=== PATIENT | female | born 1940 | race American Indian/Alaskan Native ===

== ENCOUNTER 2017-05-24 15:10 | Inpatient (IN) | payer MEDICARE, BC ==
[2017-05-24 15:10] VITALS: BMI 31.1
[2017-05-24] MEDS ORDERED: Albuterol-Ipratrop 3 mg / 0.5 (3 ml) UD INH STA (15:39)
[2017-05-24 16:04] LABS: BASO % 0.3 % (0.0-2.0); EOS % 0.2 % (0.0-4.0); HEMATOCRIT 40.4 % (34.0-47.0); LYMPH # 0.5 K/uL (1.0-4.3); LYMPH % 10.7 % (20.0-40.0); MEAN CORPUSCULAR HEMOGLOBIN 33.8 pg (27.0-31.0); MEAN CORPUSCULAR HGB CONC 32.1 g/dL (33.0-37.0); MEAN PLATELET VOLUME 9.9 fL (7.2-11.7); MONO # 0.1 K/uL (0.0-0.8); MONO % 2.8 % (0.0-10.0); WHITE BLOOD COUNT 4.7 K/uL (4.8-10.8)
[2017-05-24 16:10] LABS: MEAN CELL VOLUME 105.2 fL (81.0-99.0)
[2017-05-24] MEDS ORDERED: Albuterol-Ipratrop 3 mg / 0.5 (3 ml) UD ONE (16:23)
--- NOTE | 2017-05-24 16:32 | RAD ---
HISTORY: SOB COMPARISON: CT chest without contrast performed 01/27/15 TECHNIQUE: Chest, one view. FINDINGS: Examination limited by habitus and positioning. The patient's chin obscures evaluation of the lung apices. LUNGS: Moderate right and small left lower lobe opacities may represent pleural effusions and/or consolidations. Prominent interstitial markings. Biapical pleural thickening. No definite pneumothorax. CARDIOVASCULAR: Cardiomegaly. Dense atherosclerotic calcifications. OSSEOUS STRUCTURES: Severe kyphosis. VISUALIZED UPPER ABDOMEN: Unremarkable. OTHER FINDINGS: None. IMPRESSION: Moderate right and small left lower lobe opacities may represent pleural effusions and/or consolidations. Cardiomegaly. Dense atherosclerotic calcifications. Severe kyphosis. Prominent interstitial markings. Biapical pleural thickening.
[2017-05-24 16:45] LABS: TROPONIN I 0.035 ng/mL (0.00-0.120)
[2017-05-24 16:46] LABS: ALB/GLOB RATIO 1.6 (1.0-2.1); BILIRUBIN,TOTAL 0.8 mg/dL (0.2-1.3); CALCIUM 9.4 mg/dl (8.6-10.4); POTASSIUM 4.6 mmol/L (3.6-5.2)
[2017-05-24] MEDS ORDERED: cefTRIAXone IV 1 gm in Dextros 50 ML IV ONE (17:04)
[2017-05-24] MEDS ORDERED: Azithromycin 500 MG in Sodium Chloride 0.9% 250 ML IV STA (17:04)
--- NOTE | 2017-05-24 17:05 | C.PDOC ---
History Of Present Illness 76 year old female, whose PMHx includes COPD, presents to the ED for evaluation of shortness of breath which began yesterday. Patient denies fever, chills, cough and chest pain at this time. Time Seen by Provider: 05/24/17 15:33 Chief Complaint (Nursing): Shortness Of Breath History Per: Patient History/Exam Limitations: no limitations Onset/Duration Of Symptoms: Hrs Current Symptoms Are (Timing): Still Present Quality: denies: "Pain" Current Respiratory Medications: See Home Med List Associated Symptoms: denies: Fever, Chills, Chest Pain, Bloody Cough, Productive Cough Additional History Per: Patient Past Medical History Reviewed: Historical Data, Nursing Documentation, Vital Signs Vital Signs: Last Vital Signs Temp 98 F 05/24/17 20:54 Pulse 74 05/24/17 20:54 Resp 20 05/24/17 20:54 BP 150/77 05/24/17 20:54 Pulse Ox 99 05/24/17 22:49 - Medical History PMH: COPD Surgical History: No Surg Hx Family History: States: Unknown Family Hx - Social History Hx Tobacco Use: No Hx Alcohol Use: No Hx Substance Use: No - Immunization History Hx Tetanus Toxoid Vaccination: Yes Hx Influenza Vaccination: Yes Hx Pneumococcal Vaccination: No Review Of Systems Constitutional: Negative for: Fever, Chills Cardiovascular: Negative for: Chest Pain Respiratory: Positive for: Shortness of Breath. Negative for: Cough Physical Exam - Physical Exam Appears: Non-toxic, No Acute Distress, Other (kyphotic, scoliotic) Skin: Normal Color, Warm, Dry Head: Atraumatic, Normacephalic Eye(s): bilateral: Normal Inspection Oral Mucosa: Moist Neck: Supple Chest: Symmetrical, No Deformity, No Tenderness Cardiovascular: Rhythm Regular, No Murmur Respiratory: Normal Breath Sounds, No Rales, No Rhonchi, No Wheezing, Other ( poor inspiratory effort ) Extremity: Normal ROM, Capillary Refill (less than 2 seconds ) Neurological/Psych: Oriented x3, Normal Speech, Normal Cognition Gait: Steady ED Course And Treatment - Laboratory Results Result Diagrams: 05/24/17 16:00 05/24/17 16:00 Lab Interpretation: Abnormal (CRI, creat @ baseline) ECG: Interpreted By Wa ECG Rhythm: Sinus Rhythm ECG Interpretation: Normal Rate From EC O2 Sat by Pulse Oximetry: 99 (on RA) Pulse Ox Interpretation: Normal - Radiology CXR: Interpreted by Me, Read By Radiologist CXR Interpretation: Yes: Infiltrates (+RLL) Progress Note: Bloodwork, UA, CXR and EKG ordered and reviewed. Albuterol INH, Solu-Medrol IVP, Zithromax PO and Rocephin IVP administered. - Physician Consult Information Outcome Of Conversation: [address] Motley- PMD- ok to Obs. Recommends Rocephin/Azithro Medical Decision Making Medical Decision Making: RLL PNA and copd exacerbation significant kyphoscoliosis contributing factor. CAP Disposition Doctor Will See Patient In The: Hospital Counseled Patient/Family Regarding: Studies Performed, Diagnosis - Disposition Disposition: HOME/ ROUTINE Disposition Time: 17:07 Condition: GOOD - Clinical Impression Clinical Impression: Chr obstructive pulmonary disease w/ acute lower respiratory infxn - Scribe Statement The provider has reviewed the documentation as recorded by the Scribe (Milly Jimenez) Provider Attestation: All medical record entries made by the Scribe were at my direction and personally dictated by me. I have reviewed the chart and agree that the record accurately reflects my personal performance of the history, physical exam, medical decision making, and the department course for this patient. I have also personally directed, reviewed, and agree with the discharge instructions and disposition.
[2017-05-24] MEDS ORDERED: cefTRIAXone IV 1 gm in Dextros 50 ML IVPB ONE (17:16)
[2017-05-24] MEDS ORDERED: Albuterol-Ipratrop 3 mg / 0.5 (3 ml) UD INH SCH (21:45)
[2017-05-24] MEDS: MethylPREDNISolone 40 mg Vial IV SCH (23:02)
[2017-05-24] MEDS: Albuterol-Ipratrop 3 mg / 0.5 (3 ml) UD INH SCH (23:50)
[2017-05-25] MEDS: Albuterol-Ipratrop 3 mg / 0.5 (3 ml) UD INH SCH ×5 (03:10→19:22)
[2017-05-25 06:58] LABS: RBC URINE 1 /hpf (0-3); URINE BACTERIA RARE (<OCC); URINE BILIRUBIN NEGATIVE (NEGATIVE); URINE BLOOD NEGATIVE (NEGATIVE); URINE COLOR Yellow (YELLOW); URINE GLUCOSE (UA) 3+ mg/dL (Normal); URINE KETONE NEGATIVE (NEGATIVE); URINE LEUKOCYTE ESTERASE 1+ Leu/uL (Negative); URINE PROTEIN 2+ mg/dL (NEGATIVE); URINE UROBILINOGEN NORMAL mg/dL (0.2-1.0); WBC URINE 8 /hpf (0-5)
[2017-05-25] MEDS ORDERED: guaiFENesin 100 mg/5 ml Syrup UD PO PRN (07:09)
[2017-05-25] MEDS: Tmp-Smz 800 mg-160 mg DS Tab PO SCH (09:58)
[2017-05-25] MEDS: Vitamin B Complex/Vitamin C Tab PO SCH (09:58)
[2017-05-25] MEDS: MethylPREDNISolone 40 mg Vial IV SCH ×2 (09:59→22:11)
[2017-05-25] MEDS: cefTRIAXone IV 1 gm in Dextros 50 ML IVPB SCH (10:07)
--- NOTE | 2017-05-25 10:16 | CARD ---
APPROVED REPORT EKG Measurement Heart [id number] <Conclusion> Sinus rhythm with premature atrial complexes Minimal voltage criteria for LVH, may be normal variant Borderline ECG
--- NOTE | 2017-05-25 10:17 | CP.PCM.PN ---
Subjective - Date & Time of Evaluation Date of Evaluation: 05/25/17 Time of Evaluation: 10:15 - Subjective Subjective: Medicine Progress Note- Dr Calvo's service Patient seen and examined. Patient came to the ED yesterday after she was feeling very short of breath. Patient states that she was unable to cross the street without stopping to catch her breath. The patient states that she feels better today but is still experiencing shortness of breath. The patient denies fever, chills, sick contacts, chest pain, palpitations, and cough. Objective - Vital Signs/Intake and Output Vital Signs (last 24 hours): Temp Pulse Resp BP Pulse Ox 97.8 F 80 21 157/83 H 98 05/25/17 08:36 05/25/17 08:36 05/25/17 08:36 05/25/17 08:36 05/25/17 08:36 Intake and Output: 05/25/17 05/25/17 06:59 18:59 Intake Total 240 Balance 240 - Medications Medications: Current Medications Albuterol/Ipratropium (Duoneb 3 Mg/0.5 Mg (3 Ml) Ud) 3 ml INH RQ4 [facility] Last Admin: 05/25/17 07:38 Dose: 3 ml Amlodipine Besylate (Norvasc) 10 mg PO DAILY [facility] Last Admin: 05/25/17 10:05 Dose: 10 mg Carvedilol (Coreg) 3.125 mg PO BID [facility] Last Admin: 05/25/17 09:58 Dose: 3.125 mg Cinacalcet (Sensipar) 90 mg PO DAILY [facility] Last Admin: 05/25/17 10:05 Dose: 90 mg Docusate Sodium (Colace) 100 mg PO TID [facility] Last Admin: 05/25/17 09:59 Dose: 100 mg Famotidine (Pepcid) 20 mg PO DAILY [facility] Last Admin: 05/25/17 09:58 Dose: 20 mg Guaifenesin (Robitussin) 100 mg PO Q4H PRN PRN Reason: Cough Heparin Sodium (Porcine) (Heparin) 5,000 units SC Q8 [facility] Last Admin: 05/25/17 05:13 Dose: 5,000 units Ceftriaxone Sodium (Rocephin Iv 1 Gm Duplex) 50 mls @ 100 mls/hr IVPB DAILY [facility] Last Admin: 05/25/17 10:07 Dose: 100 mls/hr Azithromycin 500 mg/ Sodium (Chloride) 250 mls @ 250 mls/hr IVPB Q24H [facility] Lactulose (Enulose) 20 gm PO DAILY [facility] Last Admin: 05/25/17 09:59 Dose: 20 gm Methylprednisolone (Solu-Medrol) 40 mg IV Q12 [facility] Last Admin: 05/25/17 09:59 Dose: 40 mg Rosuvastatin Calcium (Crestor) 5 mg PO HS [facility] Last Admin: 05/24/17 23:02 Dose: 5 mg Tacrolimus (Prograf) 5 mg PO BID [facility] Last Admin: 05/25/17 10:04 Dose: 5 mg Tacrolimus (Prograf Cap) 2 mg PO Q12 [facility] Last Admin: 05/25/17 09:59 Dose: 2 mg Trimethoprim/Sulfamethoxazole (Bactrim Ds Tab) 1 tab PO DAILY [facility] Last Admin: 05/25/17 09:58 Dose: 1 tab Vitamin B Complex/Vitamin C (Berocca) 1 tab PO DAILY [facility] Last Admin: 05/25/17 09:58 Dose: 1 tab - Labs Labs: 05/24/17 16:00 05/24/17 16:00 - Constitutional Appears: Non-toxic - Head Exam Head Exam: ATRAUMATIC, NORMOCEPHALIC - Eye Exam Eye Exam: EOMI - ENT Exam ENT Exam: Mucous Membranes Moist - Neck Exam Neck Exam: Normal Inspection - Respiratory Exam Respiratory Exam: Decreased Breath Sounds, Rhonchi, Wheezes (mild, right lower lobe ). absent: Clear to Ausculation Bilateral, Respiratory Distress - Cardiovascular Exam Cardiovascular Exam: REGULAR RHYTHM, +S1, +S2. absent: Irregular Rhythm - GI/Abdominal Exam GI & Abdominal Exam: Soft, Normal Bowel Sounds. absent: Firm, Guarding, Rigid, Tenderness - Extremities Exam Extremities Exam: Full ROM, Normal Inspection. absent: Pedal Edema, Tenderness - Neurological Exam Neurological Exam: Alert, Awake, CN II-XII Intact, Oriented x3 - Psychiatric Exam Psychiatric exam: Normal Affect, Normal Mood - Skin Skin Exam: Dry, Intact, Normal Color, Warm Assessment and Plan - Assessment and Plan (Free Text) Assessment: COPD exacerbation Duonebs 3ml INH q6h [facility] CT Chest: No infiltrate. Multi chamber cardiac enlargement. Dilated main pulmonary artery. This may relate to pulmonary arterial hypertension. Extensive renal osteodystrophy with multiple thoracic vertebral compression fractures unchanged from 01/27/2015. Solumedrol 40mg IV q12h Pneumonia Chest X-ray: Moderate right and small left lower lobe opacities may represent pleural effusions and/or consolidations. Prominent interstitial markings. Biapical pleural thickening. Cardiomegaly. Azithromycin 500mg IV q24h Rocephin 1gm IV daily f/u CT chest without contrast f/u procalcitonin, legionella, and mycoplasma CHF exacerbation f/u ECHO BNP elevated Cardiomegaly seen on CXR and CT scan Crestor 5mg PO HS HTN Cont home meds: Norvasc 10mg PO daily Coreg 3.125mg PO BID CKD s/p kidney transplant BUN/Cr at baseline Continue home med: Tacrolimus UTI f/u urine culture & sensitivities Bactrim DS PO BID Hyperparathyroidism Cont home med: Sensipar 90mg PO daily Constipation Last bm yesterday Colace 100mg PO TID Prophylactic measures Pepcid 20mg PO daily Heparin 5000u SC q8h [facility]CD[facility] Management per Dr Calvo
[2017-05-25 11:34] LABS: BASO % 0.1 % (0.0-2.0); HEMATOCRIT 38.2 % (34.0-47.0); LYMPH # 0.2 K/uL (1.0-4.3); LYMPH % 9.6 % (20.0-40.0); MEAN CELL VOLUME 104.7 fL (81.0-99.0); MEAN CORPUSCULAR HEMOGLOBIN 33.6 pg (27.0-31.0); MEAN CORPUSCULAR HGB CONC 32.1 g/dL (33.0-37.0); MEAN PLATELET VOLUME 10.3 fL (7.2-11.7); MONO # 0.1 K/uL (0.0-0.8); MONO % 3.7 % (0.0-10.0); NRBC % 0.1 % (0.0-2.0); PLATELET COUNT 90 K/uL (130-400); RED CELL DISTRIBUTION WIDTH 16.7 % (11.5-14.5); WHITE BLOOD COUNT 2.5 K/uL (4.8-10.8)
[2017-05-25 12:00] LABS: ALB/GLOB RATIO 1.6 (1.0-2.1); BILIRUBIN,TOTAL 0.7 mg/dL (0.2-1.3); CALCIUM 9.3 mg/dl (8.6-10.4); POTASSIUM 4.7 mmol/L (3.6-5.2); TOTAL PROTEIN 6.7 g/dL (6.3-8.3)
[2017-05-25] MEDS: Azithromycin 500 MG in Sodium Chloride 0.9% 250 ML IVPB SCH (12:01)
[2017-05-25 12:15] LABS: NEUTROPHIL 86 % (50-75); TOTAL CELLS COUNTED 100
[2017-05-25 12:18] LABS: GIANT PLATELETS PRESENT
--- NOTE | 2017-05-25 12:37 | CT ---
PROCEDURE: CT Chest without contrast HISTORY: effusion COMPARISON: None. TECHNIQUE: Contiguous axial images were obtained through the chest without intravenous contrast enhancement. Sagittal and coronal reconstructions were performed. Radiation dose (DLP): 485.47 mGy-cm. This CT exam was performed using one or more of the following dose reduction techniques: Automated exposure control, adjustment of the mA and/or kV according to patient size, and/or use of iterative reconstruction technique. FINDINGS: LUNGS: Minimal dependent atelectasis in both lower lobes. No pulmonary infiltrate. No pulmonary mass identified. MEDIASTINUM: Unremarkable thoracic aorta. No aneurysm. Cardiomegaly. Mitral annular calcification. Coronary arterial calcification. No pericardial effusion. Dilated main pulmonary artery to approximately 3.9 cm diameter. Please correlate with any history of pulmonary arterial hypertension. No mediastinal or hilar lymphadenopathy. There is abnormal soft tissue density in the retrocrural region bilaterally without evidence of discrete nodes. Possible retrocrural lymphadenopathy. This is unchanged from examination of 01/27/2015, however. PLEURA: No pleural fluid. No pneumothorax. BONES: Severe renal osteodystrophy. Multiple thoracic vertebral compression fractures most prominently involving T9 and T11 through L1 vertebrae. Kyphotic deformity of the thoracic spine. These thoracic compression fractures are unchanged from prior CT examination. UPPER ABDOMEN: Small bilateral renal cysts. There is a pedunculated right renal cyst 2.4 cm in diameter, not included in prior examination. The kidneys are mildly atrophic. OTHER FINDINGS: There is a markedly distended right upper extremity venous structure likely related to a dialysis fistula. Please correlate. IMPRESSION: No infiltrate. Multi chamber cardiac enlargement. Dilated main pulmonary artery. This may relate to pulmonary arterial hypertension. Dilated right upper extremity venous structure likely related to a dialysis fistula. Please correlate. Extensive renal osteodystrophy with multiple thoracic vertebral compression fractures unchanged from 01/27/2015.
[2017-05-25 14:37] LABS: PROCALCITONIN SERUM 0.12 NG/ML (0.19-0.49)
[2017-05-25 14:45] LABS: LEGIONELLA AG URINE NEGATIVE (NEGATIVE)
[2017-05-26] MEDS: Albuterol-Ipratrop 3 mg / 0.5 (3 ml) UD INH SCH ×7 (00:38→23:33)
[2017-05-26 08:40] LABS: BASO % 0.1 % (0.0-2.0); HEMATOCRIT 38.5 % (34.0-47.0); LYMPH # 0.6 K/uL (1.0-4.3); LYMPH % 13.9 % (20.0-40.0); MEAN CELL VOLUME 104.9 fL (81.0-99.0); MEAN CORPUSCULAR HEMOGLOBIN 33.8 pg (27.0-31.0); MEAN CORPUSCULAR HGB CONC 32.2 g/dL (33.0-37.0); MEAN PLATELET VOLUME 10.5 fL (7.2-11.7); MONO # 0.1 K/uL (0.0-0.8); MONO % 3.2 % (0.0-10.0); NRBC % 0.1 % (0.0-2.0); RED CELL DISTRIBUTION WIDTH 16.4 % (11.5-14.5)
[2017-05-26 09:08] LABS: ALB/GLOB RATIO 1.1 (1.0-2.1); BILIRUBIN,TOTAL 0.4 mg/dL (0.2-1.3); CALCIUM 8.8 mg/dl (8.6-10.4); POTASSIUM 4.9 mmol/L (3.6-5.2); TOTAL PROTEIN 7.6 g/dL (6.3-8.3)
[2017-05-26] MEDS: Tmp-Smz 800 mg-160 mg DS Tab PO SCH (10:40)
[2017-05-26] MEDS: Vitamin B Complex/Vitamin C Tab PO SCH (10:40)
[2017-05-26] MEDS: MethylPREDNISolone 40 mg Vial IV SCH ×2 (10:41→21:40)
[2017-05-26] MEDS: cefTRIAXone IV 1 gm in Dextros 50 ML IVPB SCH (10:42)
[2017-05-26] MEDS: Azithromycin 500 MG in Sodium Chloride 0.9% 250 ML IVPB SCH (12:06)
--- NOTE | 2017-05-26 14:45 | CARD ---
APPROVED REPORT EXAM: Two-dimensional and M-mode echocardiogram with Doppler and color Doppler. Other Information Quality : GoodRhythm : INDICATION Congestive Heart Failure COPD 2D DIMENSIONS IVSd1.3 (0.7-1.1cm)LVDd5.4 (3.9-5.9cm) PWd1.2 (0.7-1.1cm)LVDs4.1 (2.5-4.0cm) FS (%) 23.3 %LVEF (%)45.0 (>50%) M-Mode DIMENSIONS Left Atrium (MM)5.59 (2.5-4.0cm)Aortic Root3.34 (2.2-3.7cm) Aortic Cusp Exc.2.03 (1.5-2.0cm) Mitral Valve MV E Eftufrdn35.6cm/sMV A Vfbtxprb98.2cm/sE/A ratio1.3 TDI E/Lateral E'0.0E/Medial E'0.0 Tricuspid Valve TR Peak Yfgdjwxk375hs/sTR Peak Gr.[id number] LEFT VENTRICLE The Left Ventricle is borderline dilated. There is normal left ventricular wall thickness. The left ventricular function is normal. The left ventricular ejection fraction is within the normal range. BORDERLINE HYPOKINESIS OF THE APICAL ANTEROSPETAL WALL SEGMENT. THERE IS MILD THINING OF THE APICAL ANTEROSEPTAL WALL (POSSIBLY INDICATING PRIOR SUBENDOCARDIAL INFARCT). Transmitral Doppler flow pattern is Grade I-abnormal relaxation pattern. No left ventricle thrombus noted on this study. There is no ventricular septal defect visualized. RIGHT VENTRICLE The right ventricle is normal size. There is normal right ventricular wall thickness. The right ventricular systolic function is normal. ATRIA The left atrium is severely dilated. The right atrium size is normal. The interatrial septum is intact with no evidence for an atrial septal defect. AORTIC VALVE The aortic valve is mildly thickened but opens well. No aortic regurgitation is present. There is no aortic valvular stenosis. There is no aortic valvular vegetation. MITRAL VALVE Mitral annular calcification is mild. There is no evidence of mitral valve prolapse. There is no mitral valve stenosis. Mitral regurgitation is trace to mild. TRICUSPID VALVE The tricuspid valve is normal in structure. There is mild tricuspid regurgitation. There is mild pulmonary hypertension. There is no tricuspid valve prolapse or vegetation. There is no tricuspid valve stenosis. PULMONIC VALVE The pulmonary valve is normal in structure. There is mild pulmonic valvular regurgitation. There is no pulmonic valvular stenosis. GREAT VESSELS The aortic root is normal in size. The ascending aorta is normal in size. The IVC is normal in size and collapses >50% with inspiration. PERICARDIAL EFFUSION There is no pericardial effusion. There is no pleural effusion. <Conclusion> The Left Ventricle is borderline dilated. The left ventricular ejection fraction is within the normal range. BORDERLINE HYPOKINESIS OF THE APICAL ANTEROSPETAL WALL SEGMENT. THERE IS MILD THINING OF THE APICAL ANTEROSEPTAL WALL (POSSIBLY INDICATING PRIOR SUBENDOCARDIAL INFARCT). Transmitral Doppler flow pattern is Grade I-abnormal relaxation pattern. The left atrium is severely dilated. Mitral annular calcification is mild. Mitral regurgitation is trace to mild. There is mild tricuspid regurgitation. There is mild pulmonary hypertension. There is mild pulmonic valvular regurgitation.
[2017-05-27] MEDS: Albuterol-Ipratrop 3 mg / 0.5 (3 ml) UD INH SCH ×5 (03:10→19:58)
[2017-05-27 08:02] LABS: BASO % 0.1 % (0.0-2.0); HEMATOCRIT 38.2 % (34.0-47.0); LYMPH # 0.8 K/uL (1.0-4.3); LYMPH % 14.1 % (20.0-40.0); MEAN CELL VOLUME 103.4 fL (81.0-99.0); MEAN CORPUSCULAR HEMOGLOBIN 33.5 pg (27.0-31.0); MEAN CORPUSCULAR HGB CONC 32.4 g/dL (33.0-37.0); MEAN PLATELET VOLUME 10.4 fL (7.2-11.7); MONO # 0.1 K/uL (0.0-0.8); MONO % 2.2 % (0.0-10.0); NRBC % 0.1 % (0.0-2.0); RED CELL DISTRIBUTION WIDTH 16.1 % (11.5-14.5); WHITE BLOOD COUNT 5.9 K/uL (4.8-10.8)
[2017-05-27 08:25] LABS: ALB/GLOB RATIO 1.6 (1.0-2.1); BILIRUBIN,TOTAL 0.8 mg/dL (0.2-1.3); CALCIUM 8.7 mg/dl (8.6-10.4); POTASSIUM 4.8 mmol/L (3.6-5.2); TOTAL PROTEIN 6.2 g/dL (6.3-8.3)
[2017-05-27] MEDS: Tmp-Smz 800 mg-160 mg DS Tab PO SCH (09:01)
[2017-05-27] MEDS: Vitamin B Complex/Vitamin C Tab PO SCH (09:03)
[2017-05-27] MEDS: cefTRIAXone IV 1 gm in Dextros 50 ML IVPB SCH (09:05)
[2017-05-27] MEDS: MethylPREDNISolone 40 mg Vial IV SCH ×2 (09:05→21:18)
[2017-05-27] MEDS ORDERED: Influenza Vaccine 60 mcg/0.5 mL SYR (4YR UP) IM ONE (10:00)
[2017-05-27] MEDS: Azithromycin 500 MG in Sodium Chloride 0.9% 250 ML IVPB SCH (11:09)
[2017-05-27 16:27] VITALS: O2SAT 98
[2017-05-28] MEDS: Albuterol-Ipratrop 3 mg / 0.5 (3 ml) UD INH SCH ×4 (01:20→16:32)
[2017-05-28 07:24] LABS: HEMATOCRIT 38.9 % (34.0-47.0); LYMPH # 0.8 K/uL (1.0-4.3); LYMPH % 20.4 % (20.0-40.0); MEAN CELL VOLUME 104.5 fL (81.0-99.0); MEAN CORPUSCULAR HGB CONC 32.5 g/dL (33.0-37.0); MEAN PLATELET VOLUME 10.9 fL (7.2-11.7); MONO # 0.1 K/uL (0.0-0.8); MONO % 3.2 % (0.0-10.0); NRBC % 0.1 % (0.0-2.0); RED CELL DISTRIBUTION WIDTH 15.9 % (11.5-14.5); WHITE BLOOD COUNT 3.9 K/uL (4.8-10.8)
[2017-05-28 07:45] LABS: ALB/GLOB RATIO 1.5 (1.0-2.1); BILIRUBIN,TOTAL 0.7 mg/dL (0.2-1.3); CALCIUM 9.6 mg/dl (8.6-10.4); POTASSIUM 4.9 mmol/L (3.6-5.2); TOTAL PROTEIN 6.1 g/dL (6.3-8.3)
--- NOTE | 2017-05-28 08:28 | CP.PCM.PN ---
Subjective - Date & Time of Evaluation Date of Evaluation: 05/28/17 Time of Evaluation: 10:00 - Subjective Subjective: Dr. Calvo note: Patient seen and examined in room. She says her breathing is better since admission but still feels some chest congestion. She denies any fever, chills, nausea, vomiting. Objective - Vital Signs/Intake and Output Vital Signs (last 24 hours): Temp Pulse Resp BP Pulse Ox 98.4 F 83 18 158/88 H 98 05/27/17 23:59 05/27/17 23:59 05/27/17 23:59 05/27/17 23:59 05/27/17 23:59 Intake and Output: 05/28/17 05/28/17 06:59 18:59 Intake Total 320 Output Total 300 Balance 20 - Medications Medications: Current Medications Albuterol/Ipratropium (Duoneb 3 Mg/0.5 Mg (3 Ml) Ud) 3 ml INH RQ4 [facility] Last Admin: 05/28/17 08:04 Dose: 3 ml Amlodipine Besylate (Norvasc) 10 mg PO DAILY [facility] Last Admin: 05/27/17 09:02 Dose: 10 mg Carvedilol (Coreg) 3.125 mg PO BID [facility] Last Admin: 05/27/17 18:04 Dose: 3.125 mg Cinacalcet (Sensipar) 90 mg PO DAILY [facility] Last Admin: 05/27/17 09:02 Dose: 90 mg Docusate Sodium (Colace) 100 mg PO TID [facility] Last Admin: 05/27/17 18:05 Dose: Not Given Famotidine (Pepcid) 20 mg PO DAILY [facility] Last Admin: 05/27/17 09:03 Dose: 20 mg Guaifenesin (Robitussin) 100 mg PO Q4H PRN PRN Reason: Cough Ceftriaxone Sodium (Rocephin Iv 1 Gm Duplex) 50 mls @ 100 mls/hr IVPB DAILY [facility] Last Admin: 05/27/17 09:05 Dose: 100 mls/hr Azithromycin 500 mg/ Sodium (Chloride) 250 mls @ 250 mls/hr IVPB Q24H [facility] Last Admin: 05/27/17 11:09 Dose: 250 mls/hr Lactulose (Enulose) 20 gm PO DAILY [facility] Last Admin: 05/27/17 09:03 Dose: Not Given Methylprednisolone (Solu-Medrol) 40 mg IV Q12 [facility] Last Admin: 05/27/17 21:18 Dose: 40 mg Rosuvastatin Calcium (Crestor) 5 mg PO HS [facility] Last Admin: 05/27/17 21:18 Dose: 5 mg Tacrolimus (Prograf Cap) 2 mg PO Q12 [facility] Last Admin: 05/27/17 09:01 Dose: 2 mg Tacrolimus (Prograf) 5 mg PO Q12 [facility] Last Admin: 05/27/17 21:26 Dose: 5 mg Trimethoprim/Sulfamethoxazole (Bactrim Ds Tab) 1 tab PO DAILY [facility] Last Admin: 05/27/17 09:01 Dose: 1 tab Vitamin B Complex/Vitamin C (Berocca) 1 tab PO DAILY [facility] Last Admin: 05/27/17 09:03 Dose: 1 tab - Labs Labs: 05/28/17 06:59 05/28/17 06:59 - Constitutional Appears: Non-toxic, No Acute Distress - Eye Exam Eye Exam: Normal appearance - Respiratory Exam Respiratory Exam: Clear to Ausculation Bilateral. absent: Rhonchi, Wheezes - Cardiovascular Exam Cardiovascular Exam: REGULAR RHYTHM, RRR. absent: Gallop, Rubs - GI/Abdominal Exam GI & Abdominal Exam: Soft, Normal Bowel Sounds. absent: Tenderness - Extremities Exam Extremities Exam: Normal Inspection - Back Exam Back Exam: NORMAL INSPECTION - Psychiatric Exam Psychiatric exam: Normal Affect, Normal Mood - Skin Skin Exam: Normal Color Assessment and Plan - Assessment and Plan (Free Text) Assessment: COPD exacerbation 04/27: Patient is discharged home to [facility] per Dr. Calvo. She will continue her Duoneb, also get a medrol dose pack and Z-pack as well. Duonebs 3ml INH q6h [facility] CT Chest: No infiltrate. Multi chamber cardiac enlargement. Dilated main pulmonary artery. This may relate to pulmonary arterial hypertension. Extensive renal osteodystrophy with multiple thoracic vertebral compression fractures unchanged from 01/27/2015. Solumedrol 40mg IV q12h Pneumonia 04/27: Discharged with Z-pack to [facility] Chest X-ray: Moderate right and small left lower lobe opacities may represent pleural effusions and/or consolidations. Prominent interstitial markings. Biapical pleural thickening. Cardiomegaly. Azithromycin 500mg IV q24h Rocephin 1gm IV daily f/u CT chest without contrast f/u procalcitonin, legionella, and mycoplasma CHF exacerbation 04/27: mild systolic dysfunction with a EF of 45%. see EMR for full report. f/u ECHO BNP elevated Cardiomegaly seen on CXR and CT scan Crestor 5mg PO HS HTN 04/27: controlled. Cont home meds: Norvasc 10mg PO daily Coreg 3.125mg PO BID CKD s/p kidney transplant BUN/Cr at baseline Continue home med: Tacrolimus UTI 04/27: no growth f/u urine culture & sensitivities Bactrim DS PO BID Hyperparathyroidism Cont home med: Sensipar 90mg PO daily Constipation Last bm yesterday Colace 100mg PO TID Prophylactic measures Pepcid 20mg PO daily Heparin 5000u SC q8h [facility] Management per Dr Calvo
[2017-05-28 08:29] VITALS: RESP 20
--- NOTE | 2017-05-28 09:09 | HP ---
HISTORY OF PRESENT ILLNESS: The patient is a 76-year-old female with history of lupus, renal insufficiency, status post renal transplant, . The patient is found to have pneumonia and advised admission. PHYSICAL EXAMINATION: GENERAL: The patient is awake, alert, and oriented. VITAL SIGNS: Temperature 98, pulse 90. HEENT: Within normal limits. NECK: Supple. CHEST: Symmetrical. HEART: Regular. ABDOMEN: Soft. EXTREMITIES: No edema. IMPRESSION AND PLAN: The patient suffers from pneumonia. Patient given bed rest, supportive care. Gato Calvo MD
--- NOTE | 2017-05-28 09:11 | PN ---
DATE: 05/26/2017 The patient again showed improvement. done. IV antibiotic to be continued. Gato Calvo MD
[2017-05-28] MEDS: MethylPREDNISolone 40 mg Vial IV SCH (10:51)
[2017-05-28] MEDS: Tmp-Smz 800 mg-160 mg DS Tab PO SCH (10:51)
[2017-05-28] MEDS: Vitamin B Complex/Vitamin C Tab PO SCH (10:51)
[2017-05-28] MEDS: cefTRIAXone IV 1 gm in Dextros 50 ML IVPB SCH (10:54)
[2017-05-28] MEDS: Azithromycin 500 MG in Sodium Chloride 0.9% 250 ML IVPB SCH (11:33)
[2017-05-28 16:59] VITALS: BP 150/79; PULSE 70; TEMP 98.1
== END 2017-05-28 17:45 | DRG 193 ==
LOC: C.ER 15:10 → C.9E 17:07 → C.3T 18:53
PROVIDERS: ADMIT Internal Medicine Pulmonary Disease; ATTEND Internal Medicine Pulmonary Disease
DX: J18.9 Pneumonia, unspecified organism (principal); I50.23 Acute on chronic systolic (congestive) heart failure; J44.0 Chronic obstructive pulmonary disease with (acute) lower respiratory infection; Z94.0 Kidney transplant status; J44.1 Chronic obstructive pulmonary disease with (acute) exacerbation; I13.0 Hypertensive heart and chronic kidney disease with heart failure and stage 1 through stage 4 chronic kidney disease, or unspecified chronic kidney disease; N39.0 Urinary tract infection, site not specified; I27.21 Secondary pulmonary arterial hypertension; E21.3 Hyperparathyroidism, unspecified; K59.00 Constipation, unspecified; M41.9 Scoliosis, unspecified; N18.9 Chronic kidney disease, unspecified; N25.0 Renal osteodystrophy; M48.54XS Collapsed vertebra, not elsewhere classified, thoracic region, sequela of fracture

== ENCOUNTER 2018-06-04 17:15 | Inpatient (IN) | payer MEDICARE, BC ==
[2018-06-04 17:16] VITALS: BMI 31.1
[2018-06-04] MEDS ORDERED: Sodium Chloride 0.9% 1,000 ML IV ONE (19:11)
--- NOTE | 2018-06-04 19:12 | C.PDOC ---
History Of Present Illness 77 year old female presents to the ER with a complaint of feeling SOB. Patient was noted to be SOB while in her PMD's office today. Denies fever, chills, or chest pain. Chief Complaint (Nursing): Shortness Of Breath History Per: Patient History/Exam Limitations: no limitations Onset/Duration Of Symptoms: Days Current Symptoms Are (Timing): Still Present Initiating Event: Other (Not known) Current Respiratory Medications: See Home Med List Associated Symptoms: denies: Fever, Chills, Chest Pain Recent travel outside of the [place]: No Past Medical History Reviewed: Historical Data, Nursing Documentation, Vital Signs Vital Signs: Last Vital Signs Temp 98.7 F 06/04/18 17:37 Pulse 98 H 06/04/18 17:37 Resp 28 H 06/04/18 18:41 BP 162/78 H 06/04/18 17:37 Pulse Ox 97 06/04/18 17:37 - Medical History PMH: Arthritis (BACK, THOR KYPHOSIS), CHF, COPD Family History: States: Unknown Family Hx - Social History Hx Tobacco Use: No Hx Alcohol Use: No Hx Substance Use: No - Immunization History Hx Tetanus Toxoid Vaccination: Yes Hx Influenza Vaccination: Yes Hx Pneumococcal Vaccination: No Review Of Systems Constitutional: Negative for: Fever, Chills Cardiovascular: Negative for: Chest Pain, Palpitations Respiratory: Positive for: Shortness of Breath. Negative for: Cough Gastrointestinal: Negative for: Nausea, Vomiting, Abdominal Pain Genitourinary: Negative for: Dysuria, Hematuria Neurological: Negative for: Weakness, Numbness Physical Exam - Physical Exam Appears: Non-toxic, Other (Tachypneic) Skin: Normal Color, Warm, Dry Head: Atraumatic, Normacephalic Eye(s): bilateral: Normal Inspection Nose: Normal Oral Mucosa: Moist Neck: Normal, Supple Chest: Symmetrical, No Tenderness Cardiovascular: Rhythm Regular Respiratory: Rales (Bilateral basilar), Rhonchi (Bilateral), No Wheezing Gastrointestinal/Abdominal: Soft, No Tenderness Back: No CVA Tenderness Extremity: No Pedal Edema Neurological/Psych: Oriented x3, Normal Speech ED Course And Treatment - Laboratory Results Result Diagrams: 06/04/18 19:22 06/04/18 19:22 Interpretation Of Abnormal: ABG (RA)-low pO2 ECG: Interpreted By Me, Viewed By Me ECG Rhythm: Sinus Rhythm ECG Interpretation: Normal, No Acute Changes Interpretation Of ECG: NSR with VPC's Rate From EC O2 Sat by Pulse Oximetry: 97 (Room air) Pulse Ox Interpretation: Normal Progress Note: Blood work, EKG, CXR, and flu swab ordered. IV fluids administere d. Disposition Discussed With DrHarika: Gato Calvo Doctor Will See Patient In The: Hospital Counseled Patient/Family Regarding: Diagnosis - Disposition Disposition: HOSPITALIZED Disposition Time: 22:53 Condition: STABLE Forms: [employer] (Portuguese) - POA Present On Arrival: None - Clinical Impression Clinical Impression: Pneumonia, Pulmonary mass - Scribe Statement The provider has reviewed the documentation as recorded by the Scribe Shay Willis All medical record entries made by the Scribe were at my direction and personally dictated by me. I have reviewed the chart and agree that the record accurately reflects my personal performance of the history, physical exam, medical decision making, and the department course for this patient. I have also personally directed, reviewed, and agree with the discharge instructions and disposition.
[2018-06-04 19:26] LABS: BASO % 0.1 % (0.0-2.0); LYMPH # 0.3 K/uL (1.0-4.3); LYMPH % 7.4 % (20.0-40.0); MEAN CORPUSCULAR HEMOGLOBIN 32.2 pg (27.0-31.0); MEAN PLATELET VOLUME 10.1 fL (7.2-11.7); MONO # 0.1 K/uL (0.0-0.8); MONO % 2.5 % (0.0-10.0); NEUT # 4.2 K/uL (1.8-7.0); NRBC % 0.1 % (0.0-2.0); PLATELET COUNT 98 K/uL (130-400); RBC 3.11 Mil/uL (3.80-5.20); WHITE BLOOD COUNT 4.7 K/uL (4.8-10.8)
[2018-06-04 19:31] LABS: MEAN CELL VOLUME 97.5 fL (81.0-99.0)
[2018-06-04 19:39] LABS: ABG ALLEN TEST POS; ARTERIAL BLOOD GAS O2 SAT 96.9 % (95-98); ARTERIAL BLOOD GAS PCO2 34 mm/Hg (35-45); ARTERIAL BLOOD GAS PH 7.39 (7.35-7.45); ARTERIAL BLOOD GAS PO2 71 mm/Hg (80-100); ARTERIAL BLOOD GAS TCO2 21.6 mmol/L (22-28)
[2018-06-04 19:42] LABS: ALB/GLOB RATIO 1.6 (1.0-2.1); ALBUMIN 4.4 g/dL (3.5-5.0)
[2018-06-04] MEDS ORDERED: Albuterol-Ipratrop 3 mg / 0.5 (3 ml) UD INH STA (19:45)
[2018-06-04 19:53] LABS: TROPONIN I 0.043 ng/mL (0.00-0.120)
[2018-06-04] MEDS ORDERED: Sodium Chloride 0.9% 1,000 ML ONE (20:00)
[2018-06-04 20:07] LABS: BANDS 1 % (0-2); LYMPHOCYTE 9 % (20-40); MONOCYTE 4 % (0-10); NEUTROPHIL 86 % (50-75); TOTAL CELLS COUNTED 100
[2018-06-04 20:08] LABS: PLATELET ESTIMATE DECREASED (NORMAL)
[2018-06-04 20:10] LABS: ANISOCYTOSIS SLIGHT; HYPOCHROMIC SLIGHT; MICROCYTOSIS SLIGHT; POIKILOCYTOSIS SLIGHT
[2018-06-04 20:11] LABS: OVALOCYTES SLIGHT
[2018-06-04] MEDS ORDERED: cefTRIAXone IV 1 gm in Dextros 50 ML IVPB ONE (20:20)
[2018-06-04] MEDS ORDERED: Azithromycin 500 MG in Sodium Chloride 0.9% 250 ML IVPB STA (20:21)
[2018-06-04] MEDS ORDERED: Albuterol-Ipratrop 3 mg / 0.5 (3 ml) UD ONE (20:26)
[2018-06-04] MEDS ORDERED: cefTRIAXone 1 gm 1 GM/100 ML BAG IVPB ONE (20:35)
[2018-06-04] MEDS ORDERED: Azithromycin 500mg/250ML NS 500 MG/250 ML BAG IVPB ONE (21:37)
[2018-06-05] MEDS: Albuterol-Ipratrop 3 mg / 0.5 (3 ml) UD INH SCH ×4 (01:03→23:44)
[2018-06-05] MEDS ORDERED: Albuterol-Ipratrop 3 mg / 0.5 (3 ml) UD ONE ×2 (01:07→09:07)
[2018-06-05 05:21] LABS: BASO % 0.3 % (0.0-2.0); HEMOGLOBIN 9.1 g/dL (11.0-16.0); LYMPH % 19.2 % (20.0-40.0); MEAN CELL VOLUME 97.3 fL (81.0-99.0); MEAN CORPUSCULAR HEMOGLOBIN 31.7 pg (27.0-31.0); MEAN CORPUSCULAR HGB CONC 32.6 g/dL (33.0-37.0); MEAN PLATELET VOLUME 9.5 fL (7.2-11.7); MONO # 0.4 K/uL (0.0-0.8); MONO % 7.1 % (0.0-10.0); NEUT # 3.9 K/uL (1.8-7.0); NEUT % 73.4 % (50.0-75.0); NRBC % 0.1 % (0.0-2.0); RBC 2.86 Mil/uL (3.80-5.20); WHITE BLOOD COUNT 5.4 K/uL (4.8-10.8)
[2018-06-05 05:41] LABS: ALB/GLOB RATIO 1.5 (1.0-2.1); ALBUMIN 4.1 g/dL (3.5-5.0); CALCIUM 9.6 mg/dl (8.6-10.4)
--- NOTE | 2018-06-05 08:35 | RAD ---
Date of service: 06/04/2018 HISTORY: SOB COMPARISON: Frontal chest radiograph 05/24/[address] without contrast 05/25/2017. TECHNIQUE: Chest PA and lateral FINDINGS: LUNGS: Patient rotated toward the right limiting evaluation of the mediastinum. Borderline patchy density right base versus artifact. Remaining lung guidry are clear. PLEURA: No significant pleural effusion identified. No pneumothorax apparent. CARDIOVASCULAR: Calcific atherosclerotic changes are seen related to the thoracic aorta. Cardiomegaly reiterated ectasis and prominence of the superior vena cava is identified in the right paratracheal space accentuated by rotation to the right on correlating this finding with prior chest CT 05/25/2017. OSSEOUS STRUCTURES: No significant abnormalities. VISUALIZED UPPER ABDOMEN: Normal. OTHER FINDINGS: None. IMPRESSION: Artifact favored over airspace disease right base. No air bronchograms are associated with this area of increased density. Remaining lung guidry are clear. No pleural effusion or pneumothorax bilaterally. Cardiomegaly reiterated. No definite pulmonary vascular congestion prominence of the superior vena cava could reflect at least an element of heart failure or other etiologies.
[2018-06-05] MEDS ORDERED: Home Med 1 UNIT (Atorvastatin [Lipitor] 10 MG) PO SCH (10:00)
[2018-06-05] MEDS ORDERED: RISEDRONATE SODIUM 35 MG PO SCH (10:00)
[2018-06-05] MEDS ORDERED: Tmp-Smz 400 mg-80 mg SS Tab PO SCH (10:00)
[2018-06-05] MEDS ORDERED: Home Med 1 UNIT (Prednisone [Prednisone] 10 MG) PO SCH (10:00)
[2018-06-05] MEDS: Azithromycin 500 MG in Sodium Chloride 0.9% 250 ML IVPB SCH (10:40)
--- NOTE | 2018-06-05 11:14 | CT ---
Date of service: 06/05/2018 PROCEDURE: CT Chest without contrast HISTORY: pneumonia COMPARISON: Noncontrast chest CT 05/25/2017. TECHNIQUE: Contiguous axial images were obtained through the chest without intravenous contrast enhancement. Sagittal and coronal reconstructions were performed. Radiation dose: Total exam DLP = 253.92 mGy-cm. This CT exam was performed using one or more of the following dose reduction techniques: Automated exposure control, adjustment of the mA and/or kV according to patient size, and/or use of iterative reconstruction technique. FINDINGS: LUNGS: Trace residual dependent atelectasis right lower lobe. Diminished left lower lobe dependent atelectasis with very mild residual. No definitive pulmonary mass or central airway lesion appreciable once again. MEDIASTINUM: Calcific atherosclerotic changes are seen related to the thoracic aorta. Cardiomegaly reiterated with extensive coronary artery atherosclerosis. Main right pulmonary artery dilated to 4.4 cm (compared to 3.9 cm previously), increased in size in a mole further suggesting pulmonary artery hypertension. Clinically correlate once again. Normal caliber thoracic aorta evident. No gross lymphadenopathy. Lack of contrast limits evaluation the mediastinum. Thoracic inlet remarkable for small right thyroid lobe goiter. PLEURA: No pleural fluid. No pneumothorax. BONES: Marked renal osteodystrophy reiterated as well as kyphotic thoracic spinal deformity the multiple thoracic compression fractures including at least from T9 through L1, none severe. UPPER ABDOMEN: Pedunculated right upper pole renal cyst reiterated. OTHER FINDINGS: None. IMPRESSION: 1. No definite alveolitis bilaterally. Minimal dependent atelectasis, diminished in the interval bilaterally as compared prior chest CT 05/25/2017. 2. Prominent cardiomegaly reiterated as well as increasing main pulmonary artery caliber (4.4 cm) suspicious for pulmonary artery hypertension though this is a clinical diagnosis and further clinical correlation is recommended. Further, ectatic dilated superior vena cava identified potentially a function of right heart failure possible right or failure. Clinically correlate further. 3. Other lesser findings as discussed above.
--- NOTE | 2018-06-05 16:00 | CP.PCM.PN ---
Subjective - Date & Time of Evaluation Date of Evaluation: 06/05/18 Time of Evaluation: 10:00 - Subjective Subjective: Medicine progress note (Dr. Calvo's service) Patient was seen and examined at bedside in the ED, while eating breakfast. Patient states that she is doing okay with very mild shortness of breath. Upon review of system, patient denies any symptoms of subjective fever, chills, nausea, vomiting, chest pain, palpitations and cough. Patient is a 77 year old AA female with past medical history of lupus, lupus nephritis, CKD (HD for 5 years and kidney transplant at [facility] 10/01/2001), HTN who presents to the ED as per her PMD due to noted shortness of breath at clinic visit. Patient states that she has noted increased shortness of breath for 1-2 days but denies any associated symptoms. PMD: Dr. Calvo PMHx: lupus, lupus nephritis, CKD (HD for 5 years and kidney transplant at [facility] 10/01/2001), HTN PSHx: kidney transplant at [facility] 10/01/2001, Hysterectomy and cataracts removal FHX: Unknown Medications: Refer to EMR Allergies: NKDA Social History: Lives with children. Denies current or former hx of tobacco, illicity drugs and ETOH Objective - Vital Signs/Intake and Output Vital Signs (last 24 hours): Temp Pulse Resp BP Pulse Ox 99.2 F 89 20 163/83 H 98 06/05/18 13:26 06/05/18 13:26 06/05/18 13:26 06/05/18 13:26 06/05/18 13:26 - Medications Medications: Current Medications Albuterol/Ipratropium (Duoneb 3 Mg/0.5 Mg (3 Ml) Ud) 3 ml INH RQ4 [facility] Last Admin: 06/05/18 09:18 Dose: 3 ml Amlodipine Besylate (Norvasc) 10 mg PO DAILY [facility] Last Admin: 06/05/18 11:00 Dose: Not Given Cinacalcet (Sensipar) 90 mg PO DAILY [facility] Heparin Sodium (Porcine) (Heparin) 5,000 units SC Q8 [facility] Last Admin: 06/05/18 14:34 Dose: Not Given Azithromycin 500 mg/ Sodium (Chloride) 250 mls @ 250 mls/hr IVPB DAILY [facility]; Protocol Last Admin: 06/05/18 10:40 Dose: 250 mls/hr Ceftriaxone Sodium 1 gm/ (Sodium Chloride) 100 mls @ 100 mls/hr IVPB DAILY [facility]; Protocol Last Admin: 06/05/18 09:40 Dose: 100 mls/hr Montelukast Sodium (Singulair) 10 mg PO DAILY [facility] Last Admin: 06/05/18 11:00 Dose: Not Given Prednisone (Prednisone Tab) 10 mg PO DAILY [facility] Last Admin: 06/05/18 11:00 Dose: Not Given Rosuvastatin Calcium (Crestor) 5 mg PO HS [facility] Tacrolimus (Prograf) 5 mg PO BID [facility] Last Admin: 06/05/18 11:00 Dose: Not Given Tacrolimus (Prograf Cap) 2 mg PO BID [facility] Last Admin: 06/05/18 11:00 Dose: Not Given Trimethoprim/Sulfamethoxazole (Bactrim Ss Tab) 1 tab PO DAILY [facility]; Protocol - Labs Labs: 06/05/18 05:18 06/05/18 05:18 - Constitutional Appears: Well, No Acute Distress - Head Exam Head Exam: ATRAUMATIC, NORMAL INSPECTION - Eye Exam Eye Exam: EOMI, Normal appearance - ENT Exam ENT Exam: Mucous Membranes Moist - Respiratory Exam Respiratory Exam: NORMAL BREATHING PATTERN. absent: Chest Wall Tenderness, Prolonged Expiratory Phase, Rhonchi, Wheezes, Respiratory Distress Additional comments: Diffuse decreased breath sounds - Cardiovascular Exam Cardiovascular Exam: REGULAR RHYTHM, +S1, +S2 - GI/Abdominal Exam GI & Abdominal Exam: Soft, Normal Bowel Sounds. absent: Firm, Guarding, Rigid, Tenderness - Extremities Exam Extremities Exam: Normal Inspection. absent: Calf Tenderness, Pedal Edema - Neurological Exam Neurological Exam: Alert, Awake, Oriented x3 - Psychiatric Exam Psychiatric exam: Normal Affect - Skin Skin Exam: Normal Color Assessment and Plan (1) Shortness of breath Assessment & Plan: Possiby 2/2 to pneumonia or sever kyphosis Chest X-ray: Artifact favored over airspace disease right base. No air bronchograms are associated with this area of increased density. Remaining lung guidry are clear. No pleural effusion or pneumothorax bilaterally. Cardiomegaly reiterated. No definite pulmonary vascular congestion prominence of the superior vena cava could reflect at least an element of heart failure or other etiologies. Chest CT: No definite alveolitis bilaterally. Minimal dependent atelectasis, diminished in the interval bilaterally as compared prior chest CT 05/25/2017. 2. Prominent cardiomegaly reiterated as well as increasing main pulmonary artery caliber (4.4 cm) suspicious for pulmonary artery hypertension though this is a clinical diagnosis and further clinical correlation is recommended. Further, ectatic dilated superior vena cava identified potentially a function of right heart failure possible right or failure. Clinically correlate further. Management: * Duonebs 3ML INH RQ4H * Azithromycin 500mg IV daily * Rocephin 1gm IV daily * Singulair 10mg PO HS * Prednisone 10mg PO daily Status: Acute (2) UTI (urinary tract infection) Assessment & Plan: UA: LE (+1) and WBC (8) Bactrim 1 tab PO daily Status: Acute (3) Hypertension Assessment & Plan: Norvasc 10mg PO daily Vital signs Q4H Status: Acute (4) History of kidney transplant Assessment & Plan: CKD due to HTN and Lupus Nephritis (HD for 5 years and kidney transplant at [facility] 10/01/2001) * Tacrolimus 5mg PO BID * Tacrolimus 2mg PO BID * Sensipar 90mg PO daily Status: Acute (5) Pulmonary hypertension Assessment & Plan: Chest CT: No definite alveolitis bilaterally. Minimal dependent atelectasis, diminished in the interval bilaterally as compared prior chest CT 05/25/2017. 2. Prominent cardiomegaly reiterated as well as increasing main pulmonary artery caliber (4.4 cm) suspicious for pulmonary artery hypertension though this is a clinical diagnosis and further clinical correlation is recommended. Further, ectatic dilated superior vena cava identified potentially a function of right heart failure possible right or failure. Clinically correlate further. Status: Acute (6) History of lupus Assessment & Plan: Prednisone 10mg PO daily Status: Acute (7) Prophylactic measure Assessment & Plan: DVT: Heparin 5,000 units SC Q8H GI: Protonix 40mg PO daily All plans and management discussed with Dr. Calvo Status: Acute
--- NOTE | 2018-06-05 23:38 | CARD ---
APPROVED REPORT Date of service: 06/04/2018 EKG Measurement Heart [id number] <Conclusion> Sinus rhythm with premature supraventricular complexes voltage criteria for LVH Otherwise normal ECG
[2018-06-06] MEDS: Albuterol-Ipratrop 3 mg / 0.5 (3 ml) UD INH SCH ×6 (03:49→23:43)
--- NOTE | 2018-06-06 06:21 | HP ---
HISTORY OF PRESENT ILLNESS: A 77-year-old female with history of renal failure, lupus nephritis, status post transplant, COPD, shortness of breath, weakness, fatigue, came to the ER, found to have possible infiltrate and possible mass in the right lung. Advised admission. PHYSICAL EXAMINATION: GENERAL: The patient is an elderly frail black female short of breath . VITAL SIGNS: Temperature 99, pulse is 90. HEENT: Within normal limits. NECK: Supple. CHEST: Symmetrical. . HEART: Tachycardic. ABDOMEN: Soft. EXTREMITIES: No edema. IMPRESSION: The patient found to have pneumonia with lung mass. PLAN: The patient is on bedrest, supportive care, antibiotics. Gato Calvo MD
--- NOTE | 2018-06-06 09:09 | CP.PCM.PN ---
Subjective - Date & Time of Evaluation Date of Evaluation: 06/06/18 Time of Evaluation: 09:09 - Subjective Subjective: PGY3 note for Dr. Calvo Patient seen and examined at bedside this AM; denies any overnight events or acute complaints; states that breathing is better and that she is much less short of breath now; denies fevers/chills, [place], CP, SOB, abdominal pain, n/v/d,dysuria/freq/urg or lower extremity pain/swelling. Objective - Vital Signs/Intake and Output Vital Signs (last 24 hours): Temp Pulse Resp BP Pulse Ox 98.9 F 85 20 166/89 H 98 06/06/18 08:33 06/06/18 08:33 06/06/18 08:33 06/06/18 08:33 06/06/18 08:33 Intake and Output: 06/06/18 06/06/18 06:59 18:59 Intake Total 120 Balance 120 - Medications Medications: Current Medications Albuterol/Ipratropium (Duoneb 3 Mg/0.5 Mg (3 Ml) Ud) [address] [facility] Last Admin: 06/06/18 08:12 Dose: 3 ml Amlodipine Besylate (Norvasc) 10 mg PO DAILY [facility] Last Admin: 06/05/18 11:00 Dose: Not Given Cinacalcet (Sensipar) [address] [facility] Last Admin: 06/05/18 16:46 Dose: 90 mg Heparin Sodium (Porcine) (Heparin) 5,000 units SC Q8 [facility] Last Admin: 06/06/18 06:15 Dose: Not Given Azithromycin 500 mg/ Sodium (Chloride) 250 mls @ 250 mls/hr IVPB DAILY [facility]; Protocol Last Admin: 06/05/18 10:40 Dose: 250 mls/hr Ceftriaxone Sodium 1 gm/ (Sodium Chloride) 100 mls @ 100 mls/hr IVPB DAILY [facility]; Protocol Last Admin: 06/05/18 09:40 Dose: 100 mls/hr Montelukast Sodium (Singulair) [address] [facility] Last Admin: 06/05/18 11:00 Dose: Not Given Pantoprazole Sodium (Protonix Ec Tab) [address] [facility] Prednisone (Prednisone Tab) [address] [facility] Last Admin: 06/05/18 11:00 Dose: Not Given Rosuvastatin Calcium (Crestor) [address] [facility] Last Admin: 06/05/18 21:57 Dose: 5 mg Tacrolimus (Prograf) [address] [facility] Last Admin: 06/05/18 21:57 Dose: 5 mg Tacrolimus (Prograf Cap) [address] [facility] Last Admin: 06/05/18 21:58 Dose: 2 mg Trimethoprim/Sulfamethoxazole (Bactrim Ss Tab) [address] [facility]; Protocol - Labs Labs: 06/05/18 05:18 06/05/18 05:18 - Constitutional Appears: Well, Non-toxic, Chronically Ill - Head Exam Head Exam: ATRAUMATIC - Eye Exam Eye Exam: EOMI. absent: Normal appearance, Scleral icterus - ENT Exam ENT Exam: Mucous Membranes Moist - Neck Exam Neck Exam: Full ROM. absent: Lymphadenopathy - Respiratory Exam Respiratory Exam: Clear to Ausculation Bilateral, NORMAL BREATHING PATTERN. absent: Rales, Rhonchi, Wheezes - Cardiovascular Exam Cardiovascular Exam: REGULAR RHYTHM, +S1, +S2 - GI/Abdominal Exam GI & Abdominal Exam: Soft, Normal Bowel Sounds. absent: Tenderness - Extremities Exam Extremities Exam: Full ROM. absent: Calf Tenderness - Back Exam Back Exam: absent: CVA tenderness (L), CVA tenderness (R) - Neurological Exam Neurological Exam: Alert, Awake, Oriented x3 - Psychiatric Exam Psychiatric exam: Normal Affect - Skin Skin Exam: Warm Assessment and Plan - Assessment and Plan (Free Text) Assessment: 77yo F admitted for shortness of breath Shortness of breath;improving Possiby 2/2 to pneumonia or severe kyphosis Chest X-ray: Artifact favored over airspace disease right base. No air bronchograms are associated with this area of increased density. Remaining lung guidry are clear. No pleural effusion or pneumothorax bilaterally. Cardiomegaly reiterated. No definite pulmonary vascular congestion prominence of the superior vena cava could reflect at least an element of heart failure or other etiologies. Chest CT: No definite alveolitis bilaterally. Minimal dependent atelectasis, diminished in the interval bilaterally as compared prior chest CT 05/25/2017. 2. Prominent cardiomegaly reiterated as well as increasing main pulmonary artery caliber (4.4 cm) suspicious for pulmonary artery hypertension though this is a clinical diagnosis and further clinical correlation is recommended. Further, ectatic dilated superior vena cava identified potentially a function of right heart failure possible right or failure. Clinically correlate further. Management: * Duonebs 3ML INH RQ4H * Azithromycin 500mg IV daily * Rocephin 1gm IV daily * Singulair 10mg PO HS * Prednisone 10mg PO daily UTI (urinary tract infection) UA: LE (+1) and WBC (8) Bactrim 1 tab PO daily; to end 12 Hypertension;chronic stable Norvasc 10mg PO daily Vital signs Q4H History of kidney transplant CKD due to HTN and Lupus Nephritis (HD for 5 years and kidney transplant at [facility] 10/01/2001) * Tacrolimus 5mg PO BID * Tacrolimus 2mg PO BID * Sensipar 90mg PO daily Patient also has functioning fistula on the upper right extremity in case needs dialysis Pulmonary hypertension;chronic Chest CT: No definite alveolitis bilaterally. Minimal dependent atelectasis, diminished in the interval bilaterally as compared prior chest CT 05/25/2017. 2. Prominent cardiomegaly reiterated as well as increasing main pulmonary artery caliber (4.4 cm) suspicious for pulmonary artery hypertension though this is a clinical diagnosis and further clinical correlation is recommended. Further, ectatic dilated superior vena cava identified potentially a function of right heart failure possible right or failure. Clinically correlate further. History of lupus;chronic Prednisone 10mg PO daily Prophylactic measure DVT: Heparin 5,000 units SC Q8H GI: Protonix 40mg PO daily 2/2 to chronic steroid use All plans and management discussed with Dr. Calvo
[2018-06-06] MEDS: Pantoprazole 40 mg EC Tab PO SCH (09:19)
[2018-06-06] MEDS: Tmp-Smz 400 mg-80 mg SS Tab PO SCH (09:20)
[2018-06-06] MEDS: Azithromycin 500 MG in Sodium Chloride 0.9% 250 ML IVPB SCH (11:23)
[2018-06-06 11:40] LABS: BASO % 0.5 % (0.0-2.0); EOS # 0.1 K/uL (0.0-0.7); EOS % 1.5 % (0.0-4.0); HEMOGLOBIN 9.8 g/dL (11.0-16.0); LYMPH # 2.1 K/uL (1.0-4.3); MEAN CELL VOLUME 98.6 fL (81.0-99.0); MEAN CORPUSCULAR HEMOGLOBIN 31.9 pg (27.0-31.0); MEAN CORPUSCULAR HGB CONC 32.4 g/dL (33.0-37.0); MEAN PLATELET VOLUME 10.3 fL (7.2-11.7); MONO # 0.4 K/uL (0.0-0.8); MONO % 6.3 % (0.0-10.0); NEUT % 59.7 % (50.0-75.0); RBC 3.06 Mil/uL (3.80-5.20); RED CELL DISTRIBUTION WIDTH 15.5 % (11.5-14.5); WHITE BLOOD COUNT 6.7 K/uL (4.8-10.8)
[2018-06-06 12:07] LABS: ALB/GLOB RATIO 1.4 (1.0-2.1); CALCIUM 9.9 mg/dl (8.6-10.4)
[2018-06-07] MEDS: Albuterol-Ipratrop 3 mg / 0.5 (3 ml) UD INH SCH ×3 (03:56→13:27)
[2018-06-07 07:26] VITALS: RESP 20; O2SAT 97
--- NOTE | 2018-06-07 10:08 | CP.PCM.PN ---
Subjective - Date & Time of Evaluation Date of Evaluation: 06/07/18 Time of Evaluation: 08:20 - Subjective Subjective: Medicine progress note (Dr. Calov's service) Patient was seen and examined at bedside, while resting comfortably in bed. As per nursing staff and patient, patient had no acute issues overnight. Patient denies any discomfort and states that she is feeling better. Patient denies any symptoms of chest pain, palpitations, shortness of breath or cough. Objective - Vital Signs/Intake and Output Vital Signs (last 24 hours): Temp Pulse Resp BP Pulse Ox 98.9 F 86 20 169/70 H 97 06/07/18 07:24 06/07/18 07:24 06/07/18 07:24 06/07/18 07:24 06/07/18 07:24 Intake and Output: 06/07/18 06/07/18 06:59 18:59 Intake Total 200 Balance 200 - Medications Medications: Current Medications Albuterol/Ipratropium (Duoneb 3 Mg/0.5 Mg (3 Ml) Ud) 3 ml INH RQ4 PING Last Admin: 06/07/18 09:21 Dose: 3 ml Amlodipine Besylate (Norvasc) 10 mg PO DAILY PING Last Admin: 06/06/18 09:20 Dose: 10 mg Cinacalcet (Sensipar) 90 mg PO DAILY [facility] Last Admin: 06/06/18 09:56 Dose: 90 mg Heparin Sodium (Porcine) (Heparin) 5,000 units SC Q8 PING Last Admin: 06/07/18 06:00 Dose: Not Given Azithromycin 500 mg/ Sodium (Chloride) 250 mls @ 250 mls/hr IVPB DAILY [facility]; Protocol Last Admin: 06/06/18 11:23 Dose: 250 mls/hr Ceftriaxone Sodium 1 gm/ (Sodium Chloride) 100 mls @ 100 mls/hr IVPB DAILY [facility]; Protocol Last Admin: 06/07/18 09:54 Dose: 100 mls/hr Montelukast Sodium (Singulair) 10 mg PO DAILY [facility] Last Admin: 06/06/18 09:19 Dose: 10 mg Pantoprazole Sodium (Protonix Ec Tab) 40 mg PO DAILY PING Last Admin: 06/06/18 09:19 Dose: 40 mg Prednisone (Prednisone Tab) 10 mg PO DAILY PING Last Admin: 06/06/18 09:19 Dose: 10 mg Rosuvastatin Calcium (Crestor) 5 mg PO HS [facility] Last Admin: 06/06/18 21:54 Dose: 5 mg Tacrolimus (Prograf) 5 mg PO BID [facility] Last Admin: 06/06/18 17:13 Dose: 5 mg Tacrolimus (Prograf Cap) 2 mg PO BID [facility] Last Admin: 06/06/18 17:13 Dose: 2 mg - Labs Labs: 06/06/18 11:30 06/06/18 11:30 - Constitutional Appears: Well, No Acute Distress - Head Exam Head Exam: ATRAUMATIC, NORMAL INSPECTION - Eye Exam Eye Exam: EOMI, Normal appearance - ENT Exam ENT Exam: Mucous Membranes Moist - Respiratory Exam Respiratory Exam: NORMAL BREATHING PATTERN. absent: Rhonchi, Wheezes, Respiratory Distress - Cardiovascular Exam Cardiovascular Exam: Irregular Rhythm, +S1, +S2 - GI/Abdominal Exam GI & Abdominal Exam: Soft, Normal Bowel Sounds. absent: Firm, Guarding, Rigid, Tenderness - Extremities Exam Extremities Exam: Normal Inspection. absent: Calf Tenderness, Pedal Edema - Neurological Exam Neurological Exam: Alert, Awake, Oriented x3 - Psychiatric Exam Psychiatric exam: Normal Affect - Skin Skin Exam: Normal Color Assessment and Plan (1) Shortness of breath Assessment & Plan: Possibly 2/2 to pneumonia or sever kyphosis Chest X-ray: Artifact favored over airspace disease right base. No air bronchograms are associated with this area of increased density. Remaining lung guidry are clear. No pleural effusion or pneumothorax bilaterally. Cardiomegaly reiterated. No definite pulmonary vascular congestion prominence of the superior vena cava could reflect at least an element of heart failure or other etiologies. Chest CT: No definite alveolitis bilaterally. Minimal dependent atelectasis, diminished in the interval bilaterally as compared prior chest CT 05/25/2017. 2. Prominent cardiomegaly reiterated as well as increasing main pulmonary artery caliber (4.4 cm) suspicious for pulmonary artery hypertension though this is a clinical diagnosis and further clinical correlation is recommended. Further, ectatic dilated superior vena cava identified potentially a function of right heart failure possible right or failure. Clinically correlate further. Management: * Duonebs 3ML INH RQ4H * Azithromycin 500mg IV daily * Rocephin 1gm IV daily * Singulair 10mg PO HS * Prednisone 10mg PO daily Status: Acute (2) UTI (urinary tract infection) Assessment & Plan: UA: LE (+1) and WBC (8)- UA from 2017 admission Bactrim 1 tab PO daily; discontinued as patient does not currently have a UTI. Status: Acute (3) Hypertension Assessment & Plan: Norvasc 10mg PO daily Vital signs Q4H Status: Acute (4) History of kidney transplant Assessment & Plan: CKD due to HTN and Lupus Nephritis (HD for 5 years and kidney transplant at [facility] 10/01/2001) * Tacrolimus 5mg PO BID * Tacrolimus 2mg PO BID * Sensipar 90mg PO daily Status: Acute (5) Pulmonary hypertension Assessment & Plan: Chest CT: No definite alveolitis bilaterally. Minimal dependent atelectasis, diminished in the interval bilaterally as compared prior chest CT 05/25/2017. 2. Prominent cardiomegaly reiterated as well as increasing main pulmonary artery caliber (4.4 cm) suspicious for pulmonary artery hypertension though this is a clinical diagnosis and further clinical correlation is recommended. Further, ectatic dilated superior vena cava identified potentially a function of right heart failure possible right or failure. Clinically correlate further. Status: Acute (6) History of lupus Assessment & Plan: Prednisone 10mg PO daily Status: Acute (7) Prophylactic measure Assessment & Plan: DVT: Heparin 5,000 units SC Q8H GI: Protonix 40mg PO daily Disposition: Please discharge patient home as per Dr. Calvo Please resume all your home medications Please complete the following medications: - Levofloxacin 750mg PO daily, please take 1 tablet daily for 5 days. Please take with yogurt or probiotics Please follow up with Dr. Calvo in 3-5 days Please continue with hydrate Please take care All plans and management discussed with Dr. Calvo Status: Acute
[2018-06-07] MEDS: Tmp-Smz 400 mg-80 mg SS Tab PO SCH (10:24)
[2018-06-07] MEDS: Pantoprazole 40 mg EC Tab PO SCH (10:25)
[2018-06-07] MEDS: Azithromycin 500 MG in Sodium Chloride 0.9% 250 ML IVPB SCH (11:16)
[2018-06-07 11:30] LABS: BASO # 0.1 K/uL (0.0-0.2); BASO % 0.7 % (0.0-2.0); EOS # 0.1 K/uL (0.0-0.7); EOS % 0.8 % (0.0-4.0); HEMOGLOBIN 10.3 g/dL (11.0-16.0); LYMPH % 38.5 % (20.0-40.0); MEAN CORPUSCULAR HEMOGLOBIN 32.5 pg (27.0-31.0); MEAN CORPUSCULAR HGB CONC 32.8 g/dL (33.0-37.0); MONO # 0.6 K/uL (0.0-0.8); MONO % 7.2 % (0.0-10.0); NEUT % 52.8 % (50.0-75.0); RBC 3.16 Mil/uL (3.80-5.20); RED CELL DISTRIBUTION WIDTH 15.1 % (11.5-14.5); WHITE BLOOD COUNT 7.7 K/uL (4.8-10.8)
[2018-06-07 11:45] LABS: ALB/GLOB RATIO 1.3 (1.0-2.1); ALBUMIN 4.1 g/dL (3.5-5.0); CALCIUM 10.1 mg/dl (8.6-10.4)
[2018-06-07 15:48] VITALS: BP 143/77; PULSE 91; TEMP 98.6
--- NOTE | 2018-06-10 11:46 | CARD ---
APPROVED REPORT Date of service: 06/05/2018 EXAM: Two-dimensional and M-mode echocardiogram with Doppler and color Doppler. Other Information Quality : GoodRhythm : INDICATION Dyspnea Congestive Heart Failure COPD pneumonia, pulmonary mass 2D DIMENSIONS IVSd1.4 (0.7-1.1cm)LVDd5.2 (3.9-5.9cm) PWd1.1 (0.7-1.1cm)LA Wjtalx89 (18-58mL) LVDs4.3 (2.5-4.0cm)FS (%) 17.9 % LVEF (%)50.0 (>50%)LVEF (Sibley's)50.23 % M-Mode DIMENSIONS Left Atrium (MM)2.89 (2.5-4.0cm)IVSd1.16 (0.7-1.1cm) Aortic Root3.63 (2.2-3.7cm)LVDd6.17 (4.0-5.6cm) Aortic Cusp Exc.1.78 (1.5-2.0cm)PWd1.02 (0.7-1.1cm) FS (%) 33 %LVDs4.13 (2.0-3.8cm) LVEF (%)61 (>50%) Mitral Valve MV E Tjhcyyoe93.6cm/sMV A Oehatfzk81.7cm/sE/A ratio0.9 TDI Lateral E' Peak V8.61cm/sMedial E' Peak V5.25cm/sE/Lateral E'8.8 E/Medial E'14.4 Tricuspid Valve TR Peak Wxxmjzvs045xn/sTR Peak Gr.[id number] <Conclusion> Suboptimal amd off axis views Left ventricle: thickness: normal; size: normal; overall ejection fraction: 50%: diastolic filling pressures: normal Mitral valve: annulus: MAC: leaflets: normal: excursion: normal; no significant trans-mitral gradient: No significant incompetence: left atrium: normal Aortic valve: leaflets: calcificc thickening: excursion: normal; no significant trans-aortic gradient:mild incompetence: aortic root: normal Right sided Structures: Pulmonary valve: normal; no significant incompetence; Tricuspid valve: normal; no significant incompetence: Intra-cardiac hemodynamics: pulmonary systolic pressures:38mmHg; central venous pressures: normal No pericardial effusion
[2018-06-11] MEDS ORDERED: RISEDRONATE SODIUM 35 MG PO SCH (10:00)
--- NOTE | 2018-06-13 10:08 | DS ---
HISTORY OF PRESENT ILLNESS: The patient was admitted to the hospital with chief complaint of weakness, fatigue, tiredness, shortness of breath. She came to the ER, was found to have pneumonia, advised admission. History of lupus, status post transplant, renal failure. PHYSICAL EXAMINATION: GENERAL: The patient is awake, alert, oriented. VITAL SIGNS: Temperature 98, pulse 90. HEENT: Within normal limits. NECK: Supple. CHEST: Symmetrical. HEART: Regular. ABDOMEN: Soft. EXTREMITIES: No edema. The patient suffers from pneumonia, systemic lupus, renal insufficiency, status post transplant. Patient bed rest, IV antibiotics. The patient showed gradual improvement, discharged, to be followed up as outpatient. Gato Calvo MD
== END 2018-06-07 16:25 | disposition home or self-care (01) | DRG 190 ==
LOC: C.ER 17:15 → C.9E 22:57 → C.3T 06-05 14:14
PROVIDERS: ADMIT Internal Medicine Pulmonary Disease; ATTEND Internal Medicine Pulmonary Disease
DX: J44.0 Chronic obstructive pulmonary disease with (acute) lower respiratory infection (principal); J18.9 Pneumonia, unspecified organism; I13.0 Hypertensive heart and chronic kidney disease with heart failure and stage 1 through stage 4 chronic kidney disease, or unspecified chronic kidney disease; N39.0 Urinary tract infection, site not specified; Z94.0 Kidney transplant status; M32.14 Glomerular disease in systemic lupus erythematosus; I27.29 Other secondary pulmonary hypertension; R91.8 Other nonspecific abnormal finding of lung field; I50.810 Right heart failure, unspecified; M40.209 Unspecified kyphosis, site unspecified; N18.9 Chronic kidney disease, unspecified; Z79.52 Long term (current) use of systemic steroids; Z90.710 Acquired absence of both cervix and uterus

== ENCOUNTER 2018-06-30 11:43 | Inpatient (IN) | payer MEDICARE, BC ==
[2018-06-30 11:43] VITALS: BMI 31.1
[2018-06-30] MEDS ORDERED: Albuterol-Ipratrop 3 mg / 0.5 (3 ml) UD ONE ×2 (11:57→13:43)
[2018-06-30] MEDS ORDERED: Albuterol-Ipratrop 3 mg / 0.5 (3 ml) UD INH STA ×2 (12:07→12:20)
[2018-06-30] MEDS ORDERED: MethylPREDNISolone 40 mg Vial IM STA (12:19)
[2018-06-30 12:35] LABS: ALB/GLOB RATIO 1.4 (1.0-2.1); ALBUMIN 4.5 g/dL (3.5-5.0); CALCIUM 10.3 mg/dl (8.6-10.4)
[2018-06-30 12:52] LABS: TROPONIN I 0.065 ng/mL (0.00-0.120)
[2018-06-30 13:20] LABS: ABG ALLEN TEST POS; ARTERIAL BLOOD GAS HCO3 20.1 mmol/L (21-28); ARTERIAL BLOOD GAS O2 SAT 48.9 % (95-98); ARTERIAL BLOOD GAS PCO2 54 mm/Hg (35-45); ARTERIAL BLOOD GAS PH 7.25 (7.35-7.45); ARTERIAL BLOOD GAS PO2 27 mm/Hg (80-100); ARTERIAL BLOOD GAS TCO2 25.4 mmol/L (22-28)
[2018-06-30 13:29] LABS: BASO % 0.2 % (0.0-2.0); EOS % 0.1 % (0.0-4.0); LYMPH # 1.3 K/uL (1.0-4.3); LYMPH % 18.4 % (20.0-40.0); MEAN CELL VOLUME 100.1 fL (81.0-99.0); MEAN CORPUSCULAR HEMOGLOBIN 33.2 pg (27.0-31.0); MEAN CORPUSCULAR HGB CONC 33.2 g/dL (33.0-37.0); MEAN PLATELET VOLUME 10.2 fL (7.2-11.7); MONO # 0.3 K/uL (0.0-0.8); MONO % 4.3 % (0.0-10.0); NEUT # 5.2 K/uL (1.8-7.0); NRBC % 0.1 % (0.0-2.0); RBC 2.72 Mil/uL (3.80-5.20); RED CELL DISTRIBUTION WIDTH 15.7 % (11.5-14.5); WHITE BLOOD COUNT 6.8 K/uL (4.8-10.8)
--- NOTE | 2018-06-30 13:36 | RAD ---
Date of service: 06/30/2018 PROCEDURE: CHEST RADIOGRAPH, 1 VIEW HISTORY: SOB COMPARISON: 06/04/2018 FINDINGS: LUNGS: Technically limited examination. No definite infiltrate. PLEURA: No pneumothorax or pleural fluid seen. CARDIOVASCULAR: No aortic atherosclerotic calcification present. Heart size grossly normal though suboptimally evaluated. OSSEOUS STRUCTURES: No significant abnormalities. VISUALIZED UPPER ABDOMEN: Normal. OTHER FINDINGS: None. IMPRESSION: Normal limited examination.
[2018-06-30 13:46] LABS: INR 1.1; PROTHROMBIN TIME 12.3 SECONDS (9.7-12.2)
[2018-06-30 13:54] LABS: ALB/GLOB RATIO 1.4 (1.0-2.1); ALBUMIN 4.3 g/dL (3.5-5.0); CALCIUM 10.1 mg/dl (8.6-10.4)
--- NOTE | 2018-06-30 14:30 | C.PDOC ---
History Of Present Illness 77 y/o female, with history of COPD and renal transplant, presents to ED complaining of SOB for the past 4 days that is progressively getting worse. Patient denies chest pain, fever, or cough. Time Seen by Provider: 06/30/18 11:57 Chief Complaint (Nursing): Respiratory Distress History Per: Patient History/Exam Limitations: no limitations Onset/Duration Of Symptoms: Days Current Symptoms Are (Timing): Still Present Past Medical History Reviewed: Historical Data, Nursing Documentation, Vital Signs Vital Signs: Last Vital Signs Temp 98.5 F 06/30/18 11:56 Pulse 101 H 06/30/18 11:56 Resp 28 H 06/30/18 12:00 BP 191/156 H 06/30/18 11:56 Pulse Ox 100 06/30/18 12:00 - Medical History PMH: Arthritis (BACK, THOR KYPHOSIS), CHF, COPD, Chronic Kidney Disease Other Surgeries: Renal transplant Family History: States: No Known Family Hx - Social History Hx Tobacco Use: No Hx Alcohol Use: No Hx Substance Use: No - Immunization History Hx Tetanus Toxoid Vaccination: No Hx Influenza Vaccination: Yes Hx Pneumococcal Vaccination: Yes Review Of Systems Except As Marked, All Systems Reviewed And Found Negative. Constitutional: Negative for: Fever Cardiovascular: Negative for: Chest Pain Respiratory: Positive for: Shortness of Breath. Negative for: Cough Physical Exam - Physical Exam Appears: Non-toxic, In Acute Distress (moderate respiratory distress) Skin: Warm, Dry Head: Atraumatic, Normacephalic Eye(s): bilateral: Normal Inspection Oral Mucosa: Moist Neck: Normal ROM Chest: Symmetrical Cardiovascular: Rhythm Regular, No Murmur Respiratory: No Rales, No Rhonchi, Wheezing (bilaterally), Other (Tachypnea) Gastrointestinal/Abdominal: Soft, No Tenderness Extremity: Bilateral: Atraumatic, Normal Color And Temperature, Normal ROM Neurological/Psych: Oriented x3, Normal Speech ED Course And Treatment - Laboratory Results Result Diagrams: 06/30/18 13:24 06/30/18 13:24 ECG: Interpreted By Me, Viewed By Me ECG Rhythm: Sinus Rhythm Interpretation Of ECG: LVH. Nonspecific T wave abnormalities. Rate From EC O2 Sat by Pulse Oximetry: 100 - Other Rad Chest x-ray X-Ray: Read By Radiologist Interpretation: FINDINGS: LUNGS: Technically limited examination. No definite infiltrate. PLEURA: No pneumothorax or pleural fluid seen. CARDIOVASCULAR: No aortic atherosclerotic calcification present. Heart size grossly normal though suboptimally evaluated. OSSEOUS STRUCTURES: No significant abnormalities. VISUALIZED UPPER ABDOMEN: Normal. OTHER FINDINGS: None. IMPRESSION: Normal limited examination. Medical Decision Making Medical Decision Making: Plan: --ABG --EKG --Bloodwork --Chest x-ray --Nebulizer treatment --Urinalysis --Duoneb 3 ml INH --Solumedrol 125 mg IM 14:40 - Spoke with hospitalist who accepted patient for telemetry admission. Disposition Discussed With DrHarika: Cyril Olguin Doctor Will See Patient In The: Hospital Counseled Patient/Family Regarding: Studies Performed, Diagnosis - Disposition Disposition: HOSPITALIZED Disposition Time: 14:46 Condition: GUARDED - Clinical Impression Clinical Impression: Respiratory failure, Congestive heart failure, Chronic obstructive lung disease - Scribe Statement The provider has reviewed the documentation as recorded by the Nolberto Martínez Provider Attestation: All medical record entries made by the Evaibdavid were at my direction and personally dictated by me. I have reviewed the chart and agree that the record accurately reflects my personal performance of the history, physical exam, medical decision making, and the department course for this patient. I have also personally directed, reviewed, and agree with the discharge instructions and disposition.
--- NOTE | 2018-06-30 15:17 | CP.PCM.HP ---
History of Present Illness - History of Present Illness History of Present Illness: PGY3 Note for Dr. Harrison Medicine; Dr. Haskins patient but covering DNI/DNR; spoke with patient; does not have formal polst signed but son at bedside and is in agreement As per son and patient, patient has been having increasing shortness of breath over the course of the week; states she does not have cough or productive sputum; ran out of her 1mg of tacrolimus and has not been taking her BID 5mg tacrolimus for the past week. She states the shortness of breath has been increasing over the course of 5 days, denies fevers/chills, recent travel, or sick contacts. Patient is adamant about DNR/DNI, son at bedside who is also in agreement. PMD: Dr. Calvo PMHx: lupus, lupus nephritis, CKD (HD for 5 years and kidney transplant at [facility] 10/01/2001), HTN, severe kyphoscoliosis PSHx: kidney transplant at [facility] 10/01/2001, Hysterectomy and cataracts removal FHX: Unknown Medications: Tacrolimus 5mg HS, 2mg Tacrolimus 2mg AM, Sensipar 90mg, Prednisone 10mg, Bactrim DS daily for prophylaxis, atorvastatin 10mg HS, Risendronate 35mg weekly, Amlodipine 10mg daily, Allergies: NKDA Social History: Lives with children. Denies current or former hx of tobacco, illicity drugs and ETOH, mostly bed bound Present on Admission - Present on Admission Any Indicators Present on Admission: Yes History of DVT/PE: No History of Uncontrolled Diabetes: No Urinary Catheter: No Decubitus Ulcer Present: No Past Patient History - Infectious Disease Hx of Infectious Diseases: None - Past Medical History & Family History Past Medical History?: Yes - Past Social History Smoking Status: Never Smoked - CARDIAC Hx Congestive Heart Failure: Yes - PULMONARY Hx Chronic Obstructive Pulmonary Disease (COPD): Yes - RENAL Hx Chronic Kidney Disease: Yes - MUSCULOSKELETAL/RHEUMATOLOGICAL Hx Arthritis: Yes (BACK, THOR KYPHOSIS) - PSYCHIATRIC Hx Substance Use: No - SURGICAL HISTORY Hx Surgeries: Yes Hx Kidney Transplant: Yes (RIGHT) Other/Comment: RIGHT UPPER ARM AV FISTULA - ANESTHESIA Hx Anesthesia: Yes Hx Anesthesia Reactions: No Hx Malignant Hyperthermia: No Meds Allergies/Adverse Reactions: Allergies Allergy/AdvReac Type Severity Reaction Status Date / Time No Known Allergies Allergy Verified 06/30/18 12:03 Physical Exam - Constitutional Appears: Non-toxic, Cachectic, Chronically Ill - Head Exam Head Exam: ATRAUMATIC - Eye Exam Eye Exam: EOMI (patient has pterygium b/l worse on the left than right ). abse nt: Scleral icterus - ENT Exam ENT Exam: Mucous Membranes Dry - Neck Exam Neck exam: Positive for: Full Rom. Negative for: Lymphadenopathy - Respiratory Exam Respiratory Exam: Rales. absent: Clear to Auscultation Bilateral, Rhonchi, Wheezes, NORMAL BREATHING PATTERN (patient has severe kyphoscoliosis ) - Cardiovascular Exam Cardiovascular Exam: REGULAR RHYTHM, +S1, +S2, Systolic Murmur - GI/Abdominal Exam GI & Abdominal Exam: Normal Bowel Sounds, Soft. absent: Tenderness (feels like stool/slightly distended because of such) - Extremities Exam Extremities exam: Positive for: full ROM. Negative for: calf tenderness - Back Exam Back exam: NORMAL INSPECTION. absent: CVA tenderness (L), CVA tenderness (R) - Neurological Exam Neurological exam: Alert, Oriented x3 - Psychiatric Exam Psychiatric exam: Normal Affect - Skin Skin Exam: Warm Results - Vital Signs Recent Vital Signs: Last Vital Signs Temp 98.5 F 06/30/18 11:56 Pulse 101 H 06/30/18 11:56 Resp 28 H 06/30/18 12:00 BP 191/156 H 06/30/18 11:56 Pulse Ox 100 06/30/18 14:46 - Labs Result Diagrams: 06/30/18 13:24 06/30/18 13:24 Labs: Laboratory Results - last 24 hr 06/30/18 06/30/18 06/30/18 12:13 13:10 13:24 WBC 6.8 RBC 2.72 L Hgb 9.0 L Hct 27.2 L MCV 100.1 H MCH 33.2 H MCHC 33.2 RDW 15.7 H Plt Count 89 L MPV 10.2 Neut % (Auto) 77.0 H Lymph % (Auto) 18.4 L [place] % (Auto) 4.3 Eos % (Auto) 0.1 Baso % (Auto) 0.2 Neut # (Auto) 5.2 Lymph # (Auto) 1.3 [place] # (Auto) 0.3 Eos # (Auto) 0.0 Baso # (Auto) 0.0 Differential Comment PT INR APTT Puncture Site Rb pCO2 54 H pO2 27 L* HCO3 20.1 L ABG pH 7.25 L ABG Total CO2 25.4 ABG O2 Saturation 48.9 L ABG Base Excess -4.2 L Jax Test Pos ABG Potassium 4.1 A-a O2 Difference 262.0 Respiratory Index 9.7 Glucose 99 Lactate 2.0 Vent Mode Bipap FiO2 50.0 Inspiratory BiPAP 16 Expiratory BiPAP 6 Crit Value Called To Eli humphrey Crit Value Called By Eneida lucas Crit Value Read Back Y Blood Gas Notified Time 1320 Sodium 138 143.0 Potassium 4.4 Chloride 111 H 113.0 H Carbon Dioxide 18 L Anion Gap 14 BUN 42 H Creatinine 2.5 H Est GFR ( Amer) 23 Est GFR (Non-Af Amer) 19 Random Glucose 97 Calcium 10.3 Total Bilirubin 1.0 AST 64 H D ALT 38 Alkaline Phosphatase 76 Troponin I 0.0650 NT-Pro-B Natriuret Pep 3460 H Total Protein 7.7 Albumin 4.5 Globulin 3.2 Albumin/Globulin Ratio 1.4 Arterial Blood Potassium 4.1 06/30/18 06/30/18 13:24 13:31 WBC RBC Hgb Hct MCV MCH MCHC RDW Plt Count MPV Neut % (Auto) Lymph % (Auto) [place] % (Auto) Eos % (Auto) Baso % (Auto) Neut # (Auto) Lymph # (Auto) [place] # (Auto) Eos # (Auto) Baso # (Auto) Differential Comment PT 12.3 H INR 1.1 APTT 30 Puncture Site pCO2 pO2 HCO3 ABG pH ABG Total CO2 ABG O2 Saturation ABG Base Excess Jax Test ABG Potassium A-a O2 Difference Respiratory Index Glucose Lactate Vent Mode FiO2 Inspiratory BiPAP Expiratory BiPAP Crit Value Called To Crit Value Called By Crit Value Read Back Blood Gas Notified Time Sodium 139 Potassium 3.7 Chloride 109 H Carbon Dioxide 21 L Anion Gap 14 BUN 40 H Creatinine 2.7 H Est GFR ( Amer) 21 Est GFR (Non-Af Amer) 17 Random Glucose 100 Calcium 10.1 Total Bilirubin 0.6 AST 47 H D ALT 42 Alkaline Phosphatase 84 Troponin I NT-Pro-B Natriuret Pep Total Protein 7.3 Albumin 4.3 Globulin 3.0 Albumin/Globulin Ratio 1.4 Arterial Blood Potassium Assessment & Plan - Assessment and Plan (Free Text) Assessment: 77yo F admitted for acute on chronic respiratory failure 2/2 to severe kyphoscol iosis, lupus, and superimposed pneumonia Shortness of breath -chest X-ray shows fluid overload vs PNA vs severe kyphoscoliosis -F/u chest CT -Pulmonology; Dr. Acosta; thank you for your help Management: * Duonebs 3ML INH RQ4H * Zosyn 3.375 Q8H * Prednisone 10mg PO daily and Solumedrol 40mg IV Q6H * BiPap as needed * patient is DNR/DNI; no POLST; f/u palliative care Pulmonary hypertension Previous Chest CT on admission from 06/04/18: No definite alveolitis bilaterally. Minimal dependent atelectasis, diminished in the interval bilaterally as compared prior chest CT 05/25/2017. 2. Prominent cardiomegaly reiterated as well as increasing main pulmonary artery caliber (4.4 cm) suspicious for pulmonary artery hypertension though this is a clinical diagnosis and further clinical correlation is recommended. Further, ectatic dilated superior vena cava identified potentially a function of right heart failure possible right or failure. Clinically correlate further. -f/u repeat chest CT -f/u Pulm Recs Hx of Hypertension Norvasc 10mg PO daily Vital signs Q4H History of kidney transplant CKD due to HTN and Lupus Nephritis (HD for 5 years and kidney transplant at [facility] 10/01/2001) * Tacrolimus 5mg PO HS * Tacrolimus 2mg PO AM * patient has been missing this medication for the past week * Sensipar 90mg PO daily History of lupus Prednisone 10mg PO daily Prophylactic measure DVT: contraindicated 2/2 to thrombocytopenia GI: Protonix 40mg PO daily 2/2 to high dose chronic steroids -prune juice for constipation -patient is requesting sweet tea from [employer] if she is still here on X- Mas Case discussed and seen with Dr. Hunter Humphreys PGY3 Decision To Admit - Pt Status Changed To: Hospital Disposition Of: Inpatient - Admit Certification Admit to Inpatient:: After my assessment, the patient will require hospitalization for at least two midnights. This is because of the severity of symptoms shown, intensity of services needed, and/or the medical risk in this patient being treated as an outpatient. - InPatient: Physician Admission Certification:: patient will need 2 midnights - . Bed Request Type: Telemetry Admitting Physician: Libby Harrison
[2018-06-30] MEDS ORDERED: Albuterol-Ipratrop 3 mg / 0.5 (3 ml) UD INH SCH (16:00)
--- NOTE | 2018-06-30 16:46 | CT ---
Date of service: 06/30/2018 PROCEDURE: CT Chest without contrast HISTORY: shortness of breath, PNA COMPARISON: 06/05/2018 TECHNIQUE: Contiguous axial images were obtained through the chest without intravenous contrast enhancement. Sagittal and coronal reconstructions were performed. Radiation dose (DLP): 367.86 mGy-cm. This CT exam was performed using one or more of the following dose reduction techniques: Automated exposure control, adjustment of the mA and/or kV according to patient size, and/or use of iterative reconstruction technique. FINDINGS: LUNGS: No pulmonary infiltrate. Minimal dependent pleural thickening versus subsegmental atelectasis in both posterior lower lobes. MEDIASTINUM: No evidence of thoracic aortic aneurysm. There is atherosclerotic calcification of the thoracic aorta. Cardiomegaly. Coronary arterial calcification. Mitral annular calcification. Dilated main pulmonary artery up to approximately 3.9 cm diameter. This may correlate with pulmonary arterial hypertension. No lymphadenopathy. Small hiatal hernia. PLEURA: No pleural effusion or pneumothorax. BONES: Mild compression deformity of multiple consecutive thoracic vertebrae extending from approximately T8 through L1. Unchanged from 06/05/2018. No new fracture. UPPER ABDOMEN: Several bilateral rounded low-attenuation renal masses, most likely cysts. The largest is a pedunculated right lower pole mass, approximately 2.4 cm in greatest dimension. These are unchanged compared to the prior CT examination. Nonobstructing 3 mm calculus upper pole right kidney. OTHER FINDINGS: None. IMPRESSION: No acute infiltrate. Cardiomegaly and dilated main pulmonary artery. No pleural effusion. Multiple stable mild thoracic and upper lumbar vertebral compression deformities. Additional minor findings as above.
[2018-06-30] MEDS: Piperacill/Tazo 3.375gm in Dex 3.375 GM/50 ML BAG IVPB SCH (17:12)
[2018-06-30] MEDS: Albuterol-Ipratrop 3 mg / 0.5 (3 ml) UD INH SCH (19:25)
[2018-06-30] MEDS: Saccharomyces Boulardi 250 mg Cap PO SCH (22:23)
[2018-06-30] MEDS: MethylPREDNISolone 40 mg Vial IVP SCH (22:23)
[2018-07-01 00:06] LABS: ARTERIAL BLOOD GAS O2 SAT 99.9 % (95-98); ARTERIAL BLOOD GAS PCO2 31 mm/Hg (35-45); ARTERIAL BLOOD GAS PH 7.39 (7.35-7.45); ARTERIAL BLOOD GAS PO2 100 mm/Hg (80-100); ARTERIAL BLOOD GAS TCO2 19.8 mmol/L (22-28)
[2018-07-01] MEDS: Piperacill/Tazo 3.375gm in Dex 3.375 GM/50 ML BAG IVPB SCH ×2 (00:12→08:58)
[2018-07-01] MEDS: Albuterol-Ipratrop 3 mg / 0.5 (3 ml) UD INH SCH ×4 (00:30→12:00)
[2018-07-01] MEDS: MethylPREDNISolone 40 mg Vial IVP SCH ×4 (03:13→22:11)
[2018-07-01 06:28] LABS: BASO % 0.1 % (0.0-2.0); HEMOGLOBIN 8.1 g/dL (11.0-16.0); LYMPH # 0.3 K/uL (1.0-4.3); LYMPH % 7.4 % (20.0-40.0); MEAN CORPUSCULAR HEMOGLOBIN 32.6 pg (27.0-31.0); MEAN CORPUSCULAR HGB CONC 32.6 g/dL (33.0-37.0); MEAN PLATELET VOLUME 10.4 fL (7.2-11.7); MONO # 0.1 K/uL (0.0-0.8); MONO % 1.6 % (0.0-10.0); NEUT # 3.5 K/uL (1.8-7.0); NEUT % 90.9 % (50.0-75.0); NRBC % 0.1 % (0.0-2.0); PLATELET COUNT 80 K/uL (130-400); RBC 2.48 Mil/uL (3.80-5.20); RED CELL DISTRIBUTION WIDTH 14.8 % (11.5-14.5); WHITE BLOOD COUNT 3.8 K/uL (4.8-10.8)
[2018-07-01 06:53] LABS: ALB/GLOB RATIO 1.4 (1.0-2.1); CALCIUM 9.2 mg/dl (8.6-10.4)
--- NOTE | 2018-07-01 09:04 | CP.PCM.PN ---
Subjective - Date & Time of Evaluation Date of Evaluation: 07/01/18 Time of Evaluation: 09:04 - Subjective Subjective: Medicine Progress Note - Dr Harrison's service covering for Dr Calvo Patient seen and examined at bedside. Per nursing no acute events overnight. Patient short of breath this morning on bipap currently. Admits to shortness of breath when bipap is removed. Denies fevers, chills, cough, headaches, dizziness, cp, palpitations, abdominal pain, urinary symptoms. Objective - Vital Signs/Intake and Output Vital Signs (last 24 hours): Temp Pulse Resp BP Pulse Ox 97.9 F 81 18 139/76 98 07/01/18 07:10 07/01/18 07:10 07/01/18 07:10 07/01/18 07:10 07/01/18 07:10 - Medications Medications: Current Medications Albuterol/Ipratropium (Duoneb 3 Mg/0.5 Mg (3 Ml) Ud) 3 ml INH Q4H PING Last Admin: 07/01/18 05:00 Dose: 3 ml Amlodipine Besylate (Norvasc) 10 mg PO DAILY PING Cinacalcet (Sensipar) 90 mg PO DAILY PING Piperacillin Sod/Tazobactam Sod (Zosyn 3.375 Gm Iv Premix) 3.375 gm in 50 mls @ 100 mls/hr IVPB Q8H [facility]; Protocol Last Admin: 07/01/18 08:58 Dose: 100 mls/hr Methylprednisolone (Solu-Medrol) 40 mg IVP Q6H PING Last Admin: 07/01/18 08:28 Dose: 40 mg Rosuvastatin Calcium (Crestor) 5 mg PO HS PING Saccharomyces Boulardii (Florastor) 250 mg PO BID [facility] Last Admin: 06/30/18 22:23 Dose: 250 mg Tacrolimus (Prograf) 5 mg PO HS PING Last Admin: 06/30/18 22:30 Dose: 5 mg Tacrolimus (Prograf Cap) 2 mg PO DAILY [facility] Trimethoprim/Sulfamethoxazole (Bactrim Ds Tab) 1 tab PO DAILY [facility]; Protocol - Labs Labs: 07/01/18 06:23 07/01/18 06:23 PT 12.3 SECONDS (9.7-12.2) H 06/30/18 13:31 INR 1.1 06/30/18 13:31 APTT 30 SECONDS (21-34) 06/30/18 13:31 - Constitutional Appears: Non-toxic - Head Exam Head Exam: NORMAL INSPECTION, NORMOCEPHALIC - Eye Exam Eye Exam: Normal appearance - ENT Exam ENT Exam: Mucous Membranes Dry - Respiratory Exam Respiratory Exam: Decreased Breath Sounds. absent: Rales, Wheezes - Cardiovascular Exam Cardiovascular Exam: REGULAR RHYTHM, +S1, +S2 - GI/Abdominal Exam GI & Abdominal Exam: Soft, Normal Bowel Sounds. absent: Tenderness - Extremities Exam Extremities Exam: absent: Calf Tenderness Additional comments: +compression stockings bilaterally - Neurological Exam Neurological Exam: Alert, Awake, Oriented x3 - Psychiatric Exam Psychiatric exam: Anxious - Skin Skin Exam: Dry, Normal Color, Warm Assessment and Plan - Assessment and Plan (Free Text) Assessment: A/P: Patient is a 77 year old F admitted for acute on chronic respiratory failure 08/10 to severe kyphoscoliosis, lupus. Shortness of breath -Afebrile -Continue Bipap prn, continuous pulse ox -Chest X-ray shows Normal limited examination. -Chest CT shows No acute infiltrate. Cardiomegaly and dilated main pulmonary artery. No pleural effusion. Multiple stable mild thoracic and upper lumbar vertebral compression deformities. Additional minor findings as above. (see full report) -Continue Solumedrol 40mg Q6H IVP -Duonebs 3mL INH RQ4H -Zosyn 3.375 Q8H (discontinued on 07/01/18) -Influenza negative -Pulmonology; Dr. Acosta; thank you for your help -Patient is DNR/DNI, palliative care on consult, help appreciated Pulmonary hypertension Previous Chest CT on admission from 06/04/18: No definite alveolitis bilaterally. Minimal dependent atelectasis, diminished in the interval bilaterally as compared prior chest CT 05/25/2017. 2. Prominent cardiomegaly reiterated as well as increasing main pulmonary artery caliber (4.4 cm) suspicious for pulmonary artery hypertension though this is a clinical diagnosis and further clinical correlation is recommended. Further, ectatic dilated superior vena cava identified potentially a function of right heart failure possible right or failure. Clinically correlate further. -Repeat chest CT shows No acute infiltrate. Cardiomegaly and dilated main pulmonary artery. No pleural effusion. Multiple stable mild thoracic and upper lumbar vertebral compression deformities. Additional minor findings as above. (see full report) -F/U Pulmonary recommendations Hx of Hypertension -Norvasc 10mg PO daily -Vital signs Q4H Acute on Chronic Kidney Disease -Baseline Cr 2.5 -Cr today 3.8 -Patient started on NS @ 100cc/hr -Monitor serial BMPs -Crestor on hold at this time -Avoid nephrotoxic agents 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 (HD for 5 years and kidney transplant at [facility] 10/01/2001) -Continue Tacrolimus 5mg PO HS, Tacrolimus 2mg PO AM (patient has been missing this medication for the past week) -F/U Tacrolimus level -Continue Sensipar 90mg PO daily, Bactrim 1 tab PO daily -Nephrology on consult, Dr Sykes, help appreciated History of lupus Prednisone 10mg PO daily Prophylactic measure DVT: contraindicated 2/2 to thrombocytopenia GI: Protonix 40mg IVP daily -prune juice for constipation -patient is requesting sweet tea from [employer] if she is still here on X- Mas Case discussed and seen with Dr. Hunter Odell DO PGY-2
[2018-07-01 09:24] LABS: BANDS 2 % (0-2); LYMPHOCYTE 7 % (20-40); MONOCYTE 1 % (0-10); NEUTROPHIL 90 % (50-75); PLATELET ESTIMATE DECREASED (NORMAL); TOTAL CELLS COUNTED 100
[2018-07-01 09:25] LABS: ANISOCYTOSIS SLIGHT; HYPOCHROMIC SLIGHT; OVALOCYTES SLIGHT; POIKILOCYTOSIS SLIGHT; TARGET CELLS SLIGHT; TEARDROP CELLS SLIGHT
[2018-07-01] MEDS ORDERED: Home Med 1 UNIT (Prednisone [Prednisone] 10 MG) PO SCH (10:00)
[2018-07-01] MEDS ORDERED: MethylPREDNISolone 40 mg Vial IVP SCH (10:30)
[2018-07-01] MEDS: Tmp-Smz 800 mg-160 mg DS Tab PO SCH ×2 (11:21→11:47)
[2018-07-01] MEDS: Saccharomyces Boulardi 250 mg Cap PO SCH ×3 (11:21→17:30)
--- NOTE | 2018-07-01 12:28 | CP.PCM.CON ---
History of Present Illness - History of Present Illness History of Present Illness: 77 y/o patient has been having increasing shortness of breath over the course of the week; states she does not have cough or productive sputum; ran out of of tacrolimus and has not been taking for the past week. She states the shortness of breath has been increasing over the course of 5 days, denies fevers/chills, recent travel, or sick contacts. Patient is adamant about DNR/DNI, son at bedside who is also in agreement. Has h/o severe restrictive lung disease. Has dementia, daughter helps with meds, not taking tacro recently. Baseline creat 2.5 PMD: Dr. Calvo PMHx: lupus, lupus nephritis, CKD (HD for 5 years and kidney transplant at [facility] 10/01/2001), HTN, severe kyphoscoliosis PSHx: kidney transplant at [facility] 10/01/2001, Hysterectomy and cataracts removal ; AV fistula FHX: Unknown Medications: Tacrolimus 5mg HS, 2mg Tacrolimus 2mg AM, Sensipar 90mg, Prednisone 10mg, Bactrim DS daily for prophylaxis, atorvastatin 10mg HS, Risendronate 35mg weekly, Amlodipine 10mg daily, Allergies: NKDA Social History: Lives with children. Denies current or former hx of tobacco, illicity drugs and ETOH, mostly bed bound Review of Systems - Review of Systems Systems not reviewed;Unavailable: Respiratory Distress Past Patient History - Infectious Disease Hx of Infectious Diseases: None - Past Medical History & Family History Past Medical History?: Yes Past Family History: Reviewed and not pertinent - Past Social History Smoking Status: Never Smoked Chewing Tobacco Use: No Cigar Use: No Alcohol: None Drugs: Denies Home Situation {Lives}: With Family - CARDIAC Hx Congestive Heart Failure: Yes - PULMONARY Hx Chronic Obstructive Pulmonary Disease (COPD): Yes - RENAL Hx Chronic Kidney Disease: Yes - MUSCULOSKELETAL/RHEUMATOLOGICAL Hx Arthritis: Yes (BACK, THOR KYPHOSIS) - PSYCHIATRIC Hx Substance Use: No - SURGICAL HISTORY Hx Surgeries: Yes Hx Kidney Transplant: Yes (RIGHT) Other/Comment: RIGHT UPPER ARM AV FISTULA - ANESTHESIA Hx Anesthesia: Yes Hx Anesthesia Reactions: No Hx Malignant Hyperthermia: No Meds Allergies/Adverse Reactions: Allergies Allergy/AdvReac Type Severity Reaction Status Date / Time No Known Allergies Allergy Verified 06/30/18 12:03 - Medications Medications: Current Medications Albuterol/Ipratropium (Duoneb 3 Mg/0.5 Mg (3 Ml) Ud) 3 ml INH Q4H [facility] Last Admin: 07/01/18 07:55 Dose: 3 ml Amlodipine Besylate (Norvasc) 10 mg PO DAILY [facility] Last Admin: 07/01/18 11:47 Dose: 10 mg Cinacalcet (Sensipar) 90 mg PO DAILY [facility] Last Admin: 07/01/18 11:47 Dose: 90 mg Methylprednisolone (Solu-Medrol) 40 mg IVP Q6H [facility] Pantoprazole Sodium (Protonix Inj) 40 mg IVP DAILY [facility] Last Admin: 07/01/18 11:27 Dose: 40 mg Rosuvastatin Calcium (Crestor) 5 mg PO HS [facility] Saccharomyces Boulardii (Florastor) 250 mg PO BID [facility] Last Admin: 07/01/18 11:47 Dose: 250 mg Tacrolimus (Prograf) 5 mg PO HS [facility] Last Admin: 06/30/18 22:30 Dose: 5 mg Tacrolimus (Prograf Cap) 2 mg PO DAILY [facility] Trimethoprim/Sulfamethoxazole (Bactrim Ds Tab) 1 tab PO DAILY [facility]; Protocol Last Admin: 07/01/18 11:47 Dose: 1 tab Physical Exam - Constitutional Appears: In Acute Distress, Confused, Chronically Ill - Head Exam Head Exam: ATRAUMATIC, NORMAL INSPECTION - Eye Exam Eye Exam: EOMI, Normal appearance - Neck Exam Neck exam: Positive for: Normal Inspection. Negative for: Tenderness - Respiratory Exam Respiratory Exam: Rhonchi, Respiratory Distress - Cardiovascular Exam Cardiovascular Exam: Irregular Rhythm, +S1 - GI/Abdominal Exam GI & Abdominal Exam: Soft. absent: Tenderness - Extremities Exam Extremities exam: Positive for: normal inspection. Negative for: tenderness - Neurological Exam Neurological exam: Altered, CN II-XII Intact - Skin Skin Exam: Dry, Warm Results - Vital Signs Recent Vital Signs: Last Vital Signs Temp 97.9 F 07/01/18 07:10 Pulse 81 07/01/18 09:50 Resp 18 07/01/18 07:10 BP 139/76 07/01/18 07:10 Pulse Ox 98 07/01/18 07:10 - Labs Result Diagrams: 07/01/18 06:23 07/01/18 06:23 Labs: Laboratory Results - last 24 hr 12/06/30/18 06/30/18 12:13 13:10 13:24 WBC 6.8 RBC 2.72 L Hgb 9.0 L Hct 27.2 L MCV 100.1 H MCH 33.2 H MCHC 33.2 RDW 15.7 H Plt Count 89 L MPV 10.2 Neut % (Auto) 77.0 H Lymph % (Auto) 18.4 L Larue % (Auto) 4.3 Eos % (Auto) 0.1 Baso % (Auto) 0.2 Neut # (Auto) 5.2 Lymph # (Auto) 1.3 Larue # (Auto) 0.3 Eos # (Auto) 0.0 Baso # (Auto) 0.0 Neutrophils % (Manual) Band Neutrophils % Lymphocytes % (Manual) Monocytes % (Manual) Differential Comment Platelet Estimate Hypochromasia (manual) Poikilocytosis (manual Anisocytosis (manual) Target Cells Tear Drop Cells Ovalocytes PT INR APTT Puncture Site Rb pCO2 54 H pO2 27 L* HCO3 20.1 L ABG pH 7.25 L ABG Total CO2 25.4 ABG O2 Saturation 48.9 L ABG Base Excess -4.2 L Jax Test Pos ABG Potassium 4.1 A-a O2 Difference 262.0 Respiratory Index 9.7 Glucose 99 Lactate 2.0 Liter Flow Vent Mode Bipap FiO2 50.0 Inspiratory BiPAP 16 Expiratory BiPAP 6 Crit Value Called To Eli humphrey Crit Value Called By Eenida lucas Crit Value Read Back Y Blood Gas Notified Time 1320 Sodium 138 143.0 Potassium 4.4 Chloride 111 H 113.0 H Carbon Dioxide 18 L Anion Gap 14 BUN 42 H Creatinine 2.5 H Est GFR ( Amer) 23 Est GFR (Non-Af Amer) 19 POC Glucose (mg/dL) Random Glucose 97 Calcium 10.3 Phosphorus Magnesium Total Bilirubin 1.0 AST 64 H D ALT 38 Alkaline Phosphatase 76 Troponin I 0.0650 NT-Pro-B Natriuret Pep 3460 H Total Protein 7.7 Albumin 4.5 Globulin 3.2 Albumin/Globulin Ratio 1.4 Arterial Blood Potassium 4.1 Influenza Typ A,B (EIA) 06/30/18 06/30/18 06/30/18 13:24 13:31 15:24 WBC RBC Hgb Hct MCV MCH MCHC RDW Plt Count MPV Neut % (Auto) Lymph % (Auto) Larue % (Auto) Eos % (Auto) Baso % (Auto) Neut # (Auto) Lymph # (Auto) Larue # (Auto) Eos # (Auto) Baso # (Auto) Neutrophils % (Manual) Band Neutrophils % Lymphocytes % (Manual) Monocytes % (Manual) Differential Comment Platelet Estimate Hypochromasia (manual) Poikilocytosis (manual Anisocytosis (manual) Target Cells Tear Drop Cells Ovalocytes PT 12.3 H INR 1.1 APTT 30 Puncture Site pCO2 pO2 HCO3 ABG pH ABG Total CO2 ABG O2 Saturation ABG Base Excess Jax Test ABG Potassium A-a O2 Difference Respiratory Index Glucose Lactate Liter Flow Vent Mode FiO2 Inspiratory BiPAP Expiratory BiPAP Crit Value Called To Crit Value Called By Crit Value Read Back Blood Gas Notified Time Sodium 139 Potassium 3.7 Chloride 109 H Carbon Dioxide 21 L Anion Gap 14 BUN 40 H Creatinine 2.7 H Est GFR ( Amer) 21 Est GFR (Non-Af Amer) 17 POC Glucose (mg/dL) Random Glucose 100 Calcium 10.1 Phosphorus Magnesium Total Bilirubin 0.6 AST 47 H D ALT 42 Alkaline Phosphatase 84 Troponin I NT-Pro-B Natriuret Pep Total Protein 7.3 Albumin 4.3 Globulin 3.0 Albumin/Globulin Ratio 1.4 Arterial Blood Potassium Influenza Typ A,B (EIA) Negative for flu a/b 06/30/18 07/01/18 07/01/18 23:48 06:23 06:23 WBC 3.8 L RBC 2.48 L Hgb 8.1 L Hct 24.8 L MCV 100.0 H MCH 32.6 H MCHC 32.6 L RDW 14.8 H Plt Count 80 L MPV 10.4 Neut % (Auto) 90.9 H Lymph % (Auto) 7.4 L Larue % (Auto) 1.6 Eos % (Auto) 0.0 Baso % (Auto) 0.1 Neut # (Auto) 3.5 Lymph # (Auto) 0.3 L Larue # (Auto) 0.1 Eos # (Auto) 0.0 Baso # (Auto) 0.0 Neutrophils % (Manual) 90 H Band Neutrophils % 2 Lymphocytes % (Manual) 7 L Monocytes % (Manual) 1 Differential Comment Platelet Estimate Decreased L Hypochromasia (manual) Slight Poikilocytosis (manual Slight Anisocytosis (manual) Slight Target Cells Slight Tear Drop Cells Slight Ovalocytes Slight PT INR APTT Puncture Site L brac pCO2 31 L pO2 100 HCO3 21.0 ABG pH 7.39 ABG Total CO2 19.8 L ABG O2 Saturation 99.9 H ABG Base Excess -5.1 L Jax Test Na ABG Potassium 4.6 A-a O2 Difference Respiratory Index Glucose 272 H Lactate 3.4 H Liter Flow 3.0 Vent Mode FiO2 Inspiratory BiPAP Expiratory BiPAP Crit Value Called To Crit Value Called By Crit Value Read Back Blood Gas Notified Time Sodium 139.0 139 Potassium 4.9 Chloride 108.0 H 108 H Carbon Dioxide 19 L Anion Gap 17 BUN 51 H Creatinine 3.8 H Est GFR ( Amer) 14 Est GFR (Non-Af Amer) 12 POC Glucose (mg/dL) Random Glucose 166 H D Calcium 9.2 Phosphorus 3.9 Magnesium 1.6 Total Bilirubin 0.5 AST 30 ALT 29 Alkaline Phosphatase 65 Troponin I NT-Pro-B Natriuret Pep Total Protein 6.8 Albumin 4.0 Globulin 2.8 Albumin/Globulin Ratio 1.4 Arterial Blood Potassium 4.6 Influenza Typ A,B (EIA) 07/01/18 12:09 WBC RBC Hgb Hct MCV MCH MCHC RDW Plt Count MPV Neut % (Auto) Lymph % (Auto) Larue % (Auto) Eos % (Auto) Baso % (Auto) Neut # (Auto) Lymph # (Auto) Larue # (Auto) Eos # (Auto) Baso # (Auto) Neutrophils % (Manual) Band Neutrophils % Lymphocytes % (Manual) Monocytes % (Manual) Differential Comment Platelet Estimate Hypochromasia (manual) Poikilocytosis (manual Anisocytosis (manual) Target Cells Tear Drop Cells Ovalocytes PT INR APTT Puncture Site pCO2 pO2 HCO3 ABG pH ABG Total CO2 ABG O2 Saturation ABG Base Excess Jax Test ABG Potassium A-a O2 Difference Respiratory Index Glucose Lactate Liter Flow Vent Mode FiO2 Inspiratory BiPAP Expiratory BiPAP Crit Value Called To Crit Value Called By Crit Value Read Back Blood Gas Notified Time Sodium Potassium Chloride Carbon Dioxide Anion Gap BUN Creatinine Est GFR ( Amer) Est GFR (Non-Af Amer) POC Glucose (mg/dL) 188 H Random Glucose Calcium Phosphorus Magnesium Total Bilirubin AST ALT Alkaline Phosphatase Troponin I NT-Pro-B Natriuret Pep Total Protein Albumin Globulin Albumin/Globulin Ratio Arterial Blood Potassium Influenza Typ A,B (EIA) Assessment & Plan (1) Restrictive lung disease Status: Acute (2) Hypoxemia Status: Acute (3) Dehydration Status: Acute (4) CKD (chronic kidney disease) stage 4, GFR 15-29 ml/min Status: Acute (5) SEBASTIAN (acute kidney injury) Status: Acute (6) History of kidney transplant Status: Acute (7) Medical non-compliance Status: Acute - Assessment and Plan (Free Text) Plan: pulmonary treatments IV fluids Resume transplant meds check tacro level repeat chemistries
--- NOTE | 2018-07-01 13:34 | CP.PCM.CON ---
History of Present Illness - History of Present Illness History of Present Illness: Palliative consult requested by Doctor Jose Alberto Roa for goals of care discussion Patient is a 77 yo AA lady admitted with SOB X 4 days, getting worse over time without cough. The CT chest was significant for venous congestion. patient was diagnosed with chronic respiratory failure 2nd to severe Kyphoscoliosis. Patient started on BiPap, Zosyn IV, Solu Medrol and Neb Tx. Patient also made DNR/DNI with agrement of the patient and her son, but POLST form was not completed. Palliative care was called to assist with the process. PMH: lupus, on daily Prednisone, COPD, renal transplant on Prograf, Soc. Hx: bed bound, lives at home with her children Fam. Hx: denied Review of Systems - Constitutional Constitutional: Weakness - EENT Eyes: absent: As Per HPI, Blind Spots, Blurred Vision, Change in Vision, Decreased Night Vision, Diplopia, Discharge, Dry Eye, Exophthalmos, Floaters, Irritation, Itchy Eyes, Loss of Peripheral Vision, Pain, Photophobia, Requires Corrective Lenses, Sees Flashes, Spots in Vision, Tunnel Vision, Other Visual Disturbances, Loss of Vision, Other Ears: absent: As Per HPI, Decreased Hearing, Ear Discharge, Ear Pain, Tinnitus, Abnormal Hearing, Disequilibrium, Dizziness, Other Nose/Mouth/Throat: absent: As Per HPI, Epistaxis, Nasal Congestion, Nasal Discharge, Nasal Obstruction, Nasal Trauma, Nose Pain, Post Nasal Drip, Sinus Pain, Sinus Pressure, Bleeding Gums, Change in Voice, Dental Pain, Dry Mouth, Dysphagia, Halitosis, Hoarsness, Lip Swelling, Mouth Lesions, Mouth Pain, Odynophagia, Sore Throat, Throat Swelling, Tongue Swelling, Facial Pain, Neck Pain, Neck Mass, Other - Breasts Breasts: absent: As Per HPI, Change in Shape, Mass, Pain, Nipple Discharge, Nipple Inversion, Skin Changes, Swelling, Other - Cardiovascular Cardiovascular: Dyspnea - Respiratory Respiratory: Dyspnea, Chest Congestion - Gastrointestinal Gastrointestinal: absent: As Per HPI, Abdominal Pain, Belching, Bloating, Change in Bowel Habits, Change in Stool Character, Coffee Ground Emesis, Constipation, Cramping, Diarrhea, Dyspepsia, Dysphagia, Early Satiety, Excessive Flatus, Fecal Incontinence, Heartburn, Hematemesis, Hematochezia, Loose Stools, Melena, Nausea, Odynophagia, Temesmus, Vomiting, Other - Genitourinary Genitourinary: absent: As Per HPI, Change in Urinary Stream, Difficulty Urinating, Dysuria, Flank Pain, Hematuria, Pyuria, Nocturia, Urinary Incontinence, Urinary Frequency, Urinary Hesitance, Urinary Urgency, Voiding Freq/Small Amts, Freq UTI, Hx Renal/Bladder Calculi, Hx /Renal Surgery, Bladder Distension, Other - Reproductive: Female Reproductive:Female: Post Menopausal - Menstruation Menstruation: Post Menopausal - Musculoskeletal Musculoskeletal: Abnormal Gait, Arthralgias, Muscle Weakness - Integumentary Integumentary: absent: As Per HPI, Acne, Alopecia, Bleeding Lesions, Change in Hair, Change in Nails, Change in Pigmentation, Changing Lesions, Dry Skin, Erythema, Furuncle, Hirsutism, Lesions, New Lesions, Non-Healing Lesions, Photosensitivity, Pruritus, Rash, Skin Pain, Skin Ulcer, Sores, Striae, Swelling, Unusual Bruising, Wounds, Jaundice, Other - Neurological Neurological: absent: As Per HPI, Abnormal Gait, Abnormal Hearing, Abnormal Movements, Abnormal Speech, Behavioral Changes, Burning Sensations, Confusion, C onvulsions, Disequilibrium, Dizziness, Numbness, Focal Weakness, Frequent Falls, Headaches, Lack of Coordination, Loss of Vision, Memory Loss, Paresthesias, Radicular Pain, Restless Legs, Sensory Deficit, Syncope, Tingling, Tremor, Vertigo, Weakness, Other Visual Disturbances, Other - Psychiatric Psychiatric: absent: As Per HPI, Abnormal Sleep Pattern, Anhedonia, Anxiety, Auditory Hallucinations, Behavioral Changes, Change in Appetite, Change in Libido, Confusion, Depression, Difficulty Concentrating, Hallucinations, Homicidal Ideation, Hopelessness, Irritability, Memory Loss, Mood Swings, Panic Attacks, Paranoia, Suicidal Ideation, Visual Hallucinations, Tactile Hallucinations, Other - Endocrine Endocrine: Change in Body Appearance - Hematologic/Lymphatic Hematologic: absent: As Per HPI, Easy Bleeding, Easy Bruising, Lymphadenopathy, Other Past Patient History - Infectious Disease Hx of Infectious Diseases: None - Past Medical History & Family History Past Medical History?: Yes Past Family History: Reviewed and not pertinent - Past Social History Smoking Status: Never Smoked Chewing Tobacco Use: No Cigar Use: No Alcohol: None Drugs: Denies Home Situation {Lives}: With Family - CARDIAC Hx Congestive Heart Failure: Yes - PULMONARY Hx Chronic Obstructive Pulmonary Disease (COPD): Yes - RENAL Hx Chronic Kidney Disease: Yes - MUSCULOSKELETAL/RHEUMATOLOGICAL Hx Arthritis: Yes (BACK, THOR KYPHOSIS) - PSYCHIATRIC Hx Substance Use: No - SURGICAL HISTORY Hx Surgeries: Yes Hx Kidney Transplant: Yes (RIGHT) Other/Comment: RIGHT UPPER ARM AV FISTULA - ANESTHESIA Hx Anesthesia: Yes Hx Anesthesia Reactions: No Hx Malignant Hyperthermia: No Meds Allergies/Adverse Reactions: Allergies Allergy/AdvReac Type Severity Reaction Status Date / Time No Known Allergies Allergy Verified 06/30/18 12:03 - Medications Medications: Current Medications Albuterol/Ipratropium (Duoneb 3 Mg/0.5 Mg (3 Ml) Ud) 3 ml INH Q4H [facility] Last Admin: 07/01/18 12:00 Dose: 3 ml Amlodipine Besylate (Norvasc) 10 mg PO DAILY [facility] Last Admin: 07/01/18 11:47 Dose: 10 mg Cinacalcet (Sensipar) 90 mg PO DAILY [facility] Last Admin: 07/01/18 11:47 Dose: 90 mg Sodium Chloride (Sodium Chloride 0.9%) 1,000 mls @ 100 mls/hr IV .Q10H PING Methylprednisolone (Solu-Medrol) 40 mg IVP Q6H PING Pantoprazole Sodium (Protonix Inj) 40 mg IVP DAILY [facility] Last Admin: 07/01/18 11:27 Dose: 40 mg Rosuvastatin Calcium (Crestor) 5 mg PO HS PING Saccharomyces Boulardii (Florastor) 250 mg PO BID [facility] Last Admin: 07/01/18 11:47 Dose: 250 mg Tacrolimus (Prograf) 5 mg PO BID PING Tacrolimus (Prograf Cap) 2 mg PO BID [facility] Trimethoprim/Sulfamethoxazole (Bactrim Ds Tab) 1 tab PO DAILY [facility]; Protocol Last Admin: 07/01/18 11:47 Dose: 1 tab Physical Exam - Constitutional Appears: Chronically Ill - Head Exam Head Exam: ATRAUMATIC, NORMAL INSPECTION, NORMOCEPHALIC - Eye Exam Eye Exam: EOMI, Normal appearance, PERRL Pupil Exam: NORMAL ACCOMODATION, PERRL - ENT Exam ENT Exam: Mucous Membranes Dry, Normal Exam - Neck Exam Neck exam: Positive for: Normal Inspection - Respiratory Exam Respiratory Exam: Decreased Breath Sounds, Prolonged Expiratory Phase, NORMAL BREATHING PATTERN - Cardiovascular Exam Cardiovascular Exam: Tachycardia, REGULAR RHYTHM - GI/Abdominal Exam GI & Abdominal Exam: Hypoactive Bowel Sounds, Soft - Rectal Exam Rectal Exam: Deferred - Extremities Exam Extremities exam: Positive for: normal inspection - Back Exam Back exam: NORMAL INSPECTION - Neurological Exam Neurological exam: Alert, Oriented x3 - Psychiatric Exam Psychiatric exam: Normal Affect, Normal Mood - Skin Skin Exam: Dry, Intact, Normal Color, Warm Results - Vital Signs Recent Vital Signs: Last Vital Signs Temp 97.9 F 07/01/18 07:10 Pulse 81 07/01/18 13:24 Resp 18 07/01/18 07:10 BP 139/76 07/01/18 07:10 Pulse Ox 98 07/01/18 07:10 - Labs Result Diagrams: 07/01/18 06:23 07/01/18 06:23 Labs: Laboratory Results - last 24 hr 06/30/18 06/30/18 06/30/18 13:24 13:24 13:31 WBC 6.8 RBC 2.72 L Hgb 9.0 L Hct 27.2 L MCV 100.1 H MCH 33.2 H MCHC 33.2 RDW 15.7 H Plt Count 89 L MPV 10.2 Neut % (Auto) 77.0 H Lymph % (Auto) 18.4 L [place] % (Auto) 4.3 Eos % (Auto) 0.1 Baso % (Auto) 0.2 Neut # (Auto) 5.2 Lymph # (Auto) 1.3 [place] # (Auto) 0.3 Eos # (Auto) 0.0 Baso # (Auto) 0.0 Neutrophils % (Manual) Band Neutrophils % Lymphocytes % (Manual) Monocytes % (Manual) Differential Comment Platelet Estimate Hypochromasia (manual) Poikilocytosis (manual Anisocytosis (manual) Target Cells Tear Drop Cells Ovalocytes PT 12.3 H INR 1.1 APTT 30 Puncture Site pCO2 pO2 HCO3 ABG pH ABG Total CO2 ABG O2 Saturation ABG Base Excess Jax Test ABG Potassium Glucose Lactate Liter Flow Sodium 139 Potassium 3.7 Chloride 109 H Carbon Dioxide 21 L Anion Gap 14 BUN 40 H Creatinine 2.7 H Est GFR ( Amer) 21 Est GFR (Non-Af Amer) 17 POC Glucose (mg/dL) Random Glucose 100 Calcium 10.1 Phosphorus Magnesium Total Bilirubin 0.6 AST 47 H D ALT 42 Alkaline Phosphatase 84 Total Protein 7.3 Albumin 4.3 Globulin 3.0 Albumin/Globulin Ratio 1.4 Arterial Blood Potassium Influenza Typ A,B (EIA) 06/30/18 06/30/18 07/01/18 15:24 23:48 06:23 WBC 3.8 L RBC 2.48 L Hgb 8.1 L Hct 24.8 L MCV 100.0 H MCH 32.6 H MCHC 32.6 L RDW 14.8 H Plt Count 80 L MPV 10.4 Neut % (Auto) 90.9 H Lymph % (Auto) 7.4 L [place] % (Auto) 1.6 Eos % (Auto) 0.0 Baso % (Auto) 0.1 Neut # (Auto) 3.5 Lymph # (Auto) 0.3 L [place] # (Auto) 0.1 Eos # (Auto) 0.0 Baso # (Auto) 0.0 Neutrophils % (Manual) 90 H Band Neutrophils % 2 Lymphocytes % (Manual) 7 L Monocytes % (Manual) 1 Differential Comment Platelet Estimate Decreased L Hypochromasia (manual) Slight Poikilocytosis (manual Slight Anisocytosis (manual) Slight Target Cells Slight Tear Drop Cells Slight Ovalocytes Slight PT INR APTT Puncture Site L brac pCO2 31 L pO2 100 HCO3 21.0 ABG pH 7.39 ABG Total CO2 19.8 L ABG O2 Saturation 99.9 H ABG Base Excess -5.1 L Jax Test Na ABG Potassium 4.6 Glucose 272 H Lactate 3.4 H Liter Flow 3.0 Sodium 139.0 Potassium Chloride 108.0 H Carbon Dioxide Anion Gap BUN Creatinine Est GFR ( Amer) Est GFR (Non-Af Amer) POC Glucose (mg/dL) Random Glucose Calcium Phosphorus Magnesium Total Bilirubin AST ALT Alkaline Phosphatase Total Protein Albumin Globulin Albumin/Globulin Ratio Arterial Blood Potassium 4.6 Influenza Typ A,B (EIA) Negative for flu a/b 07/01/18 07/01/18 06:23 12:09 WBC RBC Hgb Hct MCV MCH MCHC RDW Plt Count MPV Neut % (Auto) Lymph % (Auto) [place] % (Auto) Eos % (Auto) Baso % (Auto) Neut # (Auto) Lymph # (Auto) [place] # (Auto) Eos # (Auto) Baso # (Auto) Neutrophils % (Manual) Band Neutrophils % Lymphocytes % (Manual) Monocytes % (Manual) Differential Comment Platelet Estimate Hypochromasia (manual) Poikilocytosis (manual Anisocytosis (manual) Target Cells Tear Drop Cells Ovalocytes PT INR APTT Puncture Site pCO2 pO2 HCO3 ABG pH ABG Total CO2 ABG O2 Saturation ABG Base Excess Jax Test ABG Potassium Glucose Lactate Liter Flow Sodium 139 Potassium 4.9 Chloride 108 H Carbon Dioxide 19 L Anion Gap 17 BUN 51 H Creatinine 3.8 H Est GFR ( Amer) 14 Est GFR (Non-Af Amer) 12 POC Glucose (mg/dL) 188 H Random Glucose 166 H D Calcium 9.2 Phosphorus 3.9 Magnesium 1.6 Total Bilirubin 0.5 AST 30 ALT 29 Alkaline Phosphatase 65 Total Protein 6.8 Albumin 4.0 Globulin 2.8 Albumin/Globulin Ratio 1.4 Arterial Blood Potassium Influenza Typ A,B (EIA) Assessment & Plan - Assessment and Plan (Free Text) Assessment: Palliative consult DNR/DNI, there is no POLST on chart I reviewed medical records, all diagnostic studies, examined and interviewed patient in the bed Patient is alert, oriened X3 with BiPap on what makes her talking difficult. patient complained of discomfort and wanted Bipap off. I removed the Bipap for the purpose of interview but placed it back in about 5 min as patient begun being SOB. The physical exam revealed chronically ill lady in mild respiratory distress due to chroni changes. O2 Sat 98 % on BiPap. Abdomen soft , active bowel sounds, there is no BM documented. Patient denied abdominal pain. Patient is on Heart Healthy diet. Patient is mostly bed ridden , needs max assistance for reposition and feeding. There are arthritic changes to the fingers of both hands and patient is unable to hold utensils or cup. I questioned patient about her DNR/DNI status and she demonstrated appropriate understanding of it. Patient was not able to sign the POLST due to arthralgia in her fingers and asked me to talk to her son. I called the son and left voice mail. Goals of care discussion was limited due to use of BiPap. Impression * Chronically ill lady with worsening of breathing * General weakness * Bed ridden * At risk for pressure sores due to limited mobility * Needs assistance with care and feedings * DNR/DNI Suggestions * Continue BiPap * Assist with ADLs especially with feedings * Promote skin integrity * Agree with DNR/DNI Palliative care will contact son again and schedule family meeting for further goals of care discussion
[2018-07-01] MEDS: Sodium Chloride 0.9% 1,000 ML IV SCH (13:46)
--- NOTE | 2018-07-01 14:15 | CP.PCM.CON ---
History of Present Illness - History of Present Illness History of Present Illness: Reason for consultation: shortness of breath 77-year-old female with history of COPD, renal transplant, lupus nephritis, hypertension, severe kyphoscoliosis presented to emergency room with worsening shortness of breath over the course of one week , states she does not have cough or productive sputum; ran out of her 1mg of tacrolimus and has not been taking her BID 5mg tacrolimus for the past week. She states the shortness of breath has been increasing over the course of 5 days, denies fevers/chills, recent travel, or sick contacts. Patient is adamant about DNR/DNI, son at bedside who is also in agreement. PMHx: lupus, lupus nephritis, CKD (HD for 5 years and kidney transplant at [facility] 10/01/2001), HTN, severe kyphoscoliosis PSHx: kidney transplant at [facility] 10/01/2001, Hysterectomy and cataracts removal FHX: Unknown Medications: Tacrolimus 5mg HS, 2mg Tacrolimus 2mg AM, Sensipar 90mg, Prednisone 10mg, Bactrim DS daily for prophylaxis, atorvastatin 10mg HS, Risendronate 35mg weekly, Amlodipine 10mg daily, Allergies: NKDA Review of Systems - Review of Systems All systems: reviewed and no additional remarkable complaints except (shortness of breath) Past Patient History - Infectious Disease Hx of Infectious Diseases: None - Past Medical History & Family History Past Medical History?: Yes Past Family History: Reviewed and not pertinent - Past Social History Smoking Status: Never Smoked Chewing Tobacco Use: No Cigar Use: No Alcohol: None Drugs: Denies Home Situation {Lives}: With Family - CARDIAC Hx Congestive Heart Failure: Yes - PULMONARY Hx Chronic Obstructive Pulmonary Disease (COPD): Yes - RENAL Hx Chronic Kidney Disease: Yes - MUSCULOSKELETAL/RHEUMATOLOGICAL Hx Arthritis: Yes (BACK, THOR KYPHOSIS) - PSYCHIATRIC Hx Substance Use: No - SURGICAL HISTORY Hx Surgeries: Yes Hx Kidney Transplant: Yes (RIGHT) Other/Comment: RIGHT UPPER ARM AV FISTULA - ANESTHESIA Hx Anesthesia: Yes Hx Anesthesia Reactions: No Hx Malignant Hyperthermia: No Meds Allergies/Adverse Reactions: Allergies Allergy/AdvReac Type Severity Reaction Status Date / Time No Known Allergies Allergy Verified 06/30/18 12:03 - Medications Medications: Current Medications Albuterol/Ipratropium (Duoneb 3 Mg/0.5 Mg (3 Ml) Ud) 3 ml INH Q4H [facility] Last Admin: 07/01/18 12:00 Dose: 3 ml Amlodipine Besylate (Norvasc) 10 mg PO DAILY [facility] Last Admin: 07/01/18 11:47 Dose: 10 mg Cinacalcet (Sensipar) 90 mg PO DAILY [facility] Last Admin: 07/01/18 11:47 Dose: 90 mg Sodium Chloride (Sodium Chloride 0.9%) 1,000 mls @ 100 mls/hr IV .Q10H [facility] Last Admin: 07/01/18 13:46 Dose: 100 mls/hr Methylprednisolone (Solu-Medrol) 40 mg IVP Q6H [facility] Pantoprazole Sodium (Protonix Inj) 40 mg IVP DAILY [facility] Last Admin: 07/01/18 11:27 Dose: 40 mg Rosuvastatin Calcium (Crestor) 5 mg PO HS PING Saccharomyces Boulardii (Florastor) 250 mg PO BID [facility] Last Admin: 07/01/18 11:47 Dose: 250 mg Tacrolimus (Prograf) 5 mg PO BID PING Tacrolimus (Prograf Cap) 2 mg PO BID [facility] Trimethoprim/Sulfamethoxazole (Bactrim Ds Tab) 1 tab PO DAILY [facility]; Protocol Last Admin: 07/01/18 11:47 Dose: 1 tab Physical Exam - Head Exam Head Exam: ATRAUMATIC, NORMOCEPHALIC - ENT Exam ENT Exam: Mucous Membranes Moist - Neck Exam Neck exam: Positive for: Normal Inspection - Respiratory Exam Respiratory Exam: Decreased Breath Sounds - Cardiovascular Exam Cardiovascular Exam: REGULAR RHYTHM - GI/Abdominal Exam GI & Abdominal Exam: Normal Bowel Sounds Results - Vital Signs Recent Vital Signs: Last Vital Signs Temp 97.9 F 07/01/18 07:10 Pulse 81 07/01/18 13:24 Resp 18 07/01/18 07:10 BP 139/76 07/01/18 07:10 Pulse Ox 98 07/01/18 07:10 - Labs Result Diagrams: 07/01/18 06:23 07/01/18 06:23 Labs: Laboratory Results - last 24 hr 06/30/18 06/30/18 07/01/18 15:24 23:48 06:23 WBC 3.8 L RBC 2.48 L Hgb 8.1 L Hct 24.8 L MCV 100.0 H MCH 32.6 H MCHC 32.6 L RDW 14.8 H Plt Count 80 L MPV 10.4 Neut % (Auto) 90.9 H Lymph % (Auto) 7.4 L [place] % (Auto) 1.6 Eos % (Auto) 0.0 Baso % (Auto) 0.1 Neut # (Auto) 3.5 Lymph # (Auto) 0.3 L [place] # (Auto) 0.1 Eos # (Auto) 0.0 Baso # (Auto) 0.0 Neutrophils % (Manual) 90 H Band Neutrophils % 2 Lymphocytes % (Manual) 7 L Monocytes % (Manual) 1 Platelet Estimate Decreased L Hypochromasia (manual) Slight Poikilocytosis (manual Slight Anisocytosis (manual) Slight Target Cells Slight Tear Drop Cells Slight Ovalocytes Slight Puncture Site L brac pCO2 31 L pO2 100 HCO3 21.0 ABG pH 7.39 ABG Total CO2 19.8 L ABG O2 Saturation 99.9 H ABG Base Excess -5.1 L Jax Test Na ABG Potassium 4.6 Sodium 139.0 Chloride 108.0 H Glucose 272 H Lactate 3.4 H Liter Flow 3.0 Potassium Carbon Dioxide Anion Gap BUN Creatinine Est GFR ( Amer) Est GFR (Non-Af Amer) POC Glucose (mg/dL) Random Glucose Calcium Phosphorus Magnesium Total Bilirubin AST ALT Alkaline Phosphatase Total Protein Albumin Globulin Albumin/Globulin Ratio Arterial Blood Potassium 4.6 Influenza Typ A,B (EIA) Negative for flu a/b 07/01/18 07/01/18 06:23 12:09 WBC RBC Hgb Hct MCV MCH MCHC RDW Plt Count MPV Neut % (Auto) Lymph % (Auto) [place] % (Auto) Eos % (Auto) Baso % (Auto) Neut # (Auto) Lymph # (Auto) [place] # (Auto) Eos # (Auto) Baso # (Auto) Neutrophils % (Manual) Band Neutrophils % Lymphocytes % (Manual) Monocytes % (Manual) Platelet Estimate Hypochromasia (manual) Poikilocytosis (manual Anisocytosis (manual) Target Cells Tear Drop Cells Ovalocytes Puncture Site pCO2 pO2 HCO3 ABG pH ABG Total CO2 ABG O2 Saturation ABG Base Excess Jax Test ABG Potassium Sodium 139 Chloride 108 H Glucose Lactate Liter Flow Potassium 4.9 Carbon Dioxide 19 L Anion Gap 17 BUN 51 H Creatinine 3.8 H Est GFR ( Amer) 14 Est GFR (Non-Af Amer) 12 POC Glucose (mg/dL) 188 H Random Glucose 166 H D Calcium 9.2 Phosphorus 3.9 Magnesium 1.6 Total Bilirubin 0.5 AST 30 ALT 29 Alkaline Phosphatase 65 Total Protein 6.8 Albumin 4.0 Globulin 2.8 Albumin/Globulin Ratio 1.4 Arterial Blood Potassium Influenza Typ A,B (EIA) Assessment & Plan (1) Respiratory failure Status: Acute Comment: secondary to COPD and severe kyphoscoliosis. BiPAP. nebulizer treatment. IV steroids. Patient DNR/DNI (2) CKD (chronic kidney disease) stage 4, GFR 15-29 ml/min Status: Acute (3) Chronic obstructive lung disease Status: Acute (4) History of kidney transplant Status: Acute (5) Pulmonary hypertension Status: Acute
[2018-07-02] MEDS: Albuterol-Ipratrop 3 mg / 0.5 (3 ml) UD INH SCH ×6 (00:05→20:25)
[2018-07-02] MEDS: MethylPREDNISolone 40 mg Vial IVP SCH ×4 (04:27→21:32)
[2018-07-02 08:14] LABS: HEMOGLOBIN 8.3 g/dL (11.0-16.0); LYMPH # 0.5 K/uL (1.0-4.3); LYMPH % 6.4 % (20.0-40.0); MEAN CELL VOLUME 100.7 fL (81.0-99.0); MEAN CORPUSCULAR HEMOGLOBIN 33.1 pg (27.0-31.0); MEAN CORPUSCULAR HGB CONC 32.9 g/dL (33.0-37.0); MEAN PLATELET VOLUME 10.4 fL (7.2-11.7); MONO # 0.3 K/uL (0.0-0.8); MONO % 4.4 % (0.0-10.0); NEUT # 6.5 K/uL (1.8-7.0); NEUT % 89.2 % (50.0-75.0); NRBC % 0.1 % (0.0-2.0); PLATELET COUNT 90 K/uL (130-400); RBC 2.52 Mil/uL (3.80-5.20); RED CELL DISTRIBUTION WIDTH 15.1 % (11.5-14.5)
[2018-07-02 08:27] LABS: WHITE BLOOD COUNT 7.3 K/uL (4.8-10.8)
[2018-07-02 08:29] LABS: ALB/GLOB RATIO 1.4 (1.0-2.1); CALCIUM 8.3 mg/dl (8.6-10.4)
--- NOTE | 2018-07-02 08:38 | CARD ---
APPROVED REPORT Date of service: 06/30/2018 EKG Measurement Heart [id number] [id number] <Conclusion> Normal sinus rhythm Left ventricular hypertrophy with repolarization abnormality Cannot rule out Septal infarct, age undetermined Abnormal ECG
--- NOTE | 2018-07-02 09:48 | CP.PCM.PN ---
Subjective - Date & Time of Evaluation Date of Evaluation: 07/02/18 Time of Evaluation: 09:45 - Subjective Subjective: More dyspneic Placed on bipap creat increased to 4.2 replaced on tacro but dose is not really known; patient had been noncompliant with meds on high dose IV steroids no infiltrate seen on CXR UO not recorded Objective - Vital Signs/Intake and Output Vital Signs (last 24 hours): Temp Pulse Resp BP Pulse Ox 98.5 F 80 20 159/79 H 97 07/02/18 07:00 07/02/18 08:29 07/02/18 07:00 07/02/18 07:00 07/02/18 07:00 - Medications Medications: Current Medications Albuterol/Ipratropium (Duoneb 3 Mg/0.5 Mg (3 Ml) Ud) 3 ml INH Q4H [facility] Last Admin: 07/02/18 07:30 Dose: 3 ml Amlodipine Besylate (Norvasc) 10 mg PO DAILY [facility] Last Admin: 07/01/18 11:47 Dose: 10 mg Cinacalcet (Sensipar) 90 mg PO DAILY [facility] Last Admin: 07/01/18 11:47 Dose: 90 mg Sodium Chloride (Sodium Chloride 0.9%) 1,000 mls @ 100 mls/hr IV .Q10H [facility] Last Admin: 07/01/18 13:46 Dose: 100 mls/hr Methylprednisolone (Solu-Medrol) 40 mg IVP Q6H [facility] Last Admin: 07/02/18 04:27 Dose: 40 mg Pantoprazole Sodium (Protonix Inj) 40 mg IVP DAILY [facility] Last Admin: 07/01/18 11:27 Dose: 40 mg Rosuvastatin Calcium (Crestor) 5 mg PO HS [facility] Saccharomyces Boulardii (Florastor) 250 mg PO BID [facility] Last Admin: 07/01/18 17:30 Dose: 250 mg Tacrolimus (Prograf) 5 mg PO BID [facility] Last Admin: 07/01/18 17:30 Dose: 5 mg Tacrolimus (Prograf Cap) 2 mg PO BID [facility] Last Admin: 07/01/18 19:12 Dose: 2 mg Trimethoprim/Sulfamethoxazole (Bactrim Ds Tab) 1 tab PO DAILY [facility]; Protocol Last Admin: 07/01/18 11:47 Dose: 1 tab - Labs Labs: 07/02/18 08:08 12/25/18 08:08 PT 12.3 SECONDS (9.7-12.2) H 06/30/18 13:31 INR 1.1 06/30/18 13:31 APTT 30 SECONDS (21-34) 06/30/18 13:31 - Constitutional Appears: In Acute Distress, Confused, Chronically Ill - Head Exam Head Exam: ATRAUMATIC, NORMAL INSPECTION - Eye Exam Eye Exam: EOMI, Normal appearance - Neck Exam Neck Exam: Normal Inspection. absent: Tenderness - Respiratory Exam Respiratory Exam: Clear to Ausculation Bilateral, Respiratory Distress - Cardiovascular Exam Cardiovascular Exam: REGULAR RHYTHM, +S1 - GI/Abdominal Exam GI & Abdominal Exam: Soft. absent: Tenderness - Extremities Exam Extremities Exam: Normal Inspection. absent: Tenderness - Neurological Exam Neurological Exam: Altered - Skin Skin Exam: Dry, Warm Assessment and Plan (1) Restrictive lung disease Status: Acute (2) Hypoxemia Status: Acute (3) Dehydration Status: Acute (4) CKD (chronic kidney disease) stage 4, GFR 15-29 ml/min Status: Acute (5) SEBASTIAN (acute kidney injury) Status: Acute (6) History of kidney transplant Status: Acute (7) Medical non-compliance Status: Acute - Assessment and Plan (Free Text) Plan: Increase IV fluids agree with IV steroids Empirically lower tacro dose as creatinine increasing; await levels serial chemistries
[2018-07-02] MEDS: Sodium Chloride 0.9% 1,000 ML IV SCH ×4 (10:20→21:42)
[2018-07-02 10:45] LABS: LYMPHOCYTE 9 % (20-40); MONOCYTE 5 % (0-10); NEUTROPHIL 86 % (50-75); PLATELET ESTIMATE DECREASED (NORMAL); TOTAL CELLS COUNTED 100
[2018-07-02 10:46] LABS: HYPOCHROMIC SLIGHT; OVALOCYTES SLIGHT; POIKILOCYTOSIS SLIGHT; POLYCHROMIC SLIGHT
[2018-07-02 10:51] LABS: ANISOCYTOSIS MODERATE; TOXIC GRANULATION PRESENT
[2018-07-02] MEDS: Saccharomyces Boulardi 250 mg Cap PO SCH ×2 (11:17→18:04)
--- NOTE | 2018-07-02 14:28 | CP.PCM.PN ---
Subjective - Date & Time of Evaluation Date of Evaluation: 07/02/18 Time of Evaluation: 11:00 - Subjective Subjective: Patient seen and examined Breathing much better Patient is off BiPAP awake and responsive patient is afebrile Objective - Vital Signs/Intake and Output Vital Signs (last 24 hours): Temp Pulse Resp BP Pulse Ox 98.5 F 80 20 159/79 H 97 07/02/18 07:00 07/02/18 08:29 07/02/18 07:00 07/02/18 07:00 07/02/18 08:00 - Medications Medications: Current Medications Albuterol/Ipratropium (Duoneb 3 Mg/0.5 Mg (3 Ml) Ud) 3 ml INH Q4H [facility] Last Admin: 07/02/18 12:00 Dose: 3 ml Amlodipine Besylate (Norvasc) 10 mg PO DAILY [facility] Last Admin: 07/02/18 10:13 Dose: 10 mg Cinacalcet (Sensipar) 90 mg PO DAILY [facility] Last Admin: 07/02/18 10:12 Dose: 90 mg Sodium Chloride (Sodium Chloride 0.9%) 1,000 mls @ 125 mls/hr IV .Q8H [facility] Last Admin: 07/02/18 10:20 Dose: 125 mls/hr Methylprednisolone (Solu-Medrol) 40 mg IVP Q6H [facility] Last Admin: 07/02/18 10:24 Dose: 40 mg Pantoprazole Sodium (Protonix Inj) 40 mg IVP DAILY [facility] Last Admin: 07/02/18 10:13 Dose: 40 mg Rosuvastatin Calcium (Crestor) 5 mg PO [facility] Saccharomyces Boulardii (Florastor) 250 mg PO BID [facility] Last Admin: 07/02/18 11:17 Dose: 250 mg Tacrolimus (Prograf Cap) 2 mg PO BID [facility] Last Admin: 07/02/18 10:13 Dose: 2 mg - Labs Labs: 07/02/18 08:08 07/02/18 08:08 PT 12.3 SECONDS (9.7-12.2) H 06/30/18 13:31 INR 1.1 06/30/18 13:31 APTT 30 SECONDS (21-34) 06/30/18 13:31 - Head Exam Head Exam: ATRAUMATIC, NORMOCEPHALIC - ENT Exam ENT Exam: Mucous Membranes Moist - Respiratory Exam Respiratory Exam: Decreased Breath Sounds, Rales - Cardiovascular Exam Cardiovascular Exam: REGULAR RHYTHM - GI/Abdominal Exam GI & Abdominal Exam: Soft, Normal Bowel Sounds - Extremities Exam Extremities Exam: Normal Inspection - Neurological Exam Neurological Exam: Alert, Oriented x3 Assessment and Plan (1) Respiratory failure Status: Acute (2) CKD (chronic kidney disease) stage 4, GFR 15-29 ml/min Status: Acute (3) Chronic obstructive lung disease Status: Acute (4) History of kidney transplant Status: Acute (5) Pulmonary hypertension Status: Acute
--- NOTE | 2018-07-02 18:01 | CP.PCM.PN ---
Subjective - Date & Time of Evaluation Date of Evaluation: 07/02/18 Time of Evaluation: 12:00 - Subjective Subjective: Patient examined at bedside. Overnight, pt refused medications and threatened to leave the hospital, placed on safety. Agreed to stay, requiring BiPAP as patient is very SOB and cannot maintain O2 without it. Reports she wants to evonne ve the hospital and go home. Discussion had with her regarding her inability to oxygenate at this time. Pt understands and agrees to stay. Objective - Vital Signs/Intake and Output Vital Signs (last 24 hours): Temp Pulse Resp BP Pulse Ox 98 F 110 H 20 145/93 H 97 07/02/18 16:39 07/02/18 16:39 07/02/18 16:39 07/02/18 16:39 07/02/18 16:39 - Medications Medications: Current Medications Albuterol/Ipratropium (Duoneb 3 Mg/0.5 Mg (3 Ml) Ud) 3 ml INH Q4H [facility] Last Admin: 07/02/18 16:15 Dose: 3 ml Amlodipine Besylate (Norvasc) 10 mg PO DAILY [facility] Last Admin: 07/02/18 10:13 Dose: 10 mg Cinacalcet (Sensipar) 90 mg PO DAILY [facility] Last Admin: 07/02/18 10:12 Dose: 90 mg Sodium Chloride (Sodium Chloride 0.9%) 1,000 mls @ 125 mls/hr IV .Q8H [facility] Last Admin: 07/02/18 10:20 Dose: 125 mls/hr Methylprednisolone (Solu-Medrol) 40 mg IVP Q6H [facility] Last Admin: 07/02/18 10:24 Dose: 40 mg Pantoprazole Sodium (Protonix Inj) 40 mg IVP DAILY [facility] Last Admin: 07/02/18 10:13 Dose: 40 mg Rosuvastatin Calcium (Crestor) 5 mg PO HS [facility] Saccharomyces Boulardii (Florastor) 250 mg PO BID [facility] Last Admin: 07/02/18 11:17 Dose: 250 mg Tacrolimus (Prograf Cap) 2 mg PO BID [facility] Last Admin: 07/02/18 10:13 Dose: 2 mg - Labs Labs: 07/02/18 08:08 07/02/18 08:08 PT 12.3 SECONDS (9.7-12.2) H 06/30/18 13:31 INR 1.1 12/23/18 13:31 APTT 30 SECONDS (21-34) 06/30/18 13:31 - Additional Findings Additional findings: - Constitutional Appears: Non-toxic - Head Exam Head Exam: NORMAL INSPECTION, NORMOCEPHALIC - Eye Exam Eye Exam: Normal appearance - ENT Exam ENT Exam: Mucous Membranes Dry - Respiratory Exam Respiratory Exam: Decreased Breath Sounds. Currently on BiPAP. absent: Rales, Wheezes - Cardiovascular Exam Cardiovascular Exam: REGULAR RHYTHM, +S1, +S2 - GI/Abdominal Exam GI & Abdominal Exam: Soft, Normal Bowel Sounds. absent: Tenderness - Extremities Exam Extremities Exam: absent: Calf Tenderness Additional comments: +compression stockings bilaterally - Neurological Exam Neurological Exam: Alert, Awake, Oriented x3 - Psychiatric Exam Psychiatric exam: Anxious - Skin Skin Exam: Dry, Normal Color, Warm Assessment and Plan - Assessment and Plan (Free Text) Assessment: Patient is a 77 year old F admitted for acute on chronic respiratory failure 2/2 to severe kyphoscoliosis, lupus. Plan: Shortness of breath -Afebrile -Continue Bipap prn, continuous pulse ox -Chest X-ray shows Normal limited examination. -Chest CT shows No acute infiltrate. Cardiomegaly and dilated main pulmonary artery. No pleural effusion. Multiple stable mild thoracic and upper lumbar vertebral compression deformities. Additional minor findings as above. (see full report) -Continue Solumedrol 40mg Q6H IVP -Duonebs 3mL INH RQ4H -Zosyn 3.375 Q8H (discontinued on 07/01/18) -Influenza negative -Pulmonology; Dr. Acosta; thank you for your help -Patient is DNR/DNI, palliative care on consult, help appreciated Pulmonary hypertension Previous Chest CT on admission from 06/04/18: No definite alveolitis bilaterally. Minimal dependent atelectasis, diminished in the interval bilaterally as compared prior chest CT 05/25/2017. 2. Prominent cardiomegaly reiterated as well as increasing main pulmonary artery caliber (4.4 cm) suspicious for pulmonary artery hypertension though this is a clinical diagnosis and further clinical correlation is recommended. Further, ectatic dilated superior vena cava identified potentially a function of right heart failure possible right or failure. Clinically correlate further. -Repeat chest CT shows No acute infiltrate. Cardiomegaly and dilated main pulmonary artery. No pleural effusion. Multiple stable mild thoracic and upper lumbar vertebral compression deformities. Additional minor findings as above. (see full report) -F/U Pulmonary recommendations Hx of Hypertension -Norvasc 10mg PO daily -Vital signs Q4H Acute on Chronic Kidney Disease -Baseline Cr 2.5 -Cr today 3.8 -Patient started on NS @ 100cc/hr -Monitor serial BMPs -Crestor on hold at this time -Avoid nephrotoxic agents 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 (HD for 5 years and kidney transplant at [facility] 10/01/2001) -Continue Tacrolimus 5mg PO HS, Tacrolimus 2mg PO AM (patient has been missing this medication for the past week) -F/U Tacrolimus level -Continue Sensipar 90mg PO daily, Bactrim 1 tab PO daily -Nephrology on consult, Dr Sykes, help appreciated History of lupus Prednisone 10mg PO daily Prophylactic measure DVT: contraindicated 2/2 to thrombocytopenia GI: Protonix 40mg IVP daily -prune juice for constipation -patient is requesting sweet tea from [employer] if she is still here on X-Ma s Discussed and seen with Dr. Harrison -Ramandeep Moon, PGY-1
[2018-07-02 23:14] LABS: SQUAMOUS EPITHIAL 11 /hpf (0-5); URINE BILIRUBIN NEGATIVE (NEGATIVE); URINE BLOOD NEGATIVE (NEGATIVE); URINE CLARITY Hazy (Clear); URINE COLOR Yellow (YELLOW); URINE GLUCOSE (UA) 2+ mg/dL (Normal); URINE LEUKOCYTE ESTERASE NEG Leu/uL (Negative); URINE PROTEIN 2+ mg/dL (NEGATIVE); URINE UROBILINOGEN NORMAL mg/dL (0.2-1.0)
[2018-07-03] MEDS: Albuterol-Ipratrop 3 mg / 0.5 (3 ml) UD INH SCH ×6 (00:15→20:40)
[2018-07-03] MEDS: Sodium Chloride 0.9% 1,000 ML IV SCH ×3 (02:00→21:34)
[2018-07-03] MEDS: MethylPREDNISolone 40 mg Vial IVP SCH ×4 (05:00→21:33)
[2018-07-03 06:49] LABS: BASO % 0.3 % (0.0-2.0); HEMOGLOBIN 8.1 g/dL (11.0-16.0); LYMPH # 0.3 K/uL (1.0-4.3); LYMPH % 5.1 % (20.0-40.0); MEAN CELL VOLUME 101.3 fL (81.0-99.0); MEAN CORPUSCULAR HEMOGLOBIN 32.9 pg (27.0-31.0); MEAN CORPUSCULAR HGB CONC 32.5 g/dL (33.0-37.0); MEAN PLATELET VOLUME 10.3 fL (7.2-11.7); MONO # 0.2 K/uL (0.0-0.8); MONO % 3.4 % (0.0-10.0); NEUT # 5.2 K/uL (1.8-7.0); NEUT % 91.2 % (50.0-75.0); NRBC % 0.1 % (0.0-2.0); PLATELET COUNT 89 K/uL (130-400); RBC 2.45 Mil/uL (3.80-5.20); RED CELL DISTRIBUTION WIDTH 15.9 % (11.5-14.5); WHITE BLOOD COUNT 5.7 K/uL (4.8-10.8)
[2018-07-03 08:10] LABS: ALB/GLOB RATIO 1.5 (1.0-2.1); ALBUMIN 3.9 g/dL (3.5-5.0); CALCIUM 8.2 mg/dl (8.6-10.4)
[2018-07-03 09:23] LABS: BANDS 1 % (0-2); LYMPHOCYTE 4 % (20-40); MONOCYTE 3 % (0-10); NEUTROPHIL 92 % (50-75); PLATELET ESTIMATE DECREASED (NORMAL); TOTAL CELLS COUNTED 100
[2018-07-03 09:24] LABS: ANISOCYTOSIS SLIGHT; BURR CELLS SLIGHT; HYPOCHROMIC SLIGHT; OVALOCYTES SLIGHT; POIKILOCYTOSIS SLIGHT
[2018-07-03 09:25] LABS: LARGE PLATELETS PRESENT; POLYCHROMIC SLIGHT
[2018-07-03] MEDS: Saccharomyces Boulardi 250 mg Cap PO SCH ×2 (09:31→18:46)
--- NOTE | 2018-07-03 10:43 | CP.PCM.PN ---
<Kristina Odell - Last Filed: 07/03/18 16:42> Subjective - Date & Time of Evaluation Date of Evaluation: 07/03/18 Time of Evaluation: 10:42 - Subjective Subjective: Medicine Progress Note - Dr Jimenez's service covering for Dr Calvo Patient seen and examined at bedside. Per nursing no acute events overnight. Patient currently on bipap, states that breathing is a little better. Patient reportedly desats when taken off the bipap. Objective - Vital Signs/Intake and Output Vital Signs (last 24 hours): Temp Pulse Resp BP Pulse Ox 97.6 F 83 20 129/75 99 07/03/18 07:00 07/03/18 09:25 07/03/18 07:00 07/03/18 07:00 07/03/18 07:00 Intake and Output: 07/03/18 07/03/18 06:59 18:59 Intake Total 1000 Balance 1000 - Medications Medications: Current Medications Albuterol/Ipratropium (Duoneb 3 Mg/0.5 Mg (3 Ml) Ud) 3 ml INH Q4H [facility] Last Admin: 07/03/18 08:10 Dose: 3 ml Amlodipine Besylate (Norvasc) 10 mg PO DAILY [facility] Last Admin: 07/03/18 09:31 Dose: 10 mg Cinacalcet (Sensipar) 90 mg PO DAILY [facility] Last Admin: 07/03/18 09:32 Dose: 90 mg Sodium Chloride (Sodium Chloride 0.9%) 1,000 mls @ 125 mls/hr IV .Q8H [facility] Last Admin: 07/03/18 09:32 Dose: 125 mls/hr Methylprednisolone (Solu-Medrol) 40 mg IVP Q6H [facility] Last Admin: 07/03/18 10:10 Dose: 40 mg Pantoprazole Sodium (Protonix Inj) 40 mg IVP DAILY [facility] Last Admin: 07/03/18 09:32 Dose: 40 mg Rosuvastatin Calcium (Crestor) 5 mg PO HS [facility] Saccharomyces Boulardii (Florastor) 250 mg PO BID [facility] Last Admin: 07/03/18 09:31 Dose: 250 mg Tacrolimus (Prograf Cap) 2 mg PO BID [facility] Last Admin: 07/03/18 09:31 Dose: 2 mg - Labs Labs: 07/03/18 04:00 07/03/18 06:42 PT 12.3 SECONDS (9.7-12.2) H 06/30/18 13:31 INR 1.1 06/30/18 13:31 APTT 30 SECONDS (21-34) 06/30/18 13:31 - Additional Findings Additional findings: - Constitutional Appears: Non-toxic - Head Exam Head Exam: NORMAL INSPECTION, NORMOCEPHALIC - Eye Exam Eye Exam: Normal appearance - ENT Exam ENT Exam: Mucous Membranes Dry - Respiratory Exam Respiratory Exam: Decreased Breath Sounds. absent: Rales, Wheezes - Cardiovascular Exam Cardiovascular Exam: REGULAR RHYTHM, +S1, +S2 - GI/Abdominal Exam GI & Abdominal Exam: Soft, Normal Bowel Sounds. absent: Tenderness - Extremities Exam Extremities Exam: absent: Calf Tenderness Additional comments: +compression stockings bilaterally - Neurological Exam Neurological Exam: Alert, Awake, Oriented x3 - Psychiatric Exam Psychiatric exam: Anxious - Skin Skin Exam: Dry, Normal Color, Warm Assessment and Plan - Assessment and Plan (Free Text) Assessment: A/P: Patient is a 77 year old F admitted for acute on chronic respiratory failure 2/2 to severe kyphoscoliosis, lupus. Shortness of breath -Afebrile -Uable to wean off bipap -Will order repeat CXR, and attempt high flow NC -Chest X-ray on admission shows Normal limited examination. -Chest CT shows No acute infiltrate. Cardiomegaly and dilated main pulmonary artery. No pleural effusion. Multiple stable mild thoracic and upper lumbar vertebral compression deformities. Additional minor findings as above. (see full report) -Continue Solumedrol 40mg Q6H IVP, will start taper when clinically improves -Duonebs 3mL INH RQ4H -Zosyn 3.375 Q8H (discontinued on 07/01/18) -Influenza negative -Pulmonology; Dr. Acosta; thank you for your help -Patient is DNR/DNI, palliative care on consult, help appreciated Pulmonary hypertension Previous Chest CT on admission from 06/04/18: No definite alveolitis bilaterally. Minimal dependent atelectasis, diminished in the interval bilaterally as compared prior chest CT 05/25/2017. 2. Prominent cardiomegaly reiterated as well as increasing main pulmonary artery caliber (4.4 cm) suspicious for pulmonary artery hypertension though this is a clinical diagnosis and further clinical correlation is recommended. Further, ectatic dilated superior vena cava identified potentially a function of right heart failure possible right or failure. Clinically correlate further. -Repeat chest CT shows No acute infiltrate. Cardiomegaly and dilated main pulmonary artery. No pleural effusion. Multiple stable mild thoracic and upper lumbar vertebral compression deformities. Additional minor findings as above. 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 Hunter Odell DO PGY-2 <Alexis Jimenez - Last Filed: 07/13/18 14:01> Objective - Vital Signs/Intake and Output Vital Signs (last 24 hours): Temp Pulse Resp BP Pulse Ox 97.9 F 86 20 126/78 95 07/13/18 07:00 07/13/18 08:10 07/13/18 07:00 07/13/18 10:55 07/13/18 07:00 - Medications Medications: Current Medications Amlodipine Besylate (Norvasc) 10 mg PO DAILY [facility] Last Admin: 07/13/18 10:55 Dose: 10 mg Apixaban (Eliquis) 2.5 mg PO BID [facility] Last Admin: 07/13/18 10:55 Dose: 2.5 mg Cinacalcet (Sensipar) 90 mg PO DAILY [facility] Last Admin: 07/12/18 09:31 Dose: 90 mg Clonidine HCl (Catapres) 0.2 mg PO BID [facility] Last Admin: 07/13/18 10:55 Dose: 0.2 mg Famotidine (Pepcid) 20 mg PO DAILY [facility] Last Admin: 07/13/18 10:55 Dose: 20 mg Furosemide (Lasix) 40 mg IVP Q12 [facility] Last Admin: 07/13/18 10:55 Dose: 40 mg Ceftriaxone Sodium 1 gm/ (Sodium Chloride) 100 mls @ 100 mls/hr IVPB DAILY [facility]; Protocol Last Admin: 07/13/18 11:06 Dose: 100 mls/hr Methylprednisolone (Solu-Medrol) 40 mg IVP Q8H [facility] Last Admin: 07/13/18 04:54 Dose: Not Given Rosuvastatin Calcium (Crestor) 5 mg PO HS [facility] Saccharomyces Boulardii (Florastor) 250 mg PO BID [facility] Last Admin: 07/13/18 10:58 Dose: 250 mg Sevelamer Carbonate (Renvela) 0.8 gm PO TIDCC [facility] Last Admin: 07/13/18 10:41 Dose: Not Given Sodium Bicarbonate (Sodium Bicarbonate Tab) 650 mg PO BID [facility] Last Admin: 07/13/18 10:55 Dose: 650 mg Tacrolimus (Prograf Cap) 3 mg PO BID [facility] Last Admin: 07/12/18 18:12 Dose: 3 mg - Labs Labs: 07/11/18 11:17 07/11/18 11:17 PT 12.3 SECONDS (9.7-12.2) H 06/30/18 13:31 INR 1.1 06/30/18 13:31 APTT 30 SECONDS (21-34) 06/30/18 13:31 Attending/Attestation - Attestation I have personally seen and examined this patient.: Yes I have fully participated in the care of the patient.: Yes I have reviewed all pertinent clinical information, including history, physical exam and plan: Yes Notes (Text): 07/13/18 14:00 This is a late entry. Care of this patient was gone over in detail with resident Dr. Melinda Odell. Alexis Jimenez D.O.
--- NOTE | 2018-07-03 13:33 | CP.PCM.PN ---
Subjective - Date & Time of Evaluation Date of Evaluation: 07/03/18 Time of Evaluation: 13:30 - Subjective Subjective: Has been confused bipap resumed- patient threatened to stop it Creat decreasing- 3.4; baseline around 2.5-3 tacro levels pending HTN controlled UO not recorded Objective - Vital Signs/Intake and Output Vital Signs (last 24 hours): Temp Pulse Resp BP Pulse Ox 97.6 F 82 20 129/75 99 07/03/18 07:00 07/03/18 11:37 07/03/18 07:00 07/03/18 07:00 07/03/18 07:00 Intake and Output: 07/03/18 07/03/18 06:59 18:59 Intake Total 1000 Balance 1000 - Medications Medications: Current Medications Albuterol/Ipratropium (Duoneb 3 Mg/0.5 Mg (3 Ml) Ud) 3 ml INH Q4H [facility] Last Admin: 07/03/18 08:10 Dose: 3 ml Amlodipine Besylate (Norvasc) 10 mg PO DAILY [facility] Last Admin: 07/03/18 09:31 Dose: 10 mg Cinacalcet (Sensipar) 90 mg PO DAILY [facility] Last Admin: 07/03/18 09:32 Dose: 90 mg Sodium Chloride (Sodium Chloride 0.9%) 1,000 mls @ 125 mls/hr IV .Q8H [facility] Last Admin: 07/03/18 09:32 Dose: 125 mls/hr Methylprednisolone (Solu-Medrol) 40 mg IVP Q6H [facility] Last Admin: 07/03/18 10:10 Dose: 40 mg Pantoprazole Sodium (Protonix Inj) 40 mg IVP DAILY [facility] Last Admin: 07/03/18 09:32 Dose: 40 mg Rosuvastatin Calcium (Crestor) 5 mg PO HS [facility] Saccharomyces Boulardii (Florastor) 250 mg PO BID [facility] Last Admin: 07/03/18 09:31 Dose: 250 mg Tacrolimus (Prograf Cap) 2 mg PO BID [facility] Last Admin: 07/03/18 09:31 Dose: 2 mg - Labs Labs: 07/03/18 04:00 07/03/18 06:42 PT 12.3 SECONDS (9.7-12.2) H 06/30/18 13:31 INR 1.1 06/30/18 13:31 APTT 30 SECONDS (21-34) 06/30/18 13:31 - Constitutional Appears: In Acute Distress, Chronically Ill - Head Exam Head Exam: ATRAUMATIC, NORMAL INSPECTION - Eye Exam Eye Exam: EOMI, Normal appearance - Neck Exam Neck Exam: Normal Inspection. absent: Tenderness - Respiratory Exam Respiratory Exam: Clear to Ausculation Bilateral, NORMAL BREATHING PATTERN - Cardiovascular Exam Cardiovascular Exam: REGULAR RHYTHM, +S1 - GI/Abdominal Exam GI & Abdominal Exam: Soft. absent: Tenderness - Extremities Exam Extremities Exam: Normal Inspection. absent: Tenderness - Neurological Exam Neurological Exam: Awake, CN II-XII Intact - Skin Skin Exam: Dry, Warm Assessment and Plan (1) Restrictive lung disease Status: Acute (2) Hypoxemia Status: Acute (3) Dehydration Status: Acute (4) CKD (chronic kidney disease) stage 4, GFR 15-29 ml/min Status: Acute (5) SEBASTIAN (acute kidney injury) Status: Acute (6) History of kidney transplant Status: Acute (7) Medical non-compliance Status: Acute - Assessment and Plan (Free Text) Plan: Continue IV fluids check tacro levels pulmonary meds serial chemistries
[2018-07-03 15:06] LABS: FOLATE > 20.0 ng/mL
--- NOTE | 2018-07-03 15:26 | CP.PCM.PN ---
Subjective - Date & Time of Evaluation Date of Evaluation: 07/03/18 Time of Evaluation: 12:20 - Subjective Subjective: Patient seen and examined at bedside. Resting comfortably in no acute distress. Denies CP, SOB, fever/chills, N/V Breathing much better. Off BiPAP. Objective - Vital Signs/Intake and Output Vital Signs (last 24 hours): Temp Pulse Resp BP Pulse Ox 97.6 F 82 20 129/75 99 07/03/18 07:00 07/03/18 14:29 07/03/18 07:00 07/03/18 07:00 07/03/18 07:00 Intake and Output: 07/03/18 07/03/18 06:59 18:59 Intake Total 1000 Balance 1000 - Medications Medications: Current Medications Albuterol/Ipratropium (Duoneb 3 Mg/0.5 Mg (3 Ml) Ud) 3 ml INH Q4H [facility] Last Admin: 07/03/18 12:10 Dose: 3 ml Amlodipine Besylate (Norvasc) 10 mg PO DAILY [facility] Last Admin: 07/03/18 09:31 Dose: 10 mg Cinacalcet (Sensipar) 90 mg PO DAILY [facility] Last Admin: 07/03/18 09:32 Dose: 90 mg Sodium Chloride (Sodium Chloride 0.9%) 1,000 mls @ 125 mls/hr IV .Q8H [facility] Last Admin: 07/03/18 09:32 Dose: 125 mls/hr Methylprednisolone (Solu-Medrol) 40 mg IVP Q6H [facility] Last Admin: 07/03/18 10:10 Dose: 40 mg Pantoprazole Sodium (Protonix Inj) 40 mg IVP DAILY [facility] Last Admin: 07/03/18 09:32 Dose: 40 mg Rosuvastatin Calcium (Crestor) 5 mg PO HS [facility] Saccharomyces Boulardii (Florastor) 250 mg PO BID [facility] Last Admin: 07/03/18 09:31 Dose: 250 mg Tacrolimus (Prograf Cap) 2 mg PO BID [facility] Last Admin: 07/03/18 09:31 Dose: 2 mg - Labs Labs: 07/03/18 04:00 07/03/18 06:42 PT 12.3 SECONDS (9.7-12.2) H 06/30/18 13:31 INR 1.1 12/23/18 13:31 APTT 30 SECONDS (21-34) 06/30/18 13:31 - Head Exam Head Exam: ATRAUMATIC, NORMOCEPHALIC - Respiratory Exam Respiratory Exam: Decreased Breath Sounds - Cardiovascular Exam Cardiovascular Exam: REGULAR RHYTHM - GI/Abdominal Exam GI & Abdominal Exam: Soft, Normal Bowel Sounds - Extremities Exam Extremities Exam: Pedal Edema Assessment and Plan (1) Respiratory failure Assessment & Plan: patient is off BiPAP follow-up chest x-ray Continue present treatment Taper steroids Status: Acute (2) CKD (chronic kidney disease) stage 4, GFR 15-29 ml/min Status: Acute (3) Chronic obstructive lung disease Status: Acute (4) History of kidney transplant Status: Acute (5) Pulmonary hypertension Status: Acute
--- NOTE | 2018-07-03 16:51 | RAD ---
Date of service: 07/03/2018 HISTORY: sob COMPARISON: 06/30/2018 FINDINGS: LUNGS: No active pulmonary disease. PLEURA: No significant pleural effusion identified, no pneumothorax apparent. CARDIOVASCULAR: There is atherosclerotic calcification of the thoracic aorta. Cardiomegaly. No pulmonary vascular congestion. OSSEOUS STRUCTURES: No significant abnormalities. VISUALIZED UPPER ABDOMEN: Normal. OTHER FINDINGS: None. IMPRESSION: Cardiomegaly. No infiltrate.
[2018-07-04] MEDS: Albuterol-Ipratrop 3 mg / 0.5 (3 ml) UD INH SCH ×6 (00:30→20:08)
[2018-07-04] MEDS: MethylPREDNISolone 40 mg Vial IVP SCH ×4 (04:20→21:33)
[2018-07-04] MEDS: Sodium Chloride 0.9% 1,000 ML IV SCH ×3 (05:45→18:06)
[2018-07-04 06:28] LABS: HEMOGLOBIN 7.8 g/dL (11.0-16.0); LYMPH # 0.2 K/uL (1.0-4.3); LYMPH % 4.1 % (20.0-40.0); MEAN CELL VOLUME 100.7 fL (81.0-99.0); MEAN CORPUSCULAR HGB CONC 32.8 g/dL (33.0-37.0); MEAN PLATELET VOLUME 9.3 fL (7.2-11.7); MONO # 0.2 K/uL (0.0-0.8); MONO % 3.2 % (0.0-10.0); NEUT # 4.9 K/uL (1.8-7.0); NEUT % 92.7 % (50.0-75.0); NRBC % 0.4 % (0.0-2.0); PLATELET COUNT 79 K/uL (130-400); RBC 2.36 Mil/uL (3.80-5.20); RED CELL DISTRIBUTION WIDTH 15.5 % (11.5-14.5); WHITE BLOOD COUNT 5.2 K/uL (4.8-10.8)
[2018-07-04 07:44] LABS: ALB/GLOB RATIO 1.5 (1.0-2.1); ALBUMIN 3.9 g/dL (3.5-5.0); CALCIUM 8.9 mg/dl (8.6-10.4)
[2018-07-04 08:33] LABS: LYMPHOCYTE 4 % (20-40); MONOCYTE 4 % (0-10); MYELOCYTE 2 % (0-0); NEUTROPHIL 90 % (50-75); PLATELET ESTIMATE DECREASED (NORMAL); TOTAL CELLS COUNTED 100
[2018-07-04 08:34] LABS: ANISOCYTOSIS SLIGHT; BURR CELLS SLIGHT; HYPOCHROMIC SLIGHT; OVALOCYTES SLIGHT; POIKILOCYTOSIS SLIGHT; TARGET CELLS SLIGHT; TEARDROP CELLS SLIGHT
[2018-07-04] MEDS: Saccharomyces Boulardi 250 mg Cap PO SCH ×2 (09:29→18:05)
--- NOTE | 2018-07-04 09:35 | CP.PCM.PN ---
<Jose Alberto Humphreys - Last Filed: 07/04/18 14:25> Subjective - Date & Time of Evaluation Date of Evaluation: 07/04/18 Time of Evaluation: 09:35 - Subjective Subjective: PGY3 Note for Dr. Calvo; Dr. Victoria Jimenez Covering This patient was seen and examined at bedside today; she was brought her sweet tea as promised; she offers no acute complaints other than just wanting to get out of the hospital and go home; she tolerated high flow o2 overnight and this AM. Objective - Vital Signs/Intake and Output Vital Signs (last 24 hours): Temp Pulse Resp BP Pulse Ox 98.4 F 106 H 20 165/96 H 98 07/04/18 07:05 07/04/18 07:30 07/04/18 07:30 07/04/18 07:05 07/04/18 07:05 Intake and Output: 07/04/18 07/04/18 06:59 18:59 Intake Total 1240 Balance 1240 - Medications Medications: Current Medications Albuterol/Ipratropium (Duoneb 3 Mg/0.5 Mg (3 Ml) Ud) 3 ml INH Q4H [facility] Last Admin: 07/04/18 07:30 Dose: 3 ml Amlodipine Besylate (Norvasc) 10 mg PO DAILY [facility] Last Admin: 07/04/18 09:30 Dose: 10 mg Cinacalcet (Sensipar) 90 mg PO DAILY [facility] Last Admin: 07/04/18 09:30 Dose: 90 mg Sodium Chloride (Sodium Chloride 0.9%) 1,000 mls @ 125 mls/hr IV .Q8H [facility] Last Admin: 07/04/18 05:45 Dose: 125 mls/hr Methylprednisolone (Solu-Medrol) 40 mg IVP Q6H [facility] Last Admin: 07/04/18 09:29 Dose: 40 mg Pantoprazole Sodium (Protonix Inj) 40 mg IVP DAILY [facility] Last Admin: 07/04/18 09:29 Dose: 40 mg Rosuvastatin Calcium (Crestor) 5 mg PO HS [facility] Saccharomyces Boulardii (Florastor) 250 mg PO BID [facility] Last Admin: 07/04/18 09:29 Dose: 250 mg Tacrolimus (Prograf Cap) 2 mg PO BID [facility] Last Admin: 07/04/18 09:30 Dose: 2 mg - Labs Labs: 07/04/18 06:19 07/04/18 06:19 PT 12.3 SECONDS (9.7-12.2) H 06/30/18 13:31 INR 1.1 06/30/18 13:31 APTT 30 SECONDS (21-34) 06/30/18 13:31 - Constitutional Appears: Cachectic, Chronically Ill - Head Exam Head Exam: ATRAUMATIC - Eye Exam Eye Exam: absent: EOMI, Normal appearance (patient has b/l ptergyiums, glaucoma b/l) - ENT Exam ENT Exam: Mucous Membranes Dry - Neck Exam Neck Exam: Lymphadenopathy. absent: Full ROM - Respiratory Exam Respiratory Exam: Rales. absent: Chest Wall Tenderness (extreme kyphoscoliosis and arthritic fingers/hands), Clear to Ausculation Bilateral, Rhonchi, Wheezes, Respiratory Distress, NORMAL BREATHING PATTERN - Cardiovascular Exam Cardiovascular Exam: REGULAR RHYTHM, +S1, +S2 - GI/Abdominal Exam GI & Abdominal Exam: Soft, Normal Bowel Sounds. absent: Tenderness - Extremities Exam Extremities Exam: absent: Calf Tenderness - Neurological Exam Neurological Exam: Alert, Awake, Oriented x3 - Psychiatric Exam Psychiatric exam: Normal Affect - Skin Skin Exam: Warm Assessment and Plan - Assessment and Plan (Free Text) Assessment: Patient is a 77 year old F admitted for acute on chronic respiratory failure 2/2 to severe kyphoscoliosis, lupus. Acute on Chronic Respiratory failure; improving -Afebrile -patient tolerating high flow O2 today; will attempt to wean to NC overnight -Chest CT shows No acute infiltrate. Cardiomegaly and dilated main pulmonary artery. No pleural effusion. Multiple stable mild thoracic and upper lumbar vertebral compression deformities. Additional minor findings as above. (see full report) -Continue Solumedrol 40mg Q6H IVP, will start taper when clinically improves -Duonebs 3mL INH RQ4H -Zosyn 3.375 Q8H (discontinued on 07/01/18) -Influenza negative -Pulmonology; Dr. Acosta; thank you for your help -Patient is DNR/DNI, palliative care on consult, help appreciated Pulmonary hypertension Previous Chest CT on admission from 06/04/18: No definite alveolitis bilaterally. Minimal dependent atelectasis, diminished in the interval b ilaterally as compared prior chest CT 05/25/2017. 2. Prominent cardiomegaly reiterated as well as increasing main pulmonary artery caliber (4.4 cm) suspicious for pulmonary artery hypertension though this is a clinical diagnosis and further clinical correlation is recommended. Further, ectatic dilated superior vena cava identified potentially a function of right heart failure possible right or failure. Clinically correlate further. -Repeat chest CT shows No acute infiltrate. Cardiomegaly and dilated main pulmonary artery. No pleural effusion. Multiple stable mild thoracic and upper lumbar vertebral compression deformities. Additional minor findings as above. (see full report) -tx as per pulm Hx of Hypertension -Norvasc 10mg PO daily -Vital signs Q4H Acute on Chronic Kidney Disease -Baseline Cr 2.5 -Cr today 3.4 -Patient started on NS @ 125cc/hr -Monitor serial BMPs -Crestor on hold at this time -Avoid nephrotoxic agents 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 (HD for 5 years [facility] -Continue Tacrolimus 2mg PO AM and 5mg HS (patient has been missing this medication for the past week) before admission -Continue Sensipar 90mg PO daily, Bactrim 1 tab PO daily -Nephrology on consult, Dr Sykes, help appreciated Macrocytic Anemia; stable and chronic -Hgb stable -Vitamin B12 and folate within normal range -Monitor serial CBCs History of lupus; chronic Prednisone 10mg PO daily Prophylactic measure DVT: contraindicated 2/2 to thrombocytopenia GI: Protonix 40mg IVP daily 2/2 to high dose and chronic steroid use Case discussed and seen with Dr. Victoria Humphreys PGY3 <Alexis Jimenez - Last Filed: 07/13/18 14:01> Objective - Vital Signs/Intake and Output Vital Signs (last 24 hours): Temp Pulse Resp BP Pulse Ox 97.9 F 86 20 126/78 95 07/13/18 07:00 07/13/18 08:10 07/13/18 07:00 07/13/18 10:55 07/13/18 07:00 - Medications Medications: Current Medications Amlodipine Besylate (Norvasc) 10 mg PO DAILY [facility] Last Admin: 07/13/18 10:55 Dose: 10 mg Apixaban (Eliquis) 2.5 mg PO BID [facility] Last Admin: 07/13/18 10:55 Dose: 2.5 mg Cinacalcet (Sensipar) 90 mg PO DAILY [facility] Last Admin: 07/12/18 09:31 Dose: 90 mg Clonidine HCl (Catapres) 0.2 mg PO BID [facility] Last Admin: 07/13/18 10:55 Dose: 0.2 mg Famotidine (Pepcid) 20 mg PO DAILY [facility] Last Admin: 07/13/18 10:55 Dose: 20 mg Furosemide (Lasix) 40 mg IVP Q12 [facility] Last Admin: 07/13/18 10:55 Dose: 40 mg Ceftriaxone Sodium 1 gm/ (Sodium Chloride) 100 mls @ 100 mls/hr IVPB DAILY [facility]; Protocol Last Admin: 07/13/18 11:06 Dose: 100 mls/hr Methylprednisolone (Solu-Medrol) 40 mg IVP Q8H [facility] Last Admin: 07/13/18 04:54 Dose: Not Given Rosuvastatin Calcium (Crestor) 5 mg PO HS [facility] Saccharomyces Boulardii (Florastor) 250 mg PO BID [facility] Last Admin: 07/13/18 10:58 Dose: 250 mg Sevelamer Carbonate (Renvela) 0.8 gm PO TIDCC [facility] Last Admin: 07/13/18 10:41 Dose: Not Given Sodium Bicarbonate (Sodium Bicarbonate Tab) 650 mg PO BID [facility] Last Admin: 07/13/18 10:55 Dose: 650 mg Tacrolimus (Prograf Cap) 3 mg PO BID [facility] Last Admin: 07/12/18 18:12 Dose: 3 mg - Labs Labs: 07/11/18 11:17 07/11/18 11:17 PT 12.3 SECONDS (9.7-12.2) H 06/30/18 13:31 INR 1.1 06/30/18 13:31 APTT 30 SECONDS (21-34) 06/30/18 13:31 Attending/Attestation - Attestation I have personally seen and examined this patient.: Yes I have fully participated in the care of the patient.: Yes I have reviewed all pertinent clinical information, including history, physical exam and plan: Yes Notes (Text): 07/13/18 14:01 This is a late entry. Care of this patient was gone over in detail with resident Dr. Gerald Humphreys. Alexis Jimenez D.O.
--- NOTE | 2018-07-04 09:48 | CP.PCM.PN ---
Subjective - Date & Time of Evaluation Date of Evaluation: 07/04/18 Time of Evaluation: 09:44 - Subjective Subjective: Less dyspneic; more talkative Still on high flow O2 Creat decreased to 3.2 Still rather anemic tacro levels were low 07/01- consistent with noncompliance HTN increased Objective - Vital Signs/Intake and Output Vital Signs (last 24 hours): Temp Pulse Resp BP Pulse Ox 98.4 F 106 H 20 165/96 H 98 07/04/18 07:05 07/04/18 07:30 07/04/18 07:30 07/04/18 07:05 07/04/18 07:05 Intake and Output: 07/04/18 07/04/18 06:59 18:59 Intake Total 1240 Balance 1240 - Medications Medications: Current Medications Albuterol/Ipratropium (Duoneb 3 Mg/0.5 Mg (3 Ml) Ud) 3 ml INH Q4H [facility] Last Admin: 07/04/18 07:30 Dose: 3 ml Amlodipine Besylate (Norvasc) 10 mg PO DAILY [facility] Last Admin: 07/04/18 09:30 Dose: 10 mg Cinacalcet (Sensipar) 90 mg PO DAILY [facility] Last Admin: 07/04/18 09:30 Dose: 90 mg Sodium Chloride (Sodium Chloride 0.9%) 1,000 mls @ 125 mls/hr IV .Q8H [facility] Last Admin: 07/04/18 05:45 Dose: 125 mls/hr Methylprednisolone (Solu-Medrol) 40 mg IVP Q6H [facility] Last Admin: 07/04/18 09:29 Dose: 40 mg Pantoprazole Sodium (Protonix Inj) 40 mg IVP DAILY [facility] Last Admin: 07/04/18 09:29 Dose: 40 mg Rosuvastatin Calcium (Crestor) 5 mg PO HS [facility] Saccharomyces Boulardii (Florastor) 250 mg PO BID [facility] Last Admin: 07/04/18 09:29 Dose: 250 mg Tacrolimus (Prograf Cap) 2 mg PO BID [facility] Last Admin: 07/04/18 09:30 Dose: 2 mg - Labs Labs: 07/04/18 06:19 07/04/18 06:19 PT 12.3 SECONDS (9.7-12.2) H 06/30/18 13:31 INR 1.1 06/30/18 13:31 APTT 30 SECONDS (21-34) 06/30/18 13:31 - Constitutional Appears: No Acute Distress, Chronically Ill - Head Exam Head Exam: ATRAUMATIC, NORMAL INSPECTION - Eye Exam Eye Exam: EOMI, Normal appearance - Neck Exam Neck Exam: Normal Inspection. absent: Tenderness - Respiratory Exam Respiratory Exam: Wheezes, Respiratory Distress - Cardiovascular Exam Cardiovascular Exam: Irregular Rhythm, +S1 - GI/Abdominal Exam GI & Abdominal Exam: Soft. absent: Tenderness - Extremities Exam Extremities Exam: Normal Inspection. absent: Tenderness - Neurological Exam Neurological Exam: Alert, CN II-XII Intact - Skin Skin Exam: Dry, Warm Assessment and Plan (1) Restrictive lung disease Status: Acute (2) Hypoxemia Status: Acute (3) Dehydration Status: Acute (4) CKD (chronic kidney disease) stage 4, GFR 15-29 ml/min Status: Acute (5) SEBASTIAN (acute kidney injury) Status: Acute (6) History of kidney transplant Status: Acute (7) Medical non-compliance Status: Acute - Assessment and Plan (Free Text) Plan: Increase tacro dose- follow up levels Increase BP meds Check Fe stores; consider EPO Serial chemistries Pulmonary treatments
--- NOTE | 2018-07-04 22:59 | CP.PCM.PN ---
Subjective - Date & Time of Evaluation Date of Evaluation: 07/04/18 Time of Evaluation: 19:00 - Subjective Subjective: Pulmonary The patient was Seen/interviewed and examined by me at the bedside, Medical records reviewed and Management issues were discussed and formulated with the house staff. Events reviewed 77-year-old female with history of COPD, lupus nephritis, hypertension, severe kyphoscoliosis and S/p kidney transplant in 2001. Who presented to emergency room with worsening shortness of breath over the course of one week , states she does not have cough or productive sputum; ran out of her 1mg of tacrolimus and has not been taking her BID 5mg tacrolimus for the past week. She states the shortness of breath has been increasing over the course of 5 days, denies fevers/chills, recent travel, or sick contacts. Patient awake, mild tachypnea Afebrile Denies CP, SOB, fever/chills, N/V Breathing better. Remains On/off BiPAP. CXR 07/03: Cardiomegaly. No infiltrate. No active pulmonary disease. Diagnosis: acute respiratory failure from COPD, acute CHF, bilateral pleural effusion, bilateral atelectasis. Monitor I & Os. Patient is DNR/DNI PSHx: kidney transplant at [facility] 10/01/2001, Hysterectomy and cataracts removal Medications: Tacrolimus 5mg HS, 2mg Tacrolimus 2mg AM, Sensipar 90mg, Prednisone 10mg, Bactrim DS daily for prophylaxis, atorvastatin 10mg HS, Risendronate 35mg weekly, Amlodipine 10mg daily, Allergies: NKDA Objective - Vital Signs/Intake and Output Vital Signs (last 24 hours): Temp Pulse Resp BP Pulse Ox 98.2 F 84 20 158/78 H 99 07/04/18 15:00 07/04/18 18:00 07/04/18 22:31 07/04/18 15:00 07/04/18 15:00 Intake and Output: 07/04/18 07/05/18 18:59 06:59 Intake Total 1050 Balance 1050 - Medications Medications: Current Medications Albuterol/Ipratropium (Duoneb 3 Mg/0.5 Mg (3 Ml) Ud) 3 ml INH Q4H [facility] Last Admin: 07/04/18 20:08 Dose: 3 ml Amlodipine Besylate (Norvasc) 10 mg PO DAILY [facility] Last Admin: 07/04/18 09:30 Dose: 10 mg Cinacalcet (Sensipar) 90 mg PO DAILY [facility] Last Admin: 07/04/18 09:30 Dose: 90 mg Clonidine HCl (Catapres) 0.1 mg PO BID [facility] Last Admin: 07/04/18 18:05 Dose: 0.1 mg Sodium Chloride (Sodium Chloride 0.9%) 1,000 mls @ 125 mls/hr IV .Q8H [facility] Last Admin: 07/04/18 18:06 Dose: Not Given Methylprednisolone (Solu-Medrol) 40 mg IVP Q6H [facility] Last Admin: 07/04/18 21:33 Dose: 40 mg Pantoprazole Sodium (Protonix Inj) 40 mg IVP DAILY [facility] Last Admin: 07/04/18 09:29 Dose: 40 mg Rosuvastatin Calcium (Crestor) 5 mg PO [facility] Saccharomyces Boulardii (Florastor) 250 mg PO BID [facility] Last Admin: 07/04/18 18:05 Dose: 250 mg Sodium Bicarbonate (Sodium Bicarbonate Tab) 650 mg PO BID [facility] Last Admin: 07/04/18 18:06 Dose: 650 mg Tacrolimus (Prograf Cap) 3 mg PO BID [facility] Last Admin: 07/04/18 18:05 Dose: 3 mg - Labs Labs: 07/04/18 06:19 07/04/18 06:19 PT 12.3 SECONDS (9.7-12.2) H 06/30/18 13:31 INR 1.1 06/30/18 13:31 APTT 30 SECONDS (21-34) 06/30/18 13:31 - Constitutional Appears: Well, No Acute Distress (Mild Respiratory distress, Tachypnea) - Eye Exam Eye Exam: EOMI, Normal appearance. absent: Conjunctival injection Pupil Exam: NORMAL ACCOMODATION, PERRL - Neck Exam Neck Exam: Full ROM, Normal Inspection. absent: Lymphadenopathy - Respiratory Exam Respiratory Exam: Accessory Muscle Use, Decreased Breath Sounds, Prolonged Expiratory Phase, Rales, Rhonchi. absent: Chest Wall Tenderness, Clear to Ausculation Bilateral, Wheezes, NORMAL BREATHING PATTERN - Cardiovascular Exam Cardiovascular Exam: REGULAR RHYTHM, RRR, +S1, +S2. absent: JVD - GI/Abdominal Exam GI & Abdominal Exam: Soft, Normal Bowel Sounds. absent: Tenderness - Extremities Exam Extremities Exam: Pedal Edema. absent: Calf Tenderness, Tenderness - Back Exam Back Exam: absent: CVA tenderness (L), CVA tenderness (R) - Neurological Exam Neurological Exam: Alert, Awake, Oriented x3. absent: Altered, Motor Sensory Deficit Assessment and Plan (1) Acute respiratory failure with hypoxia Assessment & Plan: secondary to COPD and severe kyphoscoliosis. Continue present treatment Wean off BIPAP. CXontinue nebulizer treatment. IV steroids. Patient DNR/DNI Pulmonary toilet Suplemental oxygen follow-up chest x-ray Status: Acute (2) Chronic obstructive lung disease Status: Acute (3) Congestive heart failure Status: Acute (4) Pulmonary hypertension Status: Acute (5) Shortness of breath Status: Acute
[2018-07-05] MEDS: Albuterol-Ipratrop 3 mg / 0.5 (3 ml) UD INH SCH ×6 (01:24→19:49)
[2018-07-05] MEDS: MethylPREDNISolone 40 mg Vial IVP SCH ×4 (04:40→23:28)
--- NOTE | 2018-07-05 08:36 | CP.PCM.PN ---
Objective - Vital Signs/Intake and Output Vital Signs (last 24 hours): Temp Pulse Resp BP Pulse Ox 98.2 F 70 22 156/80 H 98 07/05/18 04:50 07/05/18 04:50 07/05/18 08:36 07/05/18 04:50 07/05/18 04:50 Intake and Output: 07/05/18 07/05/18 06:59 18:59 Intake Total 1050 Balance 1050 - Medications Medications: Current Medications Albuterol/Ipratropium (Duoneb 3 Mg/0.5 Mg (3 Ml) Ud) 3 ml INH Q4H [facility] Last Admin: 07/05/18 08:36 Dose: 3 ml Amlodipine Besylate (Norvasc) 10 mg PO DAILY [facility] Last Admin: 07/04/18 09:30 Dose: 10 mg Cinacalcet (Sensipar) 90 mg PO DAILY [facility] Last Admin: 07/04/18 09:30 Dose: 90 mg Clonidine HCl (Catapres) 0.1 mg PO BID [facility] Last Admin: 07/04/18 18:05 Dose: 0.1 mg Sodium Chloride (Sodium Chloride 0.9%) 1,000 mls @ 125 mls/hr IV .Q8H [facility] Last Admin: 07/04/18 18:06 Dose: Not Given Methylprednisolone (Solu-Medrol) 40 mg IVP Q6H [facility] Last Admin: 07/05/18 04:40 Dose: 40 mg Pantoprazole Sodium (Protonix Inj) 40 mg IVP DAILY [facility] Last Admin: 07/04/18 09:29 Dose: 40 mg Rosuvastatin Calcium (Crestor) 5 mg PO [facility] Saccharomyces Boulardii (Florastor) 250 mg PO BID [facility] Last Admin: 07/04/18 18:05 Dose: 250 mg Sodium Bicarbonate (Sodium Bicarbonate Tab) 650 mg PO BID [facility] Last Admin: 07/04/18 18:06 Dose: 650 mg Tacrolimus (Prograf Cap) 3 mg PO BID [facility] Last Admin: 07/04/18 18:05 Dose: 3 mg - Labs Labs: 07/04/18 06:19 07/04/18 06:19 PT 12.3 SECONDS (9.7-12.2) H 06/30/18 13:31 INR 1.1 06/30/18 13:31 APTT 30 SECONDS (21-34) 06/30/18 13:31
--- NOTE | 2018-07-05 09:08 | CP.PCM.PN ---
Subjective - Date & Time of Evaluation Date of Evaluation: 07/05/18 Time of Evaluation: 09:10 - Subjective Subjective: PGY3 note for Dr. Calvo; Medicine Pt seen and examined at bedside this AM with attending physician; patient states she feels much better but appears short of breath still; she denies any acute complaints. Objective - Vital Signs/Intake and Output Vital Signs (last 24 hours): Temp Pulse Resp BP Pulse Ox 97.9 F 66 22 160/72 H 99 07/05/18 07:20 07/05/18 07:20 07/05/18 08:36 07/05/18 07:20 07/05/18 07:20 Intake and Output: 07/05/18 07/05/18 06:59 18:59 Intake Total 1050 Balance 1050 - Medications Medications: Current Medications Albuterol/Ipratropium (Duoneb 3 Mg/0.5 Mg (3 Ml) Ud) 3 ml INH Q4H [facility] Last Admin: 07/05/18 08:36 Dose: 3 ml Amlodipine Besylate (Norvasc) 10 mg PO DAILY [facility] Last Admin: 07/04/18 09:30 Dose: 10 mg Cinacalcet (Sensipar) 90 mg PO DAILY [facility] Last Admin: 07/04/18 09:30 Dose: 90 mg Clonidine HCl (Catapres) 0.1 mg PO BID [facility] Last Admin: 07/04/18 18:05 Dose: 0.1 mg Sodium Chloride (Sodium Chloride 0.9%) 1,000 mls @ 125 mls/hr IV .Q8H [facility] Last Admin: 07/04/18 18:06 Dose: Not Given Methylprednisolone (Solu-Medrol) 40 mg IVP Q6H [facility] Last Admin: 07/05/18 04:40 Dose: 40 mg Pantoprazole Sodium (Protonix Inj) 40 mg IVP DAILY [facility] Last Admin: 07/04/18 09:29 Dose: 40 mg Rosuvastatin Calcium (Crestor) 5 mg PO HS [facility] Saccharomyces Boulardii (Florastor) 250 mg PO BID [facility] Last Admin: 07/04/18 18:05 Dose: 250 mg Sodium Bicarbonate (Sodium Bicarbonate Tab) 650 mg PO BID [facility] Last Admin: 07/04/18 18:06 Dose: 650 mg Tacrolimus (Prograf Cap) 3 mg PO BID [facility] Last Admin: 07/04/18 18:05 Dose: 3 mg - Labs Labs: 07/04/18 06:19 07/04/18 06:19 PT 12.3 SECONDS (9.7-12.2) H 06/30/18 13:31 INR 1.1 06/30/18 13:31 APTT 30 SECONDS (21-34) 06/30/18 13:31 - Constitutional Appears: Non-toxic, Cachectic, Chronically Ill - Head Exam Head Exam: ATRAUMATIC - Eye Exam Eye Exam: EOMI Pupil Exam: absent: NORMAL ACCOMODATION, PERRL - ENT Exam ENT Exam: Mucous Membranes Moist - Neck Exam Neck Exam: Full ROM. absent: Lymphadenopathy - Respiratory Exam Respiratory Exam: Rales, Wheezes. absent: Clear to Ausculation Bilateral, Rhonchi, NORMAL BREATHING PATTERN - Cardiovascular Exam Cardiovascular Exam: REGULAR RHYTHM - GI/Abdominal Exam GI & Abdominal Exam: Soft, Normal Bowel Sounds - Extremities Exam Extremities Exam: absent: Calf Tenderness, Full ROM - Back Exam Back Exam: absent: CVA tenderness (L), CVA tenderness (R) - Neurological Exam Neurological Exam: Alert, Awake - Psychiatric Exam Psychiatric exam: Normal Affect - Skin Skin Exam: Warm Assessment and Plan - Assessment and Plan (Free Text) Assessment: Appears: Cachectic, Chronically Ill - Head Exam Head Exam: ATRAUMATIC - Eye Exam Eye Exam: absent: EOMI, Normal appearance (patient has b/l ptergyiums, glaucoma b/l) - ENT Exam ENT Exam: Mucous Membranes Dry - Neck Exam Neck Exam: Lymphadenopathy. absent: Full ROM - Respiratory Exam Respiratory Exam: Rales. absent: Chest Wall Tenderness (extreme kyphoscoliosis and arthritic fingers/hands), Clear to Ausculation Bilateral, Rhonchi, Wheezes, Respiratory Distress, NORMAL BREATHING PATTERN - Cardiovascular Exam Cardiovascular Exam: REGULAR RHYTHM, +S1, +S2 - GI/Abdominal Exam GI & Abdominal Exam: Soft, Normal Bowel Sounds. absent: Tenderness - Extremities Exam Extremities Exam: absent: Calf Tenderness - Neurological Exam Neurological Exam: Alert, Awake, Oriented x3 - Psychiatric Exam Psychiatric exam: Normal Affect - Skin Skin Exam: Warm Assessment and Plan - Assessment and Plan (Free Text) Assessment: Patient is a 77 year old F admitted for acute on chronic respiratory failure 2/2 to severe kyphoscoliosis, lupus; resolving Acute on Chronic Respiratory failure; improving -Afebrile -patient tolerating high flow O2 today; will attempt to wean to NC overnight -Chest CT shows No acute infiltrate. Cardiomegaly and dilated main pulmonary artery. No pleural effusion. Multiple stable mild thoracic and upper lumbar vertebral compression deformities. Additional minor findings as above. (see full report) -Continue Solumedrol 40mg Q6H IVP, will start taper when clinically improves -Duonebs 3mL INH RQ4H -Zosyn 3.375 Q8H (discontinued on 07/01/18) -Influenza negative -Pulmonology; Dr. Acosta; thank you for your help -Patient is DNR/DNI, palliative care on consult, help appreciated Patient will likely need 24 hour home O2; will f/u repeat ABG this morning on 2L NC; will write script and get case management to work on delivering home O2 Patient will need home assistance; patient is not independent and needs help most of the day 2/2 to deconditioning, RA M05.611, M32.9 lupus, M41.9 severe ky phoscoloiosis Pulmonary hypertension Previous Chest CT on admission from 06/04/18: No definite alveolitis bilaterally. Minimal dependent atelectasis, diminished in the interval bilaterally as compared prior chest CT 05/25/2017. 2. Prominent cardiomegaly reiterated as well as increasing main pulmonary artery caliber (4.4 cm) suspicious for pulmonary artery hypertension though this is a clinical diagnosis and further clinical correlation is recommended. Further, ectatic dilated superior vena cava identified potentially a function of right heart failure possible right or failure. Clinically correlate further. -Repeat chest CT shows No acute infiltrate. Cardiomegaly and dilated main pulmonary artery. No pleural effusion. Multiple stable mild thoracic and upper lumbar vertebral compression deformities. Additional minor findings as above. (see full report) -tx as per pulm patient would benefit from CPAP at night 2/2 to Pulm HTN patient is refusing CPAP machine at home and does not want to sleep with mask on face will continue to encourage compliance with frequent followup Hx of Hypertension -Norvasc 10mg PO daily -Vital signs Q4H Acute on Chronic Kidney Disease -Baseline Cr 2.5 -Cr today 3.4 -Patient started on NS @ 125cc/hr -Monitor serial BMPs -Crestor on hold at this time -Avoid nephrotoxic agents 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 (HD for 5 years and kidney transplant at [facility] 10/01/2001) -Continue Tacrolimus 2mg PO AM and 5mg HS (patient has been missing this medication for the past week) before admission -Continue Sensipar 90mg PO daily, Bactrim 1 tab PO daily -Nephrology on consult, Dr Sykes, help appreciated Macrocytic Anemia; stable and chronic -Hgb stable -Vitamin B12 and folate within normal range -Monitor serial CBCs History of lupus; chronic Prednisone 10mg PO daily Prophylactic measure DVT: contraindicated 2/2 to thrombocytopenia GI: Protonix 40mg IVP daily 2/2 to high dose and chronic steroid use Case discussed and seen with Dr. Calvo -The patient is likely for d/c as per Dr. Calvo -PT recommended [facility] and possible assisted placement; family and patient are refusing at this time would recommend 2L NC 24 hours a day with CPAP at night; patient is not wishing to use CPAP at night because "does not want mask on face" home with services, PT/OT, likely 12 hours a day of help; patient not independe nt in any ADL; needs help eating, bathing, cleaning, is non ambulatory A M05.611, M32.9 lupus, M41.9 severe kyphoscoloiosis, Z74.01 bedbound -c/w tacrolimus 3mg PO daily as per Dr. Sykes daily -add clonidine .1mg BID for HTN, c/w amlodipine 10mg -c/w cinalcet 90mg daily -c/w crestor 5mg Jose Alberto EduardoFlaxton PGY3
[2018-07-05 09:34] LABS: ABG ALLEN TEST POS; ARTERIAL BLOOD GAS HCO3 16.3 mmol/L (21-28); ARTERIAL BLOOD GAS O2 SAT 96.3 % (95-98); ARTERIAL BLOOD GAS PCO2 30 mm/Hg (35-45); ARTERIAL BLOOD GAS PH 7.29 (7.35-7.45); ARTERIAL BLOOD GAS PO2 63 mm/Hg (80-100); ARTERIAL BLOOD GAS TCO2 15.3 mmol/L (22-28)
[2018-07-05] MEDS: Saccharomyces Boulardi 250 mg Cap PO SCH ×2 (11:16→18:53)
[2018-07-05] MEDS: Sodium Chloride 0.9% 1,000 ML IV SCH (11:17)
[2018-07-05 11:48] LABS: HEMOGLOBIN 8.2 g/dL (11.0-16.0); LYMPH # 0.2 K/uL (1.0-4.3); LYMPH % 4.2 % (20.0-40.0); MEAN CELL VOLUME 100.7 fL (81.0-99.0); MEAN CORPUSCULAR HEMOGLOBIN 32.8 pg (27.0-31.0); MEAN CORPUSCULAR HGB CONC 32.5 g/dL (33.0-37.0); MEAN PLATELET VOLUME 10.7 fL (7.2-11.7); MONO # 0.2 K/uL (0.0-0.8); MONO % 4.6 % (0.0-10.0); NEUT # 4.7 K/uL (1.8-7.0); NEUT % 91.2 % (50.0-75.0); NRBC % 0.4 % (0.0-2.0); PLATELET COUNT 93 K/uL (130-400); RBC 2.51 Mil/uL (3.80-5.20); RED CELL DISTRIBUTION WIDTH 15.3 % (11.5-14.5); WHITE BLOOD COUNT 5.2 K/uL (4.8-10.8)
--- NOTE | 2018-07-05 11:59 | CP.PCM.PN ---
Subjective - Date & Time of Evaluation Date of Evaluation: 07/05/18 Time of Evaluation: 11:20 - Subjective Subjective: Patient seen and examined at bedside. Resting comfortably in no acute distress. S/p kidney transplant in 2001. Has not been taking tacrolimus for past week. +SOB. Denies CP, fever/chills, N/V CXR 07/03: Cardiomegaly. No infiltrate. No active pulmonary disease. ABG 07/05: pCO2 30L, pO2 63L, HCO3 16.3L, pH 7.29L, chloride 122H, Glucose 165H, lactate normal Diagnosis: acute respiratory failure from COPD, acute CHF, bilateral pleural effusion, bilateral atelectasis. On high flow oxygen but still SOB. Continue present treatment. Continue nebulizer and IV steroids Objective - Vital Signs/Intake and Output Vital Signs (last 24 hours): Temp Pulse Resp BP Pulse Ox 97.9 F 66 22 160/72 H 99 07/05/18 07:20 07/05/18 07:20 07/05/18 08:36 07/05/18 07:20 07/05/18 07:20 Intake and Output: 07/05/18 07/05/18 06:59 18:59 Intake Total 1050 Balance 1050 - Medications Medications: Current Medications Albuterol/Ipratropium (Duoneb 3 Mg/0.5 Mg (3 Ml) Ud) 3 ml INH Q4H [facility] Last Admin: 07/05/18 08:36 Dose: 3 ml Amlodipine Besylate (Norvasc) 10 mg PO DAILY [facility] Last Admin: 07/05/18 11:16 Dose: 10 mg Cinacalcet (Sensipar) 90 mg PO DAILY [facility] Last Admin: 07/05/18 11:16 Dose: 90 mg Clonidine HCl (Catapres) 0.1 mg PO BID [facility] Last Admin: 07/05/18 11:16 Dose: 0.1 mg Methylprednisolone (Solu-Medrol) 40 mg IVP Q6H [facility] Last Admin: 07/05/18 11:16 Dose: 40 mg Pantoprazole Sodium (Protonix Inj) 40 mg IVP DAILY [facility] Last Admin: 07/05/18 11:20 Dose: 40 mg Rosuvastatin Calcium (Crestor) 5 mg PO HS [facility] Saccharomyces Boulardii (Florastor) 250 mg PO BID [facility] Last Admin: 07/05/18 11:16 Dose: 250 mg Sodium Bicarbonate (Sodium Bicarbonate Tab) 650 mg PO BID [facility] Last Admin: 07/05/18 11:16 Dose: 650 mg Tacrolimus (Prograf Cap) 3 mg PO BID [facility] Last Admin: 07/05/18 11:17 Dose: 3 mg - Labs Labs: 07/05/18 11:32 07/04/18 06:19 PT 12.3 SECONDS (9.7-12.2) H 06/30/18 13:31 INR 1.1 06/30/18 13:31 APTT 30 SECONDS (21-34) 06/30/18 13:31 Assessment and Plan (1) Respiratory failure Status: Acute (2) CKD (chronic kidney disease) stage 4, GFR 15-29 ml/min Status: Acute (3) Chronic obstructive lung disease Status: Acute (4) History of kidney transplant Status: Acute (5) Pulmonary hypertension Status: Acute
[2018-07-05 12:07] LABS: BANDS 1 % (0-2); LYMPHOCYTE 7 % (20-40); METAMYELOCYTE 1 % (0-0); MONOCYTE 5 % (0-10); MYELOCYTE 1 % (0-0); NEUTROPHIL 85 % (50-75); NUCLEATED RED BLOOD CELL 1 % (0-0); TOTAL CELLS COUNTED 100
[2018-07-05 12:08] LABS: ANISOCYTOSIS SLIGHT; OVALOCYTES SLIGHT; PLATELET ESTIMATE DECREASED (NORMAL)
[2018-07-05 12:09] LABS: ALB/GLOB RATIO 1.6 (1.0-2.1); ALBUMIN 3.9 g/dL (3.5-5.0); CALCIUM 10.1 mg/dl (8.6-10.4)
--- NOTE | 2018-07-05 14:40 | CP.PCM.PN ---
Subjective - Date & Time of Evaluation Date of Evaluation: 07/05/18 Time of Evaluation: 14:37 - Subjective Subjective: Still rather dyspneic On high flow O2 creat 3.3 - about same Repeat tacro levels pending CXR still with likely CHF changes, atelectasis HTN increased still Objective - Vital Signs/Intake and Output Vital Signs (last 24 hours): Temp Pulse Resp BP Pulse Ox 97.9 F 66 22 160/72 H 99 07/05/18 07:20 07/05/18 07:20 07/05/18 08:36 07/05/18 07:20 07/05/18 07:20 Intake and Output: 07/05/18 07/05/18 06:59 18:59 Intake Total 1050 Balance 1050 - Medications Medications: Current Medications Albuterol/Ipratropium (Duoneb 3 Mg/0.5 Mg (3 Ml) Ud) 3 ml INH Q4H [facility] Last Admin: 07/05/18 12:26 Dose: 3 ml Amlodipine Besylate (Norvasc) 10 mg PO DAILY [facility] Last Admin: 07/05/18 11:16 Dose: 10 mg Cinacalcet (Sensipar) 90 mg PO DAILY [facility] Last Admin: 07/05/18 11:16 Dose: 90 mg Clonidine HCl (Catapres) 0.2 mg PO BID [facility] Methylprednisolone (Solu-Medrol) 40 mg IVP Q6H [facility] Last Admin: 07/05/18 11:16 Dose: 40 mg Pantoprazole Sodium (Protonix Inj) 40 mg IVP DAILY [facility] Last Admin: 07/05/18 11:20 Dose: 40 mg Rosuvastatin Calcium (Crestor) 5 mg PO HS [facility] Saccharomyces Boulardii (Florastor) 250 mg PO BID [facility] Last Admin: 07/05/18 11:16 Dose: 250 mg Sodium Bicarbonate (Sodium Bicarbonate Tab) 650 mg PO BID [facility] Last Admin: 07/05/18 11:16 Dose: 650 mg Tacrolimus (Prograf Cap) 3 mg PO BID [facility] Last Admin: 07/05/18 11:17 Dose: 3 mg - Labs Labs: 07/05/18 11:32 07/05/18 11:32 PT 12.3 SECONDS (9.7-12.2) H 06/30/18 13:31 INR 1.1 06/30/18 13:31 APTT 30 SECONDS (21-34) 06/30/18 13:31 - Constitutional Appears: In Acute Distress, Confused, Chronically Ill - Head Exam Head Exam: ATRAUMATIC, NORMAL INSPECTION - Eye Exam Eye Exam: EOMI, Normal appearance - Neck Exam Neck Exam: Normal Inspection. absent: Tenderness - Respiratory Exam Respiratory Exam: Rhonchi, Respiratory Distress - Cardiovascular Exam Cardiovascular Exam: REGULAR RHYTHM, +S1 - GI/Abdominal Exam GI & Abdominal Exam: Soft. absent: Tenderness - Extremities Exam Extremities Exam: Normal Inspection. absent: Tenderness - Neurological Exam Neurological Exam: Awake, CN II-XII Intact - Skin Skin Exam: Dry, Warm Assessment and Plan (1) Restrictive lung disease Status: Acute (2) Hypoxemia Status: Acute (3) Dehydration Status: Acute (4) CKD (chronic kidney disease) stage 4, GFR 15-29 ml/min Status: Acute (5) SEBASTIAN (acute kidney injury) Status: Acute (6) History of kidney transplant Status: Acute (7) Medical non-compliance Status: Acute - Assessment and Plan (Free Text) Plan: Increase BP meds Trial IV lasix IV steroids Await tacro repeat level
[2018-07-05 22:53] LABS: SQUAMOUS EPITHIAL 3 /hpf (0-5); URINE BACTERIA FEW (<OCC); URINE BILIRUBIN NEGATIVE (NEGATIVE); URINE BLOOD NEGATIVE (NEGATIVE); URINE CLARITY Clear (Clear); URINE COLOR Yellow (YELLOW); URINE GLUCOSE (UA) 2+ mg/dL (Normal); URINE LEUKOCYTE ESTERASE NEG Leu/uL (Negative); URINE PROTEIN 1+ mg/dL (NEGATIVE); URINE UROBILINOGEN NORMAL mg/dL (0.2-1.0)
[2018-07-06] MEDS ORDERED: Metoprolol 1 mg/ml Inj IVP ONE (00:15)
[2018-07-06] MEDS: DiphenhydrAMINE 12.5 mg/5 ml LIQ UD (5 ml) PO STA ×2 (00:38→00:39)
[2018-07-06] MEDS: MethylPREDNISolone 40 mg Vial IVP SCH ×5 (05:05→21:43)
[2018-07-06 07:18] LABS: BASO % 0.1 % (0.0-2.0); HEMOGLOBIN 8.4 g/dL (11.0-16.0); LYMPH # 0.4 K/uL (1.0-4.3); LYMPH % 5.8 % (20.0-40.0); MEAN CELL VOLUME 100.9 fL (81.0-99.0); MEAN CORPUSCULAR HEMOGLOBIN 33.4 pg (27.0-31.0); MEAN CORPUSCULAR HGB CONC 33.1 g/dL (33.0-37.0); MEAN PLATELET VOLUME 10.2 fL (7.2-11.7); MONO # 0.4 K/uL (0.0-0.8); MONO % 5.9 % (0.0-10.0); NEUT # 5.8 K/uL (1.8-7.0); NEUT % 88.2 % (50.0-75.0); NRBC % 0.3 % (0.0-2.0); PLATELET COUNT 85 K/uL (130-400); RBC 2.51 Mil/uL (3.80-5.20); RED CELL DISTRIBUTION WIDTH 15.4 % (11.5-14.5); WHITE BLOOD COUNT 6.5 K/uL (4.8-10.8)
[2018-07-06 07:32] LABS: ALB/GLOB RATIO 1.5 (1.0-2.1); ALBUMIN 3.8 g/dL (3.5-5.0); CALCIUM 11.1 mg/dl (8.6-10.4)
[2018-07-06 09:05] LABS: LYMPHOCYTE 6 % (20-40); MONOCYTE 5 % (0-10); NEUTROPHIL 89 % (50-75); TOTAL CELLS COUNTED 100
[2018-07-06 09:06] LABS: ANISOCYTOSIS SLIGHT; HYPOCHROMIC SLIGHT; OVALOCYTES SLIGHT; PLATELET ESTIMATE DECREASED (NORMAL); POIKILOCYTOSIS SLIGHT; POLYCHROMIC SLIGHT
[2018-07-06 09:07] LABS: BURR CELLS SLIGHT; LARGE PLATELETS PRESENT
[2018-07-06] MEDS: Saccharomyces Boulardi 250 mg Cap PO SCH ×2 (10:03→17:38)
--- NOTE | 2018-07-06 11:46 | CP.PCM.PN ---
Subjective - Date & Time of Evaluation Date of Evaluation: 07/06/18 Time of Evaluation: 11:45 - Subjective Subjective: confused tachypneic on high flow oxygen ROS cannot be obtained due to above Objective - Vital Signs/Intake and Output Vital Signs (last 24 hours): Temp Pulse Resp BP Pulse Ox 98.1 F 96 H 23 134/78 98 07/06/18 07:20 07/06/18 07:20 07/06/18 07:59 07/06/18 10:01 07/06/18 07:20 - Medications Medications: Current Medications Amlodipine Besylate (Norvasc) 10 mg PO DAILY [facility] Last Admin: 07/06/18 10:01 Dose: 10 mg Cinacalcet (Sensipar) 90 mg PO DAILY [facility] Last Admin: 07/06/18 10:03 Dose: 90 mg Clonidine HCl (Catapres) 0.2 mg PO BID [facility] Last Admin: 07/06/18 10:01 Dose: 0.2 mg Furosemide (Lasix) 40 mg IVP DAILY [facility] Last Admin: 07/06/18 10:01 Dose: 40 mg Methylprednisolone (Solu-Medrol) 40 mg IVP Q6H [facility] Last Admin: 07/06/18 10:02 Dose: 40 mg Pantoprazole Sodium (Protonix Inj) 40 mg IVP DAILY [facility] Last Admin: 07/06/18 10:03 Dose: 40 mg Rosuvastatin Calcium (Crestor) 5 mg PO [facility] Saccharomyces Boulardii (Florastor) 250 mg PO BID [facility] Last Admin: 07/06/18 10:03 Dose: 250 mg Sodium Bicarbonate (Sodium Bicarbonate Tab) 650 mg PO BID [facility] Last Admin: 07/06/18 10:01 Dose: 650 mg Tacrolimus (Prograf Cap) 3 mg PO BID [facility] Last Admin: 07/06/18 10:02 Dose: 3 mg - Labs Labs: 07/06/18 07:15 07/06/18 07:15 PT 12.3 SECONDS (9.7-12.2) H 06/30/18 13:31 INR 1.1 06/30/18 13:31 APTT 30 SECONDS (21-34) 06/30/18 13:31 - Constitutional Appears: Confused, Chronically Ill - Head Exam Head Exam: ATRAUMATIC, NORMAL INSPECTION - ENT Exam ENT Exam: Mucous Membranes Moist - Neck Exam Neck Exam: Full ROM. absent: Lymphadenopathy - Respiratory Exam Respiratory Exam: Decreased Breath Sounds Additional comments: tachypneic - Cardiovascular Exam Cardiovascular Exam: REGULAR RHYTHM. absent: Rubs - GI/Abdominal Exam GI & Abdominal Exam: Soft. absent: Tenderness - Extremities Exam Extremities Exam: absent: Pedal Edema - Neurological Exam Neurological Exam: Alert Assessment and Plan - Assessment and Plan (Free Text) Assessment: renal transplant ckd 4 jeferson, improved restrictive lung disease pul f/u await fk level f/u cultures
[2018-07-07] MEDS: MethylPREDNISolone 40 mg Vial IVP SCH ×4 (04:43→22:05)
[2018-07-07] MEDS ORDERED: RISEDRONATE SODIUM 35 MG PO SCH (10:00)
[2018-07-07] MEDS: Saccharomyces Boulardi 250 mg Cap PO SCH ×2 (10:26→17:55)
--- NOTE | 2018-07-07 11:13 | CP.PCM.PN ---
Subjective - Date & Time of Evaluation Date of Evaluation: 07/07/18 Time of Evaluation: 08:45 - Subjective Subjective: PATIENT SEEN AND EXAMINED Objective - Vital Signs/Intake and Output Vital Signs (last 24 hours): Temp Pulse Resp BP Pulse Ox 97.7 F 99 H 20 178/98 H 99 07/07/18 07:05 07/07/18 07:05 07/07/18 08:15 07/07/18 10:05 07/07/18 07:05 - Medications Medications: Current Medications Amlodipine Besylate (Norvasc) 10 mg PO DAILY [facility] Last Admin: 07/07/18 10:03 Dose: 10 mg Cinacalcet (Sensipar) 90 mg PO DAILY [facility] Last Admin: 07/07/18 10:02 Dose: 90 mg Clonidine HCl (Catapres) 0.2 mg PO BID [facility] Last Admin: 07/07/18 10:04 Dose: 0.2 mg Furosemide (Lasix) 40 mg IVP DAILY [facility] Last Admin: 07/07/18 10:05 Dose: 40 mg Methylprednisolone (Solu-Medrol) 40 mg IVP Q6H [facility] Last Admin: 07/07/18 10:03 Dose: 40 mg Pantoprazole Sodium (Protonix Inj) 40 mg IVP DAILY [facility] Last Admin: 07/07/18 10:03 Dose: 40 mg Rosuvastatin Calcium (Crestor) 5 mg PO [facility] Saccharomyces Boulardii (Florastor) 250 mg PO BID [facility] Last Admin: 07/07/18 10:26 Dose: 250 mg Sodium Bicarbonate (Sodium Bicarbonate Tab) 650 mg PO BID [facility] Last Admin: 07/07/18 10:04 Dose: 650 mg Tacrolimus (Prograf Cap) 3 mg PO BID [facility] Last Admin: 07/07/18 10:02 Dose: 3 mg - Labs Labs: 07/06/18 07:15 07/06/18 07:15 PT 12.3 SECONDS (9.7-12.2) H 06/30/18 13:31 INR 1.1 06/30/18 13:31 APTT 30 SECONDS (21-34) 06/30/18 13:31 Assessment and Plan (1) Respiratory failure Status: Acute (2) CKD (chronic kidney disease) stage 4, GFR 15-29 ml/min Status: Acute (3) Chronic obstructive lung disease Status: Acute (4) History of kidney transplant Status: Acute (5) Pulmonary hypertension Status: Acute
--- NOTE | 2018-07-07 11:16 | CP.PCM.PN ---
Subjective - Date & Time of Evaluation Date of Evaluation: 07/07/18 Time of Evaluation: 09:00 - Subjective Subjective: The patient seen and examined On high flow oxygen Positive shortness of breath Refusing blood work Objective - Vital Signs/Intake and Output Vital Signs (last 24 hours): Temp Pulse Resp BP Pulse Ox 97.7 F 99 H 20 178/98 H 99 07/07/18 07:05 07/07/18 07:05 07/07/18 08:15 07/07/18 10:05 07/07/18 07:05 - Medications Medications: Current Medications Amlodipine Besylate (Norvasc) 10 mg PO DAILY [facility] Last Admin: 07/07/18 10:03 Dose: 10 mg Cinacalcet (Sensipar) 90 mg PO DAILY [facility] Last Admin: 07/07/18 10:02 Dose: 90 mg Clonidine HCl (Catapres) 0.2 mg PO BID [facility] Last Admin: 07/07/18 10:04 Dose: 0.2 mg Furosemide (Lasix) 40 mg IVP DAILY [facility] Last Admin: 07/07/18 10:05 Dose: 40 mg Methylprednisolone (Solu-Medrol) 40 mg IVP Q6H [facility] Last Admin: 07/07/18 10:03 Dose: 40 mg Pantoprazole Sodium (Protonix Inj) 40 mg IVP DAILY [facility] Last Admin: 07/07/18 10:03 Dose: 40 mg Rosuvastatin Calcium (Crestor) 5 mg PO [facility] Saccharomyces Boulardii (Florastor) 250 mg PO BID [facility] Last Admin: 07/07/18 10:26 Dose: 250 mg Sodium Bicarbonate (Sodium Bicarbonate Tab) 650 mg PO BID [facility] Last Admin: 07/07/18 10:04 Dose: 650 mg Tacrolimus (Prograf Cap) 3 mg PO BID [facility] Last Admin: 07/07/18 10:02 Dose: 3 mg - Labs Labs: 07/06/18 07:15 07/06/18 07:15 PT 12.3 SECONDS (9.7-12.2) H 06/30/18 13:31 INR 1.1 06/30/18 13:31 APTT 30 SECONDS (21-34) 06/30/18 13:31 - Head Exam Head Exam: ATRAUMATIC, NORMOCEPHALIC - ENT Exam ENT Exam: Mucous Membranes Moist - Neck Exam Neck Exam: Normal Inspection - Respiratory Exam Respiratory Exam: Decreased Breath Sounds - Cardiovascular Exam Cardiovascular Exam: REGULAR RHYTHM Assessment and Plan (1) Respiratory failure Assessment & Plan: Continue has to oxygen Patient DNR/DNI Present treatment Status: Acute (2) CKD (chronic kidney disease) stage 4, GFR 15-29 ml/min Status: Acute (3) Chronic obstructive lung disease Status: Acute (4) History of kidney transplant Status: Acute (5) Pulmonary hypertension Status: Acute
[2018-07-08] MEDS: MethylPREDNISolone 40 mg Vial IVP SCH ×4 (05:15→22:30)
--- NOTE | 2018-07-08 07:43 | CP.PCM.PN ---
Subjective - Date & Time of Evaluation Date of Evaluation: 07/08/18 Time of Evaluation: 07:42 - Subjective Subjective: Medicine Progress Note - Dr Calvo's Service Patient seen and examined at bedside. Per nursing, no acute events overnight. Patient is currently on high flow NC. Reports shortness of breath is better and wants to go home. Patient with marked swelling of left upper extremity. Offers no other complaints at this time. Objective - Vital Signs/Intake and Output Vital Signs (last 24 hours): Temp Pulse Resp BP Pulse Ox 97.9 F 74 20 114/75 100 07/07/18 23:35 07/08/18 00:00 07/07/18 23:35 07/07/18 23:35 07/07/18 23:35 - Medications Medications: Current Medications Amlodipine Besylate (Norvasc) 10 mg PO DAILY [facility] Last Admin: 07/07/18 10:03 Dose: 10 mg Cinacalcet (Sensipar) 90 mg PO DAILY [facility] Last Admin: 07/07/18 10:02 Dose: 90 mg Clonidine HCl (Catapres) 0.2 mg PO BID [facility] Last Admin: 07/07/18 17:55 Dose: 0.2 mg Furosemide (Lasix) 40 mg IVP DAILY [facility] Last Admin: 07/07/18 10:05 Dose: 40 mg Methylprednisolone (Solu-Medrol) 40 mg IVP Q6H [facility] Last Admin: 07/08/18 05:15 Dose: 40 mg Pantoprazole Sodium (Protonix Ec Tab) 40 mg PO DAILY [facility] Rosuvastatin Calcium (Crestor) 5 mg PO HS [facility] Saccharomyces Boulardii (Florastor) 250 mg PO BID [facility] Last Admin: 07/07/18 17:55 Dose: 250 mg Sodium Bicarbonate (Sodium Bicarbonate Tab) 650 mg PO BID [facility] Last Admin: 07/07/18 17:55 Dose: 650 mg Tacrolimus (Prograf Cap) 3 mg PO BID [facility] Last Admin: 07/07/18 17:55 Dose: 3 mg - Labs Labs: 07/06/18 07:15 07/06/18 07:15 PT 12.3 SECONDS (9.7-12.2) H 06/30/18 13:31 INR 1.1 06/30/18 13:31 APTT 30 SECONDS (21-34) 06/30/18 13:31 - Constitutional Appears: Cachectic - Head Exam Head Exam: ATRAUMATIC - Eye Exam Eye Exam: Normal appearance - ENT Exam ENT Exam: Mucous Membranes Moist - Respiratory Exam Respiratory Exam: Decreased Breath Sounds. absent: Rhonchi, Wheezes - Cardiovascular Exam Cardiovascular Exam: REGULAR RHYTHM, +S1, +S2 - GI/Abdominal Exam GI & Abdominal Exam: Soft. absent: Tenderness - Extremities Exam Extremities Exam: absent: Calf Tenderness, Pedal Edema Additional comments: +2 pitting edema in left upper extremity, radial pulses and sensation intact - Neurological Exam Neurological Exam: Alert, Awake, Oriented x3 - Psychiatric Exam Psychiatric exam: Normal Mood - Skin Skin Exam: Normal Color, Warm Assessment and Plan - Assessment and Plan (Free Text) Assessment: Patient is a 77 year old F admitted for acute on chronic respiratory failure 2/2 to severe kyphoscoliosis, lupus; resolving Acute on Chronic Respiratory failure; improving -Patient tolerating high flow O2 today; will attempt to wean to NC -CXR 07/03 shows cardiomegaly, no infiltrates (see full report) -Chest CT shows No acute infiltrate. Cardiomegaly and dilated main pulmonary artery. No pleural effusion. Multiple stable mild thoracic and upper lumbar vertebral compression deformities. Additional minor findings as above. (see full report) -Continue Solumedrol 40mg Q6H IVP, will start taper when clinically improves -Duonebs 3mL INH RQ4H -Zosyn 3.375 Q8H (discontinued on 07/01/18) -Influenza negative -Pulmonology; Dr. Acosta; thank you for your help -Patient is DNR/DNI, palliative care on consult, help appreciated Patient will likely need 24 hour home O2; will write script and get becka mcclelland to work on delivering home O2 Patient will need home assistance; patient is not independent and needs help most of the day 2/2 to deconditioning, RA M05.611, M32.9 lupus, M41.9 severe kyphoscoloiosis Left Subclavian DVT -Patient with left upper extremity edema on exam -LUE duplex + for subclavian DVT -Patient with history of CKD and thrombocytopenic -Keep left arm elevated -Heme/Onc on consult, help appreciated Pulmonary hypertension Previous Chest CT on admission from 06/04/18: No definite alveolitis bilaterally. Minimal dependent atelectasis, diminished in the interval bilaterally as compared prior chest CT 05/25/2017. 2. Prominent cardiomegaly reiterated as well as increasing main pulmonary artery caliber (4.4 cm) suspicious for pulmonary artery hypertension though this is a clinical diagnosis and further clinical correlation is recommended. Further, ectatic dilated superior vena cava identified potentially a function of right heart failure possible right or failure. Clinically correlate further. -Repeat chest CT shows No acute infiltrate. Cardiomegaly and dilated main pulmonary artery. No pleural effusion. Multiple stable mild thoracic and upper lumbar vertebral compression deformities. Additional minor findings as above. (see full report) -Treatment as per pulmonology Hx of Hypertension -Norvasc 10mg PO daily -Clonidine 0.2mg PO BID -Vital signs Q4H Acute on Chronic Kidney Disease (improving) -Baseline Cr 2.5 -Cr on 07/06 was 2.9, patient refusing blood work -Monitor serial BMPs 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 (HD for 5 years and kidney transplant at [facility] ([facility]3] 10/01/2001) -Continue Tacrolimus 3mg PO BID -F/U Tacrolimus level -Continue Sensipar 90mg PO daily, sodium bicarb 650mg PO BID -Nephrology on consult, Dr Sykes, help appreciated History of lupus; chronic See above assessment Macrocytic Anemia; stable and chronic -Hgb stable -Patient refusing labs -Vitamin B12 and folate within normal range -Monitor serial CBCs Congestive Heart Failure -Lasix 40mg IVP daily -Last echo 05/2018: EF 50% -Measure daily weights Prophylactic measure DVT: contraindicated 2/2 to thrombocytopenia GI: Protonix 40mg PO daily 2/2 to high dose and chronic steroid use Case discussed and seen with Dr. Lubna Odell DO PGY-2
--- NOTE | 2018-07-08 08:07 | CARD ---
APPROVED REPORT Date of service: 07/05/2018 EKG Measurement Heart [id number] <Conclusion> Atrial fibrillation with rapid ventricular response Nonspecific T wave abnormality Abnormal ECG
[2018-07-08] MEDS: Pantoprazole 40 mg EC Tab PO SCH (10:25)
[2018-07-08] MEDS: Saccharomyces Boulardi 250 mg Cap PO SCH ×2 (10:26→18:06)
--- NOTE | 2018-07-08 12:34 | CP.PCM.PN ---
<Bradford Leung - Last Filed: 07/08/18 14:20> Subjective - Date & Time of Evaluation Date of Evaluation: 07/08/18 Time of Evaluation: : - Subjective Subjective: PGY2 Pulm Note for Dr. Acosta Patient seen and examined this morning at bedside. Patient is currently on high flow oxygen. She is speaking in broken sentences, stopping every 3-4 words to take a breath. She says she is feeling much better today and is hoping to go h ome soon. Upper extremity doppler revealed a DVT in her left arm this morning. Patient is still refusing blood work. Objective - Vital Signs/Intake and Output Vital Signs (last 24 hours): Temp Pulse Resp BP Pulse Ox 97.8 F 88 18 131/73 100 07/08/18 07:10 07/08/18 08:08 07/08/18 07:10 07/08/18 10:26 07/08/18 07:10 - Medications Medications: Current Medications Amlodipine Besylate (Norvasc) 10 mg PO DAILY [facility] Last Admin: 07/08/18 10:24 Dose: 10 mg Cinacalcet (Sensipar) 90 mg PO DAILY [facility] Last Admin: 07/08/18 10:25 Dose: 90 mg Clonidine HCl (Catapres) 0.2 mg PO BID [facility] Last Admin: 07/08/18 10:24 Dose: 0.2 mg Furosemide (Lasix) 40 mg IVP DAILY [facility] Last Admin: 07/08/18 10:26 Dose: 40 mg Methylprednisolone (Solu-Medrol) 40 mg IVP Q6H [facility] Last Admin: 07/08/18 10:25 Dose: 40 mg Pantoprazole Sodium (Protonix Ec Tab) 40 mg PO DAILY [facility] Last Admin: 07/08/18 10:25 Dose: 40 mg Rosuvastatin Calcium (Crestor) 5 mg PO HS [facility] Saccharomyces Boulardii (Florastor) 250 mg PO BID [facility] Last Admin: 07/08/18 10:26 Dose: 250 mg Sodium Bicarbonate (Sodium Bicarbonate Tab) 650 mg PO BID [facility] Last Admin: 07/08/18 10:24 Dose: 650 mg Tacrolimus (Prograf Cap) 3 mg PO BID [facility] Last Admin: 07/08/18 10:25 Dose: 3 mg - Labs Labs: 07/06/18 07:15 12/29/18 07:15 PT 12.3 SECONDS (9.7-12.2) H 06/30/18 13:31 INR 1.1 06/30/18 13:31 APTT 30 SECONDS (21-34) 06/30/18 13:31 - Head Exam Head Exam: ATRAUMATIC, NORMOCEPHALIC - ENT Exam ENT Exam: Mucous Membranes Moist - Neck Exam Neck Exam: absent: Lymphadenopathy, Tenderness - Respiratory Exam Respiratory Exam: Decreased Breath Sounds (throughout b/l). absent: Accessory Muscle Use Additional comments: speaking in 3-4 word sentences. - GI/Abdominal Exam GI & Abdominal Exam: Soft. absent: Distended, Firm, Guarding, Rigid, Tenderness - Extremities Exam Extremities Exam: absent: Calf Tenderness, Pedal Edema - Neurological Exam Neurological Exam: Alert, Awake, Oriented x3 - Skin Skin Exam: Dry, Warm Assessment and Plan (1) Respiratory failure Assessment & Plan: Patient is to continue high flow oxygen Patient is DNR/DNI continue present treatment Will discuss with SW to set up home O2 Status: Acute (2) Deep vein thrombosis (DVT) of left upper extremity Status: Acute (3) CKD (chronic kidney disease) stage 4, GFR 15-29 ml/min Status: Acute (4) Chronic obstructive lung disease Status: Acute (5) History of kidney transplant Status: Acute (6) Pulmonary hypertension Status: Acute <Balwinder Acosta - Last Filed: 07/08/18 15:42> Objective - Vital Signs/Intake and Output Vital Signs (last 24 hours): Temp Pulse Resp BP Pulse Ox 97.8 F 88 18 131/73 100 07/08/18 07:10 07/08/18 08:08 07/08/18 07:10 07/08/18 10:26 07/08/18 07:10 - Medications Medications: Current Medications Amlodipine Besylate (Norvasc) 10 mg PO DAILY [facility] Last Admin: 07/08/18 10:24 Dose: 10 mg Cinacalcet (Sensipar) 90 mg PO DAILY [facility] Last Admin: 07/08/18 10:25 Dose: 90 mg Clonidine HCl (Catapres) 0.2 mg PO BID [facility] Last Admin: 07/08/18 10:24 Dose: 0.2 mg Furosemide (Lasix) 40 mg IVP DAILY [facility] Last Admin: 07/08/18 10:26 Dose: 40 mg Sodium Chloride (Sodium Chloride 0.9%) 1,000 mls @ 50 mls/hr IV .Q20H [facility] Last Admin: 07/08/18 15:33 Dose: 50 mls/hr Methylprednisolone (Solu-Medrol) 40 mg IVP Q6H [facility] Last Admin: 07/08/18 10:25 Dose: 40 mg Pantoprazole Sodium (Protonix Ec Tab) 40 mg PO DAILY [facility] Last Admin: 07/08/18 10:25 Dose: 40 mg Rosuvastatin Calcium (Crestor) 5 mg PO HS [facility] Saccharomyces Boulardii (Florastor) 250 mg PO BID [facility] Last Admin: 07/08/18 10:26 Dose: 250 mg Sodium Bicarbonate (Sodium Bicarbonate Tab) 650 mg PO BID [facility] Last Admin: 07/08/18 10:24 Dose: 650 mg Tacrolimus (Prograf Cap) 3 mg PO BID [facility] Last Admin: 07/08/18 10:25 Dose: 3 mg - Labs Labs: 07/06/18 07:15 07/06/18 07:15 PT 12.3 SECONDS (9.7-12.2) H 06/30/18 13:31 INR 1.1 06/30/18 13:31 APTT 30 SECONDS (21-34) 06/30/18 13:31 Assessment and Plan (1) Respiratory failure Status: Acute (2) CKD (chronic kidney disease) stage 4, GFR 15-29 ml/min Status: Acute (3) Chronic obstructive lung disease Status: Acute (4) History of kidney transplant Status: Acute (5) Pulmonary hypertension Status: Acute Attending/Attestation - Attestation I have personally seen and examined this patient.: Yes I have fully participated in the care of the patient.: Yes I have reviewed all pertinent clinical information, including history, physical exam and plan: Yes Notes (Text): 07/08/18 15:42 the patient seen and examined case discussed with the house staff Hematology consult for thrombocytopenia and DVT Continue present treatment Patient DNR/DNI
--- NOTE | 2018-07-08 13:00 | VASCLAB ---
Date of service: 07/08/2018 PROCEDURE: Left Upper Extremity Venous Duplex Exam HISTORY: r/o DVT Left arm severe edema, DVT PRIORS: None. TECHNIQUE: Left upper extremity, internal jugular, subclavian, axillary, brachial, ulnar, radial, basilic and upper cephalic veins were evaluated. Flow was assessed with color Doppler, compressibility, assessment of phasic flow and augmentation response. Report prepared by Brant Alvarado, RVT FINDINGS: LEFT: 1. Internal Jugular: 1.1. Compressibility - Incompressible: Thrombus - SubAcute : Flow - Absent : Augmentation - None: Reflux - . 2. Subclavian: 2.1. Compressibility - Incompressible: Thrombus - SubAcute : Flow - Absent : Augmentation - None: Reflux - . 3. Axillary: 3.1. Compressibility - Fully compressible: Thrombus - None : Flow - Phasic: Augmentation -Normal: Reflux - . 4. Brachial: 4.1. Compressibility - Fully compressible: Thrombus - None: Flow - Phasic: Augmentation -Normal: Reflux - . 5. Ulnar: 5.1. Compressibility - Fully compressible: Thrombus - None: Flow - Phasic: Augmentation -Normal: Reflux - . 6. Radial: 6.1. Compressibility - Fully compressible: Thrombus - None: Flow - Phasic: Augmentation - Normal: Reflux - . 7. Cephalic: 7.1. Compressibility - Fully compressible: Thrombus - None: Flow - Phasic: Augmentation -Normal: Reflux - . 8. Basilic: 8.1. Compressibility - Incompressible: Thrombus - SubAcute: Flow - Absent : Augmentation - None: Reflux - . OTHER FINDINGS: Left: None. IMPRESSION: Left: The internal jugular, subclavian and basilic vein in the upper arm territory were all occluded with mix echogenicity THROMBUS and revealing absent venous return. Positive study for subacute DEEP and superficial venous THROMBOSIS of the left upper extremity. Normal venous flow noted in the right internal jugular and right subclavian veins.
--- NOTE | 2018-07-08 14:06 | CP.PCM.PN ---
Subjective - Date & Time of Evaluation Date of Evaluation: 07/08/18 Time of Evaluation: 14:04 - Subjective Subjective: on high flow O2 refused labs new LUE DVt on tacrolimus and iv steroids daughter at bedside, care discussed w/ her Objective - Vital Signs/Intake and Output Vital Signs (last 24 hours): Temp Pulse Resp BP Pulse Ox 97.8 F 88 18 131/73 100 07/08/18 07:10 07/08/18 08:08 07/08/18 07:10 07/08/18 10:26 07/08/18 07:10 - Medications Medications: Current Medications Amlodipine Besylate (Norvasc) 10 mg PO DAILY [facility] Last Admin: 07/08/18 10:24 Dose: 10 mg Cinacalcet (Sensipar) 90 mg PO DAILY [facility] Last Admin: 07/08/18 10:25 Dose: 90 mg Clonidine HCl (Catapres) 0.2 mg PO BID [facility] Last Admin: 07/08/18 10:24 Dose: 0.2 mg Furosemide (Lasix) 40 mg IVP DAILY [facility] Last Admin: 07/08/18 10:26 Dose: 40 mg Methylprednisolone (Solu-Medrol) 40 mg IVP Q6H [facility] Last Admin: 07/08/18 10:25 Dose: 40 mg Pantoprazole Sodium (Protonix Ec Tab) 40 mg PO DAILY [facility] Last Admin: 07/08/18 10:25 Dose: 40 mg Rosuvastatin Calcium (Crestor) 5 mg PO HS [facility] Saccharomyces Boulardii (Florastor) 250 mg PO BID [facility] Last Admin: 07/08/18 10:26 Dose: 250 mg Sodium Bicarbonate (Sodium Bicarbonate Tab) 650 mg PO BID [facility] Last Admin: 07/08/18 10:24 Dose: 650 mg Tacrolimus (Prograf Cap) 3 mg PO BID [facility] Last Admin: 07/08/18 10:25 Dose: 3 mg - Labs Labs: 07/06/18 07:15 07/06/18 07:15 PT 12.3 SECONDS (9.7-12.2) H 06/30/18 13:31 INR 1.1 06/30/18 13:31 APTT 30 SECONDS (21-34) 06/30/18 13:31 - Constitutional Appears: In Acute Distress (mild respiratory distress), Chronically Ill - Head Exam Head Exam: NORMAL INSPECTION - Eye Exam Eye Exam: Normal appearance, PERRL - ENT Exam ENT Exam: Mucous Membranes Moist, Normal Exam - Neck Exam Neck Exam: Full ROM, Normal Inspection - Respiratory Exam Respiratory Exam: Rhonchi, NORMAL BREATHING PATTERN - Cardiovascular Exam Cardiovascular Exam: REGULAR RHYTHM, RRR - GI/Abdominal Exam GI & Abdominal Exam: Distended, Soft - Extremities Exam Extremities Exam: Full ROM, Normal Inspection Assessment and Plan (1) SEBASTIAN (acute kidney injury) Status: Acute (2) Acute respiratory failure with hypoxia Status: Acute (3) CKD (chronic kidney disease) stage 4, GFR 15-29 ml/min Status: Acute (4) History of kidney transplant Status: Acute (5) Hypoxemia Status: Acute (6) Hypertension Status: Acute - Assessment and Plan (Free Text) Assessment: check tacrolimus levels, follow bmp anticoagulation hypercalcemia - on iv lasix, sensipar. add gentle saline
[2018-07-08] MEDS ORDERED: Sodium Chloride 0.9% 1,000 ML IV SCH (15:15)
[2018-07-08 18:00] LABS: CALCIUM 10.7 mg/dl (8.6-10.4)
[2018-07-09] MEDS: MethylPREDNISolone 40 mg Vial IVP SCH ×5 (05:07→21:41)
[2018-07-09 07:57] LABS: BASO % 0.1 % (0.0-2.0); HEMOGLOBIN 8.2 g/dL (11.0-16.0); LYMPH # 0.4 K/uL (1.0-4.3); LYMPH % 8.1 % (20.0-40.0); MEAN CELL VOLUME 99.2 fL (81.0-99.0); MEAN CORPUSCULAR HEMOGLOBIN 33.2 pg (27.0-31.0); MEAN CORPUSCULAR HGB CONC 33.5 g/dL (33.0-37.0); MEAN PLATELET VOLUME 9.6 fL (7.2-11.7); MONO # 0.3 K/uL (0.0-0.8); NEUT # 4.6 K/uL (1.8-7.0); NEUT % 86.8 % (50.0-75.0); NRBC % 0.5 % (0.0-2.0); RBC 2.47 Mil/uL (3.80-5.20); RED CELL DISTRIBUTION WIDTH 14.8 % (11.5-14.5); WHITE BLOOD COUNT 5.3 K/uL (4.8-10.8)
[2018-07-09 08:06] LABS: PLATELET COUNT 70 K/uL (130-400)
[2018-07-09 08:37] LABS: ALB/GLOB RATIO 1.5 (1.0-2.1); ALBUMIN 3.6 g/dL (3.5-5.0); CALCIUM 10.6 mg/dl (8.6-10.4)
[2018-07-09 09:16] LABS: LYMPHOCYTE 8 % (20-40); MONOCYTE 5 % (0-10); NEUTROPHIL 87 % (50-75); TOTAL CELLS COUNTED 100
[2018-07-09] MEDS: Pantoprazole 40 mg EC Tab PO SCH (09:16)
[2018-07-09] MEDS: Saccharomyces Boulardi 250 mg Cap PO SCH ×2 (09:16→18:33)
[2018-07-09 09:17] LABS: ANISOCYTOSIS SLIGHT; BURR CELLS SLIGHT; HYPOCHROMIC SLIGHT; LARGE PLATELETS PRESENT; OVALOCYTES SLIGHT; PLATELET ESTIMATE DECREASED (NORMAL); POIKILOCYTOSIS SLIGHT; POLYCHROMIC SLIGHT
--- NOTE | 2018-07-09 09:35 | CP.PCM.PN ---
Subjective - Date & Time of Evaluation Date of Evaluation: 07/09/18 Time of Evaluation: 09:33 - Subjective Subjective: LABS DONE YESTERDAY, NOTED no events no f/c/sob/headache/n/v/d poor historian Objective - Vital Signs/Intake and Output Vital Signs (last 24 hours): Temp Pulse Resp BP Pulse Ox 98.0 F 89 18 138/76 97 07/09/18 07:00 07/09/18 07:00 07/09/18 07:00 07/09/18 09:16 07/09/18 07:00 Intake and Output: 07/09/18 07/09/18 06:59 18:59 Intake Total 750 Balance 750 - Medications Medications: Current Medications Amlodipine Besylate (Norvasc) 10 mg PO DAILY [facility] Last Admin: 07/09/18 09:17 Dose: 10 mg Cinacalcet (Sensipar) 90 mg PO DAILY [facility] Last Admin: 07/09/18 09:18 Dose: 90 mg Clonidine HCl (Catapres) 0.2 mg PO BID [facility] Last Admin: 07/09/18 09:16 Dose: 0.2 mg Sodium Chloride (Sodium Chloride 0.9%) 1,000 mls @ 100 mls/hr IV .Q10H [facility] Methylprednisolone (Solu-Medrol) 40 mg IVP Q6H [facility] Last Admin: 07/09/18 05:07 Dose: 40 mg Pantoprazole Sodium (Protonix Ec Tab) 40 mg PO DAILY [facility] Last Admin: 07/09/18 09:16 Dose: 40 mg Rosuvastatin Calcium (Crestor) 5 mg PO HS [facility] Saccharomyces Boulardii (Florastor) 250 mg PO BID [facility] Last Admin: 07/09/18 09:16 Dose: 250 mg Sodium Bicarbonate (Sodium Bicarbonate Tab) 650 mg PO BID [facility] Last Admin: 07/09/18 09:16 Dose: 650 mg Tacrolimus (Prograf Cap) 3 mg PO BID [facility] Last Admin: 07/09/18 09:18 Dose: 3 mg - Labs Labs: 07/09/18 07:52 07/09/18 07:52 PT 12.3 SECONDS (9.7-12.2) H 06/30/18 13:31 INR 1.1 06/30/18 13:31 APTT 30 SECONDS (21-34) 06/30/18 13:31 - Constitutional Appears: Chronically Ill (mild respiratory distress, on high flow o2) - Head Exam Head Exam: NORMAL INSPECTION, NORMOCEPHALIC - Eye Exam Eye Exam: Normal appearance, PERRL - ENT Exam ENT Exam: Mucous Membranes Moist, Normal Exam - Neck Exam Neck Exam: Full ROM, Normal Inspection - Respiratory Exam Respiratory Exam: Decreased Breath Sounds (b/l rhonchi) - Cardiovascular Exam Cardiovascular Exam: REGULAR RHYTHM, RRR - GI/Abdominal Exam GI & Abdominal Exam: Distended, Soft, Normal Bowel Sounds - Extremities Exam Extremities Exam: Full ROM, Normal Inspection - Neurological Exam Neurological Exam: Alert, Awake, CN II-XII Intact - Psychiatric Exam Psychiatric exam: Normal Affect, Normal Mood - Skin Skin Exam: Dry, Intact Assessment and Plan (1) SEBASTIAN (acute kidney injury) Status: Acute (2) Acute respiratory failure with hypoxia Status: Acute (3) CKD (chronic kidney disease) stage 4, GFR 15-29 ml/min Status: Acute (4) History of kidney transplant Status: Acute (5) Hypoxemia Status: Acute (6) Hypertension Status: Acute - Assessment and Plan (Free Text) Assessment: azotemia - steroids/ lasix sebastian renal transplant respiratory failure / copd anemia hypercalcemia dc lasix, gentle iv fluids follow tacrolimus levels renal US daily chems recommend taper steroids
[2018-07-09] MEDS: Sodium Chloride 0.9% 1,000 ML IV SCH ×2 (11:25→21:41)
--- NOTE | 2018-07-09 16:30 | CP.PCM.PN ---
Subjective - Date & Time of Evaluation Date of Evaluation: 07/09/18 Time of Evaluation: 16:00 - Subjective Subjective: The patient seen and examined Awake and responsive Dyspnea on minimal exertion Afebrile Objective - Vital Signs/Intake and Output Vital Signs (last 24 hours): Temp Pulse Resp BP Pulse Ox 98.0 F 89 20 138/76 97 07/09/18 07:00 07/09/18 07:00 07/09/18 14:23 07/09/18 09:16 07/09/18 07:00 Intake and Output: 07/09/18 07/09/18 06:59 18:59 Intake Total 750 Balance 750 - Medications Medications: Current Medications Amlodipine Besylate (Norvasc) 10 mg PO DAILY [facility] Last Admin: 07/09/18 09:17 Dose: 10 mg Cinacalcet (Sensipar) 90 mg PO DAILY [facility] Last Admin: 07/09/18 09:18 Dose: 90 mg Clonidine HCl (Catapres) 0.2 mg PO BID [facility] Last Admin: 07/09/18 09:16 Dose: 0.2 mg Sodium Chloride (Sodium Chloride 0.9%) 1,000 mls @ 100 mls/hr IV .Q10H [facility] Last Admin: 07/09/18 11:25 Dose: 100 mls/hr Methylprednisolone (Solu-Medrol) 40 mg IVP Q6H [facility] Last Admin: 07/09/18 10:59 Dose: 40 mg Pantoprazole Sodium (Protonix Ec Tab) 40 mg PO DAILY [facility] Last Admin: 07/09/18 09:16 Dose: 40 mg Rosuvastatin Calcium (Crestor) 5 mg PO [facility] Saccharomyces Boulardii (Florastor) 250 mg PO BID [facility] Last Admin: 07/09/18 09:16 Dose: 250 mg Sodium Bicarbonate (Sodium Bicarbonate Tab) 650 mg PO BID [facility] Last Admin: 07/09/18 09:16 Dose: 650 mg Tacrolimus (Prograf Cap) 3 mg PO BID [facility] Last Admin: 07/09/18 09:18 Dose: 3 mg - Labs Labs: 07/09/18 07:52 07/09/18 07:52 PT 12.3 SECONDS (9.7-12.2) H 06/30/18 13:31 INR 1.1 06/30/18 13:31 APTT 30 SECONDS (21-34) 06/30/18 13:31 Assessment and Plan (1) Respiratory failure Status: Acute (2) CKD (chronic kidney disease) stage 4, GFR 15-29 ml/min Status: Acute (3) Chronic obstructive lung disease Status: Acute (4) History of kidney transplant Status: Acute (5) Pulmonary hypertension Status: Acute
[2018-07-10] MEDS: MethylPREDNISolone 40 mg Vial IVP SCH ×4 (04:05→21:30)
--- NOTE | 2018-07-10 07:11 | CP.PCM.PN ---
Subjective - Date & Time of Evaluation Date of Evaluation: 07/10/18 Time of Evaluation: 07:11 - Subjective Subjective: Medicine Progress Note - Dr Calvo's Service Patient seen and examined at bedside. Per nursing no acute events overnight. Patient is doing well, offers no complaints at this time. Still tacypneic. Wants to go home. Objective - Vital Signs/Intake and Output Vital Signs (last 24 hours): Temp Pulse Resp BP Pulse Ox 97.9 F 95 H 26 H 159/90 H 97 07/09/18 23:00 07/10/18 01:00 07/10/18 03:45 07/09/18 23:00 07/09/18 23:00 Intake and Output: 07/10/18 07/10/18 06:59 18:59 Intake Total 1040 Balance 1040 - Medications Medications: Current Medications Amlodipine Besylate (Norvasc) 10 mg PO DAILY [facility] Last Admin: 07/09/18 09:17 Dose: 10 mg Cinacalcet (Sensipar) 90 mg PO DAILY [facility] Last Admin: 07/09/18 09:18 Dose: 90 mg Clonidine HCl (Catapres) 0.2 mg PO BID [facility] Last Admin: 07/09/18 21:01 Dose: Not Given Sodium Chloride (Sodium Chloride 0.9%) 1,000 mls @ 100 mls/hr IV .Q10H [facility] Last Admin: 07/09/18 21:41 Dose: Not Given Methylprednisolone (Solu-Medrol) 40 mg IVP Q6H [facility] Last Admin: 07/10/18 04:05 Dose: Not Given Pantoprazole Sodium (Protonix Ec Tab) 40 mg PO DAILY [facility] Last Admin: 07/09/18 09:16 Dose: 40 mg Rosuvastatin Calcium (Crestor) 5 mg PO HS [facility] Saccharomyces Boulardii (Florastor) 250 mg PO BID [facility] Last Admin: 07/09/18 18:33 Dose: 250 mg Sodium Bicarbonate (Sodium Bicarbonate Tab) 650 mg PO BID [facility] Last Admin: 07/09/18 18:32 Dose: 650 mg Tacrolimus (Prograf Cap) 3 mg PO BID [facility] Last Admin: 07/09/18 18:52 Dose: 3 mg - Labs Labs: 07/09/18 07:52 07/09/18 07:52 PT 12.3 SECONDS (9.7-12.2) H 06/30/18 13:31 INR 1.1 06/30/18 13:31 APTT 30 SECONDS (21-34) 06/30/18 13:31 - Additional Findings Additional findings: - Constitutional Appears: Cachectic - Head Exam Head Exam: ATRAUMATIC - Eye Exam Eye Exam: Normal appearance - ENT Exam ENT Exam: Mucous Membranes Moist - Respiratory Exam Respiratory Exam: Decreased Breath Sounds. absent: Rhonchi, Wheezes - Cardiovascular Exam Cardiovascular Exam: REGULAR RHYTHM, +S1, +S2 - GI/Abdominal Exam GI & Abdominal Exam: Soft. absent: Tenderness - Extremities Exam Extremities Exam: absent: Calf Tenderness, Pedal Edema Additional comments: +2 pitting edema in left upper extremity, radial pulses and sensation intact - Neurological Exam Neurological Exam: Alert, Awake, Oriented x3 - Psychiatric Exam Psychiatric exam: Normal Mood - Skin Skin Exam: Normal Color, Warm Assessment and Plan - Assessment and Plan (Free Text) Assessment: Patient is a 77 year old F admitted for acute on chronic respiratory failure 2/2 to severe kyphoscoliosis, lupus; resolving Acute on Chronic Respiratory failure; improving -Patient tolerating high flow O2 today; will attempt to wean to NC -CXR 07/03 shows cardiomegaly, no infiltrates (see full report) -Chest CT shows No acute infiltrate. Cardiomegaly and dilated main pulmonary artery. No pleural effusion. Multiple stable mild thoracic and upper lumbar vertebral compression deformities. Additional minor findings as above. (see full report) -Continue Solumedrol 40mg Q8H IVP -Duonebs 3mL INH RQ4H -Zosyn 3.375 Q8H (discontinued on 07/01/18) -Influenza negative -Pulmonology; Dr. Acosta; thank you for your help -Patient is DNR/DNI, palliative care on consult, help appreciated Patient will likely need 24 hour home O2; will write script and get case management to work on delivering home O2 Patient will need home assistance; patient is not independent and needs help most of the day 2/2 to deconditioning, RA M05.611, M32.9 lupus, M41.9 severe kyphoscoloiosis Left Subclavian DVT -Patient with left upper extremity edema on exam -LUE duplex + for subclavian DVT -Patient with history of CKD and thrombocytopenic -Keep left arm elevated -Heme/Onc on consult, help appreciated Pulmonary hypertension Previous Chest CT on admission from 06/04/18: No definite alveolitis bilaterally. Minimal dependent atelectasis, diminished in the interval bilater ally as compared prior chest CT 05/25/2017. 2. Prominent cardiomegaly reiterated as well as increasing main pulmonary artery caliber (4.4 cm) suspicious for pulmonary artery hypertension though this is a clinical diagnosis and further clinical correlation is recommended. Further, ectatic dilated superior vena cava identified potentially a function of right heart failure possible right or failure. Clinically correlate further. -Repeat chest CT shows No acute infiltrate. Cardiomegaly and dilated main pulmonary artery. No pleural effusion. Multiple stable mild thoracic and upper lumbar vertebral compression deformities. Additional minor findings as above. (see full report) -Treatment as per pulmonology Hx of Hypertension -Norvasc 10mg PO daily -Clonidine 0.2mg PO BID -Vital signs Q4H Acute on Chronic Kidney Disease (improving) -Baseline Cr 2.5 -BUN Cr on 07/09 106/3.2 -Continue NS at 100cc/hr -Monitor serial BMPs -Abdominal US: Unremarkable appearing transplant kidney right lower quadrant/right hemipelvis. Extensive increased echogenicity is identified throughout the bilateral kidneys suggesting intrinsic medical renal disease. Bilateral kidneys are lower limits normal size bilaterally and otherwise unremarkable appearing. 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 (HD for 5 years and kidney transplant at [facility] 10/01/2001) -Continue Tacrolimus 3mg PO BID -F/U Tacrolimus level -Continue Sensipar 90mg PO daily, sodium bicarb 650mg PO BID -Nephrology on consult, Dr Sykes, help appreciated History of lupus; chronic See above assessment Macrocytic Anemia; stable and chronic -Hgb stable -Vitamin B12 and folate within normal range -Monitor serial CBCs Congestive Heart Failure -Last echo 05/2018: EF 50% -Measure daily weights Prophylactic measure DVT: contraindicated 2/2 to thrombocytopenia GI: Protonix 40mg PO daily 2/2 to high dose and chronic steroid use Case discussed and seen with Dr. Lubna Odell DO PGY-2
--- NOTE | 2018-07-10 09:25 | US ---
Date of service: 07/10/2018 PROCEDURE: Ultrasound of the Kidneys HISTORY: jeferson, renal transplant COMPARISON: None available. TECHNIQUE: Sonogram of the kidneys. FINDINGS: Transplant kidney is identified at the right lower quadrant/right hemipelvis measuring 9.7 x 6.4 x 5.9 cm without mass, cyst or hydronephrosis appreciated. No perinephric fluid collection. Overall echogenicity is unremarkable throughout the renal parenchyma as imaged. RIGHT KIDNEY: Measures: 8.4 x 4.0 x 3.9 cm. Right kidney is lower limits normal size with prominent increased echogenicity throughout, suggestive of intrinsic medical renal disease. No definitive stone, solid mass lesion or hydronephrosis visualized. LEFT KIDNEY: Measures: 8.7 x 4.0 x 4.7 cm. Left kidney is lower limits normal size with prominent increased echogenicity throughout, suggestive of intrinsic medical renal disease. No definitive stone, solid mass lesion or hydronephrosis visualized. OTHER FINDINGS: Liver is normal size measuring 13.1 cm without focal mass or intrahepatic biliary dilatation appreciable. Normal directional blood flows appreciated throughout the main portal vein and hepatic veins. Spleen is unremarkable measuring 8.5 cm with visualized common bile duct measuring 3.9 mm caliber, normal. Gallbladder is unremarkable with no cholelithiasis or mural thickening related. Overlying bowel obscures imaging of the abdominal aorta with the inferior vena cava appear unremarkable grossly. The head and neck as well as proximal body of the pancreas are unremarkable with remainder obscured by overlying bowel gas. IMPRESSION: 1. Unremarkable appearing transplant kidney right lower quadrant/right hemipelvis. 2. Extensive increased echogenicity is identified throughout the bilateral kidneys suggesting intrinsic medical renal disease. Bilateral kidneys are lower limits normal size bilaterally and otherwise unremarkable appearing. 3. Limited abdomen ultrasonography unremarkable.
[2018-07-10] MEDS: Pantoprazole 40 mg EC Tab PO SCH (09:28)
[2018-07-10] MEDS: Saccharomyces Boulardi 250 mg Cap PO SCH (09:29)
--- NOTE | 2018-07-10 11:51 | CP.PCM.CON ---
History of Present Illness - History of Present Illness History of Present Illness: 77 year old male with a history of kyphoscoliosis, SLE, lupus nephritis s/p renal transplant on immunosuppression, admitted with shortness of breath, found to have an acute DVT. The patient was found to have a left internal jugular ve in, subclavian DVT. She denies abnormal bleeding and bruising. She has never had blood clots before. Past medical history: kyphoscoliosis, SLE, lupus nephritis s/p renal transplant Past surgical history: Renal transplant Family history: Denies hematologic and oncologic problems Social history: Denies tobacco, alcohol, and illicit drug use. Allergies: NKA Review of systems: All remaining review of systems including HEENT, cardiovascular, respiratory, gastrointestinal, genitourinary, musculoskeletal, dermatologic, neurologic, and psychiatric are negative unless mentioned in the HPI. Past Patient History - Infectious Disease Hx of Infectious Diseases: None - Past Medical History & Family History Past Medical History?: Yes Past Family History: Reviewed and not pertinent - Past Social History Smoking Status: Never Smoked Chewing Tobacco Use: No Cigar Use: No Alcohol: None Drugs: Denies Home Situation {Lives}: With Family - CARDIAC Hx Congestive Heart Failure: Yes - PULMONARY Hx Chronic Obstructive Pulmonary Disease (COPD): Yes - RENAL Hx Chronic Kidney Disease: Yes - MUSCULOSKELETAL/RHEUMATOLOGICAL Hx Arthritis: Yes (BACK, THOR KYPHOSIS) - PSYCHIATRIC Hx Substance Use: No - SURGICAL HISTORY Hx Surgeries: Yes Hx Kidney Transplant: Yes (RIGHT) Other/Comment: RIGHT UPPER ARM AV FISTULA - ANESTHESIA Hx Anesthesia: Yes Hx Anesthesia Reactions: No Hx Malignant Hyperthermia: No Meds Allergies/Adverse Reactions: Allergies Allergy/AdvReac Type Severity Reaction Status Date / Time No Known Allergies Allergy Verified 06/30/18 12:03 - Medications Medications: Current Medications Amlodipine Besylate (Norvasc) 10 mg PO DAILY [facility] Last Admin: 07/10/18 09:29 Dose: 10 mg Cinacalcet (Sensipar) 90 mg PO DAILY [facility] Last Admin: 07/10/18 09:29 Dose: 90 mg Clonidine HCl (Catapres) 0.2 mg PO BID [facility] Last Admin: 07/10/18 09:28 Dose: 0.2 mg Sodium Chloride (Sodium Chloride 0.9%) 1,000 mls @ 100 mls/hr IV .Q10H [facility] Last Admin: 07/09/18 21:41 Dose: Not Given Methylprednisolone (Solu-Medrol) 40 mg IVP Q6H [facility] Last Admin: 07/10/18 04:05 Dose: Not Given Pantoprazole Sodium (Protonix Ec Tab) 40 mg PO DAILY [facility] Last Admin: 07/10/18 09:28 Dose: 40 mg Rosuvastatin Calcium (Crestor) 5 mg PO [facility] Saccharomyces Boulardii (Florastor) 250 mg PO BID [facility] Last Admin: 07/10/18 09:29 Dose: 250 mg Sodium Bicarbonate (Sodium Bicarbonate Tab) 650 mg PO BID [facility] Last Admin: 07/10/18 09:28 Dose: 650 mg Tacrolimus (Prograf Cap) 3 mg PO BID [facility] Last Admin: 07/10/18 09:29 Dose: 3 mg Physical Exam - Head Exam Head Exam: ATRAUMATIC - Eye Exam Eye Exam: Normal appearance - ENT Exam ENT Exam: Mucous Membranes Dry - Respiratory Exam Respiratory Exam: NORMAL BREATHING PATTERN - Cardiovascular Exam Cardiovascular Exam: +S1, +S2 - GI/Abdominal Exam GI & Abdominal Exam: Normal Bowel Sounds - Neurological Exam Neurological exam: Oriented x3 - Psychiatric Exam Psychiatric exam: Normal Affect, Normal Mood - Skin Skin Exam: Warm Results - Vital Signs Recent Vital Signs: Last Vital Signs Temp 98.2 F 07/10/18 07:00 Pulse 88 07/10/18 07:00 Resp 28 H 07/10/18 07:45 BP 167/81 H 07/10/18 07:00 Pulse Ox 97 07/10/18 07:00 - Labs Result Diagrams: 07/14/18 08:17 07/14/18 08:17 Assessment & Plan (1) Deep vein thrombosis (DVT) of left upper extremity Assessment and Plan: unprovoked recommend therapeutic Eliquis (dose reduced for weight and renal function) Status: Acute (2) Thrombocytopenia Assessment and Plan: suspect related to immunosupression and SLE okay to anticoagulate if plt minimum 50,000 Status: Acute (3) Anemia Assessment and Plan: anemia of CKD and chronic disease JUSTIN per renal Thank you for this interesting consult. Status: Acute
--- NOTE | 2018-07-10 13:07 | CP.PCM.PN ---
Subjective - Date & Time of Evaluation Date of Evaluation: 07/10/18 Time of Evaluation: 13:03 - Subjective Subjective: still tachypneic labs noted meds reviewed alert, chronic dementia cannot obtain ROS due to above Objective - Vital Signs/Intake and Output Vital Signs (last 24 hours): Temp Pulse Resp BP Pulse Ox 98.2 F 88 28 H 167/81 H 97 07/10/18 07:00 07/10/18 07:00 07/10/18 07:45 07/10/18 07:00 07/10/18 07:00 Intake and Output: 07/10/18 07/10/18 06:59 18:59 Intake Total 1040 Balance 1040 - Medications Medications: Current Medications Amlodipine Besylate (Norvasc) 10 mg PO DAILY [facility] Last Admin: 07/10/18 09:29 Dose: 10 mg Cinacalcet (Sensipar) 90 mg PO DAILY [facility] Last Admin: 07/10/18 09:29 Dose: 90 mg Clonidine HCl (Catapres) 0.2 mg PO BID [facility] Last Admin: 07/10/18 09:28 Dose: 0.2 mg Sodium Chloride (Sodium Chloride 0.9%) 1,000 mls @ 100 mls/hr IV .Q10H [facility] Last Admin: 07/09/18 21:41 Dose: Not Given Methylprednisolone (Solu-Medrol) 40 mg IVP Q8H [facility] Pantoprazole Sodium (Protonix Ec Tab) 40 mg PO DAILY [facility] Last Admin: 07/10/18 09:28 Dose: 40 mg Rosuvastatin Calcium (Crestor) 5 mg PO HS [facility] Saccharomyces Boulardii (Florastor) 250 mg PO BID [facility] Last Admin: 07/10/18 09:29 Dose: 250 mg Sodium Bicarbonate (Sodium Bicarbonate Tab) 650 mg PO BID [facility] Last Admin: 07/10/18 09:28 Dose: 650 mg Tacrolimus (Prograf Cap) 3 mg PO BID [facility] Last Admin: 07/10/18 09:29 Dose: 3 mg - Labs Labs: 07/09/18 07:52 07/09/18 07:52 PT 12.3 SECONDS (9.7-12.2) H 06/30/18 13:31 INR 1.1 06/30/18 13:31 APTT 30 SECONDS (21-34) 06/30/18 13:31 - Constitutional Appears: Confused, Chronically Ill - Head Exam Head Exam: ATRAUMATIC - Eye Exam Eye Exam: EOMI - ENT Exam ENT Exam: Mucous Membranes Moist - Neck Exam Neck Exam: Full ROM. absent: Lymphadenopathy - Respiratory Exam Additional comments: tachypneic - Cardiovascular Exam Cardiovascular Exam: REGULAR RHYTHM. absent: Rubs - GI/Abdominal Exam GI & Abdominal Exam: Soft. absent: Tenderness - Extremities Exam Extremities Exam: absent: Pedal Edema - Neurological Exam Neurological Exam: Alert, Awake Assessment and Plan - Assessment and Plan (Free Text) Assessment: renal transplant, ckd 4 restrictive lung disease, worse f/u pulmonary recommendations trend labs await FK level
[2018-07-10] MEDS: Sodium Chloride 0.9% 1,000 ML IV SCH (15:39)
[2018-07-11] MEDS: MethylPREDNISolone 40 mg Vial IVP SCH ×3 (05:12→21:19)
--- NOTE | 2018-07-11 09:28 | CP.PCM.PN ---
Subjective - Date & Time of Evaluation Date of Evaluation: 07/11/18 Time of Evaluation: 09:27 - Subjective Subjective: Medicine Progress Note - Dr Calvo's Service Patient seen and examined at bedside. Per nursing no acute events overnight. Patient is out of bed to chair. States that breathing is alright and wants to go home. Still on high flow NC. Also reports having constipation. Objective - Vital Signs/Intake and Output Vital Signs (last 24 hours): Temp Pulse Resp BP Pulse Ox 98.4 F 81 20 119/69 99 07/11/18 07:00 07/11/18 07:00 07/11/18 07:00 07/11/18 07:00 07/11/18 07:00 Intake and Output: 07/11/18 07/11/18 06:59 18:59 Intake Total 1040 Balance 1040 - Medications Medications: Current Medications Amlodipine Besylate (Norvasc) 10 mg PO DAILY [facility] Last Admin: 07/10/18 09:29 Dose: 10 mg Apixaban (Eliquis) 2.5 mg PO BID [facility] Cinacalcet (Sensipar) 90 mg PO DAILY [facility] Last Admin: 07/10/18 09:29 Dose: 90 mg Clonidine HCl (Catapres) 0.2 mg PO BID [facility] Last Admin: 07/10/18 19:10 Dose: 0.2 mg Sodium Chloride (Sodium Chloride 0.9%) 1,000 mls @ 100 mls/hr IV .Q10H [facility] Last Admin: 07/10/18 15:39 Dose: Not Given Methylprednisolone (Solu-Medrol) 40 mg IVP Q8H [facility] Last Admin: 07/11/18 05:12 Dose: 40 mg Pantoprazole Sodium (Protonix Ec Tab) 40 mg PO DAILY [facility] Last Admin: 07/10/18 09:28 Dose: 40 mg Rosuvastatin Calcium (Crestor) 5 mg PO HS [facility] Sodium Bicarbonate (Sodium Bicarbonate Tab) 650 mg PO BID [facility] Last Admin: 07/10/18 19:10 Dose: 650 mg Tacrolimus (Prograf Cap) 3 mg PO BID [facility] Last Admin: 07/10/18 19:10 Dose: 3 mg - Labs Labs: 07/09/18 07:52 07/09/18 07:52 PT 12.3 SECONDS (9.7-12.2) H 06/30/18 13:31 INR 1.1 06/30/18 13:31 APTT 30 SECONDS (21-34) 06/30/18 13:31 - Additional Findings Additional findings: - Constitutional Appears: Cachectic, chronically ill - Head Exam Head Exam: ATRAUMATIC - Eye Exam Eye Exam: Normal appearance - ENT Exam ENT Exam: Mucous Membranes Moist - Respiratory Exam Respiratory Exam: Decreased Breath Sounds. absent: Rhonchi, Wheezes - Cardiovascular Exam Cardiovascular Exam: REGULAR RHYTHM, +S1, +S2 - GI/Abdominal Exam GI & Abdominal Exam: Soft. absent: Tenderness - Extremities Exam Extremities Exam: absent: Calf Tenderness, Pedal Edema Additional comments: +2 pitting edema upper extremities, +weeping, radial pulses and sensation intact - Neurological Exam Neurological Exam: Alert, Awake, Oriented x3 - Psychiatric Exam Psychiatric exam: Normal Mood - Skin Skin Exam: Normal Color, Warm Assessment and Plan - Assessment and Plan (Free Text) Assessment: Patient is a 77 year old F admitted for acute on chronic respiratory failure 2/2 to severe kyphoscoliosis, lupus; resolving Acute on Chronic Respiratory failure -Patient tolerating high flow O2; unable to wean off -Will attempt to hold family meeting today to discuss goals of care and possibility of fpc placement -CXR ordered today -Continue Solumedrol 40mg Q8H IVP -Duonebs 3mL INH RQ4H -Influenza negative -Pulmonology; Dr. Acosta; thank you for your help -Patient is DNR/DNI, palliative care on consult, help appreciated Imaging: -CXR 07/03 shows cardiomegaly, no infiltrates (see full report) -Chest CT shows No acute infiltrate. Cardiomegaly and dilated main pulmonary artery. No pleural effusion. Multiple stable mild thoracic and upper lumbar vertebral compression deformities. Additional minor findings as above. (see full report) Pneumonia -No leukocytosis, afebrile -Will start on Rocephin 1gm IVPB daily Imaging: -CXR 07/11/18: Cardiomegaly. Bilateral lower lobe consolidations/pleural effusions. Moderate pulmonary venous congestion. Biapical pleural thickening Left Subclavian DVT -Patient with left upper extremity edema on exam -LUE duplex + for subclavian DVT -Patient with history of CKD and thrombocytopenic -Keep left arm elevated -Heme/Onc on consult, help appreciated -Patient started on Eliquis 2.5mg PO BID Congestive Heart Failure -Last echo 05/2018: EF 50% -Patient appears fluid overloaded, upper extremities weeping -Started on Lasix 40mg Q12H IVP -Cardiology on consult, Dr Irizarry, help appreciated -Measure daily weights Pulmonary hypertension Previous Chest CT on admission from 06/04/18: No definite alveolitis bilaterally. Minimal dependent atelectasis, diminished in the interval bilaterally as compared prior chest CT 05/25/2017. 2. Prominent cardiomegaly reiterated as well as increasing main pulmonary artery caliber (4.4 cm) suspicious for pulmonary artery hypertension though this is a clinical diagnosis and further clinical correlation is recommended. Further, ectatic dilated superior vena cava identified potentially a function of right heart failure possible right or failure. Clinically correlate further. -Repeat chest CT shows No acute infiltrate. Cardiomegaly and dilated main pulmonary artery. No pleural effusion. Multiple stable mild thoracic and upper lumbar vertebral compression deformities. Additional minor findings as above. (see full report) -Treatment as per pulmonology Thrombocytopenia -Platelets 60 today -Changed protonix to pepcid 20mg PO BID -Continue to monitor Hx of Hypertension -Norvasc 10mg PO daily -Clonidine 0.2mg PO BID -Vital signs Q4H Acute on Chronic Kidney Disease -Baseline Cr 2.5 -BUN Cr on 07/09 106/3.2 -Unable to draw labs due to hemodilution, IVF discontinued -Started on Lasix 40mg Q12H -Crestor on hold at this time -Avoid nephrotoxic agents -Nephrology on consult, Dr Sykes, help appreciated Imaging: -Abdominal US: Unremarkable appearing transplant kidney right lower quadrant/right hemipelvis. Extensive increased echogenicity is identified throughout the bilateral kidneys suggesting intrinsic medical renal disease. Bilateral kidneys are lower limits normal size bilaterally and otherwise unremarkable appearing. 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 (HD for 5 years and kidney transplant at [facility] 10/01/2001) -Continue Tacrolimus 3mg PO BID -Tacrolimus level 07/05/18 <1.0 which likely is hemodilutional -Will repeat Tacrolimus level today -Continue Sensipar 90mg PO daily, sodium bicarb 650mg PO BID -Nephrology on consult, Dr Sykes, help appreciated History of lupus; chronic See above assessment Macrocytic Anemia; stable and chronic -Hgb stable -Vitamin B12 and folate within normal range -Monitor serial CBCs Prophylactic measure DVT: contraindicated 2/2 to thrombocytopenia GI: Pepcid 20mg PO BID 2/2 to high dose and chronic steroid use Case discussed and seen with Dr. Lubna Odell DO PGY-2
[2018-07-11] MEDS: Pantoprazole 40 mg EC Tab PO SCH (09:36)
--- NOTE | 2018-07-11 09:52 | CP.PCM.PN ---
Subjective - Date & Time of Evaluation Date of Evaluation: 07/11/18 Time of Evaluation: 09:49 - Subjective Subjective: Still dyspneic Still confused No new chemistries, tacro levels remains on steroids DVT noted on left subclavian Objective - Vital Signs/Intake and Output Vital Signs (last 24 hours): Temp Pulse Resp BP Pulse Ox 98.4 F 81 20 119/69 99 07/11/18 07:00 07/11/18 07:00 07/11/18 07:00 07/11/18 07:00 07/11/18 07:00 Intake and Output: 07/11/18 07/11/18 06:59 18:59 Intake Total 1040 Balance 1040 - Medications Medications: Current Medications Amlodipine Besylate (Norvasc) 10 mg PO DAILY [facility] Last Admin: 07/11/18 09:36 Dose: 10 mg Apixaban (Eliquis) 2.5 mg PO BID [facility] Last Admin: 07/11/18 09:36 Dose: 2.5 mg Cinacalcet (Sensipar) 90 mg PO DAILY [facility] Last Admin: 07/11/18 09:37 Dose: 90 mg Clonidine HCl (Catapres) 0.2 mg PO BID [facility] Last Admin: 07/11/18 09:36 Dose: 0.2 mg Sodium Chloride (Sodium Chloride 0.9%) 1,000 mls @ 100 mls/hr IV .Q10H [facility] Last Admin: 07/10/18 15:39 Dose: Not Given Methylprednisolone (Solu-Medrol) 40 mg IVP Q8H [facility] Last Admin: 07/11/18 05:12 Dose: 40 mg Pantoprazole Sodium (Protonix Ec Tab) 40 mg PO DAILY [facility] Last Admin: 07/11/18 09:36 Dose: 40 mg Rosuvastatin Calcium (Crestor) 5 mg PO HS [facility] Sodium Bicarbonate (Sodium Bicarbonate Tab) 650 mg PO BID [facility] Last Admin: 07/11/18 09:36 Dose: 650 mg Tacrolimus (Prograf Cap) 3 mg PO BID [facility] Last Admin: 07/11/18 09:36 Dose: 3 mg - Labs Labs: 07/09/18 07:52 07/09/18 07:52 PT 12.3 SECONDS (9.7-12.2) H 06/30/18 13:31 INR 1.1 06/30/18 13:31 APTT 30 SECONDS (21-34) 06/30/18 13:31 - Constitutional Appears: In Acute Distress, Confused, Chronically Ill - Head Exam Head Exam: ATRAUMATIC, NORMAL INSPECTION - Eye Exam Eye Exam: EOMI, Normal appearance - Neck Exam Neck Exam: Normal Inspection. absent: Tenderness - Respiratory Exam Respiratory Exam: Decreased Breath Sounds, Rhonchi - Cardiovascular Exam Cardiovascular Exam: Irregular Rhythm, +S1 - GI/Abdominal Exam GI & Abdominal Exam: Soft. absent: Tenderness - Extremities Exam Extremities Exam: Normal Inspection. absent: Tenderness - Neurological Exam Neurological Exam: Awake, CN II-XII Intact - Skin Skin Exam: Dry, Warm Assessment and Plan (1) Restrictive lung disease Status: Acute (2) Hypoxemia Status: Acute (3) Dehydration Status: Acute (4) CKD (chronic kidney disease) stage 4, GFR 15-29 ml/min Status: Acute (5) SEBASTIAN (acute kidney injury) Status: Acute (6) History of kidney transplant Status: Acute (7) Medical non-compliance Status: Acute - Assessment and Plan (Free Text) Plan: Repeat labs agais CXR repeat Steroids for now Immunusuppressants - same
--- NOTE | 2018-07-11 11:22 | RAD ---
HISTORY: dyspnea COMPARISON: Chest x-ray performed 07/03/18 TECHNIQUE: Chest, one view. FINDINGS: LUNGS: Bilateral lower lobe consolidations and probable pleural effusions. Moderate pulmonary venous congestion. Biapical pleural thickening. No definite pneumothorax. Please note that chest x-ray has limited sensitivity for the detection of pulmonary masses. CARDIOVASCULAR: Cardiomegaly. Dense atherosclerotic calcification present. OSSEOUS STRUCTURES: No acute osseous abnormality identified. VISUALIZED UPPER ABDOMEN: Unremarkable. OTHER FINDINGS: None. IMPRESSION: Cardiomegaly. Bilateral lower lobe consolidations/pleural effusions. Moderate pulmonary venous congestion. Biapical pleural thickening.
[2018-07-11 11:35] LABS: BASO % 0.2 % (0.0-2.0); HEMOGLOBIN 8.5 g/dL (11.0-16.0); LYMPH # 0.1 K/uL (1.0-4.3); LYMPH % 2.1 % (20.0-40.0); MEAN CELL VOLUME 99.9 fL (81.0-99.0); MEAN CORPUSCULAR HEMOGLOBIN 33.5 pg (27.0-31.0); MEAN CORPUSCULAR HGB CONC 33.6 g/dL (33.0-37.0); MEAN PLATELET VOLUME 9.8 fL (7.2-11.7); MONO # 0.2 K/uL (0.0-0.8); MONO % 3.3 % (0.0-10.0); NEUT # 6.5 K/uL (1.8-7.0); NEUT % 94.4 % (50.0-75.0); NRBC % 0.4 % (0.0-2.0); PLATELET COUNT 60 K/uL (130-400); RBC 2.54 Mil/uL (3.80-5.20); RED CELL DISTRIBUTION WIDTH 14.9 % (11.5-14.5); WHITE BLOOD COUNT 6.9 K/uL (4.8-10.8)
[2018-07-11 12:07] LABS: BANDS 2 % (0-2); LYMPHOCYTE 2 % (20-40); MONOCYTE 3 % (0-10); NEUTROPHIL 93 % (50-75); NUCLEATED RED BLOOD CELL 1 % (0-0); OVALOCYTES SLIGHT; PLATELET ESTIMATE DECREASED (NORMAL); TOTAL CELLS COUNTED 100
[2018-07-11 12:14] LABS: ALB/GLOB RATIO 1.4 (1.0-2.1); ALBUMIN 3.6 g/dL (3.5-5.0); CALCIUM 10.9 mg/dl (8.6-10.4)
--- NOTE | 2018-07-11 13:48 | CP.PCM.PN ---
Subjective - Date & Time of Evaluation Date of Evaluation: 07/11/18 Time of Evaluation: 13:44 - Subjective Subjective: Patient is in chair, alert, verbal, with O2 on. Patient is on safety watch as she was found with cut H.L and aggitated refusing meds and blood work. Recent study revealed new DVT to Left subclavian. Eliquis started, but Platelets dropped to 60 from 70. Patient is often on Hgh Flow O2 at 25 L and 50% FiO2. Her kidney functions are elevated. BUN 106, Laserist 3.2. Doctor Onel on board. Objective - Vital Signs/Intake and Output Vital Signs (last 24 hours): Temp Pulse Resp BP Pulse Ox 98.4 F 81 20 119/69 99 07/11/18 07:00 07/11/18 07:00 07/11/18 07:00 07/11/18 07:00 07/11/18 07:00 Intake and Output: 07/11/18 07/11/18 06:59 18:59 Intake Total 1040 Balance 1040 - Medications Medications: Current Medications Amlodipine Besylate (Norvasc) 10 mg PO DAILY [facility] Last Admin: 07/11/18 09:36 Dose: 10 mg Apixaban (Eliquis) 2.5 mg PO BID [facility] Last Admin: 07/11/18 09:36 Dose: 2.5 mg Cinacalcet (Sensipar) 90 mg PO DAILY [facility] Last Admin: 07/11/18 09:37 Dose: 90 mg Clonidine HCl (Catapres) 0.2 mg PO BID [facility] Last Admin: 07/11/18 09:36 Dose: 0.2 mg Furosemide (Lasix) 40 mg IVP Q12 [facility] Methylprednisolone (Solu-Medrol) 40 mg IVP Q8H [facility] Last Admin: 07/11/18 05:12 Dose: 40 mg Pantoprazole Sodium (Protonix Ec Tab) 40 mg PO DAILY [facility] Last Admin: 07/11/18 09:36 Dose: 40 mg Rosuvastatin Calcium (Crestor) 5 mg PO HS [facility] Sodium Bicarbonate (Sodium Bicarbonate Tab) 650 mg PO BID [facility] Last Admin: 07/11/18 09:36 Dose: 650 mg Tacrolimus (Prograf Cap) 3 mg PO BID [facility] Last Admin: 07/11/18 09:36 Dose: 3 mg - Labs Labs: 07/11/18 11:17 07/11/18 11:17 PT 12.3 SECONDS (9.7-12.2) H 06/30/18 13:31 INR 1.1 06/30/18 13:31 APTT 30 SECONDS (21-34) 06/30/18 13:31 - Constitutional Appears: In Acute Distress, Chronically Ill - Head Exam Head Exam: ATRAUMATIC, NORMAL INSPECTION, NORMOCEPHALIC - Eye Exam Eye Exam: EOMI, Normal appearance, PERRL Pupil Exam: NORMAL ACCOMODATION, PERRL - ENT Exam ENT Exam: Mucous Membranes Moist, Normal Exam - Neck Exam Neck Exam: Full ROM, Normal Inspection - Respiratory Exam Respiratory Exam: Decreased Breath Sounds, Prolonged Expiratory Phase, Rhonchi - Cardiovascular Exam Cardiovascular Exam: Tachycardia, REGULAR RHYTHM - GI/Abdominal Exam GI & Abdominal Exam: Soft, Normal Bowel Sounds - Rectal Exam Rectal Exam: Deferred - Extremities Exam Extremities Exam: Pedal Edema - Back Exam Back Exam: NORMAL INSPECTION - Neurological Exam Neurological Exam: Alert, Altered Neuro motor strength exam: Left Upper Extremity: 2/1, Right Upper Extremity: 2/1, Left Lower Extremity: 2/1, Right Lower Extremity: 2/1 - Psychiatric Exam Psychiatric exam: Agitated, Anxious - Skin Skin Exam: Pallor Assessment and Plan - Assessment and Plan (Free Text) Assessment: Palliative progress note Patient examined in chair, alert and anxious. O2 on. Breathing is fast, shallow with dry cough. Patient unable to speak in full sentences due to SOB. SOB gets worse when patient becomes agitated, especially when it comes to blood work. Latest CXR was significant for B/L pleural effusion, pulmonary congestion and pleural thickening. Patient is on Solu Medrol and Lasix. Doctor Dave consulted. Condition seen as acute. Steroids and neb Tx suggested. Patient is on IV hydration. Latest blood work shows decreasing BUN 93, and Laserist 2.8. DVT detected and patient placed on Elaquis, what further decreased Platelets count to 60. BP 119/69, HR 97, afebrile Hb 8.2 I spoke to Doctor Jose R today who reported her concerns about lack of goals of care for this patient , regarding her discharge. After few attempts, I got in touch over the phone with patient's daughter Ms. Norman García , who was not able to come in today. I reviewed patient's clinical condition and shared my impression that patient will most likely be in need of high flow O2 for a long time due to chronic changes in the lungs. Besides O2 need, patient will need and moderate to max assistance with care. In light of patient's condition I offered to discuss the LTC placement. Daughter was very specific that she wanted her mother at home as she is not working and is able to care for her. I further offered more information abut [facility] post hospitalization what the daughter refused as well, saying that they went that path in the past and she did not like it. These information were shared with Doctor Jose R, who was to further discuss with Doctor Lubna. Impression * Chronically ill lady with acute respiratory distress * Dyspnea on minimal excretion * Intermittent confusion and noncompliance with care, especially with blood work * Generalized weakness * DVT * Thrombocytopenia, at risk for abnormal bleeding * Daughter is requesting home discharge vs [facility] Suggestion * Would continue safety watch * Continue Steroids and Neb Tx * If patient is in need for IV Solu Medrol, IV fluds, potential FFP transfusion, the central line is a good option. That would decrease patient's discomfort from needle punctures, decrease her anxiety and improve her compliance with care * Monitor for abnormal bleeding * Family meeting with daughter in presence of a Doctor would benefit the family in beng more realistic about patient's condition. Discharge home is not an option if patient remains dependent on High Flow O2. Discharge to [facility] would be better option. The daughter will come in tomorrow. I will try to schedule meeting with her and further discuss discharge planing. Advance care planing 35 min
[2018-07-11] MEDS: Saccharomyces Boulardi 250 mg Cap PO SCH (18:04)
--- NOTE | 2018-07-11 21:23 | CP.PCM.CON ---
History of Present Illness - History of Present Illness History of Present Illness: CC: Dyspnea, Diastolic CHF Patient has been having increasing shortness of breath over the course of the week; states she does not have cough or productive sputum; ran out of her 1mg of tacrolimus and has not been taking her BID 5mg tacrolimus for the past week. She states the shortness of breath has been increasing over the course of 5 days, denies fevers/chills, recent travel, or sick contacts. Patient is adamant about DNR/DNI, son at bedside who is also in agreement. PMD: Dr. Calvo PMHx: lupus, lupus nephritis, CKD (HD for 5 years and kidney transplant at [facility] 10/01/2001), HTN, severe kyphoscoliosis PSHx: kidney transplant at [facility] 10/01/2001, Hysterectomy and cataracts removal FHX: Unknown Medications: Tacrolimus 5mg HS, 2mg Tacrolimus 2mg AM, Sensipar 90mg, Prednisone 10mg, Bactrim DS daily for prophylaxis, atorvastatin 10mg HS, Risendronate 35mg weekly, Amlodipine 10mg daily, Allergies: NKDA Social History: Lives with children. Denies current or former hx of tobacco, illicity drugs and ETOH, mostly bed bound Physical Exam - Constitutional Appears: Non-toxic, Cachectic, Chronically Ill - Head Exam Head Exam: ATRAUMATIC - Eye Exam Eye Exam: EOMI (patient has pterygium b/l worse on the left than right ). absent: Scleral icterus - ENT Exam ENT Exam: Mucous Membranes Dry - Neck Exam Neck exam: Positive for: Full Rom. Negative for: Lymphadenopathy - Respiratory Exam Respiratory Exam: Rales. absent: Clear to Auscultation Bilateral, Rhonchi, Wheezes, NORMAL BREATHING PATTERN (patient has severe kyphoscoliosis ) - Cardiovascular Exam Cardiovascular Exam: REGULAR RHYTHM, +S1, +S2, Systolic Murmur - GI/Abdominal Exam GI & Abdominal Exam: Normal Bowel Sounds, Soft. absent: Tenderness (feels like stool/slightly distended because of such) - Extremities Exam Extremities exam: Positive for: full ROM. Negative for: calf tenderness - Back Exam Back exam: NORMAL INSPECTION. absent: CVA tenderness (L), CVA tenderness (R) - Neurological Exam Neurological exam: Alert, Oriented x3 - Psychiatric Exam Psychiatric exam: Normal Affect - Skin Skin Exam: Warm Assessment & Plan - Assessment and Plan (Free Text) Assessment: 77yo F admitted for acute on chronic respiratory failure 2/2 to severe kyphoscoliosis, lupus, and superimposed pneumonia Acute on Chronic Diastlic CHF Lasix as needed Shortness of breath -chest X-ray shows fluid overload vs PNA vs severe kyphoscoliosis -F/u chest CT -Pulmonology; Dr. Acosta; thank you for your help Management: * Duonebs 3ML INH RQ4H * Zosyn 3.375 Q8H * Prednisone 10mg PO daily and Solumedrol 40mg IV Q6H * BiPap as needed * patient is DNR/DNI; no POLST; f/u palliative care Pulmonary hypertension Previous Chest CT on admission from 06/04/18: No definite alveolitis bilaterally. Minimal dependent atelectasis, diminished in the interval bilaterally as compared prior chest CT 05/25/2017. 2. Prominent cardiomegaly reiterated as well as increasing main pulmonary artery caliber (4.4 cm) suspicious for pulmonary artery hypertension though this is a clinical diagnosis and further clinical correlation is recommended. Further, ectatic dilated superior vena cava identified potentially a function of right heart failure possible right or failure. Clinically correlate further. -f/u repeat chest CT -f/u Pulm Recs Hx of Hypertension Norvasc 10mg PO daily Vital signs Q4H History of kidney transplant CKD due to HTN and Lupus Nephritis (HD for 5 years and kidney transplant at [facility] 10/01/2001) * Tacrolimus 5mg PO HS * Tacrolimus 2mg PO AM * patient has been missing this medication for the past week * Sensipar 90mg PO daily History of lupus Prednisone 10mg PO daily Prophylactic measure DVT: contraindicated 2/2 to thrombocytopenia GI: Protonix 40mg PO daily 2/2 to high dose chronic steroids -prune juice for constipation -patient is requesting sweet tea from [employer] if she is still here on [place]- [place] Past Patient History - Infectious Disease Hx of Infectious Diseases: None - Past Medical History & Family History Past Medical History?: Yes Past Family History: Reviewed and not pertinent - Past Social History Smoking Status: Never Smoked Chewing Tobacco Use: No Cigar Use: No Alcohol: None Drugs: Denies Home Situation {Lives}: With Family - CARDIAC Hx Congestive Heart Failure: Yes - PULMONARY Hx Chronic Obstructive Pulmonary Disease (COPD): Yes - RENAL Hx Chronic Kidney Disease: Yes - MUSCULOSKELETAL/RHEUMATOLOGICAL Hx Arthritis: Yes (BACK, THOR KYPHOSIS) - PSYCHIATRIC Hx Substance Use: No - SURGICAL HISTORY Hx Surgeries: Yes Hx Kidney Transplant: Yes (RIGHT) Other/Comment: RIGHT UPPER ARM AV FISTULA - ANESTHESIA Hx Anesthesia: Yes Hx Anesthesia Reactions: No Hx Malignant Hyperthermia: No Meds Allergies/Adverse Reactions: Allergies Allergy/AdvReac Type Severity Reaction Status Date / Time No Known Allergies Allergy Verified 06/30/18 12:03 - Medications Medications: Current Medications Amlodipine Besylate (Norvasc) 10 mg PO DAILY [facility] Last Admin: 07/11/18 09:36 Dose: 10 mg Apixaban (Eliquis) 2.5 mg PO BID [facility] Last Admin: 07/11/18 18:04 Dose: 2.5 mg Cinacalcet (Sensipar) 90 mg PO DAILY [facility] Last Admin: 07/11/18 09:37 Dose: 90 mg Clonidine HCl (Catapres) 0.2 mg PO BID [facility] Last Admin: 07/11/18 18:05 Dose: 0.2 mg Famotidine (Pepcid) 20 mg PO DAILY [facility] Last Admin: 07/11/18 18:06 Dose: 20 mg Furosemide (Lasix) 40 mg IVP Q12 [facility] Last Admin: 07/11/18 21:07 Dose: 40 mg Ceftriaxone Sodium 1 gm/ (Sodium Chloride) 100 mls @ 100 mls/hr IVPB DAILY [facility]; Protocol Last Admin: 07/11/18 18:04 Dose: 100 mls/hr Methylprednisolone (Solu-Medrol) 40 mg IVP Q8H [facility] Last Admin: 07/11/18 21:19 Dose: 40 mg Rosuvastatin Calcium (Crestor) 5 mg PO HS [facility] Saccharomyces Boulardii (Florastor) 250 mg PO BID [facility] Last Admin: 07/11/18 18:04 Dose: 250 mg Sodium Bicarbonate (Sodium Bicarbonate Tab) 650 mg PO BID [facility] Last Admin: 07/11/18 18:04 Dose: 650 mg Tacrolimus (Prograf Cap) 3 mg PO BID [facility] Last Admin: 07/11/18 18:04 Dose: 3 mg Results - Vital Signs Recent Vital Signs: Last Vital Signs Temp 98.2 F 07/11/18 15:02 Pulse 72 07/11/18 18:11 Resp 20 07/11/18 15:02 BP 161/78 H 07/11/18 21:07 Pulse Ox 98 07/11/18 15:02 - Labs Result Diagrams: 07/11/18 11:17 07/11/18 11:17 Labs: Laboratory Results - last 24 hr 07/05/18 07/11/18 07/11/18 11:32 11:17 11:17 WBC 6.9 RBC 2.54 L Hgb 8.5 L Hct 25.4 L MCV 99.9 H MCH 33.5 H MCHC 33.6 RDW 14.9 H Plt Count 60 L MPV 9.8 Neut % (Auto) 94.4 H Lymph % (Auto) 2.1 L Richardson % (Auto) 3.3 Eos % (Auto) 0.0 Baso % (Auto) 0.2 Neut # (Auto) 6.5 Lymph # (Auto) 0.1 L Richardson # (Auto) 0.2 Eos # (Auto) 0.0 Baso # (Auto) 0.0 Neutrophils % (Manual) 93 H Band Neutrophils % 2 Lymphocytes % (Manual) 2 L Monocytes % (Manual) 3 Nucleated RBC % 1 H Platelet Estimate Decreased L Ovalocytes Slight Sodium 138 Potassium 4.5 Chloride 105 Carbon Dioxide 22 Anion Gap 16 BUN 93 H Creatinine 2.8 H Est GFR ( Amer) 20 Est GFR (Non-Af Amer) 16 Random Glucose 174 H D Calcium 10.9 H Phosphorus 5.6 H Magnesium 1.7 Total Bilirubin 0.7 AST 31 ALT 47 Alkaline Phosphatase 63 Total Protein 6.2 L Albumin 3.6 Globulin 2.6 Albumin/Globulin Ratio 1.4 Tacrolimus (LC/MS/MS) <1.0 L
[2018-07-12] MEDS: MethylPREDNISolone 40 mg Vial IVP SCH ×3 (05:32→22:00)
--- NOTE | 2018-07-12 07:21 | CP.PCM.PN ---
Subjective - Date & Time of Evaluation Date of Evaluation: 07/12/18 Time of Evaluation: 07:21 - Subjective Subjective: Progress note for Dr. Calvo Patient was seen and examined at bedside in no acute distress. Patient is alert and oriented to person, place and time, but not president. Patient states she is constipated, but otherwise has no new complaints. Objective - Vital Signs/Intake and Output Vital Signs (last 24 hours): Temp Pulse Resp BP Pulse Ox 97.5 F L 88 20 156/98 H 100 07/11/18 23:45 07/12/18 01:00 07/11/18 23:45 07/11/18 23:45 07/11/18 23:45 Intake and Output: 07/12/18 07/12/18 06:59 18:59 Intake Total 420 Balance 420 - Medications Medications: Current Medications Amlodipine Besylate (Norvasc) 10 mg PO DAILY [facility] Last Admin: 07/11/18 09:36 Dose: 10 mg Apixaban (Eliquis) 2.5 mg PO BID [facility] Last Admin: 07/11/18 18:04 Dose: 2.5 mg Cinacalcet (Sensipar) 90 mg PO DAILY [facility] Last Admin: 07/11/18 09:37 Dose: 90 mg Clonidine HCl (Catapres) 0.2 mg PO BID [facility] Last Admin: 07/11/18 18:05 Dose: 0.2 mg Famotidine (Pepcid) 20 mg PO DAILY [facility] Last Admin: 07/11/18 18:06 Dose: 20 mg Furosemide (Lasix) 40 mg IVP Q12 [facility] Last Admin: 07/11/18 21:07 Dose: 40 mg Ceftriaxone Sodium 1 gm/ (Sodium Chloride) 100 mls @ 100 mls/hr IVPB DAILY [facility]; Protocol Last Admin: 07/11/18 18:04 Dose: 100 mls/hr Methylprednisolone (Solu-Medrol) 40 mg IVP Q8H [facility] Last Admin: 07/12/18 05:32 Dose: 40 mg Rosuvastatin Calcium (Crestor) 5 mg PO [facility] Saccharomyces Boulardii (Florastor) 250 mg PO BID [facility] Last Admin: 07/11/18 18:04 Dose: 250 mg Sodium Bicarbonate (Sodium Bicarbonate Tab) 650 mg PO BID [facility] Last Admin: 07/11/18 18:04 Dose: 650 mg Tacrolimus (Prograf Cap) 3 mg PO BID [facility] Last Admin: 07/11/18 18:04 Dose: 3 mg - Labs Labs: 07/11/18 11:17 07/11/18 11:17 PT 12.3 SECONDS (9.7-12.2) H 06/30/18 13:31 INR 1.1 06/30/18 13:31 APTT 30 SECONDS (21-34) 06/30/18 13:31 - Constitutional Appears: No Acute Distress - Head Exam Head Exam: NORMAL INSPECTION, NORMOCEPHALIC - Eye Exam Eye Exam: EOMI - ENT Exam ENT Exam: Mucous Membranes Moist - Respiratory Exam Respiratory Exam: Decreased Breath Sounds, Respiratory Distress. absent: Rales, Rhonchi, Wheezes, NORMAL BREATHING PATTERN - Cardiovascular Exam Cardiovascular Exam: REGULAR RHYTHM, +S1, +S2 - GI/Abdominal Exam GI & Abdominal Exam: Soft, Normal Bowel Sounds. absent: Distended, Firm, Tenderness - Extremities Exam Extremities Exam: absent: Pedal Edema, Tenderness Additional comments: b/l UE edema - Neurological Exam Neurological Exam: Alert, Awake, Oriented x3 - Psychiatric Exam Psychiatric exam: Normal Affect, Normal Mood - Skin Skin Exam: Dry, Normal Color, Warm Assessment and Plan - Assessment and Plan (Free Text) Plan: Patient is a 77 year old F admitted for acute on chronic respiratory failure 2/2 to severe kyphoscoliosis, lupus; resolving Acute on Chronic Respiratory failure - Palliative care nurse and family meeting today to discuss goals of care and possibility of long-term placement - Continue Solumedrol 40mg Q8H IVP - Duonebs 3mL INH RQ4H - Influenza negative - Pulmonology; Dr. Acosta; thank you for your help - Patient is DNR/DNI, palliative care on consult, help appreciated Imaging: -CXR 07/03 shows cardiomegaly, no infiltrates (see full report) -Chest CT shows No acute infiltrate. Cardiomegaly and dilated main pulmonary artery. No pleural effusion. Multiple stable mild thoracic and upper lumbar vertebral compression deformities. Additional minor findings as above. (see full report) Pneumonia - No leukocytosis, afebrile - Rocephin 1gm IVPB daily (active since 07/11/18) Imaging: -CXR 07/11/18: Cardiomegaly. Bilateral lower lobe consolidations/pleural effusions. Moderate pulmonary venous congestion. Biapical pleural thickening Left Subclavian DVT - Patient with left upper extremity edema on exam - LUE duplex + for subclavian DVT - Keep left arm elevated - Heme/Onc on consult, help appreciated - Continue Eliquis 2.5mg PO BID Thrombocytopenia - Heme/Onc on consult, help appreciated - Changed protonix to pepcid 20mg PO BID - Continue to monitor Congestive Heart Failure - Last echo 05/2018: EF 50% - Patient appeared fluid overloaded, upper extremities weeping on 07/11/18--> improved on 07/12/18 after discontinuing IVF and starting Lasix - Continue Lasix 40mg Q12H IVP - Cardiology on consult, Dr Irizarry, help appreciated - Measure daily weights Pulmonary hypertension - Previous Chest CT on admission from 06/04/18: No definite alveolitis bilaterally. Minimal dependent atelectasis, diminished in the interval bilaterally as compared prior chest CT 05/25/2017. 2. Prominent cardiomegaly reiterated as well as increasing main pulmonary artery caliber (4.4 cm) suspicious for pulmonary artery hypertension though this is a clinical diagnosis and further clinical correlation is recommended. Further, ectatic dilated superior vena cava identified potentially a function of right heart failure possible right or failure. Clinically correlate further. - Repeat chest CT shows No acute infiltrate. Cardiomegaly and dilated main pulmonary artery. No pleural effusion. Multiple stable mild thoracic and upper lumbar vertebral compression deformities. Additional minor findings as above. (see full report) -Treatment as per pulmonology Hx of Hypertension -Norvasc 10mg PO daily -Clonidine 0.2mg PO BID -Vital signs Q4H Acute on Chronic Kidney Disease -Baseline Cr 2.5 -Unable to draw labs due to hemodilution, IVF discontinued -Started on Lasix 40mg Q12H -Crestor on hold at this time -Avoid nephrotoxic agents -Nephrology on consult, Dr Sykes, help appreciated Imaging: -Abdominal US: Unremarkable appearing transplant kidney right lower quadrant/right hemipelvis. Extensive increased echogenicity is identified throughout the bilateral kidneys suggesting intrinsic medical renal disease. Bilateral kidneys are lower limits normal size bilaterally and otherwise unre markable appearing. 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 (HD for 5 years and kidney transplant at [facility] ([facility] 10/01/2001) -Continue Tacrolimus 3mg PO BID -Continue Sensipar 90mg PO daily, sodium bicarb 650mg PO BID -Nephrology on consult, Dr Sykes, help appreciated History of lupus; chronic See above assessment Macrocytic Anemia; stable and chronic -Hgb stable -Vitamin B12 and folate within normal range -Monitor serial CBCs Constipation - was given Lactulose once on 07/11/18, still no BM; gave additional dose of lactulose on 07/12/18. - continue to monitor for BM Prophylactic measure DVT: contraindicated 2/2 to thrombocytopenia GI: Pepcid 20mg PO BID 2/2 to high dose and chronic steroid use Disposition: Patient may be discharged to home when home Oxygen(2-3L) is set up. Case management consulted. Case discussed with Dr. Lubna Porter, PGY2
[2018-07-12] MEDS: Saccharomyces Boulardi 250 mg Cap PO SCH ×2 (09:31→18:13)
--- NOTE | 2018-07-12 14:06 | CP.PCM.PN ---
Subjective - Date & Time of Evaluation Date of Evaluation: 07/12/18 Time of Evaluation: 14:03 - Subjective Subjective: Less dyspneic, off high flow O2 Appears more alert Given IV lasix, IV fluids stopped; UO not recorded creat decreased to 2.8 tacro level possibly falsely low- drawn from line with IV fluids Objective - Vital Signs/Intake and Output Vital Signs (last 24 hours): Temp Pulse Resp BP Pulse Ox 97.2 F L 80 20 171/80 H 100 07/12/18 07:15 07/12/18 07:15 07/12/18 07:15 07/12/18 09:33 07/12/18 07:15 Intake and Output: 07/12/18 07/12/18 06:59 18:59 Intake Total 420 Balance 420 - Medications Medications: Current Medications Amlodipine Besylate (Norvasc) 10 mg PO DAILY [facility] Last Admin: 07/12/18 09:32 Dose: 10 mg Apixaban (Eliquis) 2.5 mg PO BID [facility] Last Admin: 07/12/18 09:32 Dose: 2.5 mg Cinacalcet (Sensipar) 90 mg PO DAILY [facility] Last Admin: 07/12/18 09:31 Dose: 90 mg Clonidine HCl (Catapres) 0.2 mg PO BID [facility] Last Admin: 07/12/18 09:33 Dose: 0.2 mg Famotidine (Pepcid) 20 mg PO DAILY [facility] Last Admin: 07/12/18 09:32 Dose: 20 mg Furosemide (Lasix) 40 mg IVP Q12 [facility] Last Admin: 07/12/18 09:33 Dose: 40 mg Ceftriaxone Sodium 1 gm/ (Sodium Chloride) 100 mls @ 100 mls/hr IVPB DAILY [facility]; Protocol Last Admin: 07/12/18 10:27 Dose: 100 mls/hr Methylprednisolone (Solu-Medrol) 40 mg IVP Q8H [facility] Last Admin: 07/12/18 13:42 Dose: 40 mg Rosuvastatin Calcium (Crestor) 5 mg PO HS [facility] Saccharomyces Boulardii (Florastor) 250 mg PO BID [facility] Last Admin: 07/12/18 09:31 Dose: 250 mg Sodium Bicarbonate (Sodium Bicarbonate Tab) 650 mg PO BID [facility] Last Admin: 07/12/18 09:32 Dose: 650 mg Tacrolimus (Prograf Cap) 3 mg PO BID [facility] Last Admin: 07/12/18 09:32 Dose: 3 mg - Labs Labs: 07/11/18 11:17 07/11/18 11:17 PT 12.3 SECONDS (9.7-12.2) H 06/30/18 13:31 INR 1.1 06/30/18 13:31 APTT 30 SECONDS (21-34) 06/30/18 13:31 - Constitutional Appears: No Acute Distress, Confused, Chronically Ill - Head Exam Head Exam: ATRAUMATIC, NORMAL INSPECTION - Eye Exam Eye Exam: EOMI, Normal appearance - Neck Exam Neck Exam: Normal Inspection. absent: Tenderness - Respiratory Exam Respiratory Exam: Clear to Ausculation Bilateral, Respiratory Distress - Cardiovascular Exam Cardiovascular Exam: REGULAR RHYTHM, +S1 - GI/Abdominal Exam GI & Abdominal Exam: Soft. absent: Tenderness - Extremities Exam Extremities Exam: Normal Inspection. absent: Tenderness - Neurological Exam Neurological Exam: Alert, CN II-XII Intact - Skin Skin Exam: Dry, Warm Assessment and Plan (1) Restrictive lung disease Status: Acute (2) Hypoxemia Status: Acute (3) Dehydration Status: Acute (4) CKD (chronic kidney disease) stage 4, GFR 15-29 ml/min Status: Acute (5) SEBASTIAN (acute kidney injury) Status: Acute (6) History of kidney transplant Status: Acute (7) Medical non-compliance Status: Acute - Assessment and Plan (Free Text) Plan: Continue IV lasix Recheck tacro level; same tacro dose for now Add renvela as phos increased and ca increased serial chemistries IV steroids as per pulm
--- NOTE | 2018-07-12 15:13 | CP.PCM.CON ---
History of Present Illness - History of Present Illness History of Present Illness: Consult note for cardiology 77 year old female with past medical history of lupus, lupus nephritis, CKD s/p renal transplant and currently on HD x 5 years, HTN, severe kyphoscoliosis was admitted for dyspnea on 06/30/18. Cardiology consulted for CHF exacerbation. On admission, pt was noted to have pro-BNP of 3460. On admission pt was complaining of severe dyspnea worsening over the course of the week accompanied with productive cough. Currently pt continues to be SOB even with conversation. Denies CP, abd pain, N/v/d, F/C. Pt noted to have echocardiogram done on 05/2018 which showed LV EF of 50%. PMD: Dr. Calvo PMHx: lupus, lupus nephritis, CKD (HD for 5 years and kidney transplant at [facility] 10/01/2001), HTN, severe kyphoscoliosis PSHx: kidney transplant at [facility] 10/01/2001, Hysterectomy and cataracts removal FHX: Unknown Medications: Tacrolimus 5mg HS, 2mg Tacrolimus 2mg AM, Sensipar 90mg, Prednisone 10mg, Bactrim DS daily for prophylaxis, atorvastatin 10mg HS, Risendronate 35mg weekly, Amlodipine 10mg daily, Allergies: NKDA Social History: Lives with children. Denies current or former hx of tobacco, illicity drugs and ETOH, mostly bed bound Review of Systems - Constitutional Constitutional: absent: Chills, Fever - EENT Eyes: absent: Blurred Vision, Change in Vision Nose/Mouth/Throat: absent: Nasal Congestion, Nasal Discharge - Cardiovascular Cardiovascular: Dyspnea. absent: Leg Edema, Pedal Edema - Respiratory Respiratory: Cough, Dyspnea. absent: Wheezing - Gastrointestinal Gastrointestinal: Constipation. absent: Abdominal Pain - Musculoskeletal Musculoskeletal: absent: Back Pain - Integumentary Integumentary: absent: Lesions, Wounds - Neurological Neurological: absent: Confusion, Syncope, Weakness - Psychiatric Psychiatric: absent: Anxiety, Confusion, Depression Past Patient History - Infectious Disease Hx of Infectious Diseases: None - Past Medical History & Family History Past Medical History?: Yes Past Family History: Reviewed and not pertinent - Past Social History Smoking Status: Never Smoked Chewing Tobacco Use: No Cigar Use: No Alcohol: None Drugs: Denies Home Situation {Lives}: With Family - CARDIAC Hx Congestive Heart Failure: Yes - PULMONARY Hx Chronic Obstructive Pulmonary Disease (COPD): Yes - RENAL Hx Chronic Kidney Disease: Yes - MUSCULOSKELETAL/RHEUMATOLOGICAL Hx Arthritis: Yes (BACK, THOR KYPHOSIS) - PSYCHIATRIC Hx Substance Use: No - SURGICAL HISTORY Hx Surgeries: Yes Hx Kidney Transplant: Yes (RIGHT) Other/Comment: RIGHT UPPER ARM AV FISTULA - ANESTHESIA Hx Anesthesia: Yes Hx Anesthesia Reactions: No Hx Malignant Hyperthermia: No Meds Allergies/Adverse Reactions: Allergies Allergy/AdvReac Type Severity Reaction Status Date / Time No Known Allergies Allergy Verified 06/30/18 12:03 - Medications Medications: Current Medications Amlodipine Besylate (Norvasc) 10 mg PO DAILY [facility] Last Admin: 07/12/18 09:32 Dose: 10 mg Apixaban (Eliquis) 2.5 mg PO BID [facility] Last Admin: 07/12/18 09:32 Dose: 2.5 mg Cinacalcet (Sensipar) 90 mg PO DAILY [facility] Last Admin: 07/12/18 09:31 Dose: 90 mg Clonidine HCl (Catapres) 0.2 mg PO BID [facility] Last Admin: 07/12/18 09:33 Dose: 0.2 mg Famotidine (Pepcid) 20 mg PO DAILY [facility] Last Admin: 07/12/18 09:32 Dose: 20 mg Furosemide (Lasix) 40 mg IVP Q12 [facility] Last Admin: 07/12/18 09:33 Dose: 40 mg Ceftriaxone Sodium 1 gm/ (Sodium Chloride) 100 mls @ 100 mls/hr IVPB DAILY [facility]; Protocol Last Admin: 07/12/18 10:27 Dose: 100 mls/hr Methylprednisolone (Solu-Medrol) 40 mg IVP Q8H [facility] Last Admin: 07/12/18 13:42 Dose: 40 mg Rosuvastatin Calcium (Crestor) 5 mg PO HS [facility] Saccharomyces Boulardii (Florastor) 250 mg PO BID [facility] Last Admin: 07/12/18 09:31 Dose: 250 mg Sevelamer Carbonate (Renvela) 0.8 gm PO TIDCC [facility] Sodium Bicarbonate (Sodium Bicarbonate Tab) 650 mg PO BID [facility] Last Admin: 07/12/18 09:32 Dose: 650 mg Tacrolimus (Prograf Cap) 3 mg PO BID [facility] Last Admin: 07/12/18 09:32 Dose: 3 mg Physical Exam - Constitutional Appears: Non-toxic, No Acute Distress - Head Exam Head Exam: ATRAUMATIC, NORMOCEPHALIC - ENT Exam ENT Exam: Mucous Membranes Moist - Respiratory Exam Respiratory Exam: Accessory Muscle Use, Rhonchi. absent: Rales, Wheezes - Cardiovascular Exam Cardiovascular Exam: REGULAR RHYTHM, +S1, +S2 - GI/Abdominal Exam GI & Abdominal Exam: Normal Bowel Sounds, Soft. absent: Firm, Guarding, Rigid, Tenderness - Extremities Exam Extremities exam: Negative for: pedal edema, tenderness - Neurological Exam Neurological exam: Alert, Oriented x3 - Psychiatric Exam Psychiatric exam: Normal Affect, Normal Mood - Skin Skin Exam: Normal Color, Warm Results - Vital Signs Recent Vital Signs: Last Vital Signs Temp 97.2 F L 07/12/18 07:15 Pulse 80 07/12/18 07:15 Resp 20 07/12/18 07:15 BP 171/80 H 07/12/18 09:33 Pulse Ox 100 07/12/18 07:15 - Labs Result Diagrams: 07/11/18 11:17 07/11/18 11:17 Assessment & Plan - Date & Time Date: 07/12/18 Time: 15:14
--- NOTE | 2018-07-12 15:21 | CP.PCM.PN ---
<Pooja Woodward - Last Filed: 07/12/18 15:15> Subjective - Date & Time of Evaluation Date of Evaluation: 07/12/18 Time of Evaluation: 15:15 - Subjective Subjective: PGY3 progress note for cardiology Pt seen and examined at bedside. No acute events overnight. Pt is noted to have severe conversational dyspnea. Denies CP, abd pain, N/v, f/C. Currently complaining of constipation. Objective - Vital Signs/Intake and Output Vital Signs (last 24 hours): Temp Pulse Resp BP Pulse Ox 97.2 F L 80 20 171/80 H 100 07/12/18 07:15 07/12/18 07:15 07/12/18 07:15 07/12/18 09:33 07/12/18 07:15 Intake and Output: 07/12/18 07/12/18 06:59 18:59 Intake Total 420 Balance 420 - Medications Medications: Current Medications Amlodipine Besylate (Norvasc) 10 mg PO DAILY [facility] Last Admin: 07/12/18 09:32 Dose: 10 mg Apixaban (Eliquis) 2.5 mg PO BID [facility] Last Admin: 07/12/18 09:32 Dose: 2.5 mg Cinacalcet (Sensipar) 90 mg PO DAILY [facility] Last Admin: 07/12/18 09:31 Dose: 90 mg Clonidine HCl (Catapres) 0.2 mg PO BID [facility] Last Admin: 07/12/18 09:33 Dose: 0.2 mg Famotidine (Pepcid) 20 mg PO DAILY [facility] Last Admin: 07/12/18 09:32 Dose: 20 mg Furosemide (Lasix) 40 mg IVP Q12 [facility] Last Admin: 07/12/18 09:33 Dose: 40 mg Ceftriaxone Sodium 1 gm/ (Sodium Chloride) 100 mls @ 100 mls/hr IVPB DAILY [facility]; Protocol Last Admin: 07/12/18 10:27 Dose: 100 mls/hr Methylprednisolone (Solu-Medrol) 40 mg IVP Q8H [facility] Last Admin: 07/12/18 13:42 Dose: 40 mg Rosuvastatin Calcium (Crestor) 5 mg PO HS [facility] Saccharomyces Boulardii (Florastor) 250 mg PO BID [facility] Last Admin: 07/12/18 09:31 Dose: 250 mg Sevelamer Carbonate (Renvela) 0.8 gm PO TIDCC [facility] Sodium Bicarbonate (Sodium Bicarbonate Tab) 650 mg PO BID [facility] Last Admin: 07/12/18 09:32 Dose: 650 mg Tacrolimus (Prograf Cap) 3 mg PO BID [facility] Last Admin: 07/12/18 09:32 Dose: 3 mg - Labs Labs: 07/11/18 11:17 07/11/18 11:17 PT 12.3 SECONDS (9.7-12.2) H 06/30/18 13:31 INR 1.1 06/30/18 13:31 APTT 30 SECONDS (21-34) 06/30/18 13:31 - Constitutional Appears: Non-toxic, No Acute Distress - Head Exam Head Exam: ATRAUMATIC, NORMOCEPHALIC - ENT Exam ENT Exam: Mucous Membranes Moist - Respiratory Exam Respiratory Exam: Accessory Muscle Use, Rhonchi. absent: Rales, Wheezes - Cardiovascular Exam Cardiovascular Exam: REGULAR RHYTHM, +S1, +S2 - GI/Abdominal Exam GI & Abdominal Exam: Soft. absent: Firm, Guarding, Rigid, Tenderness - Extremities Exam Extremities Exam: absent: Pedal Edema, Tenderness - Neurological Exam Neurological Exam: Alert, Awake, Oriented x3 - Psychiatric Exam Psychiatric exam: Normal Affect, Normal Mood - Skin Skin Exam: Dry, Intact, Normal Color, Warm Assessment and Plan - Assessment and Plan (Free Text) Assessment: Patient is a 77 year old F admitted for acute on chronic respiratory failure 2/2 to severe kyphoscoliosis, lupus; resolving Acute on Chronic Respiratory failure - Management per primary care - Solumedrol 40mg Q8H IVP - Duonebs 3mL INH RQ4H - Influenza negative Congestive Heart Failure - Last echo 05/2018: EF 50% - Continue Lasix 40mg Q12H IVP Left Subclavian DVT - Per primary care team management -Eliquis 2.5mg PO BID Pulmonary hypertension - Management per pulm Hx of Hypertension -Norvasc 10mg PO daily -Clonidine 0.2mg PO BID -Vital signs Q4H Acute on Chronic Kidney Disease -Baseline Cr 2.5 History of kidney transplant -Tacrolimus 3mg PO BID -Sensipar 90mg PO daily, sodium bicarb 650mg PO BID Case discussed with Dr. muller <Bobby Muller - Last Filed: 07/13/18 08:34> Subjective - Subjective Subjective: Patient seen and evaluated with the medical dermatologist. Plan of care discussed and as documented Objective - Vital Signs/Intake and Output Vital Signs (last 24 hours): Temp Pulse Resp BP Pulse Ox 97.9 F 86 20 128/81 95 07/13/18 07:00 07/13/18 08:10 07/13/18 07:00 07/13/18 07:00 07/13/18 07:00 - Medications Medications: Current Medications Amlodipine Besylate (Norvasc) 10 mg PO DAILY [facility] Last Admin: 07/12/18 09:32 Dose: 10 mg Apixaban (Eliquis) 2.5 mg PO BID [facility] Last Admin: 07/12/18 18:12 Dose: 2.5 mg Cinacalcet (Sensipar) 90 mg PO DAILY [facility] Last Admin: 07/12/18 09:31 Dose: 90 mg Clonidine HCl (Catapres) 0.2 mg PO BID [facility] Last Admin: 07/12/18 18:12 Dose: 0.2 mg Famotidine (Pepcid) 20 mg PO DAILY [facility] Last Admin: 07/12/18 09:32 Dose: 20 mg Furosemide (Lasix) 40 mg IVP Q12 [facility] Last Admin: 07/12/18 22:04 Dose: 40 mg Ceftriaxone Sodium 1 gm/ (Sodium Chloride) 100 mls @ 100 mls/hr IVPB DAILY [facility]; Protocol Last Admin: 07/12/18 10:27 Dose: 100 mls/hr Methylprednisolone (Solu-Medrol) 40 mg IVP Q8H [facility] Last Admin: 07/13/18 04:54 Dose: Not Given Rosuvastatin Calcium (Crestor) 5 mg PO HS [facility] Saccharomyces Boulardii (Florastor) 250 mg PO BID [facility] Last Admin: 07/12/18 18:13 Dose: 250 mg Sevelamer Carbonate (Renvela) 0.8 gm PO TIDCC [facility] Last Admin: 07/12/18 18:00 Dose: 0.8 gm Sodium Bicarbonate (Sodium Bicarbonate Tab) 650 mg PO BID [facility] Last Admin: 07/12/18 18:12 Dose: 650 mg Tacrolimus (Prograf Cap) 3 mg PO BID [facility] Last Admin: 07/12/18 18:12 Dose: 3 mg - Labs Labs: 07/11/18 11:17 07/11/18 11:17 PT 12.3 SECONDS (9.7-12.2) H 12/23/18 13:31 INR 1.1 06/30/18 13:31 APTT 30 SECONDS (21-34) 06/30/18 13:31
[2018-07-12] MEDS: Sevelamer Carb 0.8 gm/Packet PO SCH (18:00)
[2018-07-13] MEDS: MethylPREDNISolone 40 mg Vial IVP SCH ×4 (04:50→21:05)
--- NOTE | 2018-07-13 09:02 | CP.PCM.PN ---
Subjective - Date & Time of Evaluation Date of Evaluation: 07/13/18 Time of Evaluation: 08:59 - Subjective Subjective: Notes reviewed Condition unchanged Awake and confused Eating breakfast No distress One to one observation at bedside - states patient argumentative today Patient reports no problems, unable to carry out conversation ROS unobtainable due to mental status Objective - Vital Signs/Intake and Output Vital Signs (last 24 hours): Temp Pulse Resp BP Pulse Ox 97.9 F 86 20 128/81 95 07/13/18 07:00 07/13/18 08:10 07/13/18 07:00 07/13/18 07:00 07/13/18 07:00 - Medications Medications: Current Medications Amlodipine Besylate (Norvasc) 10 mg PO DAILY [facility] Last Admin: 07/12/18 09:32 Dose: 10 mg Apixaban (Eliquis) 2.5 mg PO BID [facility] Last Admin: 07/12/18 18:12 Dose: 2.5 mg Cinacalcet (Sensipar) 90 mg PO DAILY [facility] Last Admin: 07/12/18 09:31 Dose: 90 mg Clonidine HCl (Catapres) 0.2 mg PO BID [facility] Last Admin: 07/12/18 18:12 Dose: 0.2 mg Famotidine (Pepcid) 20 mg PO DAILY [facility] Last Admin: 07/12/18 09:32 Dose: 20 mg Furosemide (Lasix) 40 mg IVP Q12 [facility] Last Admin: 07/12/18 22:04 Dose: 40 mg Ceftriaxone Sodium 1 gm/ (Sodium Chloride) 100 mls @ 100 mls/hr IVPB DAILY [facility]; Protocol Last Admin: 07/12/18 10:27 Dose: 100 mls/hr Methylprednisolone (Solu-Medrol) 40 mg IVP Q8H [facility] Last Admin: 07/13/18 04:54 Dose: Not Given Rosuvastatin Calcium (Crestor) 5 mg PO HS [facility] Saccharomyces Boulardii (Florastor) 250 mg PO BID [facility] Last Admin: 07/12/18 18:13 Dose: 250 mg Sevelamer Carbonate (Renvela) 0.8 gm PO TIDCC [facility] Last Admin: 07/12/18 18:00 Dose: 0.8 gm Sodium Bicarbonate (Sodium Bicarbonate Tab) 650 mg PO BID [facility] Last Admin: 07/12/18 18:12 Dose: 650 mg Tacrolimus (Prograf Cap) 3 mg PO BID [facility] Last Admin: 07/12/18 18:12 Dose: 3 mg - Labs Labs: 07/11/18 11:17 07/11/18 11:17 PT 12.3 SECONDS (9.7-12.2) H 06/30/18 13:31 INR 1.1 06/30/18 13:31 APTT 30 SECONDS (21-34) 06/30/18 13:31 - Constitutional Appears: Agitated, Confused, Chronically Ill - Head Exam Head Exam: ATRAUMATIC, NORMAL INSPECTION - Eye Exam Eye Exam: EOMI Pupil Exam: PERRL - ENT Exam ENT Exam: Mucous Membranes Moist, Normal External Ear Exam - Neck Exam Neck Exam: absent: Lymphadenopathy, Tenderness - Respiratory Exam Respiratory Exam: Rhonchi. absent: Rales, Wheezes - Cardiovascular Exam Cardiovascular Exam: +S1, +S2. absent: JVD, Rubs - GI/Abdominal Exam GI & Abdominal Exam: Soft, Normal Bowel Sounds - Extremities Exam Extremities Exam: absent: Pedal Edema, Tenderness - Neurological Exam Neurological Exam: Alert, Awake. absent: Oriented x3 - Psychiatric Exam Psychiatric exam: Agitated, Anxious - Skin Skin Exam: Dry, Warm Assessment and Plan (1) SEBASTIAN (acute kidney injury) Status: Acute (2) CKD (chronic kidney disease) stage 4, GFR 15-29 ml/min Status: Acute (3) History of kidney transplant Status: Acute (4) Medical non-compliance Status: Acute (5) Restrictive lung disease Status: Acute (6) Hypertension Status: Acute - Assessment and Plan (Free Text) Assessment: Renal allograft function stable Electrolytes acceptable Bp stable Continue current immunosuppression Await fk level Maintain lasix Continue current care ? neuro and psych evals
[2018-07-13] MEDS: Sevelamer Carb 0.8 gm/Packet PO SCH ×3 (10:41→18:45)
[2018-07-13] MEDS: Saccharomyces Boulardi 250 mg Cap PO SCH ×2 (10:58→18:34)
--- NOTE | 2018-07-13 21:06 | CP.PCM.PN ---
Subjective - Date & Time of Evaluation Date of Evaluation: 07/13/18 Time of Evaluation: 16:20 - Subjective Subjective: Pt seen and examined at bedside. No acute events overnight. Pt is noted to have severe conversational dyspnea. Denies CP, abd pain, N/v, f/C. Currently complaining of constipation. Physical examination - Constitutional Appears: Non-toxic, No Acute Distress - Head Exam Head Exam: ATRAUMATIC, NORMOCEPHALIC - ENT Exam ENT Exam: Mucous Membranes Moist - Respiratory Exam Respiratory Exam: Accessory Muscle Use, Rhonchi. absent: Rales, Wheezes - Cardiovascular Exam Cardiovascular Exam: REGULAR RHYTHM, +S1, +S2 - GI/Abdominal Exam GI & Abdominal Exam: Soft. absent: Firm, Guarding, Rigid, Tenderness - Extremities Exam Extremities Exam: absent: Pedal Edema, Tenderness - Neurological Exam Neurological Exam: Alert, Awake, Oriented x3 - Psychiatric Exam Psychiatric exam: Normal Affect, Normal Mood - Skin Skin Exam: Dry, Intact, Normal Color, Warm Assessment and Plan - Assessment and Plan (Free Text) Assessment: Patient is a 77 year old F admitted for acute on chronic respiratory failure 2/2 to severe kyphoscoliosis, lupus; resolving Acute on Chronic Respiratory failure - Management per primary care - Solumedrol 40mg Q8H IVP - Duonebs 3mL INH RQ4H - Influenza negative Congestive Heart Failure - Last echo 05/2018: EF 50% - Continue Lasix 40mg Q12H IVP Left Subclavian DVT - Per primary care team management -Eliquis 2.5mg PO BID Pulmonary hypertension - Management per pulm Hx of Hypertension -Norvasc 10mg PO daily -Clonidine 0.2mg PO BID -Vital signs Q4H Acute on Chronic Kidney Disease -Baseline Cr 2.5 History of kidney transplant -Tacrolimus 3mg PO BID -Sensipar 90mg PO daily, sodium bicarb 650mg PO BID Objective - Vital Signs/Intake and Output Vital Signs (last 24 hours): Temp Pulse Resp BP Pulse Ox 98.4 F 106 H 20 125/77 100 07/13/18 15:00 07/13/18 18:44 07/13/18 15:00 07/13/18 18:44 07/13/18 15:00 - Medications Medications: Current Medications Amlodipine Besylate (Norvasc) 10 mg PO DAILY [facility] Last Admin: 07/13/18 10:55 Dose: 10 mg Apixaban (Eliquis) 2.5 mg PO BID [facility] Last Admin: 07/13/18 18:34 Dose: 2.5 mg Cinacalcet (Sensipar) 90 mg PO DAILY [facility] Last Admin: 07/13/18 14:20 Dose: Not Given Clonidine HCl (Catapres) 0.2 mg PO BID [facility] Last Admin: 07/13/18 18:34 Dose: 0.2 mg Famotidine (Pepcid) 20 mg PO DAILY [facility] Last Admin: 07/13/18 10:55 Dose: 20 mg Furosemide (Lasix) 40 mg IVP Q12 [facility] Last Admin: 07/13/18 10:55 Dose: 40 mg Ceftriaxone Sodium 1 gm/ (Sodium Chloride) 100 mls @ 100 mls/hr IVPB DAILY [facility]; Protocol Last Admin: 07/13/18 11:06 Dose: 100 mls/hr Methylprednisolone (Solu-Medrol) 40 mg IVP Q8H [facility] Last Admin: 07/13/18 14:21 Dose: 40 mg Rosuvastatin Calcium (Crestor) 5 mg PO HS [facility] Saccharomyces Boulardii (Florastor) 250 mg PO BID [facility] Last Admin: 07/13/18 18:34 Dose: 250 mg Sevelamer Carbonate (Renvela) 0.8 gm PO TIDCC [facility] Last Admin: 07/13/18 18:45 Dose: 0.8 gm Sodium Bicarbonate (Sodium Bicarbonate Tab) 650 mg PO BID [facility] Last Admin: 07/13/18 18:34 Dose: 650 mg Tacrolimus (Prograf Cap) 3 mg PO BID [facility] Last Admin: 07/13/18 18:34 Dose: 3 mg - Labs Labs: 07/11/18 11:17 07/11/18 11:17 PT 12.3 SECONDS (9.7-12.2) H 06/30/18 13:31 INR 1.1 06/30/18 13:31 APTT 30 SECONDS (21-34) 06/30/18 13:31
[2018-07-14] MEDS: MethylPREDNISolone 40 mg Vial IVP SCH ×3 (04:37→21:14)
[2018-07-14 08:38] LABS: BASO % 0.2 % (0.0-2.0); HEMOGLOBIN 8.5 g/dL (11.0-16.0); LYMPH # 0.2 K/uL (1.0-4.3); MEAN CELL VOLUME 100.3 fL (81.0-99.0); MEAN CORPUSCULAR HEMOGLOBIN 33.6 pg (27.0-31.0); MEAN CORPUSCULAR HGB CONC 33.5 g/dL (33.0-37.0); MEAN PLATELET VOLUME 10.6 fL (7.2-11.7); MONO # 0.2 K/uL (0.0-0.8); NEUT % 95.8 % (50.0-75.0); NRBC % 0.2 % (0.0-2.0); PLATELET COUNT 59 K/uL (130-400); RBC 2.52 Mil/uL (3.80-5.20); RED CELL DISTRIBUTION WIDTH 14.5 % (11.5-14.5); WHITE BLOOD COUNT 8.3 K/uL (4.8-10.8)
[2018-07-14 09:05] LABS: ALB/GLOB RATIO 1.4 (1.0-2.1); ALBUMIN 3.3 g/dL (3.5-5.0)
[2018-07-14] MEDS: Sevelamer Carb 0.8 gm/Packet PO SCH ×3 (10:20→18:05)
[2018-07-14] MEDS: Saccharomyces Boulardi 250 mg Cap PO SCH ×2 (10:24→18:05)
[2018-07-14 10:42] LABS: BANDS 2 % (0-2); LYMPHOCYTE 2 % (20-40); MONOCYTE 2 % (0-10); MYELOCYTE 1 % (0-0); NEUTROPHIL 93 % (50-75); NUCLEATED RED BLOOD CELL 2 % (0-0); PLATELET ESTIMATE DECREASED (NORMAL); TOTAL CELLS COUNTED 100
--- NOTE | 2018-07-14 19:58 | CP.PCM.PN ---
Subjective - Date & Time of Evaluation Date of Evaluation: 07/14/18 Time of Evaluation: 17:15 - Subjective Subjective: Patient seen and evaluated No cardiac events noted Physical examination - Constitutional Appears: Non-toxic, No Acute Distress - Head Exam Head Exam: ATRAUMATIC, NORMOCEPHALIC - ENT Exam ENT Exam: Mucous Membranes Moist - Respiratory Exam Respiratory Exam: Accessory Muscle Use, Rhonchi. absent: Rales, Wheezes - Cardiovascular Exam Cardiovascular Exam: REGULAR RHYTHM, +S1, +S2 - GI/Abdominal Exam GI & Abdominal Exam: Soft. absent: Firm, Guarding, Rigid, Tenderness - Extremities Exam Extremities Exam: absent: Pedal Edema, Tenderness - Neurological Exam Neurological Exam: Alert, Awake, Oriented x3 - Psychiatric Exam Psychiatric exam: Normal Affect, Normal Mood - Skin Skin Exam: Dry, Intact, Normal Color, Warm Assessment and Plan - Assessment and Plan (Free Text) Assessment: Patient is a 77 year old F admitted for acute on chronic respiratory failure 2/2 to severe kyphoscoliosis, lupus; resolving Acute on Chronic Respiratory failure - Management per primary care - Solumedrol 40mg Q8H IVP - Duonebs 3mL INH RQ4H - Influenza negative Congestive Heart Failure - Last echo 05/2018: EF 50% - Continue Lasix 40mg Q12H IVP Left Subclavian DVT - Per primary care team management -Eliquis 2.5mg PO BID Pulmonary hypertension - Management per pulm Hx of Hypertension -Norvasc 10mg PO daily -Clonidine 0.2mg PO BID -Vital signs Q4H Acute on Chronic Kidney Disease -Baseline Cr 2.5 History of kidney transplant -Tacrolimus 3mg PO BID -Sensipar 90mg PO daily, sodium bicarb 650mg PO BID Objective - Vital Signs/Intake and Output Vital Signs (last 24 hours): Temp Pulse Resp BP Pulse Ox 97.9 F 74 20 102/63 100 07/14/18 15:00 07/14/18 18:06 07/14/18 15:00 07/14/18 18:06 07/14/18 15:00 - Medications Medications: Current Medications Amlodipine Besylate (Norvasc) 10 mg PO DAILY [facility] Last Admin: 07/14/18 10:23 Dose: 10 mg Apixaban (Eliquis) 2.5 mg PO BID [facility] Last Admin: 07/14/18 18:05 Dose: 2.5 mg Cinacalcet (Sensipar) 90 mg PO DAILY [facility] Last Admin: 07/14/18 10:22 Dose: 90 mg Clonidine HCl (Catapres) 0.2 mg PO BID [facility] Last Admin: 07/14/18 18:05 Dose: 0.2 mg Famotidine (Pepcid) 20 mg PO DAILY [facility] Last Admin: 07/14/18 10:23 Dose: 20 mg Furosemide (Lasix) 40 mg IVP Q12 [facility] Last Admin: 07/14/18 10:29 Dose: 40 mg Ceftriaxone Sodium 1 gm/ (Sodium Chloride) 100 mls @ 100 mls/hr IVPB DAILY [facility]; Protocol Last Admin: 07/14/18 10:28 Dose: 100 mls/hr Methylprednisolone (Solu-Medrol) 40 mg IVP Q8H [facility] Last Admin: 07/14/18 13:53 Dose: 40 mg Rosuvastatin Calcium (Crestor) 5 mg PO HS [facility] Saccharomyces Boulardii (Florastor) 250 mg PO BID [facility] Last Admin: 07/14/18 18:05 Dose: 250 mg Sevelamer Carbonate (Renvela) 0.8 gm PO TIDCC [facility] Last Admin: 07/14/18 18:05 Dose: 0.8 gm Sodium Bicarbonate (Sodium Bicarbonate Tab) 650 mg PO BID [facility] Last Admin: 07/14/18 18:05 Dose: 650 mg Tacrolimus (Prograf Cap) 3 mg PO BID [facility] Last Admin: 07/14/18 18:05 Dose: 3 mg - Labs Labs: 07/14/18 08:17 07/14/18 08:17 PT 12.3 SECONDS (9.7-12.2) H 06/30/18 13:31 INR 1.1 06/30/18 13:31 APTT 30 SECONDS (21-34) 06/30/18 13:31
--- NOTE | 2018-07-15 01:43 | CP.PCM.PN ---
Subjective - Date & Time of Evaluation Date of Evaluation: 07/11/18 Time of Evaluation: 12:00 - Subjective Subjective: Short of breath Objective - Vital Signs/Intake and Output Vital Signs (last 24 hours): Temp Pulse Resp BP Pulse Ox 97.9 F 74 20 172/81 H 100 07/14/18 15:00 07/14/18 18:06 07/14/18 15:00 07/14/18 21:14 07/14/18 15:00 Intake and Output: 07/14/18 07/15/18 18:59 06:59 Intake Total 320 Output Total 250 Balance 70 - Medications Medications: Current Medications Amlodipine Besylate (Norvasc) 10 mg PO DAILY [facility] Last Admin: 07/14/18 10:23 Dose: 10 mg Apixaban (Eliquis) 2.5 mg PO BID [facility] Last Admin: 07/14/18 18:05 Dose: 2.5 mg Cinacalcet (Sensipar) 90 mg PO DAILY [facility] Last Admin: 07/14/18 10:22 Dose: 90 mg Clonidine HCl (Catapres) 0.2 mg PO BID [facility] Last Admin: 07/14/18 18:05 Dose: 0.2 mg Famotidine (Pepcid) 20 mg PO DAILY [facility] Last Admin: 07/14/18 10:23 Dose: 20 mg Furosemide (Lasix) 40 mg IVP Q12 [facility] Last Admin: 07/14/18 21:14 Dose: 40 mg Ceftriaxone Sodium 1 gm/ (Sodium Chloride) 100 mls @ 100 mls/hr IVPB DAILY [facility]; Protocol Last Admin: 07/14/18 10:28 Dose: 100 mls/hr Methylprednisolone (Solu-Medrol) 40 mg IVP Q8H [facility] Last Admin: 07/14/18 21:14 Dose: 40 mg Rosuvastatin Calcium (Crestor) 5 mg PO HS [facility] Saccharomyces Boulardii (Florastor) 250 mg PO BID [facility] Last Admin: 07/14/18 18:05 Dose: 250 mg Sevelamer Carbonate (Renvela) 0.8 gm PO TIDCC [facility] Last Admin: 07/14/18 18:05 Dose: 0.8 gm Sodium Bicarbonate (Sodium Bicarbonate Tab) 650 mg PO BID [facility] Last Admin: 07/14/18 18:05 Dose: 650 mg Tacrolimus (Prograf Cap) 3 mg PO BID [facility] Last Admin: 07/14/18 18:05 Dose: 3 mg - Labs Labs: 07/14/18 08:17 07/14/18 08:17 PT 12.3 SECONDS (9.7-12.2) H 06/30/18 13:31 INR 1.1 06/30/18 13:31 APTT 30 SECONDS (21-34) 06/30/18 13:31 - Head Exam Head Exam: ATRAUMATIC - Eye Exam Eye Exam: Normal appearance - ENT Exam ENT Exam: Mucous Membranes Dry - Respiratory Exam Respiratory Exam: NORMAL BREATHING PATTERN - Cardiovascular Exam Cardiovascular Exam: +S1, +S2 - GI/Abdominal Exam GI & Abdominal Exam: Normal Bowel Sounds Assessment and Plan (1) Deep vein thrombosis (DVT) of left upper extremity Assessment & Plan: on Eliquis Status: Acute (2) Thrombocytopenia Assessment & Plan: suspect secondary to immunosuppression and SLE Status: Acute (3) Anemia Assessment & Plan: chronic disease, immunosuppression CKD Status: Acute
--- NOTE | 2018-07-15 01:44 | CP.PCM.PN ---
Subjective - Date & Time of Evaluation Date of Evaluation: 07/12/18 Time of Evaluation: 12:00 - Subjective Subjective: Feels short of breath Objective - Vital Signs/Intake and Output Vital Signs (last 24 hours): Temp Pulse Resp BP Pulse Ox 97.9 F 74 20 172/81 H 100 07/14/18 15:00 07/14/18 18:06 07/14/18 15:00 07/14/18 21:14 07/14/18 15:00 Intake and Output: 07/14/18 07/15/18 18:59 06:59 Intake Total 320 Output Total 250 Balance 70 - Medications Medications: Current Medications Amlodipine Besylate (Norvasc) 10 mg PO DAILY [facility] Last Admin: 07/14/18 10:23 Dose: 10 mg Apixaban (Eliquis) 2.5 mg PO BID [facility] Last Admin: 07/14/18 18:05 Dose: 2.5 mg Cinacalcet (Sensipar) 90 mg PO DAILY [facility] Last Admin: 07/14/18 10:22 Dose: 90 mg Clonidine HCl (Catapres) 0.2 mg PO BID [facility] Last Admin: 07/14/18 18:05 Dose: 0.2 mg Famotidine (Pepcid) 20 mg PO DAILY [facility] Last Admin: 07/14/18 10:23 Dose: 20 mg Furosemide (Lasix) 40 mg IVP Q12 [facility] Last Admin: 07/14/18 21:14 Dose: 40 mg Ceftriaxone Sodium 1 gm/ (Sodium Chloride) 100 mls @ 100 mls/hr IVPB DAILY [facility]; Protocol Last Admin: 07/14/18 10:28 Dose: 100 mls/hr Methylprednisolone (Solu-Medrol) 40 mg IVP Q8H [facility] Last Admin: 07/14/18 21:14 Dose: 40 mg Rosuvastatin Calcium (Crestor) 5 mg PO HS [facility] Saccharomyces Boulardii (Florastor) 250 mg PO BID [facility] Last Admin: 07/14/18 18:05 Dose: 250 mg Sevelamer Carbonate (Renvela) 0.8 gm PO TIDCC [facility] Last Admin: 07/14/18 18:05 Dose: 0.8 gm Sodium Bicarbonate (Sodium Bicarbonate Tab) 650 mg PO BID [facility] Last Admin: 07/14/18 18:05 Dose: 650 mg Tacrolimus (Prograf Cap) 3 mg PO BID [facility] Last Admin: 07/14/18 18:05 Dose: 3 mg - Labs Labs: 07/14/18 08:17 07/14/18 08:17 PT 12.3 SECONDS (9.7-12.2) H 06/30/18 13:31 INR 1.1 06/30/18 13:31 APTT 30 SECONDS (21-34) 06/30/18 13:31 - Head Exam Head Exam: ATRAUMATIC - Eye Exam Eye Exam: Normal appearance - ENT Exam ENT Exam: Mucous Membranes Dry - Respiratory Exam Respiratory Exam: NORMAL BREATHING PATTERN - Cardiovascular Exam Cardiovascular Exam: +S1, +S2 - GI/Abdominal Exam GI & Abdominal Exam: Normal Bowel Sounds Assessment and Plan (1) Deep vein thrombosis (DVT) of left upper extremity Assessment & Plan: on Eliquis Status: Acute (2) Thrombocytopenia Assessment & Plan: SLE, immunosuppression Status: Acute (3) Anemia Assessment & Plan: immunosuppression, SLE CKD Status: Acute
--- NOTE | 2018-07-15 01:45 | CP.PCM.PN ---
Subjective - Date & Time of Evaluation Date of Evaluation: 07/13/18 Time of Evaluation: 15:00 - Subjective Subjective: Confused Objective - Vital Signs/Intake and Output Vital Signs (last 24 hours): Temp Pulse Resp BP Pulse Ox 97.9 F 74 20 172/81 H 100 07/14/18 15:00 07/14/18 18:06 07/14/18 15:00 07/14/18 21:14 07/14/18 15:00 Intake and Output: 07/14/18 07/15/18 18:59 06:59 Intake Total 320 Output Total 250 Balance 70 - Medications Medications: Current Medications Amlodipine Besylate (Norvasc) 10 mg PO DAILY [facility] Last Admin: 07/14/18 10:23 Dose: 10 mg Apixaban (Eliquis) 2.5 mg PO BID [facility] Last Admin: 07/14/18 18:05 Dose: 2.5 mg Cinacalcet (Sensipar) 90 mg PO DAILY [facility] Last Admin: 07/14/18 10:22 Dose: 90 mg Clonidine HCl (Catapres) 0.2 mg PO BID [facility] Last Admin: 07/14/18 18:05 Dose: 0.2 mg Famotidine (Pepcid) 20 mg PO DAILY [facility] Last Admin: 07/14/18 10:23 Dose: 20 mg Furosemide (Lasix) 40 mg IVP Q12 [facility] Last Admin: 07/14/18 21:14 Dose: 40 mg Ceftriaxone Sodium 1 gm/ (Sodium Chloride) 100 mls @ 100 mls/hr IVPB DAILY [facility]; Protocol Last Admin: 07/14/18 10:28 Dose: 100 mls/hr Methylprednisolone (Solu-Medrol) 40 mg IVP Q8H [facility] Last Admin: 07/14/18 21:14 Dose: 40 mg Rosuvastatin Calcium (Crestor) 5 mg PO HS [facility] Saccharomyces Boulardii (Florastor) 250 mg PO BID [facility] Last Admin: 07/14/18 18:05 Dose: 250 mg Sevelamer Carbonate (Renvela) 0.8 gm PO TIDCC [facility] Last Admin: 07/14/18 18:05 Dose: 0.8 gm Sodium Bicarbonate (Sodium Bicarbonate Tab) 650 mg PO BID [facility] Last Admin: 07/14/18 18:05 Dose: 650 mg Tacrolimus (Prograf Cap) 3 mg PO BID [facility] Last Admin: 07/14/18 18:05 Dose: 3 mg - Labs Labs: 07/14/18 08:17 07/14/18 08:17 PT 12.3 SECONDS (9.7-12.2) H 06/30/18 13:31 INR 1.1 06/30/18 13:31 APTT 30 SECONDS (21-34) 06/30/18 13:31 - Head Exam Head Exam: ATRAUMATIC - Eye Exam Eye Exam: Normal appearance - ENT Exam ENT Exam: Mucous Membranes Dry - Respiratory Exam Respiratory Exam: Clear to Ausculation Bilateral - Cardiovascular Exam Cardiovascular Exam: +S1, +S2 - GI/Abdominal Exam GI & Abdominal Exam: Normal Bowel Sounds Assessment and Plan (1) Deep vein thrombosis (DVT) of left upper extremity Assessment & Plan: on Elliquis Status: Acute (2) Thrombocytopenia Assessment & Plan: SLE and immunosuppression Status: Acute (3) Anemia Assessment & Plan: immunosuppresion, SLE CKD Status: Acute
[2018-07-15] MEDS: MethylPREDNISolone 40 mg Vial IVP SCH ×3 (05:11→18:07)
--- NOTE | 2018-07-15 08:51 | CP.PCM.PN ---
Subjective - Date & Time of Evaluation Date of Evaluation: 07/15/18 Time of Evaluation: 08:49 - Subjective Subjective: Medicine Progress Note - Dr Calvo's Service Patient seen and examined at bedside. Per nursing, patient was refusing telemetry and blood work. Patient is still on high flow NC. Complaining of constipation. Objective - Vital Signs/Intake and Output Vital Signs (last 24 hours): Temp Pulse Resp BP Pulse Ox 97.6 F 91 H 20 141/84 98 07/15/18 07:00 07/15/18 07:00 07/15/18 07:00 07/15/18 07:00 07/15/18 07:00 Intake and Output: 07/15/18 07/15/18 06:59 18:59 Intake Total 320 Output Total 250 Balance 70 - Medications Medications: Current Medications Amlodipine Besylate (Norvasc) 10 mg PO DAILY [facility] Last Admin: 07/14/18 10:23 Dose: 10 mg Apixaban (Eliquis) 2.5 mg PO BID [facility] Last Admin: 07/14/18 18:05 Dose: 2.5 mg Cinacalcet (Sensipar) 90 mg PO DAILY [facility] Last Admin: 07/14/18 10:22 Dose: 90 mg Clonidine HCl (Catapres) 0.2 mg PO BID [facility] Last Admin: 07/14/18 18:05 Dose: 0.2 mg Famotidine (Pepcid) 20 mg PO DAILY [facility] Last Admin: 07/14/18 10:23 Dose: 20 mg Furosemide (Lasix) 40 mg IVP Q12 [facility] Last Admin: 07/14/18 21:14 Dose: 40 mg Ceftriaxone Sodium 1 gm/ (Sodium Chloride) 100 mls @ 100 mls/hr IVPB DAILY [facility]; Protocol Last Admin: 07/14/18 10:28 Dose: 100 mls/hr Methylprednisolone (Solu-Medrol) 40 mg IVP Q8H [facility] Last Admin: 07/15/18 05:11 Dose: 40 mg Rosuvastatin Calcium (Crestor) 5 mg PO HS [facility] Saccharomyces Boulardii (Florastor) 250 mg PO BID [facility] Last Admin: 07/14/18 18:05 Dose: 250 mg Sevelamer Carbonate (Renvela) 0.8 gm PO TIDCC [facility] Last Admin: 07/14/18 18:05 Dose: 0.8 gm Sodium Bicarbonate (Sodium Bicarbonate Tab) 650 mg PO BID [facility] Last Admin: 07/14/18 18:05 Dose: 650 mg Tacrolimus (Prograf Cap) 3 mg PO BID [facility] Last Admin: 07/14/18 18:05 Dose: 3 mg - Labs Labs: 07/14/18 08:17 07/14/18 08:17 PT 12.3 SECONDS (9.7-12.2) H 06/30/18 13:31 INR 1.1 06/30/18 13:31 APTT 30 SECONDS (21-34) 06/30/18 13:31 - Constitutional Appears: Non-toxic, Younger Than Stated Age - Head Exam Head Exam: ATRAUMATIC, NORMAL INSPECTION - Eye Exam Eye Exam: Normal appearance - ENT Exam ENT Exam: Mucous Membranes Moist - Neck Exam Neck Exam: Full ROM - Respiratory Exam Respiratory Exam: Decreased Breath Sounds - Cardiovascular Exam Cardiovascular Exam: REGULAR RHYTHM, +S1, +S2 - GI/Abdominal Exam GI & Abdominal Exam: Soft. absent: Guarding, Rigid, Tenderness - Extremities Exam Extremities Exam: Full ROM. absent: Calf Tenderness - Neurological Exam Neurological Exam: Alert, Awake - Psychiatric Exam Psychiatric exam: Normal Affect, Normal Mood - Skin Skin Exam: Dry, Normal Color, Warm Assessment and Plan - Assessment and Plan (Free Text) Assessment: Patient is a 77 year old F admitted for acute on chronic respiratory failure 2/2 to severe kyphoscoliosis, lupus; resolving Acute on Chronic Respiratory failure - Patients family refusing longterm placement and want to take the patient home - Continue Solumedrol 40mg Q12H IVP - Duonebs 3mL INH RQ4H - Influenza negative - Pulmonology; Dr. Acosta; thank you for your help - Patient is DNR/DNI, palliative care on consult, help appreciated Imaging: -CXR 07/03 shows cardiomegaly, no infiltrates (see full report) -Chest CT shows No acute infiltrate. Cardiomegaly and dilated main pulmonary artery. No pleural effusion. Multiple stable mild thoracic and upper lumbar vertebral compression deformities. Additional minor findings as above. (see full report) Pneumonia - No leukocytosis, afebrile - Rocephin 1gm IVPB daily (active since 07/11/18) Imaging: -CXR 07/11/18: Cardiomegaly. Bilateral lower lobe consolidations/pleural ef fusions. Moderate pulmonary venous congestion. Biapical pleural thickening Left Subclavian DVT - Patient with left upper extremity edema on exam - LUE duplex + for subclavian DVT - Heme/Onc on consult, help appreciated - Continue Eliquis 2.5mg PO BID Thrombocytopenia - Heme/Onc on consult, help appreciated - Changed pepcid 20mg PO daily - Continue to monitor Congestive Heart Failure - Last echo 05/2018: EF 50% - Continue Lasix 40mg PO BID - Cardiology on consult, Dr Irizarry, help appreciated - Measure daily weights Pulmonary hypertension - Previous Chest CT on admission from 06/04/18: No definite alveolitis bilaterally. Minimal dependent atelectasis, diminished in the interval bilaterally as compared prior chest CT 05/25/2017. 2. Prominent cardiomegaly reiterated as well as increasing main pulmonary artery caliber (4.4 cm) suspicious for pulmonary artery hypertension though this is a clinical diagnosis and further clinical correlation is recommended. Further, ectatic dilated super ior vena cava identified potentially a function of right heart failure possible right or failure. Clinically correlate further. - Repeat chest CT shows No acute infiltrate. Cardiomegaly and dilated main pulmonary artery. No pleural effusion. Multiple stable mild thoracic and upper lumbar vertebral compression deformities. Additional minor findings as above. (see full report) -Treatment as per pulmonology Hx of Hypertension -Norvasc 10mg PO daily -Clonidine 0.2mg PO BID -Vital signs Q4H Acute on Chronic Kidney Disease -Baseline Cr 2.5 -Unable to draw labs due to hemodilution, IVF discontinued -Continue Lasix 40mg PO BID -Crestor on hold at this time -Avoid nephrotoxic agents -Nephrology on consult, Dr Sykes, help appreciated Imaging: -Abdominal US: Unremarkable appearing transplant kidney right lower quadrant/right hemipelvis. Extensive increased echogenicity is identified throughout the bilateral kidneys suggesting intrinsic medical renal disease. Bilateral kidneys are lower limits normal size bilaterally and otherwise unremarkable appearing. 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 - continue to monitor for BM - Will order additional lactulose for today Prophylactic measure DVT: contraindicated /2 to thrombocytopenia GI: Pepcid 20mg PO BID 2/2 to high dose and chronic steroid use Disposition: Patient will need 24 hour home O2 (3L); Physical therapy re- evaluation pending. Patient will also need home assistance; patient is not i ndependent and needs help most of the day 2/ to deconditioning, RA M05.611, M32.9 lupus, M41.9 severe kyphoscoloiosis. She is currently medically stable for discharge home. Case discussed with Dr. Lubna Odell DO PGY-2
[2018-07-15] MEDS: Saccharomyces Boulardi 250 mg Cap PO SCH ×2 (09:15→18:05)
[2018-07-15] MEDS: Sevelamer Carb 0.8 gm/Packet PO SCH ×3 (09:20→18:05)
--- NOTE | 2018-07-15 11:56 | CP.PCM.PN ---
Subjective - Date & Time of Evaluation Date of Evaluation: 07/15/18 Time of Evaluation: 11:53 - Subjective Subjective: Sleepy now Has been more alert overall renal function stable HG chronically low tacro level finally back - therapeutic Objective - Vital Signs/Intake and Output Vital Signs (last 24 hours): Temp Pulse Resp BP Pulse Ox 97.6 F 91 H 20 145/89 98 07/15/18 07:00 07/15/18 07:00 07/15/18 07:00 07/15/18 09:15 07/15/18 07:00 Intake and Output: 07/15/18 07/15/18 06:59 18:59 Intake Total 320 Output Total 250 Balance 70 - Medications Medications: Current Medications Amlodipine Besylate (Norvasc) 10 mg PO DAILY [facility] Last Admin: 07/15/18 09:15 Dose: 10 mg Apixaban (Eliquis) 2.5 mg PO BID [facility] Last Admin: 07/15/18 09:15 Dose: 2.5 mg Cinacalcet (Sensipar) 90 mg PO DAILY [facility] Last Admin: 07/15/18 09:15 Dose: 90 mg Clonidine HCl (Catapres) 0.2 mg PO BID [facility] Last Admin: 07/15/18 09:15 Dose: 0.2 mg Famotidine (Pepcid) 20 mg PO DAILY [facility] Last Admin: 07/15/18 09:15 Dose: 20 mg Furosemide (Lasix) 40 mg IVP Q12 [facility] Last Admin: 07/15/18 09:15 Dose: 40 mg Ceftriaxone Sodium 1 gm/ (Sodium Chloride) 100 mls @ 100 mls/hr IVPB DAILY [facility]; Protocol Last Admin: 07/15/18 10:54 Dose: 100 mls/hr Methylprednisolone (Solu-Medrol) 40 mg IVP Q8H [facility] Last Admin: 07/15/18 05:11 Dose: 40 mg Rosuvastatin Calcium (Crestor) 5 mg PO HS [facility] Saccharomyces Boulardii (Florastor) 250 mg PO BID [facility] Last Admin: 07/15/18 09:15 Dose: 250 mg Sevelamer Carbonate (Renvela) 0.8 gm PO TIDCC [facility] Last Admin: 07/15/18 09:20 Dose: 0.8 gm Sodium Bicarbonate (Sodium Bicarbonate Tab) 650 mg PO BID [facility] Last Admin: 07/15/18 09:15 Dose: 650 mg Tacrolimus (Prograf Cap) 3 mg PO BID [facility] Last Admin: 07/15/18 09:15 Dose: 3 mg - Labs Labs: 07/14/18 08:17 07/14/18 08:17 PT 12.3 SECONDS (9.7-12.2) H 06/30/18 13:31 INR 1.1 06/30/18 13:31 APTT 30 SECONDS (21-34) 06/30/18 13:31 - Constitutional Appears: No Acute Distress, Chronically Ill - Head Exam Head Exam: ATRAUMATIC, NORMAL INSPECTION - Eye Exam Eye Exam: EOMI, Normal appearance - Neck Exam Neck Exam: Normal Inspection. absent: Tenderness - Respiratory Exam Respiratory Exam: Clear to Ausculation Bilateral, NORMAL BREATHING PATTERN - Cardiovascular Exam Cardiovascular Exam: REGULAR RHYTHM, +S1 - GI/Abdominal Exam GI & Abdominal Exam: Soft. absent: Tenderness - Extremities Exam Extremities Exam: Normal Inspection. absent: Tenderness - Neurological Exam Neurological Exam: Awake, CN II-XII Intact - Skin Skin Exam: Dry, Warm Assessment and Plan (1) Restrictive lung disease Status: Acute (2) Hypoxemia Status: Acute (3) Dehydration Status: Acute (4) CKD (chronic kidney disease) stage 4, GFR 15-29 ml/min Status: Acute (5) SEBASTIAN (acute kidney injury) Status: Acute (6) History of kidney transplant Status: Acute (7) Medical non-compliance Status: Acute - Assessment and Plan (Free Text) Plan: change to po lasix add EPO might need placement due to dementia status would taper steroids
--- NOTE | 2018-07-15 23:48 | CP.PCM.PN ---
Subjective - Date & Time of Evaluation Date of Evaluation: 07/15/18 Time of Evaluation: 19:35 - Subjective Subjective: Patient seen and evaluated Not in distress Diastolic CHF' COPD CKD Medical management Objective - Vital Signs/Intake and Output Vital Signs (last 24 hours): Temp Pulse Resp BP Pulse Ox 97.7 F 79 8 L 151/91 H 100 07/15/18 15:00 07/15/18 15:00 07/15/18 15:00 07/15/18 18:06 07/15/18 15:00 Intake and Output: 07/15/18 07/16/18 18:59 06:59 Output Total 400 Balance -400 - Medications Medications: Current Medications Amlodipine Besylate (Norvasc) 10 mg PO DAILY [facility] Last Admin: 07/15/18 09:15 Dose: 10 mg Apixaban (Eliquis) 2.5 mg PO BID [facility] Last Admin: 07/15/18 18:06 Dose: 2.5 mg Cinacalcet (Sensipar) 90 mg PO DAILY [facility] Last Admin: 07/15/18 09:15 Dose: 90 mg Clonidine HCl (Catapres) 0.2 mg PO BID [facility] Last Admin: 07/15/18 18:06 Dose: 0.2 mg Epoetin Percy (Procrit) 10,000 unit SC MWF [facility] Famotidine (Pepcid) 20 mg PO DAILY [facility] Last Admin: 07/15/18 09:15 Dose: 20 mg Furosemide (Lasix) 40 mg PO BID [facility] Last Admin: 07/15/18 18:06 Dose: 40 mg Ceftriaxone Sodium 1 gm/ (Sodium Chloride) 100 mls @ 100 mls/hr IVPB DAILY [facility]; Protocol Last Admin: 07/15/18 10:54 Dose: 100 mls/hr Methylprednisolone (Solu-Medrol) 40 mg IVP Q12H [facility] Last Admin: 07/15/18 18:07 Dose: 40 mg Rosuvastatin Calcium (Crestor) 5 mg PO HS [facility] Saccharomyces Boulardii (Florastor) 250 mg PO BID [facility] Last Admin: 07/15/18 18:05 Dose: 250 mg Sevelamer Carbonate (Renvela) 0.8 gm PO TIDCC [facility] Last Admin: 07/15/18 18:05 Dose: 0.8 gm Sodium Bicarbonate (Sodium Bicarbonate Tab) 325 mg PO BID [facility] Last Admin: 07/15/18 18:06 Dose: 325 mg Tacrolimus (Prograf Cap) 3 mg PO BID [facility] Last Admin: 07/15/18 18:05 Dose: 3 mg - Labs Labs: 07/14/18 08:17 07/14/18 08:17 PT 12.3 SECONDS (9.7-12.2) H 06/30/18 13:31 INR 1.1 06/30/18 13:31 APTT 30 SECONDS (21-34) 06/30/18 13:31
[2018-07-16] MEDS: MethylPREDNISolone 40 mg Vial IVP SCH (04:57)
[2018-07-16] MEDS: Sevelamer Carb 0.8 gm/Packet PO SCH ×3 (08:32→17:25)
--- NOTE | 2018-07-16 10:21 | CP.PCM.PN ---
Subjective - Date & Time of Evaluation Date of Evaluation: 07/16/18 Time of Evaluation: 10:19 - Subjective Subjective: PGY3 Note for Dr. Calvo; Medicine This patient was seen and examined at bedside; she is well known to me; normally very with it albeit always "sassy" however patient has never been combative. Today she is agitated, speaking nonsense about juice next to her bed asking me to read off all of the ingredients stating "no juice is in it" and that she wants to take her high flow oxygen off, she does not know the year or where she is and is normally ANox3 and makes coherent/logical decisions. She denies all symptoms today. Objective - Vital Signs/Intake and Output Vital Signs (last 24 hours): Temp Pulse Resp BP Pulse Ox 98.5 F 86 20 137/85 94 L 07/16/18 07:00 07/16/18 07:00 07/16/18 07:00 07/16/18 07:00 07/16/18 07:00 Intake and Output: 07/16/18 07/16/18 06:59 18:59 Output Total 400 Balance -400 - Medications Medications: Current Medications Amlodipine Besylate (Norvasc) 10 mg PO DAILY [facility] Last Admin: 07/15/18 09:15 Dose: 10 mg Apixaban (Eliquis) 2.5 mg PO BID [facility] Last Admin: 07/15/18 18:06 Dose: 2.5 mg Cinacalcet (Sensipar) 90 mg PO DAILY [facility] Last Admin: 07/15/18 09:15 Dose: 90 mg Clonidine HCl (Catapres) 0.2 mg PO BID [facility] Last Admin: 07/15/18 18:06 Dose: 0.2 mg Epoetin Percy (Procrit) 10,000 unit SC F [facility] Famotidine (Pepcid) 20 mg PO DAILY [facility] Last Admin: 07/15/18 09:15 Dose: 20 mg Furosemide (Lasix) 40 mg PO BID [facility] Last Admin: 07/15/18 18:06 Dose: 40 mg Ceftriaxone Sodium 1 gm/ (Sodium Chloride) 100 mls @ 100 mls/hr IVPB DAILY [facility]; Protocol Last Admin: 07/15/18 10:54 Dose: 100 mls/hr Methylprednisolone (Solu-Medrol) 40 mg IVP Q12H [facility] Last Admin: 07/16/18 04:57 Dose: 40 mg Rosuvastatin Calcium (Crestor) 5 mg PO HS [facility] Saccharomyces Boulardii (Florastor) 250 mg PO BID [facility] Last Admin: 07/15/18 18:05 Dose: 250 mg Sevelamer Carbonate (Renvela) 0.8 gm PO TIDCC [facility] Last Admin: 07/16/18 08:32 Dose: 0.8 gm Sodium Bicarbonate (Sodium Bicarbonate Tab) 325 mg PO BID [facility] Last Admin: 07/15/18 18:06 Dose: 325 mg Tacrolimus (Prograf Cap) 3 mg PO BID [facility] Last Admin: 07/15/18 18:05 Dose: 3 mg - Labs Labs: 07/14/18 08:17 07/14/18 08:17 PT 12.3 SECONDS (9.7-12.2) H 06/30/18 13:31 INR 1.1 06/30/18 13:31 APTT 30 SECONDS (21-34) 06/30/18 13:31 - Constitutional Appears: Non-toxic, Agitated, Confused, Cachectic, Chronically Ill - Eye Exam Eye Exam: absent: PERRL (patient has b/l glaucoma/cataracts and pterygiums) - ENT Exam ENT Exam: Mucous Membranes Dry (skin tenting) - Respiratory Exam Respiratory Exam: Accessory Muscle Use (patient has severe kyphoscoliosis and sits sideways in bed 2/2 to habitus ), Rales. absent: Clear to Ausculation Bilateral, Rhonchi, Wheezes, Respiratory Distress, Stridor, NORMAL BREATHING PATTERN - Cardiovascular Exam Cardiovascular Exam: REGULAR RHYTHM. absent: Tachycardia - GI/Abdominal Exam GI & Abdominal Exam: Soft - Back Exam Back Exam: absent: CVA tenderness (L), CVA tenderness (R) - Neurological Exam Neurological Exam: Awake. absent: Alert, Oriented x3 - Psychiatric Exam Psychiatric exam: Agitated - Skin Skin Exam: Warm Assessment and Plan - Assessment and Plan (Free Text) Assessment: Patient is a 77 year old F admitted for acute on chronic respiratory failure 2/2 to severe kyphoscoliosis, lupus; resolving Acute on Chronic Respiratory failure - Patients family refusing correction placement and want to take the patient home - Prednisone taper; goal to 10mg daily - Duonebs 3mL INH RQ4H - Influenza negative - Pulmonology; Dr. Acosta; thank you for your help - Patient is DNR/DNI, palliative care on consult, help appreciated Pneumonia; resolving - No leukocytosis, afebrile - Rocephin 1gm IVPB daily (active since 07/11/18) Steroid Induced Psychosis -patient on 1;1 -tapering solumedrol back to patients normal 10mg prednisone daily Left Subclavian DVT - Patient with left upper extremity edema on exam - LUE duplex + for subclavian DVT - Heme/Onc on consult, help appreciated - Continue Eliquis 2.5mg PO BID Thrombocytopenia;chronic - Heme/Onc on consult, help appreciated - Changed pepcid 20mg PO daily - Continue to monitor Congestive Heart Failure; chronic not in acute exacerbation with preserved EF - Last echo 05/2018: EF 50% - Continue Lasix 40mg PO BID - Cardiology on consult, Dr Irizarry, help appreciated - Measure daily weights Pulmonary hypertension;chronic - Previous Chest CT on admission from 06/04/18: No definite alveolitis bilaterally. Minimal dependent atelectasis, diminished in the interval bilaterally as compared prior chest CT 05/25/2017. 2. Prominent cardiomegaly r eiterated as well as increasing main pulmonary artery caliber (4.4 cm) suspicious for pulmonary artery hypertension though this is a clinical diagnosis and further clinical correlation is recommended. Further, ectatic dilated superior vena cava identified potentially a function of right heart failure possible right or failure. Clinically correlate further. - Repeat chest CT shows No acute infiltrate. Cardiomegaly and dilated main pulmonary artery. No pleural effusion. Multiple stable mild thoracic and upper lumbar vertebral compression deformities. Additional minor findings as above. 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 - continue to monitor for BM Prophylactic measure DVT: contraindicated 2/2 to thrombocytopenia GI: Pepcid 20mg PO BID 2/2 to high dose and chronic steroid use Disposition: Patient will need 24 hour home O2 (3L) (ideally would need high flow); PT recommends AAKASH however patient refusing; -Patient will also need home assistance; patient is not independent and needs help most of the day 2/2 to deconditioning, RA M05.611, M32.9 lupus, M41.9 monica re kyphoscoloiosis Case discussed with Dr. Calvo
[2018-07-16] MEDS: Saccharomyces Boulardi 250 mg Cap PO SCH ×2 (10:55→17:25)
[2018-07-16] MEDS: POLYETHYLENE GLYCOL 3350 17 GM/Dose PACKET PO SCH ×2 (10:55→17:25)
--- NOTE | 2018-07-16 13:07 | CP.PCM.PN ---
Subjective - Date & Time of Evaluation Date of Evaluation: 07/16/18 Time of Evaluation: 13:06 - Subjective Subjective: no labs today pt is agitated refused labs pt is talking but not making sense. unable to obtain ros Objective - Vital Signs/Intake and Output Vital Signs (last 24 hours): Temp Pulse Resp BP Pulse Ox 97.7 F 84 20 127/75 100 07/16/18 10:53 07/16/18 10:53 07/16/18 10:53 07/16/18 10:55 07/16/18 10:53 Intake and Output: 07/16/18 07/16/18 06:59 18:59 Output Total 400 Balance -400 - Medications Medications: Current Medications Amlodipine Besylate (Norvasc) 10 mg PO DAILY [facility] Last Admin: 07/16/18 10:55 Dose: 10 mg Apixaban (Eliquis) 2.5 mg PO BID [facility] Last Admin: 07/16/18 10:55 Dose: 2.5 mg Cinacalcet (Sensipar) 90 mg PO DAILY [facility] Last Admin: 07/16/18 11:04 Dose: 90 mg Clonidine HCl (Catapres) 0.2 mg PO BID [facility] Last Admin: 07/16/18 10:54 Dose: 0.2 mg Epoetin Percy (Procrit) 10,000 unit SC [facility] Famotidine (Pepcid) 20 mg PO DAILY [facility] Last Admin: 07/16/18 10:55 Dose: 20 mg Furosemide (Lasix) 40 mg PO BID [facility] Last Admin: 07/16/18 10:55 Dose: 40 mg Ceftriaxone Sodium 1 gm/ (Sodium Chloride) 100 mls @ 100 mls/hr IVPB DAILY [facility]; Protocol Last Admin: 07/16/18 10:54 Dose: 100 mls/hr Polyethylene Glycol (Miralax) 17 gm PO BID [facility] Last Admin: 07/16/18 10:55 Dose: 17 gm Prednisone (Prednisone Tab) 20 mg PO DAILY [facility]; Taper Stop: 07/26/18 09:59 Rosuvastatin Calcium (Crestor) 5 mg PO HS [facility] Saccharomyces Boulardii (Florastor) 250 mg PO BID [facility] Last Admin: 07/16/18 10:55 Dose: 250 mg Sevelamer Carbonate (Renvela) 0.8 gm PO TIDCC [facility] Last Admin: 07/16/18 11:45 Dose: Not Given Sodium Bicarbonate (Sodium Bicarbonate Tab) 325 mg PO BID [facility] Last Admin: 07/16/18 10:56 Dose: Not Given Tacrolimus (Prograf Cap) 3 mg PO BID [facility] Last Admin: 07/16/18 11:05 Dose: 3 mg - Labs Labs: 07/14/18 08:17 07/14/18 08:17 PT 12.3 SECONDS (9.7-12.2) H 06/30/18 13:31 INR 1.1 06/30/18 13:31 APTT 30 SECONDS (21-34) 06/30/18 13:31 - Constitutional Appears: Non-toxic, Older Than Stated Age, Chronically Ill - Head Exam Head Exam: NORMAL INSPECTION, NORMOCEPHALIC - Eye Exam Eye Exam: Normal appearance, PERRL - ENT Exam ENT Exam: Mucous Membranes Moist, Normal Exam - Neck Exam Neck Exam: Full ROM, Normal Inspection - Respiratory Exam Respiratory Exam: Decreased Breath Sounds, Rhonchi - Cardiovascular Exam Cardiovascular Exam: REGULAR RHYTHM, RRR - GI/Abdominal Exam GI & Abdominal Exam: Distended, Soft - Extremities Exam Extremities Exam: Full ROM, Normal Inspection - Neurological Exam Neurological Exam: Alert, Awake. absent: Oriented x3 - Psychiatric Exam Psychiatric exam: Agitated - Skin Skin Exam: Dry, Intact Assessment and Plan (1) SEBASTIAN (acute kidney injury) Status: Acute (2) Acute respiratory failure with hypoxia Status: Acute (3) CKD (chronic kidney disease) stage 4, GFR 15-29 ml/min Status: Acute (4) History of kidney transplant Status: Acute (5) Hypoxemia Status: Acute (6) Hypertension Status: Acute - Assessment and Plan (Free Text) Assessment: needs daily labs, monitor bmp hypercalcemia: on sensipar and lasix poor prognosis
--- NOTE | 2018-07-17 05:28 | CP.PCM.PN ---
Subjective - Date & Time of Evaluation Date of Evaluation: 07/16/18 Time of Evaluation: 20:10 - Subjective Subjective: Patient confused Not in distress Diastolic CHF' COPD CKD Medical management Objective - Vital Signs/Intake and Output Vital Signs (last 24 hours): Temp Pulse Resp BP Pulse Ox 97.9 F 79 22 123/79 100 07/16/18 23:15 07/16/18 23:15 07/16/18 23:15 07/16/18 23:15 07/16/18 23:15 Intake and Output: 07/16/18 07/17/18 18:59 06:59 Intake Total 700 Balance 700 - Medications Medications: Current Medications Amlodipine Besylate (Norvasc) 10 mg PO DAILY [facility] Last Admin: 07/16/18 10:55 Dose: 10 mg Apixaban (Eliquis) 2.5 mg PO BID [facility] Last Admin: 07/16/18 17:24 Dose: 2.5 mg Cinacalcet (Sensipar) 90 mg PO DAILY [facility] Last Admin: 07/16/18 11:04 Dose: 90 mg Clonidine HCl (Catapres) 0.2 mg PO BID [facility] Last Admin: 07/16/18 17:25 Dose: 0.2 mg Epoetin Percy (Procrit) 10,000 [place] [facility] [place]ot[place] (Pepcid) 20 mg PO DAILY [facility] Last Admin: 07/16/18 10:55 Dose: 20 mg Furosemide (Lasix) 40 mg PO BID [facility] Last Admin: 07/16/18 17:24 Dose: 40 mg Polyethylene Glycol (Miralax) 17 gm PO BID [facility] Last Admin: 07/16/18 17:25 Dose: 17 gm Prednisone (Prednisone Tab) 20 mg PO DAILY [facility]; Taper Stop: 07/26/18 09:59 Rosuvastatin Calcium (Crestor) 5 mg PO HS [facility] Saccharomyces Boulardii (Florastor) 250 mg PO BID [facility] Last Admin: 07/16/18 17:25 Dose: 250 mg Sevelamer Carbonate (Renvela) 0.8 gm PO TIDCC [facility] Last Admin: 07/16/18 17:25 Dose: Not Given Sodium Bicarbonate (Sodium Bicarbonate Tab) 325 mg PO BID [facility] Last Admin: 07/16/18 17:24 Dose: Not Given Tacrolimus (Prograf Cap) 3 mg PO BID [facility] Last Admin: 07/16/18 17:23 Dose: 3 mg - Labs Labs: 07/14/18 08:17 07/14/18 08:17 PT 12.3 SECONDS (9.7-12.2) H 06/30/18 13:31 INR 1.1 06/30/18 13:31 APTT 30 SECONDS (21-34) 06/30/18 13:31
--- NOTE | 2018-07-17 07:42 | CP.PCM.PN ---
Subjective - Date & Time of Evaluation Date of Evaluation: 07/17/18 Time of Evaluation: 07:42 - Subjective Subjective: Medicine Progress Note - Dr Calvo's service Patient seen and examined at bedside. Per nursing patient refusing telemetry and blood work. Patient still dyspneic. Less confused this morning. Offers no acute complaints. Objective - Vital Signs/Intake and Output Vital Signs (last 24 hours): Temp Pulse Resp BP Pulse Ox 97.9 F 79 22 123/79 100 07/16/18 23:15 07/16/18 23:15 07/16/18 23:15 07/16/18 23:15 07/16/18 23:15 - Medications Medications: Current Medications Amlodipine Besylate (Norvasc) 10 mg PO DAILY [facility] Last Admin: 07/16/18 10:55 Dose: 10 mg Apixaban (Eliquis) 2.5 mg PO BID [facility] Last Admin: 07/16/18 17:24 Dose: 2.5 mg Cinacalcet (Sensipar) 90 mg PO DAILY [facility] Last Admin: 07/16/18 11:04 Dose: 90 mg Clonidine HCl (Catapres) 0.2 mg PO BID [facility] Last Admin: 07/16/18 17:25 Dose: 0.2 mg Epoetin Percy (Procrit) 10,000 [place] [facility] [place]amotidine (Pepcid) 20 mg PO DAILY [facility] Last Admin: 07/16/18 10:55 Dose: 20 mg Furosemide (Lasix) 40 mg PO BID [facility] Last Admin: 07/16/18 17:24 Dose: 40 mg Polyethylene Glycol (Miralax) 17 gm PO BID [facility] Last Admin: 07/16/18 17:25 Dose: 17 gm Prednisone (Prednisone Tab) 20 mg PO DAILY [facility]; Taper Stop: 07/26/18 09:59 Rosuvastatin Calcium (Crestor) 5 mg PO HS [facility] Saccharomyces Boulardii (Florastor) 250 mg PO BID [facility] Last Admin: 07/16/18 17:25 Dose: 250 mg Sevelamer Carbonate (Renvela) 0.8 gm PO TIDCC [facility] Last Admin: 07/16/18 17:25 Dose: Not Given Sodium Bicarbonate (Sodium Bicarbonate Tab) 325 mg PO BID [facility] Last Admin: 07/16/18 17:24 Dose: Not Given Tacrolimus (Prograf Cap) 3 mg PO BID [facility] Last Admin: 07/16/18 17:23 Dose: 3 mg - Labs Labs: 07/14/18 08:17 07/14/18 08:17 PT 12.3 SECONDS (9.7-12.2) H 06/30/18 13:31 INR 1.1 06/30/18 13:31 APTT 30 SECONDS (21-34) 06/30/18 13:31 - Additional Findings Additional findings: - Constitutional Appears: Non-toxic, Agitated, Confused, Cachectic, Chronically Ill - Eye Exam Eye Exam: absent: PERRL (patient has b/l glaucoma/cataracts and pterygiums) - ENT Exam ENT Exam: Mucous Membranes Dry (skin tenting) - Respiratory Exam Respiratory Exam: Accessory Muscle Use (patient has severe kyphoscoliosis and sits sideways in bed 2/2 to habitus ), Rales. absent: Clear to Ausculation Bilateral, Rhonchi, Wheezes, Respiratory Distress, Stridor, NORMAL BREATHING PATTERN - Cardiovascular Exam Cardiovascular Exam: REGULAR RHYTHM. absent: Tachycardia - GI/Abdominal Exam GI & Abdominal Exam: Soft - Back Exam Back Exam: absent: CVA tenderness (L), CVA tenderness (R) - Neurological Exam Neurological Exam: Awake. absent: Alert, Oriented x3 - Skin Skin Exam: Warm Assessment and Plan - Assessment and Plan (Free Text) Assessment: Patient is a 77 year old F admitted for acute on chronic respiratory failure 2/2 to severe kyphoscoliosis, lupus; resolving Acute on Chronic Respiratory failure - Patients family refusing fpc placement and want to take the patient home - Prednisone taper; goal to 10mg daily - Duonebs 3mL INH RQ4H - Influenza negative - Pulmonology; Dr. 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 -Solumedrol discontinued -On prednisone 20mg PO daily Left Subclavian DVT - Patient with left upper extremity edema on exam - LUE duplex + for subclavian DVT - Heme/Onc on consult, help appreciated - Continue Eliquis 2.5mg PO BID Thrombocytopenia;chronic - Heme/Onc on consult, help appreciated - Changed pepcid 20mg PO daily - Continue to monitor Congestive Heart Failure; chronic not in acute exacerbation with preserved EF - Last echo 05/2018: EF 50% - Continue Lasix 40mg PO BID - Cardiology on consult, Dr Irizarry, help appreciated - Measure daily weights Pulmonary hypertension;chronic - Previous Chest CT on admission from 06/04/18: No definite alveolitis bilaterally. Minimal dependent atelectasis, diminished in the interval bilaterally as compared prior chest CT 05/25/2017. 2. Prominent cardiomegaly reiterated as well as increasing main pulmonary artery caliber (4.4 cm) suspicious for pulmonary artery hypertension though this is a clinical diagnosis and further clinical correlation is recommended. Further, ectatic dilated superior vena cava identified potentially a function of right heart failure possible right or failure. Clinically correlate further. - Repeat chest CT shows No acute infiltrate. Cardiomegaly and dilated main pulmonary artery. No pleural effusion. Multiple stable mild thoracic and upper lumbar vertebral compression deformities. Additional minor findings as above. (see full report) -Treatment as per pulmonology Hx of Hypertension -Clonidine 0.2mg PO BID -Norvasc discontinued -Vital signs Q4H Acute on Chronic Kidney Disease -Baseline Cr 2.5 -Continue Lasix 40mg PO BID 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 (HD for 5 years and kidney transplant at [facility] 10/01/2001) -Continue Tacrolimus 3mg PO BID -Continue Sensipar 90mg PO daily, sodium bicarb 325mg PO BID -Tacrolimus level therapeutic -Nephrology on consult, Dr Sykes, help appreciated History of lupus; chronic -c/w prednisone daily Macrocytic Anemia; stable and chronic -Hgb stable -Vitamin B12 and folate within normal range -Monitor serial CBCs Constipation - was given Lactulose once on 07/11/18, gave additional dose of lactulose on 07/12/18. - continue to monitor for BM Prophylactic measure DVT: contraindicated 2/2 to thrombocytopenia GI: Pepcid 20mg PO BID 2/2 to high dose and chronic steroid use Disposition: Patient will need 24 hour home O2 (3L) (ideally would need high flow); PT recommends [facility] however patient refusing; Awaiting case management for set up of home O2 for discharge. -Patient will also need home assistance; patient is not independent and needs help most of the day 2/2 to deconditioning, RA M05.611, M32.9 lupus, M41.9 severe kyphoscoloiosis Case discussed with Dr. Lubna Odell DO PGY-2
[2018-07-17 08:34] VITALS: RESP 20
[2018-07-17] MEDS: Sevelamer Carb 0.8 gm/Packet PO SCH ×3 (09:00→17:00)
[2018-07-17] MEDS ORDERED: Epoetin Alfa 10,000 unit/ml Dialysis SC SCH (09:00)
[2018-07-17] MEDS ORDERED: MethylPREDNISolone 40 mg Vial IVP SCH (10:00)
[2018-07-17] MEDS: Saccharomyces Boulardi 250 mg Cap PO SCH ×2 (11:11→18:11)
[2018-07-17] MEDS: POLYETHYLENE GLYCOL 3350 17 GM/Dose PACKET PO SCH ×2 (11:11→18:13)
[2018-07-17] MEDS ORDERED: EPOETIN ALFA 10,000 UNIT/ML ML SC SCH ×2 (11:30→11:45)
--- NOTE | 2018-07-17 13:02 | CP.PCM.PN ---
Subjective - Date & Time of Evaluation Date of Evaluation: 07/17/18 Time of Evaluation: 12:59 - Subjective Subjective: awake, confused, not dyspneic no new labs BP lower this AM possible discharge plans noted Objective - Vital Signs/Intake and Output Vital Signs (last 24 hours): Temp Pulse Resp BP Pulse Ox 98.1 F 112 H 20 98/50 L 94 L 07/17/18 08:00 07/17/18 08:00 07/17/18 08:00 07/17/18 11:12 07/17/18 08:00 - Medications Medications: Current Medications Apixaban (Eliquis) 2.5 mg PO BID [facility] Last Admin: 07/17/18 11:10 Dose: 2.5 mg Cinacalcet (Sensipar) 90 mg PO DAILY [facility] Last Admin: 07/17/18 11:09 Dose: 90 mg Clonidine HCl (Catapres) 0.2 mg PO BID [facility] Last Admin: 07/17/18 11:23 Dose: Not Given Epoetin Percy (Procrit) 10,000 unit SC MWF [facility] Last Admin: 07/17/18 11:45 Dose: 10,000 unit Famotidine (Pepcid) 20 mg PO DAILY [facility] Last Admin: 07/17/18 11:11 Dose: 20 mg Furosemide (Lasix) 40 mg PO BID [facility] Last Admin: 07/17/18 11:12 Dose: Not Given Polyethylene Glycol (Miralax) 17 gm PO BID [facility] Last Admin: 07/17/18 11:11 Dose: 17 gm Prednisone (Prednisone Tab) 20 mg PO DAILY [facility]; Taper Stop: 07/26/18 09:59 Last Admin: 07/17/18 11:10 Dose: 20 mg Rosuvastatin Calcium (Crestor) 5 mg PO HS [facility] Saccharomyces Boulardii (Florastor) 250 mg PO BID [facility] Last Admin: 07/17/18 11:11 Dose: 250 mg Sevelamer Carbonate (Renvela) 0.8 gm PO TIDCC [facility] Last Admin: 07/17/18 09:00 Dose: 0.8 gm Sodium Bicarbonate (Sodium Bicarbonate Tab) 325 mg PO BID [facility] Last Admin: 07/17/18 11:09 Dose: 325 mg Tacrolimus (Prograf Cap) 3 mg PO BID [facility] Last Admin: 07/17/18 11:24 Dose: 3 mg - Labs Labs: 07/14/18 08:17 07/14/18 08:17 PT 12.3 SECONDS (9.7-12.2) H 06/30/18 13:31 INR 1.1 06/30/18 13:31 APTT 30 SECONDS (21-34) 06/30/18 13:31 - Constitutional Appears: No Acute Distress, Chronically Ill - Head Exam Head Exam: ATRAUMATIC, NORMAL INSPECTION - Eye Exam Eye Exam: EOMI, Normal appearance - Respiratory Exam Respiratory Exam: Clear to Ausculation Bilateral, NORMAL BREATHING PATTERN - Cardiovascular Exam Cardiovascular Exam: REGULAR RHYTHM, +S1 - GI/Abdominal Exam GI & Abdominal Exam: Soft. absent: Tenderness - Extremities Exam Extremities Exam: Normal Inspection. absent: Pedal Edema - Neurological Exam Neurological Exam: Altered - Skin Skin Exam: Dry, Warm Assessment and Plan (1) Restrictive lung disease Status: Acute (2) Hypoxemia Status: Acute (3) CKD (chronic kidney disease) stage 4, GFR 15-29 ml/min Status: Acute (4) SEBASTIAN (acute kidney injury) Status: Acute (5) History of kidney transplant Status: Acute (6) Medical non-compliance Status: Acute - Assessment and Plan (Free Text) Plan: continue sensipar for hypercalcemia, sec HPT po lasix stop amlodipine repeat labs today; need to confirm labs prior to discharge
--- NOTE | 2018-07-17 23:19 | CP.PCM.PN ---
Subjective - Date & Time of Evaluation Date of Evaluation: 07/15/18 Time of Evaluation: 19:00 - Subjective Subjective: No complaints. Objective - Vital Signs/Intake and Output Vital Signs (last 24 hours): Temp Pulse Resp BP Pulse Ox 98.6 F 93 H 20 112/66 100 07/17/18 16:00 07/17/18 16:00 07/17/18 16:00 07/17/18 18:05 07/17/18 16:00 Intake and Output: 07/17/18 07/18/18 18:59 06:59 Intake Total 400 400 Balance 400 400 - Medications Medications: Current Medications Apixaban (Eliquis) 2.5 mg PO BID [facility] Last Admin: 07/17/18 18:05 Dose: 2.5 mg Cinacalcet (Sensipar) 90 mg PO DAILY [facility] Last Admin: 07/17/18 11:09 Dose: 90 mg Clonidine HCl (Catapres) 0.2 mg PO BID [facility] Last Admin: 07/17/18 18:11 Dose: 0.2 mg Epoetin Percy (Procrit) 10,000 unit SC MWF [facility] Last Admin: 07/17/18 11:45 Dose: 10,000 unit Famotidine (Pepcid) 20 mg PO DAILY [facility] Last Admin: 07/17/18 11:11 Dose: 20 mg Furosemide (Lasix) 40 mg PO BID [facility] Last Admin: 07/17/18 18:05 Dose: 40 mg Polyethylene Glycol (Miralax) 17 gm PO BID [facility] Last Admin: 07/17/18 18:13 Dose: 17 gm Prednisone (Prednisone Tab) 20 mg PO DAILY [facility]; Taper Stop: 07/26/18 09:59 Last Admin: 07/17/18 11:10 Dose: 20 mg Rosuvastatin Calcium (Crestor) 5 mg PO HS [facility] Saccharomyces Boulardii (Florastor) 250 mg PO BID [facility] Last Admin: 07/17/18 18:11 Dose: 250 mg Sevelamer Carbonate (Renvela) 0.8 gm PO TIDCC [facility] Last Admin: 07/17/18 17:00 Dose: 0.8 gm Sodium Bicarbonate (Sodium Bicarbonate Tab) 325 mg PO BID [facility] Last Admin: 07/17/18 18:04 Dose: 325 mg Tacrolimus (Prograf Cap) 3 mg PO BID [facility] Last Admin: 07/17/18 18:05 Dose: 3 mg - Labs Labs: 07/14/18 08:17 07/14/18 08:17 PT 12.3 SECONDS (9.7-12.2) H 06/30/18 13:31 INR 1.1 06/30/18 13:31 APTT 30 SECONDS (21-34) 06/30/18 13:31 - Head Exam Head Exam: ATRAUMATIC - Eye Exam Eye Exam: Normal appearance - ENT Exam ENT Exam: Mucous Membranes Dry - Respiratory Exam Respiratory Exam: NORMAL BREATHING PATTERN - Cardiovascular Exam Cardiovascular Exam: +S1, +S2 - GI/Abdominal Exam GI & Abdominal Exam: Normal Bowel Sounds Assessment and Plan (1) Deep vein thrombosis (DVT) of left upper extremity Assessment & Plan: on Eliquis Status: Acute (2) Thrombocytopenia Assessment & Plan: SLE and immunosuppresion Status: Acute (3) Anemia Assessment & Plan: SLE and CKD Status: Acute
--- NOTE | 2018-07-17 23:20 | CP.PCM.PN ---
Subjective - Date & Time of Evaluation Date of Evaluation: 07/16/18 Time of Evaluation: 13:00 - Subjective Subjective: No complaints. Objective - Vital Signs/Intake and Output Vital Signs (last 24 hours): Temp Pulse Resp BP Pulse Ox 98.6 F 93 H 20 112/66 100 07/17/18 16:00 07/17/18 16:00 07/17/18 16:00 07/17/18 18:05 07/17/18 16:00 Intake and Output: 07/17/18 07/18/18 18:59 06:59 Intake Total 400 400 Balance 400 400 - Medications Medications: Current Medications Apixaban (Eliquis) 2.5 mg PO BID [facility] Last Admin: 07/17/18 18:05 Dose: 2.5 mg Cinacalcet (Sensipar) 90 mg PO DAILY [facility] Last Admin: 07/17/18 11:09 Dose: 90 mg Clonidine HCl (Catapres) 0.2 mg PO BID [facility] Last Admin: 07/17/18 18:11 Dose: 0.2 mg Epoetin Percy (Procrit) 10,000 unit SC MWF [facility] Last Admin: 07/17/18 11:45 Dose: 10,000 unit Famotidine (Pepcid) 20 mg PO DAILY [facility] Last Admin: 07/17/18 11:11 Dose: 20 mg Furosemide (Lasix) 40 mg PO BID [facility] Last Admin: 07/17/18 18:05 Dose: 40 mg Polyethylene Glycol (Miralax) 17 gm PO BID [facility] Last Admin: 07/17/18 18:13 Dose: 17 gm Prednisone (Prednisone Tab) 20 mg PO DAILY [facility]; Taper Stop: 07/26/18 09:59 Last Admin: 07/17/18 11:10 Dose: 20 mg Rosuvastatin Calcium (Crestor) 5 mg PO HS [facility] Saccharomyces Boulardii (Florastor) 250 mg PO BID [facility] Last Admin: 07/17/18 18:11 Dose: 250 mg Sevelamer Carbonate (Renvela) 0.8 gm PO TIDCC [facility] Last Admin: 07/17/18 17:00 Dose: 0.8 gm Sodium Bicarbonate (Sodium Bicarbonate Tab) 325 mg PO BID [facility] Last Admin: 07/17/18 18:04 Dose: 325 mg Tacrolimus (Prograf Cap) 3 mg PO BID [facility] Last Admin: 07/17/18 18:05 Dose: 3 mg - Labs Labs: 07/14/18 08:17 07/14/18 08:17 PT 12.3 SECONDS (9.7-12.2) H 06/30/18 13:31 INR 1.1 06/30/18 13:31 APTT 30 SECONDS (21-34) 06/30/18 13:31 - Head Exam Head Exam: ATRAUMATIC - Eye Exam Eye Exam: Normal appearance - ENT Exam ENT Exam: Mucous Membranes Dry - Respiratory Exam Respiratory Exam: NORMAL BREATHING PATTERN - Cardiovascular Exam Cardiovascular Exam: +S1, +S2 - GI/Abdominal Exam GI & Abdominal Exam: Normal Bowel Sounds Assessment and Plan (1) Deep vein thrombosis (DVT) of left upper extremity Assessment & Plan: on Eliquis Status: Acute (2) Thrombocytopenia Assessment & Plan: immunosuppresion and SLE Status: Acute (3) Anemia Assessment & Plan: SLE and CKD Status: Acute
--- NOTE | 2018-07-17 23:23 | CP.PCM.PN ---
Subjective - Date & Time of Evaluation Date of Evaluation: 07/17/18 Time of Evaluation: 12:00 - Subjective Subjective: No complaints but confused. Objective - Vital Signs/Intake and Output Vital Signs (last 24 hours): Temp Pulse Resp BP Pulse Ox 98.6 F 93 H 20 112/66 100 07/17/18 16:00 07/17/18 16:00 07/17/18 16:00 07/17/18 18:05 07/17/18 16:00 Intake and Output: 07/17/18 07/18/18 18:59 06:59 Intake Total 400 400 Balance 400 400 - Medications Medications: Current Medications Apixaban (Eliquis) 2.5 mg PO BID [facility] Last Admin: 07/17/18 18:05 Dose: 2.5 mg Cinacalcet (Sensipar) 90 mg PO DAILY [facility] Last Admin: 07/17/18 11:09 Dose: 90 mg Clonidine HCl (Catapres) 0.2 mg PO BID [facility] Last Admin: 07/17/18 18:11 Dose: 0.2 mg Epoetin Percy (Procrit) 10,000 unit SC MWF [facility] Last Admin: 07/17/18 11:45 Dose: 10,000 unit Famotidine (Pepcid) 20 mg PO DAILY [facility] Last Admin: 07/17/18 11:11 Dose: 20 mg Furosemide (Lasix) 40 mg PO BID [facility] Last Admin: 07/17/18 18:05 Dose: 40 mg Polyethylene Glycol (Miralax) 17 gm PO BID [facility] Last Admin: 07/17/18 18:13 Dose: 17 gm Prednisone (Prednisone Tab) 20 mg PO DAILY [facility]; Taper Stop: 07/26/18 09:59 Last Admin: 07/17/18 11:10 Dose: 20 mg Rosuvastatin Calcium (Crestor) 5 mg PO HS [facility] Saccharomyces Boulardii (Florastor) 250 mg PO BID [facility] Last Admin: 07/17/18 18:11 Dose: 250 mg Sevelamer Carbonate (Renvela) 0.8 gm PO TIDCC [facility] Last Admin: 07/17/18 17:00 Dose: 0.8 gm Sodium Bicarbonate (Sodium Bicarbonate Tab) 325 mg PO BID [facility] Last Admin: 07/17/18 18:04 Dose: 325 mg Tacrolimus (Prograf Cap) 3 mg PO BID [facility] Last Admin: 07/17/18 18:05 Dose: 3 mg - Labs Labs: 07/14/18 08:17 07/14/18 08:17 PT 12.3 SECONDS (9.7-12.2) H 06/30/18 13:31 INR 1.1 06/30/18 13:31 APTT 30 SECONDS (21-34) 06/30/18 13:31 - Head Exam Head Exam: ATRAUMATIC - Eye Exam Eye Exam: Normal appearance - ENT Exam ENT Exam: Mucous Membranes Dry - Respiratory Exam Respiratory Exam: NORMAL BREATHING PATTERN - Cardiovascular Exam Cardiovascular Exam: +S1, +S2 - GI/Abdominal Exam GI & Abdominal Exam: Normal Bowel Sounds Assessment and Plan (1) Deep vein thrombosis (DVT) of left upper extremity Assessment & Plan: on Eliquis Status: Acute (2) Thrombocytopenia Assessment & Plan: SLE and immunosuppresion Status: Acute (3) Anemia Assessment & Plan: SLE and CKD Status: Acute
--- NOTE | 2018-07-18 06:13 | CP.PCM.PN ---
Subjective - Date & Time of Evaluation Date of Evaluation: 07/17/18 Time of Evaluation: 17:15 - Subjective Subjective: Patient seen and evaluated No new cardiac events Not in distress Diastolic CHF' COPD CKD Objective - Vital Signs/Intake and Output Vital Signs (last 24 hours): Temp Pulse Resp BP Pulse Ox 98.2 F 107 H 20 103/57 L 99 07/18/18 00:00 07/18/18 00:00 07/18/18 00:00 07/18/18 00:00 07/18/18 00:00 Intake and Output: 07/17/18 07/18/18 18:59 06:59 Intake Total 400 400 Balance 400 400 - Medications Medications: Current Medications Apixaban (Eliquis) 2.5 mg PO BID [facility] Last Admin: 07/17/18 18:05 Dose: 2.5 mg Cinacalcet (Sensipar) 90 mg PO DAILY [facility] Last Admin: 07/17/18 11:09 Dose: 90 mg Clonidine HCl (Catapres) 0.2 mg PO BID [facility] Last Admin: 07/17/18 18:11 Dose: 0.2 mg Epoetin Percy (Procrit) 10,000 unit SC MWF [facility] Last Admin: 07/17/18 11:45 Dose: 10,000 unit Famotidine (Pepcid) 20 mg PO DAILY [facility] Last Admin: 07/17/18 11:11 Dose: 20 mg Furosemide (Lasix) 40 mg PO BID [facility] Last Admin: 07/17/18 18:05 Dose: 40 mg Polyethylene Glycol (Miralax) 17 gm PO BID [facility] Last Admin: 07/17/18 18:13 Dose: 17 gm Prednisone (Prednisone Tab) 20 mg PO DAILY [facility]; Taper Stop: 07/26/18 09:59 Last Admin: 07/17/18 11:10 Dose: 20 mg Rosuvastatin Calcium (Crestor) 5 mg PO HS [facility] Saccharomyces Boulardii (Florastor) 250 mg PO BID [facility] Last Admin: 07/17/18 18:11 Dose: 250 mg Sevelamer Carbonate (Renvela) 0.8 gm PO TIDCC [facility] Last Admin: 07/17/18 17:00 Dose: 0.8 gm Sodium Bicarbonate (Sodium Bicarbonate Tab) 325 mg PO BID [facility] Last Admin: 07/17/18 18:04 Dose: 325 mg Tacrolimus (Prograf Cap) 3 mg PO BID [facility] Last Admin: 07/17/18 18:05 Dose: 3 mg - Labs Labs: 07/14/18 08:17 07/14/18 08:17 PT 12.3 SECONDS (9.7-12.2) H 06/30/18 13:31 INR 1.1 06/30/18 13:31 APTT 30 SECONDS (21-34) 06/30/18 13:31
--- NOTE | 2018-07-18 07:36 | CP.PCM.PN ---
Subjective - Date & Time of Evaluation Date of Evaluation: 07/18/18 Time of Evaluation: 07:36 - Subjective Subjective: Medicine Progress Note - Dr Calvo's service Patient seen and examined at bedside. Per nursing no acute events overnight. Patient is doing well, resting comfortably. Sating well on NC. Offers no complaints at this time. Objective - Vital Signs/Intake and Output Vital Signs (last 24 hours): Temp Pulse Resp BP Pulse Ox 98.2 F 107 H 20 103/57 L 99 07/18/18 00:00 07/18/18 00:00 07/18/18 00:00 07/18/18 00:00 07/18/18 00:00 Intake and Output: 07/18/18 07/18/18 06:59 18:59 Intake Total 400 150 Balance 400 150 - Medications Medications: Current Medications Apixaban (Eliquis) 2.5 mg PO BID [facility] Last Admin: 07/17/18 18:05 Dose: 2.5 mg Cinacalcet (Sensipar) 90 mg PO DAILY [facility] Last Admin: 07/17/18 11:09 Dose: 90 mg Clonidine HCl (Catapres) 0.2 mg PO BID [facility] Last Admin: 07/17/18 18:11 Dose: 0.2 mg Epoetin Percy (Procrit) 10,000 unit SC MWF [facility] Last Admin: 07/17/18 11:45 Dose: 10,000 unit Famotidine (Pepcid) 20 mg PO DAILY [facility] Last Admin: 07/17/18 11:11 Dose: 20 mg Furosemide (Lasix) 40 mg PO BID [facility] Last Admin: 07/17/18 18:05 Dose: 40 mg Polyethylene Glycol (Miralax) 17 gm PO BID [facility] Last Admin: 07/17/18 18:13 Dose: 17 gm Prednisone (Prednisone Tab) 20 mg PO DAILY [facility]; Taper Stop: 07/26/18 09:59 Last Admin: 07/17/18 11:10 Dose: 20 mg Rosuvastatin Calcium (Crestor) 5 mg PO HS [facility] Saccharomyces Boulardii (Florastor) 250 mg PO BID [facility] Last Admin: 07/17/18 18:11 Dose: 250 mg Sevelamer Carbonate (Renvela) 0.8 gm PO TIDCC [facility] Last Admin: 07/17/18 17:00 Dose: 0.8 gm Sodium Bicarbonate (Sodium Bicarbonate Tab) 325 mg PO BID [facility] Last Admin: 07/17/18 18:04 Dose: 325 mg Tacrolimus (Prograf Cap) 3 mg PO BID [facility] Last Admin: 07/17/18 18:05 Dose: 3 mg - Labs Labs: 07/14/18 08:17 07/14/18 08:17 PT 12.3 SECONDS (9.7-12.2) H 06/30/18 13:31 INR 1.1 06/30/18 13:31 APTT 30 SECONDS (21-34) 06/30/18 13:31 - Additional Findings Additional findings: - Constitutional Appears: Non-toxic, Agitated, Confused, Cachectic, Chronically Ill - Eye Exam Eye Exam: absent: PERRL (patient has b/l glaucoma/cataracts and pterygiums) - ENT Exam ENT Exam: Mucous Membranes Dry (skin tenting) - Respiratory Exam Respiratory Exam: Accessory Muscle Use (patient has severe kyphoscoliosis and sits sideways in bed 2/2 to habitus ), Rales. absent: Clear to Ausculation Bilateral, Rhonchi, Wheezes, Respiratory Distress, Stridor, NORMAL BREATHING PATTERN - Cardiovascular Exam Cardiovascular Exam: REGULAR RHYTHM. absent: Tachycardia - GI/Abdominal Exam GI & Abdominal Exam: Soft - Back Exam Back Exam: absent: CVA tenderness (L), CVA tenderness (R) - Neurological Exam Neurological Exam: Awake. absent: Alert, Oriented x3 - Skin Skin Exam: Warm Assessment and Plan - Assessment and Plan (Free Text) Assessment: Patient is a 77 year old F admitted for acute on chronic respiratory failure 2/2 to severe kyphoscoliosis, lupus; resolving Acute on Chronic Respiratory failure - Patients family refusing intermediate placement and want to take the patient home - Prednisone taper; goal to 10mg daily - Duonebs 3mL INH RQ4H - Influenza negative - Pulmonology; Dr. 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 -Solumedrol discontinued -On prednisone 20mg PO daily Left Subclavian DVT - Patient with left upper extremity edema on exam - LUE duplex + for subclavian DVT - Heme/Onc on consult, help appreciated - Continue Eliquis 2.5mg PO BID Thrombocytopenia;chronic - Heme/Onc on consult, help appreciated - Changed pepcid 20mg PO daily - Continue to monitor Congestive Heart Failure; chronic not in acute exacerbation with preserved EF - Last echo 05/2018: EF 50% - Continue Lasix 40mg PO BID - Cardiology on consult, Dr Irizarry, help appreciated - Measure daily weights Pulmonary hypertension;chronic - Previous Chest CT on admission from 06/04/18: No definite alveolitis bilaterally. Minimal dependent atelectasis, diminished in the interval bilaterally as compared prior chest CT 05/25/2017. 2. Prominent cardiomegaly reiterated as well as increasing main pulmonary artery caliber (4.4 cm) suspicious for pulmonary artery hypertension though this is a clinical diagnosis and further clinical correlation is recommended. Further, ectatic dilated superior vena cava identified potentially a function of right heart failure possible right or failure. Clinically correlate further. - Repeat chest CT shows No acute infiltrate. Cardiomegaly and dilated main p ulmonary artery. No pleural effusion. Multiple stable mild thoracic and upper lumbar vertebral compression deformities. Additional minor findings as above. (see full report) -Treatment as per pulmonology Hx of Hypertension -Clonidine 0.2mg PO BID -Norvasc discontinued -Vital signs Q4H Acute on Chronic Kidney Disease -Baseline Cr 2.5 -Continue Lasix 40mg PO daily 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 (HD for 5 years and kidney transplant at [facility] 10/01/2001) -Continue Tacrolimus 3mg PO BID -Continue Sensipar 90mg PO daily, sodium bicarb 325mg PO BID -Tacrolimus level therapeutic -Nephrology on consult, Dr Sykes, help appreciated History of lupus; chronic -c/w prednisone daily Macrocytic Anemia; stable and chronic -Hgb stable -Vitamin B12 and folate within normal range -Monitor serial CBCs Constipation - was given Lactulose once on 07/11/18, gave additional dose of lactulose on 07/12/18. - Miralax 17gm PO BID - continue to monitor for BM Sacral Wound - Stage 2 - Continue repositioning and protective cream - Wound care nurse following Prophylactic measure DVT: contraindicated 2/2 to thrombocytopenia GI: Pepcid 20mg PO BID 2/2 to high dose and chronic steroid use Disposition: Patient will need 24 hour home O2 (3L) (ideally would need high flow); PT recommends AAKASH however patient refusing; -Patient will also need home assistance; patient is not independent and needs help most of the day 2/2 to deconditioning, RA M05.611, M32.9 lupus, M41.9 severe kyphoscoloiosis Case discussed with Dr. Lubna Odell DO PGY-2
[2018-07-18] MEDS: Sevelamer Carb 0.8 gm/Packet PO SCH ×3 (08:17→17:31)
--- NOTE | 2018-07-18 09:08 | CP.PCM.PN ---
Subjective - Date & Time of Evaluation Date of Evaluation: 07/18/18 Time of Evaluation: 09:06 - Subjective Subjective: Refusing labs Confused due to dementia HTN controlled appears to be less congested Objective - Vital Signs/Intake and Output Vital Signs (last 24 hours): Temp Pulse Resp BP Pulse Ox 98.2 F 97 H 20 140/87 100 07/18/18 08:00 07/18/18 08:00 07/18/18 08:00 07/18/18 08:00 07/18/18 08:00 Intake and Output: 07/18/18 07/18/18 06:59 18:59 Intake Total 400 150 Balance 400 150 - Medications Medications: Current Medications Apixaban (Eliquis) 2.5 mg PO BID [facility] Last Admin: 07/17/18 18:05 Dose: 2.5 mg Cinacalcet (Sensipar) 90 mg PO DAILY [facility] Last Admin: 07/17/18 11:09 Dose: 90 mg Clonidine HCl (Catapres) 0.2 mg PO BID [facility] Last Admin: 07/17/18 18:11 Dose: 0.2 mg Epoetin Percy (Procrit) 10,000 unit SC MWF [facility] Last Admin: 07/17/18 11:45 Dose: 10,000 unit Famotidine (Pepcid) 20 mg PO DAILY [facility] Last Admin: 07/17/18 11:11 Dose: 20 mg Furosemide (Lasix) 40 mg PO BID [facility] Last Admin: 07/17/18 18:05 Dose: 40 mg Polyethylene Glycol (Miralax) 17 gm PO BID [facility] Last Admin: 07/17/18 18:13 Dose: 17 gm Prednisone (Prednisone Tab) 20 mg PO DAILY [facility]; Taper Stop: 07/26/18 09:59 Last Admin: 07/17/18 11:10 Dose: 20 mg Rosuvastatin Calcium (Crestor) 5 mg PO HS [facility] Saccharomyces Boulardii (Florastor) 250 mg PO BID [facility] Last Admin: 07/17/18 18:11 Dose: 250 mg Sevelamer Carbonate (Renvela) 0.8 gm PO TIDCC [facility] Last Admin: 07/17/18 17:00 Dose: 0.8 gm Sodium Bicarbonate (Sodium Bicarbonate Tab) 325 mg PO BID [facility] Last Admin: 07/17/18 18:04 Dose: 325 mg Tacrolimus (Prograf Cap) 3 mg PO BID [facility] Last Admin: 07/17/18 18:05 Dose: 3 mg - Labs Labs: 07/14/18 08:17 07/14/18 08:17 PT 12.3 SECONDS (9.7-12.2) H 06/30/18 13:31 INR 1.1 06/30/18 13:31 APTT 30 SECONDS (21-34) 06/30/18 13:31 - Constitutional Appears: No Acute Distress, Chronically Ill - Head Exam Head Exam: ATRAUMATIC, NORMAL INSPECTION - Eye Exam Eye Exam: EOMI, Normal appearance - Neck Exam Neck Exam: Normal Inspection. absent: Tenderness - Respiratory Exam Respiratory Exam: Clear to Ausculation Bilateral, NORMAL BREATHING PATTERN - Cardiovascular Exam Cardiovascular Exam: REGULAR RHYTHM, +S1 - GI/Abdominal Exam GI & Abdominal Exam: Soft. absent: Tenderness - Extremities Exam Extremities Exam: Normal Inspection. absent: Tenderness - Neurological Exam Neurological Exam: Altered, CN II-XII Intact - Skin Skin Exam: Dry, Warm Assessment and Plan (1) Restrictive lung disease Status: Acute (2) Hypoxemia Status: Acute (3) CKD (chronic kidney disease) stage 4, GFR 15-29 ml/min Status: Acute (4) SEBASTIAN (acute kidney injury) Status: Acute (5) History of kidney transplant Status: Acute (6) Medical non-compliance Status: Acute - Assessment and Plan (Free Text) Plan: lower lasix dose try to obtain labs again
[2018-07-18 09:46] LABS: ALB/GLOB RATIO 1.5 (1.0-2.1); ALBUMIN 3.5 g/dL (3.5-5.0); CALCIUM 11.1 mg/dl (8.6-10.4)
[2018-07-18] MEDS: POLYETHYLENE GLYCOL 3350 17 GM/Dose PACKET PO SCH ×2 (11:11→17:31)
[2018-07-18] MEDS: Saccharomyces Boulardi 250 mg Cap PO SCH ×2 (11:17→17:32)
[2018-07-18 12:34] LABS: BASO % 0.2 % (0.0-2.0); EOS % 0.1 % (0.0-4.0); HEMOGLOBIN 8.6 g/dL (11.0-16.0); LYMPH # 0.5 K/uL (1.0-4.3); MEAN CORPUSCULAR HGB CONC 33.2 g/dL (33.0-37.0); MEAN PLATELET VOLUME 10.8 fL (7.2-11.7); MONO # 0.3 K/uL (0.0-0.8); MONO % 4.2 % (0.0-10.0); NEUT # 7.3 K/uL (1.8-7.0); NEUT % 89.5 % (50.0-75.0); NRBC % 0.1 % (0.0-2.0); PLATELET COUNT 51 K/uL (130-400); RBC 2.51 Mil/uL (3.80-5.20); RED CELL DISTRIBUTION WIDTH 14.1 % (11.5-14.5); WHITE BLOOD COUNT 8.1 K/uL (4.8-10.8)
[2018-07-18 12:39] LABS: MEAN CELL VOLUME 102.4 fL (81.0-99.0)
[2018-07-18 12:56] LABS: LYMPHOCYTE 11 % (20-40); MONOCYTE 4 % (0-10); MYELOCYTE 1 % (0-0); NEUTROPHIL 84 % (50-75); NUCLEATED RED BLOOD CELL 1 % (0-0); PLATELET ESTIMATE DECREASED (NORMAL); TOTAL CELLS COUNTED 100
[2018-07-18 12:57] LABS: ANISOCYTOSIS SLIGHT; HYPOCHROMIC SLIGHT; OVALOCYTES SLIGHT; POIKILOCYTOSIS SLIGHT; TARGET CELLS SLIGHT; TEARDROP CELLS SLIGHT
[2018-07-18 17:36] VITALS: PULSE 63
[2018-07-18 17:37] VITALS: BP 108/73
[2018-07-18 18:12] VITALS: TEMP 98.3; O2SAT 98
--- NOTE | 2018-07-18 22:20 | CP.PCM.PN ---
Subjective - Date & Time of Evaluation Date of Evaluation: 07/18/18 Time of Evaluation: 09:00 - Subjective Subjective: Confused Objective - Vital Signs/Intake and Output Vital Signs (last 24 hours): Temp Pulse Resp BP Pulse Ox 98.3 F 63 20 108/73 98 07/18/18 16:00 07/18/18 17:36 07/18/18 16:00 07/18/18 17:36 07/18/18 16:00 Intake and Output: 07/18/18 07/19/18 18:59 06:59 Intake Total 150 Balance 150 - Labs Labs: 07/18/18 12:23 07/18/18 09:01 PT 12.3 SECONDS (9.7-12.2) H 06/30/18 13:31 INR 1.1 06/30/18 13:31 APTT 30 SECONDS (21-34) 06/30/18 13:31 - Head Exam Head Exam: ATRAUMATIC - Eye Exam Eye Exam: Normal appearance - ENT Exam ENT Exam: Mucous Membranes Dry - Respiratory Exam Respiratory Exam: NORMAL BREATHING PATTERN - Cardiovascular Exam Cardiovascular Exam: +S1, +S2 - GI/Abdominal Exam GI & Abdominal Exam: Normal Bowel Sounds Assessment and Plan (1) Deep vein thrombosis (DVT) of left upper extremity Assessment & Plan: on Eliquis Status: Acute (2) Thrombocytopenia Assessment & Plan: SLE and immunosuppresion Status: Acute (3) Anemia Assessment & Plan: chronic disease and SLE Status: Acute
--- NOTE | 2018-07-26 09:39 | DS ---
The patient has complaint of weakness, fatigue, tiredness, and shortness of breath. The patient has progressed to IV antibiotics, supportive care, oxygen, and steroid. The patient is showing very slow gradual improvement. pneumonia, COPD,lupus, and renal failure. Gato Calvo MD
== END 2018-07-18 19:19 | disposition home health service (06) | DRG 189 ==
LOC: C.ER 11:43 → UNDOADMOB 14:42 → OBSVTOIN 14:42 → C.9E 14:42 → INTOOBSV 14:42 → C.9E 15:32 → C.6T 15:32 → OBSVTOIN 07-02 19:59 → C.6T 07-02 19:59 → C.9E 07-02 19:59 → C.5S 07-16 09:24 → C.3T 07-17 08:59
PROVIDERS: ADMIT Internal Medicine Pulmonary Disease; ATTEND Internal Medicine Pulmonary Disease
PROC: 5A09457 Assistance with Respiratory Ventilation, 24-96 Consecutive Hours, Continuous Positive Airway Pressure (ICD-10-PCS; principal; 2018-06-30)
DX: J96.21 Acute and chronic respiratory failure with hypoxia (principal); J18.9 Pneumonia, unspecified organism; I50.33 Acute on chronic diastolic (congestive) heart failure; J44.0 Chronic obstructive pulmonary disease with (acute) lower respiratory infection; I13.0 Hypertensive heart and chronic kidney disease with heart failure and stage 1 through stage 4 chronic kidney disease, or unspecified chronic kidney disease; N17.9 Acute kidney failure, unspecified; N18.4 Chronic kidney disease, stage 4 (severe); Z94.0 Kidney transplant status; I82.B12 Acute embolism and thrombosis of left subclavian vein; I82.C12 Acute embolism and thrombosis of left internal jugular vein; M40.204 Unspecified kyphosis, thoracic region; E86.0 Dehydration; R64 Cachexia; M32.14 Glomerular disease in systemic lupus erythematosus; I27.20 Pulmonary hypertension, unspecified; D63.1 Anemia in chronic kidney disease; J98.11 Atelectasis; D69.6 Thrombocytopenia, unspecified; K59.00 Constipation, unspecified; D53.9 Nutritional anemia, unspecified; F03.90 Unspecified dementia, unspecified severity, without behavioral disturbance, psychotic disturbance, mood disturbance, and anxiety; E83.52 Hypercalcemia; T38.0X5A Adverse effect of glucocorticoids and synthetic analogues, initial encounter; I27.21 Secondary pulmonary arterial hypertension; Z51.5 Encounter for palliative care; Z66 Do not resuscitate; F41.9 Anxiety disorder, unspecified; H26.9 Unspecified cataract; Z91.19 Patient's noncompliance with other medical treatment and regimen; Z79.52 Long term (current) use of systemic steroids; Z74.01 Bed confinement status; Z99.81 Dependence on supplemental oxygen; Z79.01 Long term (current) use of anticoagulants; Z90.710 Acquired absence of both cervix and uterus; J98.4 Other disorders of lung